=== PATIENT | female | born 1975 | race Caucasian/White ===

== ENCOUNTER 2020-11-27 21:53 | Emergency (ER) | payer MEDICAID, SELFPAY ==
[2020-11-27 22:23] VITALS: BP 112/44; PULSE 68; RESP 20; TEMP 36.8; O2SAT 97; BMI 40.4
[2020-11-27 23:31] LABS: Amphetamine Screen Urine Not Detected (Not Detect); Appearance Urine CLEAR; Barbiturates, Urine Not Detected (Not Detect); Benzodiazepines Screen Urine Not Detected (Not Detect); Cannabinoid Screen Urine Not Detected (Not Detect); Cocaine Screen Urine Not Detected (Not Detect); Color Urine YELLOW; Fentanyl, urine POSITIVE (Not Detect); Glucose Urine UA NEG (NEG); Leukocyte Esterase Urine NEG (NEG); Nitrite Urine NEG (NEG); Opiate Screen Urine Not Detected (Not Detect); Phencyclidine Screen Urine Not Detected (Not Detect); Specific Gravity - Urine <= 1.005 (1.005-1.025); Urine Blood NEG (NEG); Urine Ketones NEG (NEG); Urine Protein NEG (NEG-TRACE)
--- NOTE | 2020-11-28 00:08 | ED_ITS ---
HPI - Medical Clearance General Chief complaint: Medical Clearance Stated complaint: Medical Clearance Time Seen by Provider: 11/28/20 00:08 Source: patient Mode of arrival: ambulatory Limitations: no limitations History of Present Illness HPI Narrative: States lead medical screening/drug screening before she could return to program. Offers no medical complaints. MD complaint: medical clearance requested Place: home Alleged Intoxication: No Compliant with Home Medications: No Associated Symptoms: denies other symptoms Treatments Prior to Arrival: none Related Information Allergies Allergy/AdvReac Type Severity Reaction Status Date / Time clozapine [CLOZAPINE] Allergy Unknown UNKNOWN Unverified 11/18/19 17:55 olanzapine [From ZYPREXA] Allergy Unknown UNKNOWN Unverified 11/18/19 17:55 shellfish derived Allergy Unknown UNKNOWN Unverified 11/18/19 17:55 [SHELLFISH DERIVED] Review of Systems Review of Systems: Constitutional: No Weight loss, No Fever, No Chills, No Night Sweats, No Fatigue, No Malaise ENT/Mouth: No Hearing loss, No Ear Pain, No Nasal Congestion, No Sinus Pain, No Hoarseness, No sore throat, No Rhinorrhea, No Swallowing Difficulty Eyes: No Eye Pain, No Swelling, No Redness, No Foreign Body, No Discharge, No Vision Changes Cardiovascular: No Chest Pain, No SOB, No Dyspnea on Exertion, No Orthopnea, No Edema, No Palpitations Respiratory: No Cough, No Sputum, No Wheezing, No Smoke Exposure, No Dyspnea Gastrointestinal: No Nausea, No Vomiting, No Diarrhea, No Constipation, No abdominal Pain, No Hematochezia, No Melena Genitourinary: no irregular bleeding, No Dysuria, No Urinary Frequency, No Hematuria, No Urinary Incontinence, No Urgency, No Flank Pain, No Urinary Flow C hanges, No Hesitancy Musculoskeletal: No joint pain, No Myalgias, No Joint Swelling Skin: No Skin Lesions, No rash Neuro: No Weakness, No Numbness, No Paresthesias, No Loss of Consciousness, No Dizziness, No Headache Psych: No Social Issues Heme/Lymph: No Bruising, No Bleeding,No Lymphadenopathy Endocrine: No Polyuria, No Polydipsia, No Temperature Intolerance Yes all other systems are reviewed and are negative PMFSH Social History Social History Advance Directives: No Advance Directives Information Provided: No Patient : No Physical Exam Vital Signs: Vital Signs: Last Vital Signs Temp 98.3 F 11/27/20 22:23 Pulse 68 11/27/20 22:23 Resp 20 11/27/20 22:23 BP 112/44 L 11/27/20 22:23 Pulse Ox 97 11/27/20 22:23 Body Mass Index 40.4 Const: General: cooperative and healthy appearing; No acute distress or intoxicated appearing Nutritional Appearance: average body habitus Orientation/consciousness: patient oriented x3 HENMT: Head: Yes normal to inspection Ears: hearing grossly normal bilaterally Eyes: General: appearance normal, both eyes and all related structures Vi sual Bronson: normal visual bronson by confrontation Neck: Neck: Yes normal visual inspection, No positive Brudzinski's sign, No positive Kernig's sign and No tender Thyroid: Thyroid normal Chest: Chest palpation & inspection: normal inspection of the chest Resp: Effort & Inspection: normal respiratory effort Cardio: Jugular venous distension: no JVD GI: Inspection: Yes normal to inspection Percussion: Yes normal to percussion Auscultation: normal bowel sounds : General: Yes no CVA tenderness Back/Spine/Pelvis: Back: no CVA tenderness Skin: General skin exam: no rashes or lesions noted Neuro: General: patient oriented x3 Extrem: General: Yes normal to inspection Course Reevaluation(s) Reevaluation #1: Vital stable, offers no medical complaints. U tox and cleared for program. MDM - Medical Clearance Lab Data Labs: Lab Results 11/27/20 11/27/20 Range/Units 23:13 23:13 Urine Color YELLOW Urine Appearance CLEAR Urine pH 6.0 (5.0-8.0) Ur Specific [place] <= 1.005 (1.005-1.025) Urine Protein NEG (NEG-TRACE) MG/DL Urine Glucose (UA) NEG (NEG) MG/DL Urine Ketones NEG (NEG) MG/DL Urine Blood NEG (NEG) Urine Nitrite NEG (NEG) Ur Leukocyte Esterase NEG (NEG) Urine Opiates Screen Not Detected (Not Detect) Urine Fentanyl Screen POSITIVE H (Not Detect) Ur Barbiturates Screen Not Detected (Not Detect) Ur Phencyclidine Scrn Not Detected (Not Detect) Ur Amphetamines Screen Not Detected (Not Detect) U Benzodiazepines Scrn Not Detected (Not Detect) Urine Cocaine Screen Not Detected (Not Detect) U Marijuana (THC) Screen Not Detected (Not Detect) Discharge Plan Discharge Clinical Impression: Substance abuse, Encounter for medical screening examination Patient Disposition: Home, Self-Care Referrals: Valerie White MD [Primary Care Provider] - 2 days
== END 2020-11-28 00:36 | disposition home or self-care (01) ==
PROVIDERS: Emergency Provider Emergency Medicine; PCP Internal Medicine
DX: F11.10 Opioid abuse, uncomplicated (principal); Z02.89 Encounter for other administrative examinations; Z79.899 Other long term (current) drug therapy
CPT/HCPCS: 80307; 81003; 99284

== ENCOUNTER 2021-11-29 20:22 | Emergency (ER) | payer MEDICAID, SELFPAY ==
--- NOTE | ~2021-11-29 | XR_ITS ---
EXAMINATION: XR HIP, RIGHT CLINICAL INFORMATION: Right hip pain COMPARISON: None TECHNIQUE: Two views of the right hip. FINDINGS: Bones and soft tissues are normal. No fracture. Alignment is anatomic. Hip joint space is maintained. XR/XR hip RT w PEL1V IMPRESSION: Normal right hip.
[2021-11-29 20:38] VITALS: BP 125/60; PULSE 90; O2SAT 97
[2021-11-29 20:43] VITALS: PULSE 75; RESP 16; TEMP 36.8; O2SAT 97; BMI 45.1
--- NOTE | 2021-11-29 20:47 | ED.GENADULT ---
HPI - General Adult General Chief complaint: Medical Clearance Stated complaint: Detox Time Seen by Provider: 11/29/21 20:39 Source: patient and EMS Limitations: no limitations History of Present Illness HPI narrative: patient comes to the emergency room via EMS. According to EMS, patient needs detox clearance to return to her long-term. Patient recently relapsed. Patient comes from a dual diagnosis facility. patient complaining sciatica and right hip pain. denies urinary/ fecal incontinence/ retention Related Data Allergies Allergy/AdvReac Type Severity Reaction Status Date / Time clozapine [CLOZAPINE] Allergy Unknown UNKNOWN Unverified 11/18/19 17:55 olanzapine [From ZYPREXA] Allergy Unknown UNKNOWN Unverified 11/18/19 17:55 shellfish derived Allergy Unknown UNKNOWN Unverified 11/18/19 17:55 [SHELLFISH DERIVED] Review of Systems Review of Systems: Constitutional : No Weight loss, No Fever, No Chills, No Night Sweats, No Fatigue, Complaining of generalized ENT/Mouth : No Hearing loss, No Ear Pain, No Nasal Congestion, No Sinus Pain, No Hoarseness, No sore throat, No Rhinorrhea, No Swallowing Difficulty Eyes: No Eye Pain, No Swelling, No Redness, No Foreign Body, No Discharge, No Vision Changes Cardiovascular : No Chest Pain, No SOB, No Dyspnea on Exertion, No Orthopnea, No Edema, No Palpitations Respiratory : No Cough, No Sputum, No Wheezing, No Smoke Exposure, No Dyspnea Gastrointestinal : No Nausea, No Vomiting, No Diarrhea, No Constipation, No abdominal Pain, No Hematochezia, No Melena Genitourinary : no irregular bleeding, No Dysuria, No Urinary Frequency, No Hematuria, No Urinary Incontinence, No Urgency, No Flank Pain, No Urinary Flow Changes, No Hesitancy Musculoskeletal : complaining of right hip pain and sciatica, No Myalgias, No Joint Swelling Skin : No Skin Lesions, No rash Neuro : No Weakness, No Numbness, No Paresthesias, No Loss of Consciousness, No Dizziness, No Headache Psych : Needs medical clearance to return to her dual diagnosis facility Heme/Lymph: No Bruising, No Bleeding,No Lymphadenopathy Endocrine : No Polyuria, No Polydipsia, No Temperature Intolerance PMFSH Past Medical History Medical History (Updated 11/29/21 @ 22:12 by Marina Irving MD) Substance abuse Physical Exam ED Vital Signs: Vital Signs - 24 hr 11/29/21 20:43 11/29/21 21:48 Temperature 98.2 F 98.5 F Pulse Rate 75 77 Respiratory Rate 16 16 Blood Pressure 104/41 L Pulse Oximetry 97 97 Oxygen Delivery Method Room Air Room Air BMI result Body Mass Index 45.1 Const Other: Appearance: Alert. Oriented X3. No acute distress. Eyes: Pupils equal, round and reactive to light. ENT: Pharynx normal. Neck: Normal inspection. Neck supple. No lymph nodes noted. No crepitus CVS: Normal heart rate and rhythm. Pulses normal. Normal S1 and S2 Respiratory: No respiratory distress. Breath sounds normal. No Wheezing. No rales Abdomen: Soft and nontender. No rigidity. No distention. Skin: Skin warm and dry. Normal skin color. Normal skin turgor. Extremities: No lower extremity edema. No Lacerations. No Rash Neuro: Oriented X 3. No motor deficit. No sensory deficit. Moving all extremities. No slurred speech. CN 2 through 12 grossly intact Psych: calm, cooperative, seems intoxicated/high Course Course Course Narrative: patient complaining of generalized weakness, all of patient's labs are pending. labs have been reviewed. Urine toxicology pending. The assistant field hockey coach evaluated the patient. Patient will be discharged on November 30, tomorrow at 07:30am. The care team will provide a lift to [facility] detox in [facility]. patient is not on a Section 12. Physician observation started at 22:12 Medical Decision Making Lab Data Result diagrams: 11/29/21 21:30 11/29/21 21:30 Labs: Lab Results 11/29/21 11/29/21 11/29/21 Range/Units 21:21 21:30 21:30 WBC 11.8 H (4.8-10.8) X10*3/uL RBC 3.86 L (4.20-5.50) X10*6/uL Hgb 11.1 L (12.0-16.0) g/dl Hct 35.0 L (37.0-47.0) % MCV 90.7 (80.0-98.0) fL MCH 28.8 (27.0-33.0) pg MCHC 31.7 (31.0-35.0) g/dl RDW 16.5 H (11.0-16.0) % Plt Count 137 L (160-400) X10*3/uL MPV 8.9 L (9.4-12.3) fL Immature Gran % (Auto) 0.3 (0.0-0.4) % Neut % (Auto) 68.1 (45-73) % Lymph % (Auto) 21.1 (20-40) % [place] % (Auto) 9.8 (2-11) % Eos % (Auto) 0.4 (0-4) % Baso % (Auto) 0.3 (0-2) % Lymph # (Auto) 2.5 (1.2-4.9) X10*3/uL [place] # (Auto) 1.2 (0.1-1.2) X10*3/uL Eos # (Auto) 0.1 (0.0-0.4) X10*3/uL Baso # (Auto) 0.0 (0.0-0.2) X10*3/uL Abs Immat Gran (auto) 0.04 H (0.00-0.03) X10*3/uL Absolute Neuts (auto) 8.0 (2.0-8.3) x10*3/uL Absolute Nucleated RBC 0.000 (0.0-0.012) X10*3/uL Nucleated RBC % (auto) 0.0 (0.0-0.2) /100WBC Sodium 138 (135-145) mmol/L Potassium 4.1 (3.3-5.1) mmol/L Chloride 101 (96-108) mmol/L Carbon Dioxide 27 (22-29) mmol/L Anion Gap 14 (12-20) BUN 30 H (9-16) mg/dL Creatinine 0.81 (0.5-1.4) mg/dL Estim Creat Clear Calc 98.7 Estimated GFR > 60 Random Glucose 89 (60-115) mg/dL Calcium 9.0 (8.4-10.2) mg/dL Magnesium 1.9 (1.6-2.6) mg/dL Total Bilirubin 0.2 (0.0-1.0) mg/dL Direct Bilirubin < 0.2 (0.0-0.5) mg/dL AST 45 H (5-31) U/L ALT 19 (0-31) U/L Alkaline Phosphatase 83 (39-117) U/L Total Protein 7.7 (6.5-8.0) g/dL Albumin 4.1 (3.5-5.0) g/dL Ethyl Alcohol < 10 mg/dL COVID-19 (PAIGE) Negative (Negative) COVID-19 Clin Com See Note Discharge Plan Discharge Clinical Impression: Substance abuse Patient Disposition: Still a Patient Instructions: Polysubstance Abuse (ED) Additional Instructions: Please follow-up with your primary care physician tomorrow. If you have any worsening or new symptoms, please return to the emergency room or call 911
[2021-11-29 21:37] LABS: MANUAL DIFF FLAG NO
[2021-11-29 21:40] LABS: Basophils Percent Auto 0.3 % (0-2); Eosinophils Absolute Auto 0.1 X10*3/uL (0.0-0.4); Eosinophils Percent Auto 0.4 % (0-4); Hemoglobin 11.1 g/dl (12.0-16.0); Imm Gran Abs Auto 0.04 X10*3/uL (0.00-0.03); Imm Gran Pct Auto 0.3 % (0.0-0.4); Lymphocytes Absolute Auto 2.5 X10*3/uL (1.2-4.9); Lymphocytes Percent Auto 21.1 % (20-40); Mean Corpuscular HGB Conc 31.7 g/dl (31.0-35.0); Mean Corpuscular Hemoglobin 28.8 pg (27.0-33.0); Mean Corpuscular Volume 90.7 fL (80.0-98.0); Mean Platelet Volume 8.9 fL (9.4-12.3); Monocytes Absolute Auto 1.2 X10*3/uL (0.1-1.2); Monocytes Percent Auto 9.8 % (2-11); Neutrophils Percent Auto 68.1 % (45-73); Platelet Count 137 X10*3/uL (160-400); Red Blood Count 3.86 X10*6/uL (4.20-5.50); Red Cell Distribution Width 16.5 % (11.0-16.0); White Blood Count 11.8 X10*3/uL (4.8-10.8)
[2021-11-29 21:41] LABS: COVID-19 Test Negative (Negative)
--- NOTE | 2021-11-29 21:42 | MHC.RECOVSUP ---
? Reason for consult:ETOH o? Current location:[facility]14? o? Identified substance use concern:? -? Seeking ATS (detox) -? Support ? Intervention: o? ATS bed search started/completed/in process o? Harm reduction discussion ? Plan: o? Bed search in progress to o? Follow up tomorrow? ? Additional information:[facility] contacted [facility], they said beds are available, we can send pt there, agreed to keep pt overnight until morning. Care Team follow up w/ [facility]? ethan FUNK for pt? Thank you!
[2021-11-29 21:48] VITALS: BP 104/41; PULSE 77; RESP 16; TEMP 36.9; O2SAT 97
--- NOTE | 2021-11-29 21:49 | PC.NURSE ---
PATIENT BELONGINGS IS IN DECON.,PATIENT HAD A HAM SANDWICH AND APPLE JUICE
[2021-11-29 21:58] LABS: Alanine Aminotransferase 19 U/L (0-31); Albumin Level 4.1 g/dL (3.5-5.0); Alkaline Phosphatase 83 U/L (39-117); Anion Gap 14 (12-20); Aspartate Amino Transferase 45 U/L (5-31); Bilirubin Direct < 0.2 mg/dL (0.0-0.5); Bilirubin Total 0.2 mg/dL (0.0-1.0); Blood Urea Nitrogen 30 mg/dL (9-16); Carbon Dioxide 27 mmol/L (22-29); Chloride 101 mmol/L (96-108); Creatinine Clr Calc Pharmacy 98.7; Estimated Glomerular Filt Rate > 60; Ethanol < 10 mg/dL; Glucose Random 89 mg/dL (60-115); Magnesium 1.9 mg/dL (1.6-2.6); Potassium 4.1 mmol/L (3.3-5.1); Sodium 138 mmol/L (135-145); Total Protein 7.7 g/dL (6.5-8.0)
[2021-11-30] VITALS: BP 110/55; PULSE 84; RESP 16; TEMP 36.8; O2SAT 96
--- NOTE | 2021-11-30 01:38 | PC.NURSE ---
Repot received and care assumed at 2300. Pt noted to be resting comfortably in stretcher with eyes closed, respirations even and unlabored without distress noted. Call olivera is in reach and RN will continue to monitor. Staff aware of need for Urine sample and will obtain at the pt's next void.
[2021-11-30 02:00] VITALS: BP 108/56; PULSE 78; RESP 16; TEMP 36.7; O2SAT 97
--- OUTSIDE RECORDS SUMMARY | 2021-11-30 05:51 | XMS_ITS | Continuity of Care Document ---
:1975 Author Organization [facility] Address [address] [place] [address]- Care Team Providers Name Role Phone Not on Staff, PCP Primary Care Physician Unavailable Encounter [facility] Date(s): 07/20/21 - 07/21/21 [facility] [address] [place] [id number] Encounter Diagnosis Drug intoxication (Final) - 07/20/21 Discharge Disposition: A-D/C Home Attending Physician: Kristopher Ridley MD, Melyssa Admitting Physician: Kristopher Ridley MD, Melyssa Referring Physician: Not on Staff, Referring MD Allergies, Adverse Reactions, Alerts Substance Reaction Severity Status cloZAPine Active shellfish Unknown body region Active Clozaril Unknown body region Active ZyPREXA Unknown body region Active Immunizations Given and Recorded Vaccine Date Status Refusal Reason tetanus/diphtheria/pertussis, acel(Tdap) 10/18/14 Given pneumococcal 23-valent vaccine1 01/31/09 Given Not Given Vaccine Date Status Refusal Reason influenza virus vaccine, inactivated 12/26/20 Not Given Patient Refuses influenza virus vaccine, inactivated 12/06/20 Not Given Patient Refuses influenza virus vaccine, inactivated 01/24/14 Not Given Patient Refuses SARS-CoV-2 (COVID-19) Ad26 vaccine 09/20/20 Not Given Patient Refuses 1Result Comment: Lot #[id number]. Medications acetaminophen 325 mg oral tablet 650 mg, By Mouth, Every 4 hours, PRN, Temperature Greater than 100.5, Refills 0, Maintenance, Pain ,Mild, 12/06/20 16:09:00 EDT, Partial fill upon patient request if the prescription is for a scheduleII opioid drug. Start Date: 12/06/20 Status: OrderedAcetaminophen Tablet 650 mg, Tablet, By Mouth, Every 8 hours, PRN for Pain , Moderate, STAT, 07/21/21 0:23:00 EDT Start Date: 07/21/21 Stop Date: 07/22/21 Status: DiscontinuedAdvair Diskus 500 mcg-50 mcg inhalation powder Refills 0, Maintenance, 07/21/21 6:10:00 EDT Start Date: 07/21/21 Status: Orderedbenztropine 0.5 mg oral tablet 0.5 mg, 1, tablet, By Mouth, 2 times a day, # 60 tablet, Refills 0, Tot. Refills 0, Maintenance, 02/28/20 15:07:00 EST, Route to Pharmacy Electronically, [facility]/pharmacy #[id number], Partial fill upon patient request if the prescription is for a schedule II op... Start Date: 02/28/20 Stop Date: 03/29/20 Status: OrderedbusPIRone 15 mg oral tablet 2 tablet = 30 mg, By Mouth, Daily in AM, 0 Refills, Maintenance, 12/03/20 11:38:00 EDT, Partial fillupon patient request if the prescription is for a schedule II opioid drug. Start Date: 12/03/20 Status: OrdereddiphenhydrAMINE 50 mg oral tablet 1 tablet = 50 mg, By Mouth, Daily at bedtime, PRN for insomnia, # 30 tablet, 0 Refills, Maintenance,12/03/20 11:50:00 EDT, Tablet, Partial fill upon patient request if the prescription is for a schedule II opioid drug. Start Date: 12/03/20 Status: Ordereddivalproex sodium 500 mg oral tablet, extended release 2 tablet = 1,000 mg, By Mouth, Daily at bedtime, # 20 tablet, 0 Refills, Maintenance, 02/08/20 11:47:00 EST, ER Tablet, [facility]/pharmacy #[id number], Partial fill upon patient request if the prescription is for a schedule II opioid drug., 158, cm, 02/08/20 7:52... Start Date: 02/08/20 Stop Date: 02/18/20 Status: OrderedFish Oil 1000 mg oral capsule 1 capsule = 1,000 mg, By Mouth, 2 times a day, 0 Refills, Maintenance, 12/03/20 11:51:00 EDT, Capsule, Partial fill upon patient request if the prescription is for a schedule II opioid drug. Start Date: 12/03/20 Status: Orderedfluticasone-salmeterol 500 mcg-50 mcg inhalation powder 1, inhalation, Inhalation, 2 times a day, rinse mouth and throat after use, Refills 0, Maintenance, 12/03/20 11:41:00 EDT, Powder Start Date: 12/03/20 Status: Orderedibuprofen 800 mg oral tablet Refills 0, Maintenance, 07/21/21 6:10:00 EDT, Partial fill upon patient request if the prescription is for a schedule II opioid drug. Start Date: 07/21/21 Status: Orderedlevothyroxine 75 mcg (0.075 mg) oral tablet = 75 mcg, By Mouth, Daily, # 10 tablet, 0 Refills, Maintenance, 02/08/20 11:48:00 EST, Tablet, [facility]/pharmacy #[id number], Partial fill upon patient request if the prescription is for a schedule II opioid drug., 158, cm, 02/08/20 7:52:00 EST, Height, 97.3, kg... Start Date: 02/08/20 Stop Date: 02/18/20 Status: Orderedlisinopril 5 mg oral tablet 5 mg, 1, tablet, By Mouth, Daily, # 30 tablet, Refills 1, Tot. Refills 1, Maintenance, 09/27/20 8:17:00 EDT, Print Requisition, Partial fill upon patient request if the prescription is for a schedule II opioid drug. Start Date: 09/27/20 Stop Date: 11/26/20 Status: Orderedmethadone 10 mg oral tablet 3 tablet = 30 mg, By Mouth, Daily in AM, 0 Refills, Maintenance, 12/29/20 13:01:00 EDT, Tablet, Partial fill upon patient request if the prescription is for a schedule II opioid drug. Start Date: 12/29/20 Status: OrderedMiraLax Powder 1 pack/packet = 17 Gm, By Mouth, Daily, PRN Constipation, 0 Refills, Maintenance, 12/06/20 16:09:00 EDT, Powder, Partial fill upon patient request if the prescription is for a schedule II opioid drug. Start Date: 12/06/20 Status: OrderedNarcan 4 mg/0.1 mL nasal spray 0 Refills, Maintenance, 07/21/21 6:07:00 EDT, Partial fill upon patient request if the prescription is for a schedule II opioid drug. Start Date: 07/21/21 Status: Orderednicotine 14 mg/24 hr transdermal film, extended release 1 patch, Topically, Daily, # 30 patch, 0 Refills, Maintenance, 12/03/20 11:49:00 EDT, Patch, Partialfill upon patient request if the prescription is for a schedule II opioid drug. Start Date: 12/03/20 Status: Orderednicotine 4 mg oral transmucosal gum 0 Refills, Maintenance, 07/21/21 6:07:00 EDT, Partial fill upon patient request if the prescription is for a schedule II opioid drug. Start Date: 07/21/21 Status: Orderednicotine 4 mg oral transmucosal gum 0 Refills, Maintenance, 07/21/21 6:10:00 EDT, Partial fill upon patient request if the prescription is for a schedule II opioid drug. Start Date: 07/21/21 Status: Orderedpaliperidone 234 mg/1.5 mL intramuscular suspension, extended release = 234 mg, Intramuscular, Every 28 days, 0 Refills, Maintenance, 12/03/20 11:47:00 EDT, Partial fill upon patient request if the prescription is for a schedule II opioid drug. Start Date: 12/03/20 Status: OrderedpredniSONE 10 mg oral tablet 0 Refills, Maintenance, 07/21/21 6:10:00 EDT, Partial fill upon patient request if the prescription is for a schedule II opioid drug. Start Date: 07/21/21 Status: OrderedProAir HFA 2 puffs, Inhalation, Every 4 hours, 0 Refills, Maintenance, 12/03/20 11:36:00 EDT, Partial fill uponpatient request if the prescription is for a schedule II opioid drug. Start Date: 12/03/20 Status: Orderedpropranolol 20 mg oral tablet 20 mg, 1, tablet, By Mouth, Every 6 hours, # 90 tablet, Refills 0, Maintenance, 12/03/20 11:49:00 EDT, Partial fill upon patient request if the prescription is for a schedule II opioid drug. Start Date: 12/03/20 Status: OrderedrisperiDONE 1 mg oral tablet 1 mg, 1, tablet, By Mouth, Daily, Refills 0, Maintenance, 07/21/21 6:07:00 EDT, Partial fill upon patient request if the prescription is for a schedule II opioid drug. Start Date: 07/21/21 Status: OrderedtraZODone 50 mg oral tablet 50 mg, 1, tablet, By Mouth, Daily at bedtime, PRN, # 30 tablet, Refills 0, Tot. Refills 0, Maintenance, Insomnia, 09/27/20 8:18:00 EDT, Print Requisition, Partial fill upon patient request if the prescription is for a schedule II opioid drug. Start Date: 09/27/20 Stop Date: 10/27/20 Status: Ordered Problem List Condition Effective Dates Status Health Status Informant Cannabis abuse(Confirmed) Active Cocaine abuse(Confirmed) Active Hx of gastroesophageal reflux Active (GERD)(Confirmed) Nicotine dependence(Confirmed) Active Polysubstance abuse(Confirmed) Active Schizoaffective disorder(Confirmed) Active Schizophrenia(Confirmed) Active Hepatitis C(Confirmed) Active Results Radiology Reports Exam Date Time Procedure Performing Provider Status 07/20/21 3:37 PM XR Hip w/Pelvis 1 View Right Bein , Ailyn; Aut h (Verified) Notes:(XR Hip w/Pelvis 1 View Right) Reason For Exam: PainRESULT: XR Hip w/Pelvis 1 View Right XR Hip w/Pelvis 1 View Right HX OF PRESENT ILLNESS: Pt BIBA c o need for detox. On ast states did 1 bag of heroin 1h [employer]. Very fidgety and restless with visible runny nose. C o chest discomfort. Answers Qs intermittently.; Reason:Pain; Clinical Question(s): Fracture COMPARISON: 12/24/2020. FINDINGS: There is no fracture or dislocation. Normal hips and sacroiliac joints. Large volume of stool in the colon. IMPRESSION: Normal appearance of the right hip. WSN: [id number] Ordering Physician: Loren Ayala Dictated By: Henry Dan MD Dictated Date/Time: 07/20/21 3:43 pm Reviewed By: Henry Dan MD Signed By: Henry Dan MD Signed Date/Time: 07/20/21 3:43 pm Transcribed By: ROWENA Transcribed Date/Time: 07/20/21 3:42 pm Exam Date Time Procedure Performing Provider Status 07/20/21 3:37 PM Chest Single Frontal View Bein , Ailyn; Auth ( Verified) Notes:(Chest Single Frontal View) Reason For Exam: Shortness of Breath, Fever;Other:RESULT: Chest Single Frontal View Chest Single Frontal View HX OF PRESENT ILLNESS: Pt BIBA c o need for detox. On ast states did 1 bag of heroin 1h [employer]. Very fidgety and restless with visible runny nose. C o chest discomfort. Answers Qs intermittently.; Reason:Shortness of Breath, Fever; Clinical Question(s): Pneumonia / Pneumonia COMPARISON: 12/12/2020 FINDINGS: LINES AND TUBES: None. LUNGS AND PLEURA: Clear lungs. Normal pulmonary vascularity. No pleural effusion. No pneumothorax. HEART, MEDIASTINUM AND GINGER: Heart appears enlarged but this is likely exaggerated by technique. Normal mediastinal and hilar contour. BONES AND SOFT TISSUES: No acute abnormality. IMPRESSION: No evidence of acute abnormality. WSN: [id number] Ordering Physician: Loren Ayala Dictated By: Henry Dan MD Dictated Date/Time: 07/20/21 3:41 pm Reviewed By: Henry Dan MD Signed By: Henry Dan MD Signed Date/Time: 07/20/21 3:41 pm Transcribed By: ROWENA Transcribed Date/Time: 07/20/21 3:41 pm Vital Signs Most recent to oldest 1 2 3 [Reference Range]: Oxygen Saturation [94-100 %] 95 % 95 % 97 % (07/21/21 2:19 PM) (07/21/21 6:45 AM) (07/21/21 2:0 4 AM) Pulse Rate [55-90 bpm] 70 bpm 63 bpm 69 bpm (07/21/21 2:19 PM) (07/21/21 6:45 AM) (07/21/21 2:0 4 AM) Blood Pressure [90-138/55-84 138/70 mm Hg 140/87 mm Hg 143 /79 mm Hg mm Hg] (07/21/21 2:19 PM) *H* *H* (07/21/21 6:45 AM) (07/21/21 2:04 AM) Respiratory Rate [16-30 18 br/min 17 br/min 15 br/mi n br/min] (07/21/21 2:19 PM) (07/21/21 6:45 AM) *L* (07/21/21 5:36 AM ) Temperature [96.8-100.4 DegF] 98.1 DegF 98.7 DegF 98 .4 DegF (07/21/21 6:45 AM) (07/21/21 2:04 AM) (07/20/21 11: 49 PM) Mode of Delivery (Oxygen) Room air Room air Room a ir (07/21/21 2:19 PM) (07/21/21 6:45 AM) (07/21/21 2:0 4 AM) Blood pressure sites Arm, left Arm, left Arm, left (07/21/21 2:19 PM) (07/21/21 6:45 AM) (07/21/21 2:0 4 AM) Temperature Route Oral Oral Oral (07/21/21 6:45 AM) (07/21/21 2:04 AM) (07/20/21 11: 49 PM) Social History Social History Type Response Smoking Status 10 or more cigarettes (1/2 p ack or more)/day in last 30 days; Type: Cigarettes; Other: Reports 1 ppd; entered on: 02/26/20 Sex
--- OUTSIDE RECORDS SUMMARY | 2021-11-30 05:51 | XMS_ITS | Continuity of Care Document ---
:1975 Author Organization [facility] Address [address] [place] [address]- Care Team Providers Name Role Phone Not on Staff, PCP Primary Care Physician Unavailable [place] [facility] [place] 01/03/[address] [address]- [facility] Discharge Disposition: A-D/C Walkout Attending Physician: Not on Staff, Attending MD Admitting Physician: Not on Staff, Admitting MD Referring Physician: Not on Staff, Referring MD Allergies, Adverse Reactions, Alerts Substance Reaction Severity Status shellfish Active cloZAPine Active ZyPREXA Active Immunizations Given and Recorded Vaccine Date Status Refusal Reason tetanus/diphtheria/pertussis, acel(Tdap) 10/18/14 Given pneumococcal 23-valent vaccine1 01/31/09 Given Not Given Vaccine Date Status Refusal Reason influenza virus vaccine, inactivated 01/24/14 Not Given Patient Refuses 1Result Comment: Lot #[id number]. Medications Arnuity Ellipta 100 mcg Inhaler Arnuity Ellipta 100 mcg Inhaler, See Instructions, # 1 each, Refills 5, Tot. Refills 5, Maintenance,Use 2 puffs daily ( for asthma ), 12/17/19 9:23:00 EDT, Supply, 157, cm, 12/17/19 8:44:00 EDT, Height, 101.5, kg, 12/10/19 7:13:00 EDT, Dry Weight Start Date: 12/17/19 Status: Orderedbenztropine 0.5 mg oral tablet 0.5 mg, 1, tablet, By Mouth, 2 times a day, for side effects from antipsychotic, # 60 tablet, Refills 1, Tot. Refills 1, Maintenance, 12/17/19 9:23:00 EDT, Route to Pharmacy Electronically, [facility], Please deliver medicatio... Start Date: 12/17/19 Status: OrderedbusPIRone 15 mg oral tablet 1 tablet = 15 mg, By Mouth, 4 times a day, for anxiety, # 120 tablet, 1 Refills, Maintenance, 12/17/19 9:24:00 EDT, Tablet, [facility], Deliver meds to [facility], 157, cm, 12/17/19 8:44:00 EDT, Height, 101.5, kg... Start Date: 12/17/19 Status: OrderedcloNIDine 0.1 mg oral tablet 0.1 mg, 1, tablet, By Mouth, 3 times a day, for anxiety, # 90 tablet, Refills 1, Tot. Refills 1, Maintenance, 12/17/19 9:24:00 EDT, Route to Pharmacy Electronically, [facility], deliver med to [facility], 157, cm... Start Date: 12/17/19 Status: OrdereddiphenhydrAMINE 50 mg oral tablet 1 tablet = 50 mg, By Mouth, 2 times a day, PRN for allergy symptoms, # 60 tablet, 0 Refills, Maintenance, 12/17/19 9:31:00 EDT, Tablet, [facility], 157, cm, 12/17/19 8:44:00 EDT, Height, 101.5, kg, 12/10/19 7:13:00 EDT, Dry We... Start Date: 12/17/19 Status: Ordereddivalproex sodium 500 mg oral tablet, extended release 2 tablet = 1,000 mg, By Mouth, Daily at bedtime, mood stabilizer, # 60 tablet, 1 Refills, Maintenance, 12/17/19 9:24:00 EDT, ER Tablet, [facility], Deliver meds to [facility], 157, cm, 12/17/19 8:44:00 EDT, Heigh... Start Date: 12/17/19 Status: OrderedfluPHENAZine 2.5 mg oral tablet 1 tablet = 2.5 mg, By Mouth, 2 times a day, for psychosis, # 60 tablet, 1 Refills, Maintenance, 12/17/19 9:24:00 EDT, Tablet, [facility], deliver med to [facility], 157, cm, 12/17/19 8:44:00 EDT, Height, 101.5, k... Start Date: 12/17/19 Status: Orderedibuprofen 400 mg oral tablet 400 mg, 1, tablet, By Mouth, Every 4 hours, PRN, # 60 tablet, Refills 0, Tot. Refills 0, Maintenance, Pain , Severe, 12/17/19 9:24:00 EDT, Route to Pharmacy Electronically, [facility], deliver med to [facility],... Start Date: 12/17/19 Status: Orderedlevothyroxine 75 mcg (0.075 mg) oral tablet 1 tablet = 75 mcg, By Mouth, Daily, for hypothyroidism, # 30 tablet, 1 Refills, Maintenance, 12/17/19 9:24:00 EDT, Tablet, [facility], deliver med to [facility], 157, cm, 12/17/19 8:44:00 EDT, Height, 101.5, kg,... Start Date: 12/17/19 Status: Orderedmethadone 10 mg oral tablet 1 tablet = 10 mg, By Mouth, Daily, 0 Refills, Maintenance, 12/17/19 9:25:00 EDT, Tablet, Partial fill upon patient request Start Date: 12/17/19 Status: OrderedNicoderm C-Q Clear 21 mg/24 hr transdermal film, extended release 1 patch, Topically, Daily, for nicotine withdrawal, # 30 patch, 1 Refills, Maintenance, 12/17/19 9:25:00 EDT, Patch, [facility], 157, cm, 12/17/19 8:44:00 EDT, Height, 101.5, kg, 12/10/19 7:13:00 EDT, Dry Weight Start Date: 12/17/19 Status: Orderedpaliperidone 234 mg/1.5 mL intramuscular suspension, extended release = 234 mg, Intramuscular, Every 28 days, Next dose to be given on 01/07/20, # 1 each, 1 Refills, Maintenance, 12/17/19 9:23:00 EDT, [facility], 157, cm, 12/17/19 8:44:00 EDT, Height, 101.5, kg, 12/10/19 7:13:00 EDT, Dry Weight Start Date: 12/17/19 Status: Orderedpropranolol 20 mg oral tablet 20 mg, 1, tablet, By Mouth, 2 times a day, PRN, # 60 tablet, Refills 1, Tot. Refills 1, Maintenance,Anxiety, 12/17/19 9:25:00 EDT, Route to Pharmacy Electronically, [facility], deliver meds to [facility], 157, c... Start Date: 12/17/19 Status: OrderedrisperiDONE 1 mg oral tablet 1 mg, 1, tablet, By Mouth, 2 times a day, d/c after 7 days, # 14 tablet, Refills 0, Tot. Refills 0, Maintenance, 12/17/19 9:26:00 EDT, Route to Pharmacy Electronically, [facility], 157, cm, 12/17/19 8:44:00 EDT, Height, 101.5,... Start Date: 12/17/19 Stop Date: 12/24/19 Status: Orderedsertraline 100 mg oral tablet 1.5 tablet = 150 mg, By Mouth, Daily, # 45 tablet, 0 Refills, Maintenance, 12/17/19 9:30:00 EDT, Tablet, [facility], 157, cm, 12/17/19 8:44:00 EDT, Height, 101.5, kg, 12/10/19 7:13:00 EDT, Dry Weight Start Date: 12/17/19 Status: Ordered Problem List Condition Effective Dates Status Health Status Informant Cannabis abuse(Confirmed) Active Cocaine abuse(Confirmed) Active Hx of gastroesophageal reflux Active (GERD)(Confirmed) Nicotine dependence(Confirmed) Active Schizoaffective disorder(Confirmed) Active Hepatitis C(Confirmed) Active Vital Signs Most recent to oldest 1 2 3 [Reference Range]: Oxygen Saturation [94-100 %] 95 % 92 % 99 % (01/03/20 1:50 AM) *L* (01/03/20 12:36 AM) (01/03/20 1:45 AM) Pulse Rate [55-90 bpm] 59 bpm 50 bpm 69 bpm (01/03/20 1:50 AM) *L* (01/03/20 12:36 AM) (01/03/20 1:45 AM) Blood Pressure [90-138/55-84 124/74 mm Hg 132/79 mm Hg 135 /82 mm Hg mm Hg] (01/03/20 1:45 AM) (01/03/20 12:36 AM) (01/02/20 10 :48 PM) Respiratory Rate [16-30 16 br/min 14 br/min 16 br/mi n br/min] (01/03/20 1:50 AM) *L* (01/03/20 12:36 AM) (01/03/20 1:45 AM) Temperature [96.8-100.4 DegF] 98.2 DegF 98.3 DegF 98 .3 DegF (01/03/20 1:45 AM) (01/03/20 12:36 AM) (01/02/20 10 :48 PM) Mode of Delivery (Oxygen) Room air Room air Room a ir (01/03/20 1:50 AM) (01/03/20 1:45 AM) (01/03/20 12: 36 AM) Blood pressure sites Arm, right Arm, right Arm, right (01/03/20 1:45 AM) (01/03/20 12:36 AM) (01/02/20 10 :48 PM) Temperature Route Oral Oral Oral (01/03/20 1:45 AM) (01/03/20 12:36 AM) (01/02/20 10 :48 PM) Social History Social History Type Response Smoking Status Current every day smoker; To bacco user in household: Yes; Type: Cigarettes; Previous treatment: None; Other: Pt denies smoking when asked this evening; entered on: 04/24/14 Sex
--- OUTSIDE RECORDS SUMMARY | 2021-11-30 05:51 | XMS_ITS | Continuity of Care Document ---
:1975 Author Organization [facility] Address [address] [place] [address]- Care Team Providers Name Role Phone Not on Staff, PCP Primary Care Physician Unavailable Encounter [facility] [place] Date(s): 03/07/19 - 03/08/19 [facility] [address] [place] [address]- [facility] Discharge Disposition: A-D/C Walkout Attending Physician: Not [...] Patient Refuses 1Result Comment: Lot #[id number]. Medications benztropine 0.5 mg oral tablet 0.5 mg, 1, tablet, By Mouth, 2 times a day, # 60 tablet, Refills 0, Tot. Refills 0, Maintenance, 02/15/19 9:32:59 EST, Route to Pharmacy Electronically, [facility], 155, cm, 02/14/19 19:59:10EST, Height, 80, kg, 02/06/19 4:58:29 EST, Dry We... Start Date: 02/15/19 Status: OrderedbusPIRone 10 mg oral tablet 20 mg, 2, tablet, By Mouth, 2 times a day, # 60 tablet, Refills 0, Tot. Refills 0, Maintenance, 02/15/19 9:33:10 EST, Route to Pharmacy Electronically, [facility], 155, cm, 02/14/19 19:59:10 EST, Height, 80, kg, 02/06/19 4:58:29 EST, Dry Weight Start Date: 02/15/19 Status: OrderedbusPIRone 10 mg oral tablet 10 mg, 1, tablet, By Mouth, Every 6 hours, PRN, # 120 tablet, Refills 0, Tot. Refills 0, Maintenance, Anxiety, 02/15/19 9:33:14 EST, Route to Pharmacy Electronically, [facility], 155, cm, 02/14/19 19:59:10 EST, Height, 80, kg, 02/06/19 4:58:... Start Date: 02/15/19 Status: OrderedCamila 0.35 mg oral tablet 1 tablet = 0.35 mg, By Mouth, Daily, TAKE 1 TABLET BY MOUTH EVERY DAY, # 60 tablet, 1 Refills, Maintenance, 02/15/19 14:32:21 EST, Tablet, [facility], 155, cm, 02/15/19 9:41:22 EST, Height, 80, kg, 02/06/19 4:58:29 EST, Dry Weight Start Date: 02/15/19 Status: OrderedCiclesonide 80 Mcg/Inh Inhalation Aerosol 1 puffs, Inhalation, 2 times a day, # 6.1 Gm, 0 Refills, Maintenance, 02/08/19 15:27:30 EST, Aerosol Start Date: 02/08/19 Status: OrdereddiphenhydrAMINE 25 mg oral tablet 2 tablet = 50 mg, By Mouth, 2 times a day, PRN Anxiety, # 60 tablet, 0 Refills, Maintenance, 02/15/19 9:34:29 EST, Tablet, [facility], 155, cm, 02/14/19 19:59:10 EST, Height, 80, kg, 194:58:29 EST, Dry Weight Start Date: 02/15/19 Status: Ordereddivalproex sodium 500 mg oral tablet, extended release 2 tablet = 1,000 mg, By Mouth, Daily at bedtime, # 60 tablet, 0 Refills, Maintenance, 02/15/19 9:34:48 EST, ER Tablet, [facility], 155, cm, 02/14/19 19:59:10 EST, Height, 80, kg, 02/06/19 4:58:29 EST, Dry Weight Start Date: 02/15/19 Status: Orderedferrous sulfate 325 mg oral enteric coated tablet 325 mg, By Mouth, 2 times a day, # 60 tablet, Refills 0, Tot. Refills 0, Maintenance, 02/15/19 9:35:02 EST, Route to Pharmacy Electronically, [facility], 155, cm, 02/14/19 19:59:10 EST, Height, 80, kg, 02/06/19 4:58:29 EST, Dry Weight Start Date: 02/15/19 Status: OrderedfluPHENAZine 5 mg oral tablet 2.5 mg, 0.5, tablet, By Mouth, 2 times a day, # 30 tablet, Refills 0, Tot. Refills 0, Maintenance, 02/15/19 9:35:46 EST, Route to Pharmacy Electronically, [facility], 155, cm, 02/14/19 19:59:10 EST, Height, 80, kg, 02/06/19 4:58:29 EST, Dry... Start Date: 02/15/19 Status: Orderedibuprofen 200 mg oral capsule 2 capsule = 400 mg, By Mouth, Every 4 hours, PRN for pain, # 120 capsule, 0 Refills, Maintenance, 02/08/19 15:28:22 EST, Capsule Start Date: 02/08/19 Status: OrderedInvega Sustenna 234 mg/1.5 mL intramuscular suspension, extended release = 234 mg, Intramuscular, Every 28 days, Next dose due 03/18/2019, # 1 each, 0 Refills, Maintenance, 02/15/19 14:33:13 EST, [facility], 155, cm, 02/15/19 9:41:22 EST, Height, 80, kg, 02/06/19 4:58:29 EST, Dry Weight Start Date: 02/15/19 Status: Orderedlevothyroxine 75 mcg (0.075 mg) oral tablet 1 tablet = 75 mcg, By Mouth, Daily, Before breakfast; wait one hour before eating or other meds, # 30 tablet, 0 Refills, Maintenance, 02/15/19 9:36:02 EST, Tablet, [facility], 155, cm, 02/14/19 19:59:10 EST, Height, 80, kg, 02/06/19 4:58:29... Start Date: 02/15/19 Status: Orderedmethadone 10 mg oral tablet 4 tablet = 40 mg, By Mouth, Daily, 0 Refills, Maintenance, 02/15/19 9:37:30 EST, Tablet, Partial fill upon patient request Start Date: 02/15/19 Status: OrderedMiraLax oral powder for reconstitution = 17 Gm, By Mouth, Daily, PRN Constipation, dissolve in water before taking, # 255 Gm, 0 Refills, Maintenance, 02/15/19 9:36:38 EST, Powder, [facility], 17 Gm By Mouth Daily,PRN:Constipation,Instr:dissolve in water before taking, 155, cm, 12... Start Date: 02/15/19 Status: Orderednicotine 21 mg/24 hr transdermal film, extended release 1 patch, Topically, Daily, # 30 patch, 0 Refills, Maintenance, 02/15/19 9:36:10 EST, Patch, [facility], 1 patch Topically Daily, 155, cm, 02/14/19 19:59:10 EST, Height, 80, kg, 02/06/19 4:58:29 EST, Dry Weight Start Date: 02/15/19 Status: Orderednicotine 4 mg oral transmucosal gum = 4 mg, Chew, Every 2 hours, PRN Other, Nicotine Withdrawal Symptoms (NOT to exceed nine pieces per day), # 96 each, 2 Refills, Maintenance, 02/15/19 9:36:14 EST, Gum, [facility], 155, cm, 02/14/19 19:59:10 EST, Height, 80, kg, 02/06/19 4:58... Start Date: 02/15/19 Status: Orderedpropranolol 20 mg oral tablet 20 mg, 1, tablet, By Mouth, 2 times a day, PRN, and for tremor, # 60 tablet, Refills 0, Tot. Refills0, Maintenance, Anxiety, 02/15/19 9:36:55 EST, Route to Pharmacy Electronically, [facility], 155, cm, 02/14/19 19:59:10 EST, Height, 80, kg,... Start Date: 02/15/19 Status: Orderedsertraline 100 mg oral tablet 1 tablet = 100 mg, By Mouth, Daily, # 30 tablet, 0 Refills, Maintenance, 02/15/19 9:37:21 EST, Tablet, [facility], 155, cm, 02/14/19 19:59:10 EST, Height, 80, kg, 02/06/19 4:58:29 EST, Dry Weight Start Date: 02/15/19 Status: Ordered Problem List Condition Effective Dates Status Health Status Informant Cannabis abuse(Confirmed) Active Cocaine abuse(Confirmed) Active Hx of gastroesophageal reflux Active (GERD)(Confirmed) Nicotine dependence(Confirmed) Active Schizoaffective disorder(Confirmed) Active Hepatitis C(Confirmed) Active Vital Signs Most recent to oldest [Reference 1 2 3 Range]: Oxygen Saturation [94-100 %] 98 % 96 % 100 % (03/08/19 4:04 AM) (03/08/19 1:13 AM) (03/07/19 11:18 PM) Pulse Rate [55-90 bpm] 68 bpm 69 bpm 74 bpm (03/08/19 4:04 AM) (03/08/19 1:13 AM) (03/07/19 11:18 PM) Blood Pressure [90-138/55-84 mm 102/67 mm Hg 112/58 mm Hg 110/69 mm Hg Hg] (03/08/19 4:04 AM) (03/08/19 1:13 AM) (03/07/19 11:18 PM) Respiratory Rate [16-30 br/min] 18 br/min 20 br/min 20 br/min (03/08/19 4:04 AM) (03/08/19 1:13 AM) (03/07/19 11:18 PM) Temperature [96.8-100.4 DegF] 97.5 DegF 97.9 DegF 98 .1 DegF (03/08/19 4:04 AM) (03/08/19 1:13 AM) (03/07/19 11:18 PM) Mode of Delivery (Oxygen) Room air Room air Room a ir (03/08/19 4:04 AM) (03/08/19 1:13 AM) (03/07/19 11:18 PM) Blood pressure sites Arm, right Arm, left Arm, left (03/08/19 4:04 AM) (03/08/19 1:13 AM) (03/07/19 11:18 PM) Temperature Route Oral Oral Oral (03/08/19 4:04 AM) (03/08/19 1:13 AM) (03/07/19 11:18 PM) Social History Social History Type Response Smoking Status Current every day smoker; To bacco user in household: Yes; Type: Cigarettes; Previous treatment: None; Other: Pt denies smoking when asked this evening; entered on: 04/24/14 Sex
--- OUTSIDE RECORDS SUMMARY | 2021-11-30 05:51 | XMS_ITS | Continuity of Care Document ---
:1975 Author Organization [facility] Address [address] [place] [address]- Care Team Providers Name Role Phone Not on Staff, PCP Primary Care Physician Unavailable Encounter [facility] [place] Date(s): 01/08/21 - 01/08/21 [facility] [address] [place] [address]- Discharge Disposition: A-D/C Home Attending Physician: Dianelys SUGGS, Argentina Hernandez Admitting Physician: Argentina Ivory MD Referring Physician: Not on Staff, Referring MD Allergies, Adverse Reactions, Alerts Substance Reaction Severity Status shellfish Unknown body region Active Clozaril Unknown body region Active cloZAPine Active ZyPREXA Unknown body region Active Immunizations [...] scheduleII opioid drug. Start Date: 12/06/20 Status: Orderedbenztropine 0.5 mg oral tablet 0.5 mg, 1, tablet, By Mouth, 2 times a day, # 60 tablet, Refills 0, Tot. Refills 0, Maintenance, 02/28/20 15:07:00 EST, Route to Pharmacy Electronically, [facility]/pharmacy #[id number], Partial fill upon patient request if the prescription is for a schedule II op... Start Date: 02/28/20 Stop Date: 03/29/20 Status: OrderedbusPIRone 15 mg oral tablet 2 tablet = 30 mg, By Mouth, Daily in AM, 0 Refills, Maintenance, 12/03/20 11:38:00 EDT, Partial fillupon patient request if the prescription is for a schedule II opioid drug. Start Date: 12/03/20 Status: OrderedbusPIRone 15 mg oral tablet 1 tablet = 15 mg, By Mouth, Daily, in afternoon, 0 Refills, Maintenance, 12/03/20 11:39:00 EDT, Partial fill upon patient request if [...] Refills, Maintenance, 02/08/20 11:47:00 EST, ER Tablet, [facility]/pharmacy #[id number], Partial fill upon patient request if [...] 11:41:00 EDT, Powder Start Date: 12/03/20 Status: Orderedlevothyroxine 75 mcg (0.075 mg) oral tablet = 75 mcg, By Mouth, Daily, # 10 tablet, 0 Refills, Maintenance, 02/08/20 11:48:00 EST, Tablet, [facility]pharmacy #[id number], Partial fill upon patient request if [...] II opioid drug. Start Date: 12/06/20 Status: Orderednicotine 14 mg/24 hr transdermal film, extended release 1 patch, Topically, Daily, # 30 patch, 0 Refills, Maintenance, 12/03/20 11:49:00 EDT, Patch, Partialfill upon patient request if the prescription is for a schedule II opioid drug. Start Date: 12/03/20 Status: Orderedpaliperidone 234 mg/1.5 mL intramuscular suspension, extended release = 234 mg, Intramuscular, Every 28 days, 0 Refills, Maintenance, 12/03/20 11:47:00 EDT, Partial fill upon patient request if the prescription is for a schedule II opioid drug. Start Date: 12/03/20 Status: OrderedProAir HFA 2 puffs, Inhalation, Every [...] II opioid drug. Start Date: 12/03/20 Status: OrderedtraZODone 50 mg oral tablet 50 [...] disorder(Confirmed) Active Schizophrenia(Confirmed) Active Hepatitis C(Confirmed) Active Vital Signs Most recent to oldest 1 2 3 [Reference Range]: Oxygen Saturation [94-100 %] 97 % 100 % 99 % (01/08/21 1:42 PM) (01/08/21 9:21 AM) (01/08/21 8:1 9 AM) Pulse Rate [55-90 bpm] 87 bpm 61 bpm 71 bpm (01/08/21 1:42 PM) (01/08/21 9:21 AM) (01/08/21 8:1 9 AM) Blood Pressure [90-138/55-84 151/66 mm Hg 155/74 mm Hg 170 /79 mm Hg mm Hg] *H* *H* *H* (01/08/21 1:42 PM) (01/08/21 1:00 PM) (01/08/21 12: 45 PM) Respiratory Rate [16-30 19 br/min 18 br/min 17 br/mi n br/min] (01/08/21 1:42 PM) (01/08/21 9:21 AM) (01/08/21 8:1 9 AM) Temperature [96.8-100.4 DegF] 98.9 DegF 98.4 DegF 97 .7 DegF (01/08/21 1:42 PM) (01/08/21 9:28 AM) (01/08/21 8:1 9 AM) Mode of Delivery (Oxygen) Room air Room air Room a ir (01/08/21 1:42 PM) (01/08/21 9:21 AM) (01/08/21 8:1 9 AM) Blood pressure sites Arm, right Arm, right Arm, left (01/08/21 1:42 PM) (01/08/21 9:21 AM) (01/08/21 8:1 9 AM) Temperature Route Oral Oral Oral (01/08/21 1:42 PM) (01/08/21 9:28 AM) (01/08/21 8:1 9 AM) Social History Social History Type Response Smoking Status 10 or more cigarettes (1/2 p ack or more)/day in last 30 days; Type: Cigarettes; Other: Reports 1 ppd; entered on: 02/26/20 Sex
--- OUTSIDE RECORDS SUMMARY | 2021-11-30 05:51 | XMS_ITS | Continuity of Care Document ---
:1975 Author Organization [facility] Address [address] [place] [address]- Care Team Providers Name Role Phone Not on Staff, PCP Primary Care Physician Unavailable Encounter [facility] [place] [facility] [place] Date(s): 08/07/21 - 08/10/21 [facility] [address] [place] [id number]- Encounter Diagnosis Opiate overdose (Final) - 08/08/21 Discharge Disposition: A-D/C Home Attending Physician: Néstor SUGGS, Lamar Russo Admitting Physician: Lamar Palm MD Referring Physician: Ortega Hamilton DO Allergies, Adverse Reactions, Alerts Substance Reaction Severity [...] scheduleII opioid drug. Start Date: 12/06/20 Status: OrderedAdvair Diskus 500 mcg-50 mcg inhalation powder Refills 0, Maintenance, 07/21/21 6:10:00 EDT Start Date: 07/21/21 Status: Orderedbenztropine 0.5 mg oral tablet 0.5 mg, 1, tablet, By Mouth, 2 times a day, # 60 tablet, Refills 0, Tot. Refills 0, Maintenance, 02/28/20 15:07:00 EST, Route to Pharmacy Electronically, [facility]/pharmacy #[id number], Partial fill upon patient request if [...] Refills, Maintenance, 02/08/20 11:47:00 EST, ER Tablet, [facility]/pharmacy #[id number], Partial fill upon patient request if [...] 0 Refills, Maintenance, 02/08/20 11:48:00 EST, Tablet, [facility]/pharmacy #[id number], Partial fill upon patient request if [...] II opioid drug. Start Date: 12/29/20 Status: Orderedmethadone 10 mg oral tablet 30 mg, Tablet, By Mouth, 08/10/21 9:00:00 EDT Start Date: 08/10/21 Stop Date: 08/10/21 Status: CompletedMiraLax Powder 1 pack/packet = 17 Gm, By [...] 3 [Reference Range]: Oxygen Saturation [94-100 %] 99 % 98 % 100 % (08/10/21 5:39 PM) (08/10/21 3:02 PM) (08/10/21 8:2 1 AM) Pulse Rate [55-90 bpm] 62 bpm 57 bpm 60 bpm (08/10/21 5:39 PM) (08/10/21 3:02 PM) (08/10/21 8:2 1 AM) Blood Pressure [90-138/55-84 mm 116/76 mm Hg 119/62 mm Hg 173/93 mm Hg Hg] (08/10/21 5:39 PM) (08/10/21 3:02 PM) *H* (08/10/21 8:21 AM ) Respiratory Rate [16-30 br/min] 18 br/min 16 br/min 15 br/min (08/10/21 5:39 PM) (08/10/21 3:02 PM) *L* (08/10/21 8:24 AM ) Temperature [96.8-100.4 DegF] 98.8 DegF 98.2 DegF 98 .2 DegF (08/10/21 5:39 PM) (08/10/21 3:02 PM) (08/10/21 8:2 1 AM) Mode of Delivery (Oxygen) Room air Room air Room a ir (08/10/21 5:39 PM) (08/10/21 3:02 PM) (08/10/21 8:2 1 AM) Blood pressure sites Arm, left Arm, left Arm, left (08/10/21 1:12 AM) (08/09/21 9:48 PM) (08/09/21 4:04 PM) Temperature Route Oral Oral Oral (08/10/21 5:39 PM) (08/10/21 3:02 PM) (08/10/21 8:2 1 AM) Social History Social History Type Response Smoking Status 10 or more cigarettes (1/2 p ack or more)/day in last 30 days; Type: Cigarettes; Other: Reports 1 ppd; entered on: 02/26/20 Sex
--- OUTSIDE RECORDS SUMMARY | 2021-11-30 05:51 | XMS_ITS | Continuity of Care Document ---
:1975 Author Organization [facility] Address [address] [place] [address]- Care Team Providers Name Role Phone Not on Staff, PCP Primary Care Physician Unavailable Encounter [facility] Date(s): 03/17/20 - 03/21/20 [facility] [address] [place] [id number] Encounter Diagnosis Opioid withdrawal (Final) - 03/17/20 Discharge Disposition: A-D/C Snf, Assisted, or Fdc Fac Attending Physician: Huang Friedman DO Admitting Physician: Camacho Samson MD Referring Physician: Not on Staff, Referring [...] 02/28/20 15:07:00 EST, Route to Pharmacy Electronically, [facility]/pharmacy #[id number], Partial fill upon patient request if the prescription is for a schedule II op... Start Date: 02/28/20 Stop Date: 03/29/20 Status: OrderedbusPIRone 10 mg oral tablet 10 mg, 1, tablet, By Mouth, 4 times a day, PRN, # 30 tablet, Refills 0, Tot. Refills 0, Maintenance,Anxiety, 02/08/20 11:45:00 EST, Route to Pharmacy Electronically, [facility]/pharmacy [id number], Partial fill upon patient request if the prescription is for a s... Start Date: 02/08/20 Status: OrderedcloNIDine 0.1 mg oral tablet 0.1 mg, 1, tablet, By Mouth, 3 times a day, PRN, # 30 tablet, Refills 0, Tot. Refills 0, Maintenance, Anxiety, 02/08/20 11:46:00 EST, Route to Pharmacy Electronically, [facility]/pharmacy #[id number], Partial fill upon patient request if the prescription is for a... Start Date: 02/08/20 Stop Date: 02/18/20 Status: Ordereddivalproex sodium 500 mg oral tablet, extended release 2 tablet = 1,000 mg, By Mouth, Daily at bedtime, # 20 tablet, 0 Refills, Maintenance, 02/08/20 11:47:00 EST, ER Tablet, [facility]/pharmacy #[id number], Partial fill upon patient request if the prescription is for a schedule II opioid drug., 158, cm, 02/08/20 7:52... Start Date: 02/08/20 Stop Date: 02/18/20 Status: OrderedfluPHENAZine 2.5 mg oral tablet 1 tablet = 2.5 mg, By Mouth, Every 12 hours, # 60 tablet, 0 Refills, Maintenance, 02/28/20 15:08:00 EST, Tablet, [facility]/pharmacy #[id number], Partial fill upon patient request if the prescription is for a schedule II opioid drug., 155, cm, 02/28/20 3:45:00 EST... Start Date: 02/28/20 Status: Orderedlevothyroxine 75 mcg (0.075 mg) oral tablet = 75 mcg, By Mouth, Daily, # 10 tablet, 0 Refills, Maintenance, 02/08/20 11:48:00 EST, Tablet, [facility]/pharmacy #[id number], Partial fill upon patient request if the prescription is for a schedule II opioid drug., 158, cm, 02/08/20 7:52:00 EST, Height, 97.3, kg... Start Date: 02/08/20 Stop Date: 02/18/20 Status: Orderedmethadone 5 mg oral tablet 35 mg, Tablet, By Mouth, Confirmed with Methadone clinic by ED, 03/21/20 9:00:00 EST Start Date: 03/21/20 Stop Date: 03/21/20 Status: Completednicotine 4 mg oral transmucosal gum = 4 mg, Chew, Every hour, PRN Other, Nicotine Withdrawal Symptoms (NOT to exceed 24 pieces per day),0 Refills, Maintenance, 03/21/20 11:02:00 EST, Gum, Partial fill upon patient request if the prescription is for a schedule II opioid drug. Start Date: 03/21/20 Status: OrderedNorvasc 5 mg oral tablet 2.5 mg, Tablet, By Mouth, 03/21/20 9:00:00 EST Start Date: 03/21/20 Stop Date: 03/21/20 Status: CompletedNorvasc 5 mg oral tablet 2.5 mg, 0.5, tablet, By Mouth, Daily, Refills 0, Maintenance, 03/21/20 11:02:00 EST, Partial fill upon patient request if the prescription is for a schedule II opioid drug. Start Date: 03/21/20 Status: OrderedRisperDAL 1 mg oral tablet 1 mg, 1, tablet, By Mouth, Daily at bedtime, # 30 tablet, Refills 0, Tot. Refills 0, Maintenance, 02/28/20 15:09:00 EST, Route to Pharmacy Electronically, [facility]/pharmacy #[id number], Partial fill upon patient request if the prescription is for a schedule II o... Start Date: 02/28/20 Status: Orderedsertraline 50 mg oral tablet 1 tablet = 50 mg, By Mouth, 2 times a day, 0 Refills, Maintenance, 03/21/20 11:02:00 EST, Tablet, Partial fill upon patient request if the prescription is for a schedule II opioid drug. Start Date: 03/21/20 Status: Ordered Problem List Condition Effective Dates Status Health Status Informant Cannabis abuse(Confirmed) Active Cocaine abuse(Confirmed) Active Hx of gastroesophageal reflux Active (GERD)(Confirmed) Nicotine dependence(Confirmed) Active Polysubstance abuse(Confirmed) Active Schizoaffective disorder(Confirmed) Active Schizophrenia(Confirmed) Active Hepatitis C(Confirmed) Active Results Radiology Reports Exam Date Time Procedure Performing Provider Status 03/17/20 9:26 AM Chest Portable Patricia Rivera; Salvador (Verified ) Notes:(Chest Portable) Reason For Exam: Shortness of BreathRESULT: Chest Portable Chest Portable Hx of Present Illness: Pt with hx of heroin use stating she is on methadone but has not taken in 3 days d t they transfered me but I dont know where .; Reason: Shortness of Breath; COMPARISON: March 10, 2020 FINDINGS: LINES AND TUBES: None. LUNGS AND PLEURA: Hazy opacity in the right lower lung may at least in part be artifactual, but subsegmental atelectasis is also considered. No focal pulmonary opacities.. Normal pulmonary vascularity. No pleural effusion. No pneumothorax. HEART, MEDIASTINUM AND GINGER: Heart is normal in size. Normal upper mediastinal and hilar contour. BONES AND SOFT TISSUES: No acute abnormality. IMPRESSION: No acute abnormality. WSN: [id number] Ordering Physician: Bakari Quiñones Dictated By: Ortega Nicholas MD Dictated Date/Time: 03/17/20 9:39 am Reviewed By: Ortega Nicholas MD Signed By: Ortega Nicholas MD Signed Date/Time: 03/17/20 9:39 am Transcribed By: ROWENA Transcribed Date/Time: 03/17/20 9:36 am Vital Signs Most recent to oldest 1 2 3 [Reference Range]: Height 157 cm 157 cm 157 cm (03/21/20 7:48 AM) (03/21/20 4:14 AM) (03/20/20 8:5 5 PM) Weight 93.5 kg 93.0 kg 93.2 kg (03/21/20 6:21 AM) (03/20/20 6:22 AM) (03/19/20 5:5 3 AM) Oxygen Saturation [94-100 %] 96 % 98 % 97 % (03/21/20 7:48 AM) (03/21/20 4:14 AM) (03/20/20 8:5 5 PM) Pulse Rate [55-90 bpm] 51 bpm 57 bpm 71 bpm *L* (03/21/20 4:14 AM) (03/20/20 8:55 PM) (03/21/20 7:48 AM) Body Mass Index [18.5-24.99] 37.41 *>HHI* (03/18/20 4:11 PM) Blood Pressure [90-138/55-84 mm 109/44 mm Hg 109/44 mm Hg 124/66 mm Hg Hg] (03/21/20 8:38 AM) (03/21/20 7:48 AM) (03/21/20 4:1 4 AM) Respiratory Rate [16-30 br/min] 18 br/min 18 br/min 18 br/min (03/21/20 7:48 AM) (03/21/20 6:40 AM) (03/21/20 5:4 0 AM) Temperature [96.8-100.4 DegF] 97.6 DegF 97.5 DegF 98 .7 DegF (03/21/20 7:48 AM) (03/21/20 4:14 AM) (03/20/20 8:5 5 PM) Mode of Delivery (Oxygen) Room air Room air Room a ir (03/21/20 7:48 AM) (03/21/20 4:14 AM) (03/20/20 8:5 5 PM) Blood pressure sites Arm, right Arm, right Arm, left (03/21/20 7:48 AM) (03/21/20 4:14 AM) (03/20/20 8:5 5 PM) Temperature Route Temporal Temporal Temporal (03/21/20 7:48 AM) (03/21/20 4:14 AM) (03/20/20 8:5 5 PM) Dry Weight 92.7 kg (03/18/20 4:11 PM) Weight Obtained Via Bed scale Bed scale Bed scale (03/21/20 6:21 AM) (03/20/20 6:22 AM) (03/19/20 5:5 3 AM) Social History Social History Type Response Smoking Status 10 or more cigarettes (1/2 p ack or more)/day in last 30 days; Type: Cigarettes; Other: Reports 1 ppd; entered on: 02/26/20 Sex Female
--- OUTSIDE RECORDS SUMMARY | 2021-11-30 05:51 | XMS_ITS | Continuity of Care Document ---
:1975 Author Organization [facility] Address [address] [place] [address]- Care Team Providers Name Role Phone Not on Staff, PCP Primary Care Physician Unavailable Encounter [facility] Date(s): 12/17/20 - 12/17/20 [facility] [address] [place] [address]- Discharge Disposition: A-Error Chart/Home (ED Only) Attending Physician: Not on Staff, Attending MD [...] Status Refusal Reason influenza virus vaccine, inactivated 12/06/20 Not Given [...] 02/28/20 15:07:00 EST, Route to Pharmacy Electronically, [facility]/pharmacy #[id number], Partial fill upon patient request [...] Refills, Maintenance, 02/08/20 11:47:00 EST, ER Tablet, [facility]/pharmacy #[id number], Partial fill upon patient request [...] 0 Refills, Maintenance, 02/08/20 11:48:00 EST, Tablet, [facility]/pharmacy #[id number], Partial fill upon patient request [...] 11/26/20 Status: Orderedmethadone 10 mg oral tablet 4 tablet = 40 mg, By Mouth, Daily, 0 Refills, Maintenance, 12/06/20 16:09:00 EDT, Tablet, Partial fill upon patient request if the prescription is for a schedule II opioid drug. Start Date: 12/06/20 Status: OrderedMiraLax Powder 1 pack/packet = 17 [...] disorder(Confirmed) Active Schizophrenia(Confirmed) Active Hepatitis C(Confirmed) Active Social History Social History Type Response Smoking Status 10 or more cigarettes (1/2 p ack or more)/day in last 30 days; Type: Cigarettes; Other: Reports 1 ppd; entered on: 02/26/20 Sex
--- OUTSIDE RECORDS SUMMARY | 2021-11-30 05:51 | XMS_ITS | Continuity of Care Document ---
:1975 Author Organization [facility] Address [address] [place] [address]- Care Team Providers Name Role Phone Not on Staff, PCP Primary Care Physician Unavailable Encounter [facility] Date(s): 02/24/20 - 02/28/20 [facility] [address] [place], [place] [address] Discharge Disposition: A-D/C Home Attending Physician: Constantin Patten MD Admitting Physician: Yann Douglas MD Referring Physician: Not on Staff, Referring MD Allergies, Adverse Reactions, Alerts Substance Reaction Severity Status shellfish Active cloZAPine Active ZyPREXA Active Medications benztropine 0.5 mg oral tablet 0.5 mg, 1, tablet, By Mouth, 2 times a day, # 60 tablet, Refills 0, Tot. Refills 0, Maintenance, 02/28/20 15:07:00 EST, Route to Pharmacy Electronically, [facility]/pharmacy #[id number], Partial fill upon patient request if the prescription is for a schedule II op... Start Date: 02/28/20 Stop Date: 03/29/20 Status: OrderedbusPIRone 10 mg oral tablet 10 mg, 1, tablet, By Mouth, 2 times a day, # 60 tablet, Refills 0, Tot. Refills 0, Maintenance, 02/28/20 15:08:00 EST, Route to Pharmacy Electronically, [facility]/pharmacy #[id number], Partial fill upon patient request if the prescription is for a schedule II opi... Start Date: 02/28/20 Status: Ordereddivalproex sodium 500 mg oral tablet, extended release 2 tablet = 1,000 mg, By Mouth, Daily, # 60 tablet, 0 Refills, Maintenance, 02/28/20 15:08:00 EST, ERTablet, [facility]/pharmacy #[id number], Partial fill upon patient request if the prescription is for a schedule II opioid drug., 155, cm, 02/28/20 3:45:00 EST, He... Start Date: 02/28/20 Status: OrderedfluPHENAZine 2.5 mg oral tablet 1 tablet = 2.5 mg, By Mouth, Every 12 hours, # 60 tablet, 0 Refills, Maintenance, 02/28/20 15:08:00 EST, Tablet, [facility]/pharmacy #[id number], Partial fill upon patient request if the prescription is for a schedule II opioid drug., 155, cm, 02/28/20 3:45:00 EST... Start Date: 02/28/20 Status: Orderedlevothyroxine 75 mcg (0.075 mg) oral tablet 1 tablet = 75 mcg, By Mouth, Daily, # 30 tablet, 0 Refills, Maintenance, 02/28/20 15:08:00 EST, Tablet, [facility]/pharmacy #[id number], Partial fill upon patient request if the prescription is for a schedule II opioid drug., 155, cm, 02/28/20 3:45:00 EST, Height,... Start Date: 02/28/20 Status: Orderedmethadone 10 mg oral tablet 10 mg, Tablet, By Mouth, 02/28/20 9:00:00 EST, Stop date 02/28/20 9:00:00 EST Start Date: 02/28/20 Stop Date: 02/28/20 Status: Completedmethadone 10 mg oral tablet 20 mg, Tablet, By Mouth, Once, Routine, 02/28/20 14:00:00 EST, Stop date 02/28/20 14:00:00 EST Start Date: 02/28/20 Stop Date: 02/28/20 Status: CompletedRisperDAL 1 mg oral tablet 1 mg, 1, tablet, By Mouth, Daily at bedtime, # 30 tablet, Refills 0, Tot. Refills 0, Maintenance, 02/28/20 15:09:00 EST, Route to Pharmacy Electronically, [facility]/pharmacy #[id number], Partial fill upon patient request if the prescription is for a schedule II o... Start Date: 02/28/20 Status: Orderedsertraline 50 mg oral tablet 2 tablet = 100 mg, By Mouth, Daily, # 60 tablet, 0 Refills, Maintenance, 02/28/20 15:08:00 EST, Tablet, [facility]/pharmacy #[id number], Partial fill upon patient request if the prescription is for a schedule II opioid drug., 155, cm, 02/28/20 3:45:00 EST, Height,... Start Date: 02/28/20 Status: Ordered Results Radiology Reports Exam Date Time Procedure Performing Provider Status 02/24/20 7:55 PM Chest Portable Elizabeth Casanova; Salvador (Kelly hinson) Notes:(Chest Portable) Reason For Exam: Shortness of BreathRESULT: Chest Portable Chest Portable Hx of Present Illness: lethargic, low o2 coming from [facility]; Reason: Shortness of Breath; Clinical Question(s): Pneumonia COMPARISON: None. FINDINGS: No acute cardiopulmonary process. IMPRESSION: No acute abnormality. Normal exam WSN: [id number] Ordering Physician: Brenda Finley Dictated By: Juan Carlos Jo MD Dictated Date/Time: 02/24/20 7:58 pm Reviewed By: Juan Carlos Jo MD Signed By: Juan Carlos Jo MD Signed Date/Time: 02/24/20 7:58 pm Transcribed By: ROWENA Transcribed Date/Time: 02/24/20 7:57 pm Vital Signs Most recent to oldest 1 2 3 [Reference Range]: Height 155 cm 155 cm 155 cm (02/28/20 3:45 AM) (02/27/20 8:58 PM) (02/27/20 1:49 PM) Weight 95 kg 92.5 kg 92.5 kg (02/28/20 3:45 AM) (02/26/20 2:46 AM) (02/25/20 9:25 PM) Oxygen Saturation [94-100 98 % 98 % 99 % %] (02/28/20 3:45 AM) (02/27/20 8:58 PM) (02/27/20 1:49 PM) Pulse Rate [55-90 bpm] 51 bpm 48 bpm 50 bpm *L* *L* *L* (02/28/20 3:45 AM) (02/27/20 8:58 PM) (02/27/20 1:49 PM) Body Mass Index 39.54 38.5 38.5 [18.5-24.99] *>HHI* *>HHI* *>HHI* (02/28/20 3:45 AM) (02/26/20 2:46 AM) (02/25/20 9:25 PM) Blood Pressure 125/57 mm Hg 135/71 mm Hg 105/47 mm Hg [90-138/55-84 mm Hg] (02/28/20 3:45 AM) (02/27/20 8:58 PM) (02/01 09/19 1:49 PM) Respiratory Rate [16-30 20 br/min 20 br/min 20 br/mi n br/min] (02/28/20 3:34 PM) (02/28/20 2:31 PM) (02/28/20 10:42 AM) Temperature [96.8-100.4 97.7 DegF 97.9 DegF 98.0 Deg F DegF] (02/28/20 3:45 AM) (02/27/20 8:58 PM) (02/27/20 1:49 PM) Liters per Minute 0 L/min 2 L/min 2 L/min (02/26/20 7:34 PM) (02/24/20 6:27 PM) (02/24/20 6:17 PM) Mode of Delivery (Oxygen) Room air Room air Room a ir (02/28/20 3:45 AM) (02/27/20 8:58 PM) (02/27/20 1:49 PM) Blood pressure sites Arm, right Arm, right Arm, right (02/28/20 3:45 AM) (02/27/20 8:58 PM) (02/27/20 1:49 PM) Temperature Route Oral Oral Oral (02/28/20 3:45 AM) (02/27/20 8:58 PM) (02/27/20 1:49 PM) Dry Weight 92.5 kg (02/25/20 9:20 PM) Weight Obtained Via Bed scale Bed scale Bed scale (02/28/20 3:45 AM) (02/26/20 2:46 AM) (02/25/20 9:25 PM) Social History Social History Type Response Smoking Status 10 or more cigarettes (1/2 p ack or more)/day in last 30 days; Type: Cigarettes; Other: Reports 1 ppd; entered on: 02/26/20 Sex
--- OUTSIDE RECORDS SUMMARY | 2021-11-30 05:51 | XMS_ITS | Continuity of Care Document ---
:1975 Author Organization [facility] Address [address] [place] [address]- Care Team Providers Name Role Phone Not on Staff, PCP Primary Care Physician Unavailable Encounter [facility] Date(s): 02/05/20 - 02/08/[address] [address] Encounter Diagnosis Suspected COVID-19 virus infection (Final) - 02/05/20 Discharge Disposition: A-D/C Home Attending Physician: Monique SUGGS, Torres Russo Admitting Physician: Torres Amaya MD Referring Physician: Not on Staff, Referring MD Allergies, Adverse Reactions, Alerts Substance Reaction Severity Status shellfish Active ZyPREXA Active cloZAPine Active Immunizations Given and Recorded Vaccine Date Status Refusal Reason tetanus/diphtheria/pertussis, acel(Tdap) 10/18/14 Given pneumococcal 23-valent vaccine1 01/31/09 Given Not Given Vaccine Date Status Refusal Reason influenza virus vaccine, inactivated 01/24/14 Not Given Patient Refuses 1Result Comment: Lot #[id number]. Medications benztropine 1 mg oral tablet 0.5 mg, 0.5, tablet, By Mouth, 2 times a day, # 10 tablet, Refills 0, Tot. Refills 0, Maintenance, 02/08/20 11:45:00 EST, Route to Pharmacy Electronically, [facility]/pharmacy #[id number], Partial fill upon patientrequest if the prescription is for a schedule II... Start Date: 02/08/20 Status: OrderedbusPIRone 10 mg oral tablet 10 mg, 1, tablet, By Mouth, 4 times a day, PRN, # 30 tablet, Refills 0, Tot. Refills 0, Maintenance,Anxiety, 02/08/20 11:45:00 EST, Route to Pharmacy Electronically, [facility]/pharmacy #[id number], Partial fill upon patient request if the prescription is for a s... Start Date: 02/08/20 Status: OrderedcloNIDine 0.1 mg oral tablet 0.1 mg, 1, tablet, By Mouth, 3 times a day, PRN, # 30 tablet, Refills 0, Tot. Refills 0, Maintenance, Anxiety, 02/08/20 11:46:00 EST, Route to Pharmacy Electronically, [facility]/pharmacy #[id number], Partial fill upon patient request if the prescription is for a... Start Date: 02/08/20 Stop Date: 02/18/20 Status: Ordereddivalproex sodium 500 mg oral tablet, extended release 2 tablet = 1,000 mg, By Mouth, Daily at bedtime, # 20 tablet, 0 Refills, Maintenance, 02/08/20 11:47:00 EST, ER Tablet, [facility]/pharmacy #[id number], Partial fill upon patient request if the prescription is for a schedule II opioid drug., 158, cm, 02/08/20 7:52... Start Date: 02/08/20 Stop Date: 02/18/20 Status: OrderedfluPHENAZine 5 mg oral tablet 2.5 mg, 0.5, tablet, By Mouth, 2 times a day, # 10 tablet, Refills 0, Tot. Refills 0, Maintenance, 02/08/20 11:47:00 EST, Route to Pharmacy Electronically, [facility]/pharmacy #[id number], Partial fill upon patientrequest if the prescription is for a schedule II... Start Date: 02/08/20 Stop Date: 02/18/20 Status: Orderedlevothyroxine 75 mcg (0.075 mg) oral tablet = 75 mcg, By Mouth, Daily, # 10 tablet, 0 Refills, Maintenance, 02/08/20 11:48:00 EST, Tablet, [facility]/pharmacy #[id number], Partial fill upon patient request if the prescription is for a schedule II opioid drug., 158, cm, 02/08/20 7:52:00 EST, Height, 97.3, kg... Start Date: 02/08/20 Stop Date: 02/18/20 Status: Orderedmelatonin 3 mg oral tablet 2 tablet = 6 mg, By Mouth, Daily at bedtime, PRN Sleep, for 10 days, # 20 tablet, 0 Refills, Acute 02/18/20 11:48:00 EST, 02/08/20 11:48:00 EST, Tablet, [facility]/pharmacy #[id number], Partial fill upon patient request if the prescription is for a schedule II opi... Start Date: 02/08/20 Stop Date: 02/18/20 Status: Orderedmethadone 10 mg oral tablet 10 mg, Tablet, By Mouth, 02/08/20 9:00:00 EST Start Date: 02/08/20 Stop Date: 02/08/20 Status: Completedpropranolol 20 mg oral tablet 20 mg, Tablet, By Mouth, 2 times a day, PRN for Anxiety, Routine, 02/08/20 0:09:00 EST Start Date: 02/08/20 Stop Date: 02/08/20 Status: DiscontinuedrisperiDONE 1 mg oral tablet 2 mg, 2, tablet, By Mouth, 2 times a day, # 40 tablet, Refills 0, Tot. Refills 0, Maintenance, 02/08/20 11:49:00 EST, Route to Pharmacy Electronically, [facility]/pharmacy #[id number], Partial fill upon patient request if the prescription is for a schedule II opio... Start Date: 02/08/20 Stop Date: 02/18/20 Status: Orderedsertraline 50 mg oral tablet 3 tablet = 150 mg, By Mouth, Daily, # 30 tablet, 0 Refills, Maintenance, 02/08/20 11:50:00 EST, Tablet, [facility]/pharmacy #[id number], Partial fill upon patient request if the prescription is for a schedule II opioid drug., 158, cm, 02/08/20 7:52:00 EST, Height,... Start Date: 02/08/20 Stop Date: 02/18/20 Status: Ordered Problem List Condition Effective Dates Status Health Status Informant Cannabis abuse(Confirmed) Active Cocaine abuse(Confirmed) Active Hx of gastroesophageal reflux Active (GERD)(Confirmed) Nicotine dependence(Confirmed) Active Polysubstance abuse(Confirmed) Active Schizoaffective disorder(Confirmed) Active Schizophrenia(Confirmed) Active Hepatitis C(Confirmed) Active Results Radiology Reports Exam Date Time Procedure Performing Provider Status 02/05/20 12:49 PM Chest Portable Linsey Trejo; Salvador (Nai pretty) Notes:(Chest Portable) Reason For Exam: Shortness of BreathRESULT: Chest Portable AP portable chest, INDICATION: Hx of Present Illness: [facility]- c o sob and dry cough x unknown time- very vague on timeframe- now si with no plan- hearing voices secondary to schzizophrenia- wantcalli castillo evaluated and placed back on her medication. Used one bag of heroin this morning; Reason: Shortness of Breath; Clinical Question(s): Pneumonia COMPARISON: 10/28/2019 FINDINGS: LINES AND TUBES: None LUNGS AND PLEURA AND MEDIASTINUM: There is no pneumothorax. Clear lungs without focal infiltrate. Normal size heart. IMPRESSION: No acute abnormality. WSN: [id number] Ordering Physician: Yadira Malloy Dictated By: Michelle Chaves MD Dictated Date/Time: 02/05/20 1:50 pm Reviewed By: Michelle Chaves MD Signed By: Michelle Chaves MD Signed Date/Time: 02/05/20 1:50 pm Transcribed By: ROWENA Transcribed Date/Time: 02/05/20 1:49 pm Vital Signs Most recent to oldest 1 2 3 [Reference Range]: Height 158 cm 158 cm (02/08/20 7:52 AM) (02/07/20 11:07 PM) Weight 97.3 kg (02/07/20 11:07 PM) Oxygen Saturation [94-100 %] 96 % 98 % 100 % (02/08/20 5:56 AM) (02/07/20 11:00 PM) (02/07/20 8: 23 PM) Pulse Rate [55-90 bpm] 66 bpm 60 bpm 61 bpm (02/08/20 12:11 PM) (02/08/20 7:52 AM) (02/08/20 5: 56 AM) Body Mass Index [18.5-24.99] 38.98 *>HHI* (02/07/20 11:07 PM) Blood Pressure [90-138/55-84 144/83 mm Hg 142/81 mm Hg 146 /59 mm Hg mm Hg] *H* *H* *H* (02/08/20 12:11 PM) (02/08/20 7:52 AM) (02/08/20 5: 56 AM) Respiratory Rate [16-30 16 br/min 18 br/min 18 br/mi n br/min] (02/08/20 7:44 AM) (02/08/20 6:44 AM) (02/08/20 5:5 6 AM) Temperature [96.8-100.4 97.5 DegF 98.2 DegF 97.8 Deg F DegF] (02/08/20 7:52 AM) (02/08/20 5:56 AM) (02/07/20 11: 00 PM) Mode of Delivery (Oxygen) Room air Room air Room a ir (02/08/20 5:56 AM) (02/07/20 11:00 PM) (02/07/20 8: 23 PM) Blood pressure sites Arm, right Arm, right Arm, right (02/08/20 7:52 AM) (02/08/20 5:56 AM) (02/07/20 11: 00 PM) Temperature Route Temporal Temporal Oral (02/08/20 5:56 AM) (02/07/20 11:00 PM) (02/07/20 8: 23 PM) Dry Weight 97.3 kg (02/07/20 11:07 PM) Social History Social History Type Response Smoking Status Current every day smoker; To bacco user in household: Yes; Type: Cigarettes; Previous treatment: None; Other: Pt denies smoking when asked this evening; entered on: 04/24/14 Sex Female
--- OUTSIDE RECORDS SUMMARY | 2021-11-30 05:51 | XMS_ITS | Continuity of Care Document ---
:1975 Author Organization [facility] Address [address] [place] [address]- Care Team Providers Name Role Phone Not on Staff, PCP Primary Care Physician Unavailable Encounter [facility] Date(s): 12/02/20 - 12/07/20 [facility] [address] [place], [place] [address] Encounter Diagnosis Back pain (Final) - 12/02/20 Rhabdomyolysis (Final) - 12/02/20 Polysubstance abuse (Final) - 12/02/20 Homelessness (Final) - 12/02/20 Discharge Disposition: A-D/C Home Attending Physician: Janey Hdez MD Admitting Physician: Selena Mendiola MD Referring Physician: Not on Staff, Referring [...] 02/28/20 15:07:00 EST, Route to Pharmacy Electronically, [facility]/pharmacy #[id number], Partial fill upon patient request if [...] Refills, Maintenance, 02/08/20 11:47:00 EST, ER Tablet, [facility]/pharmacy #[id number], Partial fill upon patient request if [...] 11:41:00 EDT, Powder Start Date: 12/03/20 Status: OrderedGabapentin 50 mg/ml Liquid 100 mg, Liquid, By Mouth, 12/07/20 9:00:00 EDT Start Date: 12/07/20 Stop Date: 12/07/20 Status: Completedlevothyroxine 75 mcg (0.075 mg) oral tablet = 75 mcg, By Mouth, Daily, # 10 tablet, 0 Refills, Maintenance, 02/08/20 11:48:00 EST, Tablet, [facility]/pharmacy #[id number], Partial fill upon patient request if the prescription is for a schedule II opioid drug., 158, cm, 02/08/20 7:52:00 EST, Height, 97.3, kg... Start Date: 02/08/20 Stop Date: 02/18/20 Status: Orderedlisinopril 5 mg oral tablet 5 mg, Tablet, By Mouth, 12/07/20 9:00:00 EDT Start Date: 12/07/20 Stop Date: 12/07/20 Status: Completedlisinopril 5 mg oral tablet 5 mg, 1, tablet, By Mouth, Daily, # 30 tablet, Refills 1, Tot. Refills 1, Maintenance, 09/27/20 8:17:00 EDT, Print Requisition, Partial fill upon patient request if the prescription is for a schedule II opioid drug. Start Date: 09/27/20 Stop Date: 11/26/20 Status: Orderedmethadone 10 mg oral tablet 40 mg, Tablet, By Mouth, 12/07/20 9:00:00 EDT Start Date: 12/07/20 Stop Date: 12/07/20 Status: Completedmethadone 10 mg oral tablet 4 tablet = [...] Orderedpropranolol 20 mg oral tablet 20 mg, Tablet, By Mouth, 12/07/20 2:00:00 EDT Start Date: 12/07/20 Stop Date: 12/07/20 Status: Completedpropranolol 20 mg oral tablet 20 mg, Tablet, By Mouth, 12/07/20 8:00:00 EDT Start Date: 12/07/20 Stop Date: 12/07/20 Status: Completedpropranolol 20 mg oral tablet 20 mg, 1, [...] Active Schizophrenia(Confirmed) Active Hepatitis C(Confirmed) Active Results Orders for Microbiology Reports Name Date Blood Culture 12/03/20 Blood Culture #2 12/03/20 Blood Culture 12/02/20 Microbiology Reports TEST:Blood Culture STATUS:Unauthenticated BODY SITE: SOURCE:Blood COLLECTED DATE/TIME:12/03/20 3:02 PMBlood Culture SPECIMEN DESCRIPTION : BLOOD NO SITE SPECIAL REQUESTS : NONE CULTURE : NO GROWTH 4 DAYS REPORT STATUS : PRELIMINARY REPORT TEST:Blood Culture, Second Order STATUS:Unauthenticated BODY SITE: SOURCE:Blood COLLECTED DATE/TIME:12/03/20 2:50 PMBlood Culture, Second Order SPECIMEN DESCRIPTION : BLOOD NO SITE SPECIAL REQUESTS : NONE CULTURE : NO GROWTH 4 DAYS REPORT STATUS : PRELIMINARY REPORT TEST:Blood Culture STATUS:Auth (Verified) BODY SITE: SOURCE:Blood COLLECTED DATE/TIME:12/02/20 4:16 AMBlood Culture SPECIMEN DESCRIPTION : BLOOD NOSITE SPECIAL REQUESTS : NONE CULTURE : NO GROWTH 5 DAYS. REPORT STATUS : FINAL 12/07/2020adiology Reports Exam Date Time Procedure Performing Provider Status 12/03/20 11:43 AM Chest 2 Views Frontal and Lat Woodard Anamaria; Auth (Verified) Notes:(Chest 2 Views Frontal and Lat) Reason For Exam: Shortness of Breath RESULT: Chest 2 Views Frontal and Lat Chest 2 Views Frontal and Lat Reason: Shortness of Breath; Clinical Question(s): Pneumonia COMPARISON: 07/14/2020 FINDINGS: LINES AND TUBES: None. LUNGS AND PLEURA: Clear lungs. Normal pulmonary vascularity. No pleural effusion. No pneumothorax. HEART, MEDIASTINUM AND GINGER: Mildly enlarged pericardial silhouette, similar to that seen previously. Normal upper mediastinal and hilar contour. BONES AND SOFT TISSUES: No acute abnormality. Mild calcific tendinopathy left shoulder. IMPRESSION: No acute abnormality. Mild cardiomegaly. WSN: [id number] Ordering Physician: Sameera Gannon Dictated By: Henry Maya MD Dictated Date/Time: 12/03/20 4:45 pm Reviewed By: Henry Maya MD Signed By: Henry Maya MD Signed Date/Time: 12/03/20 4:45 pm Transcribed By: ROWENA Transcribed Date/Time: 12/03/20 4:43 pm Vital Signs Most recent to oldest 1 2 3 [Reference Range]: Height 155 cm 155 cm 155 cm (12/07/20 5:05 AM) (12/06/20 4:27 PM) (12/06/20 4:5 4 AM) Weight 97.2 kg 100.2 kg (12/03/20 12:02 AM) (12/02/20 10:08 PM) Oxygen Saturation [94-100 100 % 99 % 99 % %] (12/07/20 5:05 AM) (12/06/20 4:27 PM) (12/06/20 4:5 4 AM) Pulse Rate [55-90 bpm] 53 bpm 49 bpm 56 bpm *L* *L* (12/07/20 3:08 AM ) (12/07/20 8:21 AM) (12/07/20 5:05 AM) Body Mass Index 40.46 41.71 [18.5-24.99] *>HHI* *>HHI* (12/03/20 12:02 AM) (12/02/20 10:08 PM) Blood Pressure 125/83 mm Hg 125/83 mm Hg 112/56 mm Hg [90-138/55-84 mm Hg] (12/07/20 8:22 AM) (12/07/20 8:21 AM) ( 5:05 AM) Respiratory Rate [16-30 16 br/min 16 br/min 12 br/mi n br/min] (12/07/20 9:00 AM) (12/07/20 8:21 AM) *L* (12/07/20 8:21 AM ) Temperature [96.8-100.4 98.3 DegF 98.2 DegF 98.2 Deg F DegF] (12/07/20 5:05 AM) (12/06/20 4:27 PM) (12/06/20 4:5 4 AM) Mode of Delivery (Oxygen) Room air Room air Room a ir (12/07/20 5:05 AM) (12/06/20 4:27 PM) (12/06/20 4:5 4 AM) Blood pressure sites Arm, right Arm, right Arm, right (12/07/20 5:05 AM) (12/06/20 4:27 PM) (12/06/20 4:5 4 AM) Temperature Route Oral Oral Oral (12/07/20 5:05 AM) (12/06/20 4:27 PM) (12/06/20 4:5 4 AM) Weight Obtained Via Patient/family stated Bed scale (12/03/20 12:02 AM) (12/02/20 10:08 PM) Social History Social History Type Response Smoking Status 10 or more cigarettes (1/2 p ack or more)/day in last 30 days; Type: Cigarettes; Other: Reports 1 ppd; entered on: 02/26/20 Sex Female
--- OUTSIDE RECORDS SUMMARY | 2021-11-30 05:51 | XMS_ITS | Continuity of Care Document ---
:1975 Author Organization [facility] Address [address] [place] [address]- Care Team Providers Name Role Phone Not on Staff, PCP Primary Care Physician Unavailable Encounter [facility] [place] Date(s): 08/31/20 - 08/31/20 [facility] [address] [place] [id number]- Discharge Disposition: A-D/C Walkout Attending Physician: Not [...] 02/28/20 15:07:00 EST, Route to Pharmacy Electronically, [facility]/pharmacy #[id number], Partial fill upon patient request if the prescription is for a schedule II op... Start Date: 02/28/20 Stop Date: 03/29/20 Status: OrderedbusPIRone 10 mg oral tablet 10 mg, 1, tablet, By Mouth, 4 times a day, PRN, # 30 tablet, Refills 0, Tot. Refills 0, Maintenance,Anxiety, 02/08/20 11:45:00 EST, Route to Pharmacy Electronically, [facility]/pharmacy #[id number], Partial fill upon patient request if the prescription is for a s... Start Date: 02/08/20 Status: OrderedcloNIDine 0.1 mg oral tablet 0.1 mg, 1, tablet, By Mouth, 3 times a day, PRN, # 30 tablet, Refills 0, Tot. Refills 0, Maintenance, Anxiety, 02/08/20 11:46:00 EST, [id number] Partial fill upon patient request if the prescription is for a... Start Date: 02/08/20 Stop Date: 02/18/20 Status: Ordereddivalproex sodium 500 mg oral tablet, extended release 2 tablet = 1,000 mg, By Mouth, Daily at bedtime, # 20 tablet, 0 Refills, Maintenance, 02/08/20 11:47:00 EST, ER Tablet[id number] Partial fill upon patient request if the prescription is for a schedule II opioid drug., 158, cm, 02/08/20 7:52... Start Date: 02/08/20 Stop Date: 02/18/20 Status: OrderedfluPHENAZine 2.5 mg oral tablet 1 tablet = 2.5 mg, By Mouth, Every 12 hours, # 60 tablet, 0 Refills, Maintenance, 02/28/20 15:08:00 EST, [id number] Partial fill upon patient request if the prescription is for a schedule II opioid drug., 155, cm, 02/28/20 3:45:00 EST... Start Date: 02/28/20 Status: Orderedlevothyroxine 75 mcg (0.075 mg) oral tablet = 75 mcg, By Mouth, Daily, # 10 tablet, 0 Refills, Maintenance, 02/08/20 11:48:00 EST, [id number] Partial fill upon patient request if the prescription is for a schedule II opioid drug., 158, cm, 02/08/20 7:52:00 EST, Height, 97.3, kg... Start Date: 02/08/20 Stop Date: 02/18/20 Status: Orderednicotine 4 mg oral transmucosal gum = 4 mg, Chew, Every hour, PRN Other, Nicotine Withdrawal Symptoms (NOT to exceed 24 pieces per day),0 Refills, Maintenance, 03/21/20 11:02:00 EST, Gum, Partial fill upon patient request if the prescription is for a schedule II opioid drug. Start Date: 03/21/20 Status: OrderedNorvasc 5 mg oral tablet 2.5 mg, 0.5, [...] 02/28/20 15:09:00 EST, Route to Pharmacy Electronically, [facility]/pharmacy #[id number], Partial fill upon patient request if the [...] Vital Signs Most recent to oldest [Reference Range]: 1 Oxygen Saturation [94-100 %] 99 % (08/31/20 12:37 AM) Pulse Rate [55-90 bpm] 72 bpm (08/31/20 12:37 AM) Blood Pressure [90-138/55-84 mm Hg] 191/99 mm Hg *H* (08/31/20 12:37 AM) Respiratory Rate [16-30 br/min] 18 br/min (08/31/20 12:37 AM) Temperature [96.8-100.4 DegF] 99.6 DegF (08/31/20 12:37 AM) Mode of Delivery (Oxygen) Room air (08/31/20 12:37 AM) Blood pressure sites Arm, left (08/31/20 12:37 AM) Temperature Route Oral (08/31/20 12:37 AM) Social History Social History Type Response Smoking Status 10 or more cigarettes (1/2 p ack or more)/day in last 30 days; Type: Cigarettes; Other: Reports 1 ppd; entered on: 02/26/20 Sex Female
--- OUTSIDE RECORDS SUMMARY | 2021-11-30 05:52 | XMS_ITS | Continuity of Care Document ---
:1975 Author Organization [facility] Address [address] [place] [address]- Care Team Providers Name Role Phone Not on Staff, PCP Primary Care Physician Unavailable Encounter [facility] [place] Date(s): 12/17/20 - 12/17/20 [facility] [address] [place] [address]- Discharge Disposition: A-D/C Home Attending Physician: Melissa SUGGS, Leatha Dougherty Admitting Physician: Leatha Torres MD Referring Physician: Not on Staff, Referring [...] 02/28/20 15:07:00 EST, Route to Pharmacy Electronically, [facility]/pharmacy #[id number], Partial fill upon patient request if the [...] Refills, Maintenance, 02/08/20 11:47:00 EST, ER Tablet, [facility]/pharmacy #[id number], Partial fill upon patient [...] 0 Refills, Maintenance, 02/08/20 11:48:00 EST, Tablet, [facility]/pharmacy #[id number], Partial fill upon patient request if the [...] 2 3 [Reference Range]: Oxygen Saturation [94-100 97 % 98 % 98 % %] (12/17/20 8:07 AM) (12/17/20 7:00 AM) (12/17/20 5:37 AM) Pulse Rate [55-90 bpm] 75 bpm 62 bpm 63 bpm (12/17/20 8:07 AM) (12/17/20 7:00 AM) (12/17/20 5:37 AM) Blood Pressure 152/75 mm Hg 128/77 mm Hg 129/73 mm Hg [90-138/55-84 mm Hg] *H* (12/17/20 7:00 AM) ( 1 5:37 AM) (12/17/20 8:07 AM) Respiratory Rate [16-30 18 br/min 18 br/min 16 br/mi n br/min] (12/17/20 8:07 AM) (12/17/20 7:00 AM) (12/17/20 5:37 AM) Temperature [96.8-100.4 99.0 DegF DegF] (12/17/20 12:38 AM) Liters per Minute 2 L/min 2 L/min 2 L/min (12/17/20 7:00 AM) (12/17/20 5:37 AM) (12/17/20 12:38 AM) Mode of Delivery (Oxygen) Room air Room air Nasal cannula (12/17/20 8:07 AM) (12/17/20 7:00 AM) (12/17/20 5:37 AM) Temperature Route Oral (12/17/20 12:38 AM) Social History Social History Type Response Smoking Status 10 or more cigarettes (1/2 p ack or more)/day in last 30 days; Type: Cigarettes; Other: Reports 1 ppd; entered on: 02/26/20 Sex
--- OUTSIDE RECORDS SUMMARY | 2021-11-30 05:52 | XMS_ITS | Continuity of Care Document ---
:1975 Author Organization [facility] Address [address] [place] [address]- Care Team Providers Name Role Phone Not on Staff, PCP Primary Care Physician Unavailable [place] [facility] [place](s[place] 12/24/20 - 12/29/20 [facility] [address] [place] [id number] Encounter Diagnosis Back pain (Final) - 12/24/20 Discharge Disposition: A-D/C AMA Attending Physician: Barbara De La Torre MD Admitting Physician: Pradip Farooq MD Referring Physician: Not on Staff, Referring MD Allergies, Adverse Reactions, Alerts Substance Reaction Severity Status cloZAPine Active ZyPREXA Unknown body region Active shellfish Unknown body region Active Clozaril Unknown body region Active Immunizations Given and [...] 02/28/20 15:07:00 EST, Route to Pharmacy Electronically, [facility]/pharmacy #[id number], Partial fill upon patient request if [...] II opioid drug. Start Date: 12/03/20 Status: OrderedDilaudid 2 mg oral tablet 2 mg, Tablet, By Mouth, Every 4 hours, PRN for Pain , Moderate, Routine, 12/24/20 20:40:00 EDT Start Date: 12/24/20 Stop Date: 12/29/20 Status: DiscontinueddiphenhydrAMINE 50 mg oral tablet 1 tablet = [...] Refills, Maintenance, 02/08/20 11:47:00 EST, ER Tablet, [facility]/pharmacy #[id number], Partial fill upon patient request if [...] 0 Refills, Maintenance, 02/08/20 11:48:00 EST, Tablet, [facility]/pharmacy #[id number], Partial fill upon patient request if the prescription is for a schedule II opioid drug., 158, cm, 02/08/20 7:52:00 EST, Height, 97.3, kg... Start Date: 02/08/20 Stop Date: 02/18/20 Status: Orderedlisinopril 5 mg oral tablet 5 mg, Tablet, By Mouth, 12/29/20 9:00:00 EDT Start Date: 12/29/20 Stop Date: 12/29/20 Status: Completedlisinopril 5 mg oral tablet 5 [...] oral tablet 30 mg, Tablet, By Mouth, plz check EKG and QTc before giving it, 12/29/20 9:00:00 EDT Start Date: 12/29/20 Stop Date: 12/29/20 Status: CompletedMiraLax Powder 1 pack/packet = 17 [...] oral tablet 20 mg, Tablet, By Mouth, 12/28/20 21:00:00 EDT Start Date: 12/28/20 Stop Date: 12/28/20 Status: Completedpropranolol 20 mg oral tablet 20 [...] for Microbiology Reports Name Date Blood Culture 12/24/20 Blood Culture #2 12/24/20 Microbiology Reports TEST:Blood Culture, Second Order STATUS:Unauthenticated BODY SITE: SOURCE:Blood COLLECTED DATE/TIME:12/24/20 10:52 AMBlood Culture, Second Order SPECIMEN DESCRIPTION : BLOOD RAC SPECIAL REQUESTS : NONE CULTURE : NO GROWTH 4 DAYS REPORT STATUS : PRELIMINARY REPORT TEST:Blood Culture STATUS:Unauthenticated BODY SITE: SOURCE:Blood COLLECTED DATE/TIME:12/24/20 10:15 AMBlood Culture SPECIMEN DESCRIPTION : BLOOD RAC SPECIAL REQUESTS : NONE CULTURE : NO GROWTH 4 DAYS REPORT STATUS : PRELIMINARY REPORT Radiology Reports Exam Date Time Procedure Performing Provider Status 12/24/20 10:40 AM XR Hip w/Pelvis 2-3 View Right Levi Daniels; Auth (Verified) Notes:(XR Hip w/Pelvis 2-3 View Right) Reason For Exam: PainRESULT: XR Hip w/Pelvis 2-3 View Right XR Hip w/Pelvis 2-3 View Right Reason: Pain; Clinical Question(s): Fracture COMPARISON: None. FINDINGS: There is no fracture or dislocation. Normal hips and sacroiliac joints. Normal soft tissues. IMPRESSION: No acute hip or pelvic bone fracture. WSN: [id number] Ordering Physician: Liborio Jones V Dictated By: Comfort Sawyer MD Dictated Date/Time: 12/24/20 11:25 a Reviewed By: Comfort Sawyer MD Signed By: Comfort Sawyer MD Signed Date/Time: 12/24/20 11:25 am Transcribed By: ROWENA Transcribed Date/Time: 12/24/20 11:24 am Vital Signs Most recent to oldest 1 2 3 [Reference Range]: Height 155 cm 155 cm 155 cm (12/29/20 5:07 AM) (12/28/20 8:39 PM) (12/27/20 7:47 PM) Weight 97.1 kg 97 kg 97 kg (12/25/20 3:41 PM) (12/25/20 8:09 AM) (12/25/20 3:31 AM) Oxygen Saturation [94-100 98 % 99 % 99 % %] (12/29/20 5:07 AM) (12/28/20 8:39 PM) (12/28/20 5:00 AM) Pulse Rate [55-90 bpm] 80 bpm 55 bpm 61 bpm (12/29/20 5:07 AM) (12/29/20 4:00 AM) (12/28/20 9:34 PM) Body Mass Index 40.42 40.37 40.37 [18.5-24.99] *>HHI* *>HHI* *>HHI* (12/25/20 3:41 PM) (12/25/20 8:09 AM) (12/25/20 3:31 AM) Blood Pressure 120/73 mm Hg 115/62 mm Hg 101/47 mm Hg [90-138/55-84 mm Hg] (12/29/20 8:49 AM) (12/29/20 5:07 AM) (12/02 11/21 4:00 AM) Respiratory Rate [16-30 16 br/min 19 br/min 16 br/mi n br/min] (12/29/20 8:48 AM) (12/29/20 6:10 AM) (12/29/20 5:36 AM) Temperature [96.8-100.4 97.6 DegF 98.2 DegF 98.4 Deg F DegF] (12/29/20 5:07 AM) (12/28/20 8:39 PM) (12/28/20 5:00 AM) Mode of Delivery (Oxygen) Room air Room air Room a ir (12/29/20 5:07 AM) (12/28/20 8:39 PM) (12/28/20 5:00 AM) Blood pressure sites Arm, left Arm, left Arm, left (12/29/20 5:07 AM) (12/28/20 8:39 PM) (12/28/20 5:00 AM) Temperature Route Oral Oral Oral (12/29/20 5:07 AM) (12/28/20 8:39 PM) (12/28/20 5:00 AM) Dry Weight 97.1 kg 97 kg 97 kg (12/25/20 3:41 PM) (12/25/20 8:09 AM) (12/25/20 3:31 AM) Weight Obtained Via Patient/family stated (12/25/20 3:41 PM) Dry Weight Obtained Via Patient/family stated (12/25/20 3:41 PM) Social History Social History Type Response Smoking Status 10 or more cigarettes (1/2 p ack or more)/day in last 30 days; Type: Cigarettes; Other: Reports 1 ppd; entered on: 02/26/20 Sex
--- OUTSIDE RECORDS SUMMARY | 2021-11-30 05:52 | XMS_ITS | Continuity of Care Document ---
:1975 Author Organization [facility] Address [address] [place] [address]- Care Team Providers Name Role Phone Not on Staff, PCP Primary Care Physician Unavailable Encounter [facility] [place] Date(s): 12/12/20 - 12/13/20 [facility] [address] [place] [address]- Encounter Diagnosis Altered mental status (Final) - 12/12/20 Opioid overdose (Final) - 12/12/20 Discharge Disposition: A-D/C AMA Attending Physician: Samina Segura MD Admitting Physician: Luz Maria SUGGS, Babita Referring Physician: Not on Staff, Referring MD [...] 02/28/20 15:07:00 EST, Route to Pharmacy Electronically, [facility]/pharmacy #[id number], Partial fill upon patient request [...] Refills, Maintenance, 02/08/20 11:47:00 EST, ER Tablet, [facility]/pharmacy #[id number], Partial fill upon patient request [...] 0 Refills, Maintenance, 02/08/20 11:48:00 EST, Tablet, [facility]/pharmacy #[id number], Partial fill upon patient request if the prescription is for a schedule II opioid drug., 158, cm, 02/08/20 7:52:00 EST, Height, 97.3, kg... Start Date: 02/08/20 Stop Date: 02/18/20 Status: Orderedlisinopril 5 mg oral tablet 5 mg, Tablet, By Mouth, 12/13/20 9:00:00 EDT Start Date: 12/13/20 Stop Date: 12/13/20 Status: Completedlisinopril 5 mg oral tablet 5 [...] II opioid drug. Start Date: 12/06/20 Status: OrderedMethadone Liquid 30 mg, Solution, By Mouth, Once, STAT, 12/13/20 10:51:00 EDT, Stop date 12/13/20 10:51:00 EDT Start Date: 12/13/20 Stop Date: 12/13/20 Status: CompletedMiraLax Powder 1 pack/packet = 17 [...] Exam Date Time Procedure Performing Provider Status 12/12/20 4:13 PM Chest 2 Views Frontal and Lat Mayuri Frederick (Verified) Notes:(Chest 2 Views Frontal and Lat) Reason For Exam: Shortness of Breath, Fever;Other:RESULT: Chest 2 Views Frontal and Lat Chest 2 Views Frontal and Lat INDICATION: Shortness of breath, AMS from possible narcotic use. COMPARISON: Multiple prior radiographs, most recent 12/03/2020. FINDINGS: LINES AND TUBES: None. LUNGS AND PLEURA: Hazy opacification of the left lower lung with small pleural effusion, appearing since prior imagingon 12/03/2020. Possible small right pleural effusion. No pneumothorax. HEART, MEDIASTINUM AND GINGER: Mild prominence of the cardiac silhouette, unchanged. Normal upper mediastinal and hilar contour. BONES AND SOFT TISSUES: Mild calcific tendinopathy in the left shoulder, seen on prior imaging. IMPRESSION: Hazy opacification of the left lower lung with small pleural effusion appearing since prior imaging on 12/03/2020, which may indicate atelectasis and/or developing focal airspace disease. I have personally reviewed the images and I agree with this report. WSN: [id number] Ordering Physician: Jennifer Pedraza Dictated By: Jewel Wallace MD Dictated Date/Time: 12/12/20 4:39 pm Reviewed By: Francisco Dunlap MD, V Signed By: Francisco Dunlap MD, V Signed Date/Time: 12/12/20 4:44 pm Transcribed By: ROWENA Transcribed Date/Time: 12/12/20 4:37 pm Vital Signs Most recent to oldest 1 2 3 [Reference Range]: Oxygen Saturation [94-100 97 % 96 % 95 % %] (12/13/20 12:22 PM) (12/13/20 5:51 AM) (12/13/20 12:29 AM) Pulse Rate [55-90 bpm] 97 bpm 69 bpm 73 bpm *H* (12/13/20 5:51 AM) (12/13/20 12: 29 AM) (12/13/20 12:22 PM) Blood Pressure 161/61 mm Hg 136/55 mm Hg 136/65 mm Hg [90-138/55-84 mm Hg] *H* (12/13/20 10:36 AM) ( 5:51 AM) (12/13/20 12:22 PM) Respiratory Rate [16-30 22 br/min 20 br/min 18 br/mi n br/min] (12/13/20 12:22 PM) (12/13/20 11:35 AM) ( 5:51 AM) Temperature [96.8-100.4 97.9 DegF 98.3 DegF 98.7 Deg F DegF] (12/13/20 12:22 PM) (12/13/20 5:51 AM) (12/13/20 12:29 AM) Liters per Minute 1 L/min 1 L/min 1 L/min (12/13/20 5:51 AM) (12/13/20 12:29 AM) (12/13/20 12:03 AM) Mode of Delivery (Oxygen) Room air Nasal cannula Nasal cannula (12/13/20 12:22 PM) (12/13/20 5:51 AM) (12/13/20 12:29 AM) Blood pressure sites Arm, right Arm, right Arm, left (12/13/20 12:22 PM) (12/13/20 5:51 AM) (12/13/20 12:29 AM) Temperature Route Oral Oral Oral (12/13/20 12:22 PM) (12/13/20 5:51 AM) (12/13/20 12:29 AM) Social History Social History Type Response Smoking Status 10 or more cigarettes (1/2 p ack or more)/day in last 30 days; Type: Cigarettes; Other: Reports 1 ppd; entered on: 02/26/20 Sex
--- OUTSIDE RECORDS SUMMARY | 2021-11-30 05:52 | XMS_ITS | Continuity of Care Document ---
:1975 Author Organization [facility] Address [address] [place] [address]- Care Team Providers Name Role Phone Not on Staff, PCP Primary Care Physician Unavailable [place] [facility] [place] 01/[place] [facility] [address] [place] [id number]- Encounter Diagnosis Opiate overdose (Final) - 12/31/20 Discharge Disposition: A-D/C Home Attending Physician: Corine Plaza MD Admitting Physician: Corine Plaza MD Referring Physician: Not on Staff, Referring [...] tablet, Refills 0, Tot. Refills 0, Maintenance, 12/28/20 15:07:00 EST, Route to Pharmacy Electronically, [facility]/pharmacy #[id number], Partial fill upon patient request [...] Refills, Maintenance, 02/08/20 11:47:00 EST, ER Tablet, [facility]/pharmacy #[id number], Partial fill upon patient request [...] 0 Refills, Maintenance, 02/08/20 11:48:00 EST, Tablet, [facility]/pharmacy #[id number], Partial fill upon patient request [...] 3 [Reference Range]: Oxygen Saturation [94-100 %] 96 % 97 % 96 % (01/01/21 12:00 PM) (01/01/21 9:39 AM) (01/01/21 7: 28 AM) Pulse Rate [55-90 bpm] 61 bpm 60 bpm 62 bpm (01/01/21 12:00 PM) (01/01/21 9:39 AM) (01/01/21 7: 28 AM) Blood Pressure [90-138/55-84 116/60 mm Hg 114/59 mm Hg 113 /57 mm Hg mm Hg] (01/01/21 12:00 PM) (01/01/21 9:39 AM) (01/01/21 7: 28 AM) Respiratory Rate [16-30 18 br/min 17 br/min 17 br/mi n br/min] (01/01/21 12:00 PM) (01/01/21 9:39 AM) (01/01/21 7: 28 AM) Temperature [96.8-100.4 DegF] 97.7 DegF 97.8 DegF 97 .8 DegF (01/01/21 12:00 PM) (01/01/21 9:39 AM) (01/01/21 5: 20 AM) Mode of Delivery (Oxygen) Room air Room air Room a ir (01/01/21 12:00 PM) (01/01/21 9:39 AM) (01/01/21 7: 28 AM) Temperature Route Oral Oral Oral (01/01/21 12:00 PM) (01/01/21 9:39 AM) (01/01/21 5: 20 AM) Social History Social History Type Response Smoking Status 10 or more cigarettes (1/2 p ack or more)/day in last 30 days; Type: Cigarettes; Other: Reports 1 ppd; entered on: 02/26/20 Sex
--- OUTSIDE RECORDS SUMMARY | 2021-11-30 05:52 | XMS_ITS | Continuity of Care Document ---
:1975 Author Organization [facility] Address [address] [place] [address]- Care Team Providers Name Role Phone Not on Staff, PCP Primary Care Physician Unavailable Encounter [facility] [place] Date(s): 03/10/20 - 03/10/[address] [address]- Encounter Diagnosis Opiate overdose (Final) - 03/10/20 Discharge Disposition: A-D/C Home Attending Physician: Ruth Huerta MD Admitting Physician: Ruth Huerta MD Referring Physician: Not on Staff, Referring [...] 02/28/20 15:07:00 EST, Route to Pharmacy Electronically, [facility]/pharmacy #[id number], Partial fill upon patient request if the prescription is for a schedule II op... Start Date: 02/28/20 Stop Date: 03/29/20 Status: Orderedbenztropine 1 mg oral tablet 0.5 mg, 0.5, tablet, By Mouth, 2 times a day, # 10 tablet, Refills 0, Tot. Refills 0, Maintenance, 02/08/20 11:45:00 EST, Route to Pharmacy Electronically, [facility]/pharmacy #[id number], Partial fill upon patientrequest if the prescription is for a schedule II... Start Date: 02/08/20 Status: OrderedbusPIRone 10 mg oral tablet 10 mg, 1, tablet, By Mouth, 4 times a day, PRN, # 30 tablet, Refills 0, Tot. Refills 0, Maintenance,Anxiety, 02/08/20 11:45:00 EST, Route to Pharmacy Electronically, [facility]/pharmacy #[id number], Partial fill upon patient request if the prescription is for a s... Start Date: 02/08/20 Status: OrderedbusPIRone 10 mg oral tablet 10 mg, 1, tablet, By Mouth, 2 times a day, # 60 tablet, Refills 0, Tot. Refills 0, Maintenance, 02/28/20 15:08:00 EST, Route to Pharmacy Electronically, [facility]/pharmacy #[id number], Partial fill upon patient request if the prescription is for a schedule II opi... Start Date: 02/28/20 Status: OrderedcloNIDine 0.1 mg oral tablet 0.1 mg, 1, tablet, By Mouth, 3 times a day, PRN, # 30 tablet, Refills 0, Tot. Refills 0, Maintenance, Anxiety, 02/08/20 11:46:00 EST, Route to Pharmacy Electronically, [facility]/pharmacy #[id number], Partial fill upon patient request if the prescription is for a... Start Date: 02/08/20 Stop Date: 02/18/20 Status: Ordereddivalproex sodium 500 mg oral tablet, extended release 2 tablet = 1,000 mg, By Mouth, Daily at bedtime, # 20 tablet, 0 Refills, Maintenance, 02/08/20 11:47:00 EST, ER Tablet, [facility]/pharmacy #[id number], Partial fill upon patient request if the prescription is for a schedule II opioid drug., 158, cm, 02/08/20 7:52... Start Date: 02/08/20 Stop Date: 02/18/20 Status: Ordereddivalproex sodium 500 mg oral tablet, extended release 2 tablet = 1,000 mg, By Mouth, Daily, # 60 tablet, 0 Refills, Maintenance, 02/28/20 15:08:00 EST, ERTablet, [facility]/pharmacy #[id number], Partial fill upon patient request if the prescription is for a schedule II opioid drug., 155, cm, 02/28/20 3:45:00 EST, He... Start Date: 02/28/20 Status: OrderedfluPHENAZine 2.5 mg oral tablet 1 tablet = 2.5 mg, By Mouth, Every 12 hours, # 60 tablet, 0 Refills, Maintenance, 02/28/20 15:08:00 EST, Tablet, [facility]/pharmacy #[id number], Partial fill upon patient request if the prescription is for a schedule II opioid drug., 155, cm, 02/28/20 3:45:00 EST... Start Date: 02/28/20 Status: OrderedfluPHENAZine 5 mg oral tablet 2.5 mg, 0.5, tablet, By Mouth, 2 times a day, # 10 tablet, Refills 0, Tot. Refills 0, Maintenance, 02/08/20 11:47:00 EST, Route to Pharmacy Electronically, [facility]/pharmacy #[id number], Partial fill upon patientrequest if the prescription is for a schedule II... Start Date: 02/08/20 Stop Date: 02/18/20 Status: Orderedlevothyroxine 75 mcg (0.075 mg) oral tablet = 75 mcg, By Mouth, Daily, # 10 tablet, 0 Refills, Maintenance, 02/08/20 11:48:00 EST, Tablet, [facility]/pharmacy #[id number], Partial fill upon patient request if the prescription is for a schedule II opioid drug., 158, cm, 02/08/20 7:52:00 EST, Height, 97.3, kg... Start Date: 02/08/20 Stop Date: 02/18/20 Status: Orderedlevothyroxine 75 mcg (0.075 mg) oral tablet 1 tablet = 75 mcg, By Mouth, Daily, # 30 tablet, 0 Refills, Maintenance, 02/28/20 15:08:00 EST, Tablet, [facility]/pharmacy #[id number], Partial fill upon patient request if the prescription is for a schedule II opioid drug., 155, cm, 02/28/20 3:45:00 EST, Height,... Start Date: 02/28/20 Status: OrderedRisperDAL 1 mg oral tablet 1 mg, 1, tablet, By Mouth, Daily at bedtime, # 30 tablet, Refills 0, Tot. Refills 0, Maintenance, 02/28/20 15:09:00 EST, Route to Pharmacy Electronically, [id number], Partial fill upon patient request if the prescription is for a schedule II o... Start Date: 02/28/20 Status: OrderedrisperiDONE 1 mg oral tablet 2 mg, 2, tablet, By Mouth, 2 times a day, # 40 tablet, Refills 0, Tot. Refills 0, Maintenance, 02/08/20 11:49:00 EST, Route to Pharmacy Electronically, [id number], Partial fill upon patient request if the prescription is for a schedule II opio... Start Date: 02/08/20 Stop Date: 02/18/20 Status: Orderedsertraline 50 mg oral tablet 3 tablet = 150 mg, By Mouth, Daily, # 30 tablet, 0 Refills, Maintenance, 02/08/20 11:50:00 EST, Tablet, [id number], Partial fill upon patient request if the prescription is for a schedule II opioid drug., 158, cm, 02/08/20 7:52:00 EST, Height,... Start Date: 02/08/20 Stop Date: 02/18/20 Status: Orderedsertraline 50 mg oral tablet 2 tablet = 100 mg, By Mouth, Daily, # 60 tablet, 0 Refills, Maintenance, 02/28/20 15:08:00 EST, Tablet, [id number], Partial fill upon patient request if the prescription is for a schedule II opioid drug., 155, cm, 02/28/20 3:45:00 EST, Height,... Start Date: 02/28/20 Status: Ordered Problem List Condition Effective Dates Status Health Status Informant Cannabis abuse(Confirmed) Active Cocaine abuse(Confirmed) Active Hx of gastroesophageal reflux Active (GERD)(Confirmed) Nicotine dependence(Confirmed) Active Polysubstance abuse(Confirmed) Active Schizoaffective disorder(Confirmed) Active Schizophrenia(Confirmed) Active Hepatitis C(Confirmed) Active Results Radiology Reports Exam Date Time Procedure Performing Provider Status 03/10/20 6:32 PM Chest 2 Views Frontal and Lat Elizabeth Casanova; Salvador (Verified) Notes:(Chest 2 Views Frontal and Lat) Reason For Exam: hypoxia;Other:RESULT: Chest 2 Views Frontal and Lat AP and lateral chest x-ray dated March 10, 2020. Comparison films are from February 05, 2020. HISTORY: Hypoxia. Status post OD. FINDINGS: The cardiac silhouette is at the upper limits of normal for size. Hilar and mediastinal structures are unremarkable. No airspace infiltrate or pleural effusion is identified. Minimal degenerative changes are noted in the spine. IMPRESSION: No evidence of acute pulmonary disease. Examination 42595. Thank you for allowing me to participate in the care of this patient. WSN: [id number] Ordering Physician: Sammi Luong Dictated By: Silvestre Dick MD Dictated Date/Time: 03/10/20 6:34 pm Reviewed By: Silvestre Dick MD Signed By: Silvestre Dick MD Signed Date/Time: 03/10/20 6:34 pm Transcribed By: ROWENA Transcribed Date/Time: 03/10/20 6:33 pm Vital Signs Most recent to oldest [Reference 1 2 3 Range]: Oxygen Saturation [94-100 %] 96 % 96 % 98 % (03/10/20 10:17 PM) (03/10/20 6:00 PM) (03/10/20 4:52 PM) Pulse Rate [55-90 bpm] 65 bpm 57 bpm 55 bpm (03/10/20 10:17 PM) (03/10/20 6:00 PM) (03/10/20 4:52 PM) Blood Pressure [90-138/55-84 mm 178/86 mm Hg 149/83 mm Hg 158/81 mm Hg Hg] *H* *H* *H* (03/10/20 10:17 PM) (03/10/20 6:00 PM) (03/10/20 4:52 PM) Respiratory Rate [16-30 br/min] 12 br/min 10 br/min 15 br/min *L* *L* *L* (03/10/20 10:17 PM) (03/10/20 6:00 PM) (03/10/20 4:52 PM) Temperature [96.8-100.4 DegF] 99.2 DegF (03/10/20 1:12 PM) Liters per Minute 2 L/min 2 L/min 2 L/min (03/10/20 6:00 PM) (03/10/20 4:52 PM) (03/10/20 1:31 P M) Mode of Delivery (Oxygen) Room air Nasal cannula Nasal cannula (03/10/20 10:17 PM) (03/10/20 6:00 PM) (03/10/20 4:52 PM) Blood pressure sites Arm, right Arm, right Arm, right (03/10/20 10:17 PM) (03/10/20 6:00 PM) (03/10/20 4:52 PM) Temperature Route Oral (03/10/20 1:12 PM) Social History Social History Type Response Smoking Status 10 or more cigarettes (1/2 p ack or more)/day in last 30 days; Type: Cigarettes; Other: Reports 1 ppd; entered on: 02/26/20 Sex Female
--- OUTSIDE RECORDS SUMMARY | 2021-11-30 05:52 | XMS_ITS | Continuity of Care Document ---
:1975 Author Organization [facility] Address [address] [place] [address]- Care Team Providers Name Role Phone Not on Staff, PCP Primary Care Physician Unavailable Encounter [facility] [place] Date(s): 03/04/20 - 03/05/20 [facility] [address] [place] [address]- Encounter Diagnosis AMS (altered mental status) (Final) - 03/04/20 Opiate overdose (Final) - 03/04/20 Discharge Disposition: A-D/C Home Attending Physician: Reese Grande MD Admitting Physician: Reese Grande MD Referring Physician: Not on Staff, Referring [...] EST, Route to Pharmacy Electronically, [facility]/pharmacy #[id number], Partial fill upon patient request if the prescription is for a schedule II op... Start Date: 02/28/20 Stop Date: 03/29/20 Status: Orderedbenztropine 1 mg oral tablet 0.5 mg, 0.5, tablet, By Mouth, 2 times a day, # 10 tablet, Refills 0, Tot. Refills 0, Maintenance, 02/08/20 11:45:00 EST, Route to Pharmacy Electronically, [facility]/pharmacy #[id number], Partial fill upon patientrequest if the prescription is for a schedule II... Start Date: 02/08/20 Status: OrderedbusPIRone 10 mg oral tablet 10 mg, 1, tablet, By Mouth, 4 times a day, PRN, # 30 tablet, Refills 0, Tot. Refills 0, Maintenance,Anxiety, 02/08/20 11:45:00 EST, Route to Pharmacy Electronically, [facility]/pharmacy #[id number], Partial fill upon patient request if [...] 02/08/20 11:46:00 EST, Route to Pharmacy Electronically, [facility]/pharmacy #[id number], Partial fill upon patient request if [...] 0 Refills, Maintenance, 02/28/20 15:08:00 EST, Tablet, [facility]/pharmacy #[id number], Partial fill upon patient request if the prescription is for a schedule II opioid drug., 155, cm, 02/28/20 3:45:00 EST... Start Date: 02/28/20 Status: OrderedfluPHENAZine 5 mg oral tablet 2.5 mg, 0.5, tablet, By Mouth, 2 times a day, # 10 tablet, Refills 0, Tot. Refills 0, Maintenance, 02/08/20 11:47:00 EST, Route to Pharmacy Electronically, [facility]/pharmacy #[id number], Partial fill upon patientrequest if the prescription is for a schedule II... Start Date: 02/08/20 Stop Date: 02/18/20 Status: Orderedlevothyroxine 75 mcg (0.075 mg) oral tablet = 75 mcg, By Mouth, Daily, # 10 tablet, 0 Refills, Maintenance, 02/08/20 11:48:00 EST, Tablet, [facility]/pharmacy #[id number], Partial fill upon patient request if [...] %] 96 % 96 % 98 % (03/05/20 1:17 AM) (03/04/20 7:07 PM) (03/04/20 4:19 P M) Pulse Rate [55-90 bpm] 68 bpm 66 bpm 66 bpm (03/05/20 1:17 AM) (03/04/20 7:07 PM) (03/04/20 4:18 P M) Blood Pressure [90-138/55-84 mm 112/72 mm Hg 134/58 mm Hg 132/61 mm Hg Hg] (03/05/20 1:17 AM) (03/04/20 7:07 PM) (03/04/20 4:18 P M) Respiratory Rate [16-30 br/min] 18 br/min 20 br/min 14 br/min (03/05/20 1:17 AM) (03/04/20 7:07 PM) *L* (03/04/20 4:18 PM) Temperature [96.8-100.4 DegF] 98.2 DegF 99.0 DegF 98 .6 DegF (03/05/20 1:17 AM) (03/04/20 7:07 PM) (03/04/20 2:25 P M) Liters per Minute 2 L/min 10 L/min (03/04/20 4:19 PM) (03/04/20 2:06 PM) Mode of Delivery (Oxygen) Room air Room air Nasal cannula (03/05/20 1:17 AM) (03/04/20 7:07 PM) (03/04/20 4:19 P M) Blood pressure sites Arm, left Arm, right Arm, right (03/05/20 1:17 AM) (03/04/20 7:07 PM) (03/04/20 4:18 P M) Temperature Route Oral Oral Oral (03/05/20 1:17 AM) (03/04/20 7:07 PM) (03/04/20 2:25 P M) Social History Social History Type Response Smoking Status 10 or more cigarettes (1/2 p ack or more)/day in last 30 days; Type: Cigarettes; Other: Reports 1 ppd; entered on: 02/26/20 Sex Female
--- OUTSIDE RECORDS SUMMARY | 2021-11-30 05:52 | XMS_ITS | Continuity of Care Document ---
:1975 Author Organization [facility] Address [address] [place] [address]- Care Team Providers Name Role Phone Not on Staff, PCP Primary Care Physician Unavailable Encounter [facility] [place] Date(s): 06/20/20 - 06/20/20 [facility] [address] [place] [id number]- Encounter Diagnosis Polysubstance abuse (Final) - 06/20/20 Opiate use (Final) - 06/20/20 Discharge Disposition: A-D/C Home Attending Physician: Ortega Ashraf MD Admitting Physician: Ortega Ashraf MD Referring Physician: Not on Staff, Referring [...] 02/28/20 15:07:00 EST, Route to Pharmacy Electronically, [facility]/pharmacy #[id number], Partial fill upon patient request if the prescription is for a schedule II op... Start Date: 02/28/20 Stop Date: 03/29/20 Status: OrderedbusPIRone 10 mg oral tablet 10 mg, 1, tablet, By Mouth, 4 times a day, PRN, # 30 tablet, Refills 0, Tot. Refills 0, Maintenance,Anxiety, 02/08/20 11:45:00 EST, Route to Pharmacy Electronically, [facility]/pharmacy #[id number], Partial fill upon patient request if the prescription is for a s... Start Date: 02/08/20 Status: OrderedcloNIDine 0.1 mg oral tablet 0.1 mg, 1, tablet, By Mouth, 3 times a day, PRN, # 30 tablet, Refills 0, Tot. Refills 0, Maintenance, Anxiety, 02/08/20 11:46:00 EST, [id number], Partial fill upon patient request if the prescription is for a... Start Date: 02/08/20 Stop Date: 02/18/20 Status: Ordereddivalproex sodium 500 mg oral tablet, extended release 2 tablet = 1,000 mg, By Mouth, Daily at bedtime, # 20 tablet, 0 Refills, Maintenance, 02/08/20 11:47:00 EST, ER Tablet, [facility]/pharmacy #[id number], Partial fill upon patient request if the prescription is for a schedule II opioid drug., 158, cm, 02/08/20 7:52... Start Date: 02/08/20 Stop Date: 02/18/20 Status: OrderedfluPHENAZine 2.5 mg oral tablet 1 tablet = 2.5 mg, By Mouth, Every 12 hours, # 60 tablet, 0 Refills, Maintenance, 02/28/20 15:08:00 EST, Tablet, [facility]/pharmacy #[id number], Partial fill upon patient request if the prescription is for a schedule II opioid drug., 155, cm, 02/28/20 3:45:00 EST... Start Date: 02/28/20 Status: Orderedlevothyroxine 75 mcg (0.075 mg) oral tablet = 75 mcg, By Mouth, Daily, # 10 tablet, 0 Refills, Maintenance, 02/08/20 11:48:00 EST, Tablet, [facility]/pharmacy #[id number], Partial fill upon [...] 02/28/20 15:09:00 EST, Route to Pharmacy Electronically, [facility]/pharmacy #[id number], Partial fill upon patient request if the [...] Most recent to oldest [Reference Range]: 1 2 Oxygen Saturation [94-100 %] 99 % 98 % (06/20/20 6:58 PM) (06/20/20 3:01 PM) Pulse Rate [55-90 bpm] 77 bpm 85 bpm (06/20/20 6:58 PM) (06/20/20 3:01 PM) Blood Pressure [90-138/55-84 mm Hg] 126/67 mm Hg 106/ 47 mm Hg (06/20/20 6:58 PM) (06/20/20 3:01 PM) Respiratory Rate [16-30 br/min] 16 br/min 14 br/mi n (06/20/20 6:58 PM) *L* (06/20/20 3:01 PM) Temperature [96.8-100.4 DegF] 98.2 DegF 98.4 DegF (06/20/20 6:58 PM) (06/20/20 3:01 PM) Mode of Delivery (Oxygen) Room air Room air (06/20/20 6:58 PM) (06/20/20 3:01 PM) Blood pressure sites Arm, left Arm, left (06/20/20 6:58 PM) (06/20/20 3:01 PM) Temperature Route Oral Oral (06/20/20 6:58 PM) (06/20/20 3:01 PM) Social History Social History Type Response Smoking Status 10 or more cigarettes (1/2 p ack or more)/day in last 30 days; Type: Cigarettes; Other: Reports 1 ppd; entered on: 02/26/20 Sex Female
--- OUTSIDE RECORDS SUMMARY | 2021-11-30 05:52 | XMS_ITS | Continuity of Care Document ---
:1975 Author Organization [facility] Address [address] [place] [address]- Care Team Providers Name Role Phone Not on Staff, PCP Primary Care Physician Unavailable Encounter [facility] Date(s): 09/10/21 - 09/10/21 [facility] [address] [place] [address]- Encounter Diagnosis Opiate use (Final) - 09/10/21 Cocaine use (Final) - 09/10/21 Discharge Disposition: A-D/C AMA Attending Physician: Jaime Banks DO Admitting Physician: Jaime Banks DO Referring Physician: Not on Staff, Referring MD [...] EST, Route to Pharmacy Electronically, [facility]/pharmacy #[id number], Partial fill upon patient request if [...] 02/08/20 11:47:00 EST, ER Tablet, [facility]/pharmacy #[id number], Partial fill upon patient request if [...] Maintenance, 02/08/20 11:48:00 EST, Tablet, [facility]/pharmacy #[id number], Partial fill upon patient request if [...] 1 Oxygen Saturation [94-100 %] 99 % (09/10/21 3:11 PM) Pulse Rate [55-90 bpm] 75 bpm (09/10/21 3:11 PM) Blood Pressure [90-138/55-84 mm Hg] 102/98 mm Hg (09/10/21 3:11 PM) Respiratory Rate [16-30 br/min] 18 br/min (09/10/21 3:11 PM) Temperature [96.8-100.4 DegF] 98.4 DegF (09/10/21 3:11 PM) Mode of Delivery (Oxygen) Room air (09/10/21 3:11 PM) Temperature Route Oral (09/10/21 3:11 PM) Social History Social History Type Response Smoking Status 10 or more cigarettes (1/2 p ack or more)/day in last 30 days; Type: Cigarettes; Other: Reports 1 ppd; entered on: 02/26/20 Sex
--- OUTSIDE RECORDS SUMMARY | 2021-11-30 05:52 | XMS_ITS | Continuity of Care Document ---
:1975 Author Organization [facility] Address [address] [place] [address]- Care Team Providers Name Role Phone Not on Staff, PCP Primary Care Physician Unavailable Encounter [facility] [place] Date(s): 07/14/20 - 07/15/20 [facility] [address] [place] [phone]- Encounter Diagnosis Opioid overdose (Final) - 07/14/20 Discharge Disposition: A-D/C Home Attending Physician: Juan Carlos Nash MD Admitting Physician: Juan Carlos Nash MD Referring Physician: Not on Staff, Referring [...] 02/28/20 15:07:00 EST, Route to Pharmacy Electronically, [facility]/pharmacy #[id number], Partial fill upon patient request if the prescription is for a schedule II op... Start Date: 02/28/20 Stop Date: 03/29/20 Status: OrderedbusPIRone 10 mg oral tablet 10 mg, 1, tablet, By Mouth, 4 times a day, PRN, # 30 tablet, Refills 0, Tot. Refills 0, Maintenance,Anxiety, 02/08/20 11:45:00 EST, Route to Pharmacy Electronically, [facility]/pharmacy #[id number], Partial fill upon patient request if the prescription is for a s... Start Date: 02/08/20 Status: OrderedcloNIDine 0.1 mg oral tablet 0.1 mg, 1, tablet, By Mouth, 3 times a day, PRN, # 30 tablet, Refills 0, Tot. Refills 0, Maintenance, Anxiety, 02/08/20 11:46:00 EST, [id number] Partial fill upon patient request if the prescription is for a... Start Date: 02/08/20 Stop Date: 02/18/20 Status: Ordereddivalproex sodium 500 mg oral tablet, extended release 2 tablet = 1,000 mg, By Mouth, Daily at bedtime, # 20 tablet, 0 Refills, Maintenance, 02/08/20 11:47:00 EST, ER Tablet, [facility]/pharmacy #[id number], Partial fill upon patient request if the prescription is for a schedule II opioid drug., 158, cm, 02/08/20 7:52... Start Date: 02/08/20 Stop Date: 02/18/20 Status: OrderedfluPHENAZine 2.5 mg oral tablet 1 tablet = 2.5 mg, By Mouth, Every 12 hours, # 60 tablet, 0 Refills, Maintenance, 02/28/20 15:08:00 EST, Tablet, [facility]/pharmacy #[id number], Partial fill upon patient request if the prescription is for a schedule II opioid drug., 155, cm, 02/28/20 3:45:00 EST... Start Date: 02/28/20 Status: Orderedlevothyroxine 75 mcg (0.075 mg) oral tablet = 75 mcg, By Mouth, Daily, # 10 tablet, 0 Refills, Maintenance, 02/08/20 11:48:00 EST, Tablet, [facility]/pharmacy #[id number], Partial fill upon patient request if [...] 02/28/20 15:09:00 EST, Route to Pharmacy Electronically, [facility]/pharmacy #[id number], Partial fill upon patient request if the [...] Exam Date Time Procedure Performing Provider Status 07/14/20 12:56 PM Chest Portable Savanah Sidhu; Auth (Verified) Notes:(Chest Portable) Reason For Exam: Shortness of BreathRESULT: Chest Portable Chest Portable Hx of Present Illness: drug assessment.; Reason: Shortness of Breath; Clinical Question(s): CHF COMPARISON: 03/07/2020 FINDINGS: LINES AND TUBES: None. LUNGS AND PLEURA: Study limited by positioning. Clear lungs. Normal pulmonary vascularity. No pleural effusion. No pneumothorax. HEART, MEDIASTINUM AND GINGER: Heart is normal in size. Normal upper mediastinal and hilar contour. BONES AND SOFT TISSUES: No acute abnormality. IMPRESSION: No acute abnormality. Study limited by positioning. WSN: [id number] Ordering Physician: Marina Coleman Dictated By: Henry Thibodeaux MD Dictated Date/Time: 07/14/20 1:01 pm Reviewed By: Henry Thibodeaux MD Signed By: Henry Tihbodeaux MD Signed Date/Time: 07/14/20 1:01 pm Transcribed By: ROWENA Transcribed Date/Time: 07/14/20 1:00 pm Vital Signs Most recent to oldest 1 2 3 [Reference Range]: Oxygen Saturation [94-100 %] 91 % 97 % 93 % *L* (07/14/20 11:47 PM) *L* (07/15/20 2:30 AM) (07/14/20 7:39 PM) Pulse Rate [55-90 bpm] 79 bpm 85 bpm 77 bpm (07/15/20 3:22 AM) (07/15/20 2:30 AM) (07/14/20 11: 47 PM) Blood Pressure [90-138/55-84 139/71 mm Hg 129/67 mm Hg 135 /60 mm Hg mm Hg] *H* (07/15/20 2:30 AM) (07/14/20 11:47 PM) (07/15/20 3:22 AM) Respiratory Rate [16-30 18 br/min 18 br/min 20 br/mi n br/min] (07/15/20 3:22 AM) (07/15/20 2:30 AM) (07/14/20 11: 47 PM) Temperature [96.8-100.4 97.4 DegF 98.7 DegF 98.7 Deg F DegF] (07/15/20 2:30 AM) (07/14/20 11:47 PM) (07/14/20 7: 39 PM) Liters per Minute 3 L/min 3 L/min 2 L/min (07/14/20 11:47 PM) (07/14/20 7:39 PM) (07/14/20 10 :40 AM) Mode of Delivery (Oxygen) Room air Room air Nasal cannula (07/15/20 3:22 AM) (07/15/20 2:30 AM) (07/14/20 11: 47 PM) Blood pressure sites Arm, right Arm, right Arm, right (07/15/20 3:22 AM) (07/14/20 11:47 PM) (07/14/20 7: 39 PM) Temperature Route Oral Oral Rectal (07/14/20 11:47 PM) (07/14/20 7:39 PM) (07/14/20 2: 01 PM) Social History Social History Type Response Smoking Status 10 or more cigarettes (1/2 p ack or more)/day in last 30 days; Type: Cigarettes; Other: Reports 1 ppd; entered on: 02/26/20 Sex Female
--- OUTSIDE RECORDS SUMMARY | 2021-11-30 05:52 | XMS_ITS | Continuity of Care Document ---
:1975 Author Organization [facility] Address [address] [place] [address]- Care Team Providers Name Role Phone Not on Staff, PCP Primary Care Physician Unavailable Encounter [facility] [place] Date(s): 09/04/21 - 09/04/21 [facility] [address] [place] [address]- Encounter Diagnosis Fall (Final) - 09/04/21 Discharge Disposition: A-D/C Home Attending Physician: Andriy SUGGS, Ortega Martinez Admitting Physician: Ortega Ashraf MD Referring Physician: [...] 02/28/20 15:07:00 EST, Route to Pharmacy Electronically, [facility]/pharmacy #[id number], Partial fill upon patient request [...] Refills, Maintenance, 02/08/20 11:47:00 EST, ER Tablet, [facility]/pharmacy #[id number], Partial fill upon patient request [...] 0 Refills, Maintenance, 02/08/20 11:48:00 EST, Tablet, [facility]/pharmacy #[id number], Partial fill upon patient request [...] Exam Date Time Procedure Performing Provider Status 09/04/21 4:47 PM XR Hip w/Pelvis 2-3 View Right Jenifer Zamora ; Auth (Verified) Notes:(XR Hip w/Pelvis 2-3 View Right) Reason For Exam: TraumaRESULT: XR Hip w/Pelvis 2-3 View Right AP pelvis and right hip 3 views dated September 04, 2021. Comparison films are from July 20, 2021. HISTORY: Pain secondary to trauma. FINDINGS: Today's study is limited due to artifact from the patient's pants. No fracture or dislocation is identified. Joint spaces are fairly well-preserved. IMPRESSION: No evidence of acute osseous abnormality. No significant interval change. Thank you for allowing me to participate in the care of this patient. I have personally reviewed the images and I agree with this report. WSN: [id number] Ordering Physician: Silvestre Chacon Dictated By: Roel Sexton MD Dictated Date/Time: 09/04/21 5:12 pm Reviewed By: Silvestre Dick MD Signed By: Silvestre Dick MD Signed Date/Time: 09/04/21 5:17 pm Transcribed By: ROWENA Transcribed Date/Time: 09/04/21 5:12 pm Vital Signs Most recent to oldest [Reference 1 2 3 Range]: Oxygen Saturation [94-100 %] 97 % 95 % 100 % (09/04/21 9:38 PM) (09/04/21 8:01 PM) (09/04/21 3:53 P M) Pulse Rate [55-90 bpm] 79 bpm 72 bpm 86 bpm (09/04/21 9:38 PM) (09/04/21 8:01 PM) (09/04/21 3:53 P M) Blood Pressure [90-138/55-84 mm 139/62 mm Hg 124/65 mm Hg 134/62 mm Hg Hg] *H* (09/04/21 8:01 PM) (09/04/21 3:53 PM ) (09/04/21 9:38 PM) Respiratory Rate [16-30 br/min] 18 br/min 18 br/min 18 br/min (09/04/21 9:38 PM) (09/04/21 8:01 PM) (09/04/21 3:53 P M) Temperature [96.8-100.4 DegF] 98.3 DegF 98.3 DegF 98 .5 DegF (09/04/21 9:38 PM) (09/04/21 8:01 PM) (09/04/21 3:53 P M) Mode of Delivery (Oxygen) Room air Room air Room a ir (09/04/21 9:38 PM) (09/04/21 8:01 PM) (09/04/21 3:53 P M) Blood pressure sites Arm, left Arm, left Arm, left (09/04/21 9:38 PM) (09/04/21 8:01 PM) (09/04/21 3:53 P M) Temperature Route Oral Oral Oral (09/04/21 9:38 PM) (09/04/21 8:01 PM) (09/04/21 3:53 P M) Social History Social History Type Response Smoking Status 10 or more cigarettes (1/2 p ack or more)/day in last 30 days; Type: Cigarettes; Other: Reports 1 ppd; entered on: 02/26/20 Sex
--- OUTSIDE RECORDS SUMMARY | 2021-11-30 05:52 | XMS_ITS | Continuity of Care Document ---
:1975 Author Organization [facility] Address [address] [place] [address]- Care Team Providers Name Role Phone Not on Staff, PCP Primary Care Physician Unavailable Encounter [facility] [place] Date(s): 09/02/21 - 09/02/21 [facility] [address] [place] [id number]- Encounter Diagnosis Opiate use (Final) - 09/02/21 Opiate use (Final) - 09/02/21 Discharge Disposition: A-D/C AMA Attending Physician: Madonna Weinstein MD Admitting Physician: Madonna Weinstein MD Referring Physician: Not on Staff, Referring [...] 02/28/20 15:07:00 EST, Route to Pharmacy Electronically, [facility]/pharmacy #[id number], Partial fill upon patient request [...] Refills, Maintenance, 02/08/20 11:47:00 EST, ER Tablet, [facility]/pharmacy #[id number], Partial fill upon patient request [...] 0 Refills, Maintenance, 02/08/20 11:48:00 EST, Tablet, [facility]/pharmacy #[id number], Partial fill upon patient request [...] [Reference Range]: 1 Oxygen Saturation [94-100 %] 97 % (09/02/21 2:44 PM) Pulse Rate [55-90 bpm] 92 bpm *H* (09/02/21 2:44 PM) Blood Pressure [90-138/55-84 mm Hg] 109/64 mm Hg (09/02/21 2:44 PM) Respiratory Rate [16-30 br/min] 14 br/min *L* (09/02/21 2:44 PM) Temperature [96.8-100.4 DegF] 98.5 DegF (09/02/21 3:51 PM) Blood pressure sites Arm, left (09/02/21 2:44 PM) Temperature Route Oral (09/02/21 3:51 PM) Social History Social History Type Response Smoking Status 10 or more cigarettes (1/2 p ack or more)/day in last 30 days; Type: Cigarettes; Other: Reports 1 ppd; entered on: 02/26/20 Sex
[2021-11-30 05:53] VITALS: BP 111/63; PULSE 67; RESP 16; TEMP 36.8; O2SAT 99
--- NOTE | 2021-11-30 06:02 | PC.NURSE ---
Pt reports 8/10 diffuse/generalized body pain/aches and is requesting medication to assist. MD to be made aware
--- NOTE | 2021-11-30 06:12 | PC.NURSE ---
RN to bedside to medicate pt per MAY. However pt requesting naproxen and/or NSAID alternative over Tylenol. MD aware and Tylenol not given. Report provided to Jonathan TELLEZ who will assume/oversee care
[2021-11-30] MEDS: Ibuprofen 600 MG TABLET PO (06:20)
--- NOTE | 2021-11-30 09:51 | PC.NURSE ---
CALL TO CARE TEAM. THEY WILL CONTACT RECOVERY STAFF
--- NOTE | 2021-11-30 10:06 | PC.NURSE ---
PT DOES NOT WANT TO GO TO DETOX. CALL TO [facility], MESSAGE LEFT
[2021-11-30 10:48] VITALS: BP 107/54; PULSE 60; RESP 14; O2SAT 96
[2021-11-30 10:52] LABS: Appearance Urine Clear; Color Urine Yellow; Glucose Urine UA Negative (Negative); Leukocyte Esterase Urine Negative (Negative); Nitrite Urine Negative (Negative); Specific Gravity - Urine 1.025 (1.005-1.025); UMIC TRIGGER UACC YES; Urine Blood Negative (Negative); Urine Ketones Negative (Negative); Urine Protein 30 (1+) mg/dL (Neg-Trace)
[2021-11-30 10:57] LABS: Bacteria Urine 1+ (None Seen); RBC Urine 0-2 /HPF (0-2); WBC Urine 0-5 /HPF (0-5)
[2021-11-30 11:03] LABS: Amphetamine Screen Urine Not Detected (Not Detect); Barbiturates, Urine Not Detected (Not Detect); Benzodiazepines Screen Urine Not Detected (Not Detect); Cannabinoid Screen Urine Not Detected (Not Detect); Cocaine Screen Urine POSITIVE (Not Detect); Fentanyl, urine POSITIVE (Not Detect); Opiate Screen Urine POSITIVE (Not Detect); Phencyclidine Screen Urine Not Detected (Not Detect)
--- NOTE | 2021-11-30 11:08 | PC.NURSE ---
chris [phone] at program was notified with results of drug tox as requested.
[2021-11-30 12:00] VITALS: BP 105/47; PULSE 67; RESP 18; TEMP 36.9; O2SAT 94
--- NOTE | 2021-11-30 12:12 | PC.NURSE ---
Pt diastolic is low, and systolic normal. Pt is a/o x4. Pt is waiting for transportation.
== END 2021-11-30 13:06 | disposition home or self-care (01) ==
PROVIDERS: Emergency Provider Emergency Medicine
DX: M54.41 Lumbago with sciatica, right side (principal); M25.551 Pain in right hip; Z20.822 Contact with and (suspected) exposure to COVID-19; Z79.899 Other long term (current) drug therapy
CPT/HCPCS: 73502; 80048; 80076; 80307; 81001; 82077; 83735; 85025; 87635; 99284

== ENCOUNTER 2021-12-27 12:00 | Emergency (ER) | payer MEDICAID, SELFPAY ==
--- NOTE | ~2021-12-27 | CT_ITS ---
EXAMINATION: CT HEAD WITHOUT CONTRAST CLINICAL INFORMATION: Altered mental status. COMPARISON: None TECHNIQUE: Contiguous axial imaging was performed from the skull base to vertex without intravenous administration of contrast. Coronal and sagittal reformatted images were obtained. This CT examination was performed using dose optimization techniques as appropriate, variously including the following: *Automated exposure control *Adjustment of mA and/or kV according to patient size (this includes techniques or standardized protocols for targeted exams where dose is matched to indication/reason for exam; i.e. extremities or head) *Use of iterative reconstruction technique DLP: 1171 mGy-cm FINDINGS: The cortical sulci are normal. The lateral ventricles are symmetrical. The third and fourth ventricles are in their normal midline position. The basilar and prepontine cisterns are unremarkable. There is no acute intra or extracerebral abnormality. There is no mass effect or midline shift. Sections through the bony calvarium are unremarkable. The paranasal sinuses show mild mucosal thickening in the visualized bilateral maxillary and sphenoid sinuses. Hypoaeration of the frontal sinuses. The bony orbits and orbital contents are unremarkable. Asymmetric hypoaeration of the right mastoid air cells without abnormality. The left mastoid air cells are clear. CT/CT head/brain wo IV con IMPRESSION: No acute intracranial pathology.
[2021-12-27 12:20] VITALS: BP 138/71; BP 142/74; PULSE 81; PULSE 85; RESP 16; TEMP 36.8; O2SAT 96; BMI 37.1
--- NOTE | 2021-12-27 12:42 | ED_ITS ---
HPI - Psych General Chief Complaint: Altered Mental Status Stated Complaint: LETHARGIC X'S 2 HOURS FROM REHAB PER EMS Source: patient Mode of arrival: EMS Limitations: other (poor historian) History of Present Illness HPI Narrative: 46 yo female hx of substance abuse staying at sober house for past two hours more lethargic concern is for substance abuse while in house. while on methadone. complaint: substance abuse Onset (ago): month(s) Duration: intermittent History of same: Yes Relieving factors: none Exacerbating factors: drug use Context: other (sleepy at halfway vaguely admits to using today then states she has nowhere else to go and that the home is going to be mad at her) Associated psychiatric symptoms: depression Associated symptoms: denies other symptoms Treatments prior to arrival: none Related Data Allergies Allergy/AdvReac Type Severity Reaction Status Date / Time clozapine [CLOZAPINE] Allergy Unknown UNKNOWN Unverified 11/18/19 17:55 olanzapine [From ZYPREXA] Allergy Unknown UNKNOWN Unverified 11/18/19 17:55 shellfish derived Allergy Unknown UNKNOWN Unverified 11/18/19 17:55 [SHELLFISH DERIVED] Review of Systems Review of Systems: Constitutional : No Fever, No Chills ENT/Mouth : No Ear Pain, No Nasal Congestion, No sore throat Eyes: No Eye Pain, No Swelling, No Redness Cardiovascular : No Chest Pain, No SOB Respiratory : No Cough, No Sputum, No Dyspnea Gastrointestinal : No Nausea, No Vomiting, No Diarrhea, No Hematochezia, No Melena Genitourinary : No Dysuria, No Urinary Frequency, No Hematuria Musculoskeletal : No Myalgias Skin : No Skin Lesions, No rash Neuro : No Weakness, No Numbness, No Paresthesias, No Dizziness, No Headache Psych : positive Anxiety, positive Depression, noSI/HI All other systems reviewed and are negative PMFSH Past Medical History Attestation statement: The following information was validated with the patient. Medical History Substance abuse Social History Social History Alcohol intake: former Patient Tobacco Use Status: Current everyday Tobacco user Substance Use Type: Crack/Cocaine and Heroin Advance Directives: No Physical Exam Vital Signs: Vital Signs: Last Vital Signs Temp 98.2 F 12/27/21 12:20 Pulse 81 12/27/21 12:20 Resp 16 12/27/21 12:20 BP 142/74 H 12/27/21 12:20 Pulse Ox 96 12/27/21 12:20 O2 Del Method 12/27/21 12:20 BMI result Body Mass Index 37.1 Appearance: sleepy but easily woken Oriented X3. No acute distress. Eyes: Pinpoint pupils ENT: Pharynx normal. atraumatic Neck: Normal inspection. Neck supple. CVS: Normal heart rate and rhythm. Pulses normal. Respiratory: No respiratory distress. Breath sounds normal. Abdomen: Soft and nontender. Skin: Skin warm and dry. Normal skin color. Normal skin turgor. Extremities: No lower extremity edema. Neuro: Oriented X 3. No motor deficit. No sensory deficit. Course Course Course Narrative: patient is desatting to 80s and not easily woken will attempt 4mg narcan sober house requesting blood work. wouldn't expect depakote of 102 to cause her symptoms very upset she got narcan was agitated and trying to leave, no WBC count, lytes normal crisis consult ordered - signed out to Iggy [employer] DYER pending UA MDM - Psych MDM Narrative Medical decision making narrative: 46 yo female with hx of opiate use disorder here with c/o being sleepy at sober house - sort of admits to substances today then denies it. no trauma, VS stable, pinpoint pupils suspect opiate abuse - drug screen ordered. Lab Data Result diagrams: 12/27/21 14:57 12/27/21 14:57 Labs: Lab Results 12/27/21 12/27/21 12/27/21 Range/Units 12:21 12:33 14:57 WBC 7.5 (4.8-10.8) X10*3/uL RBC 4.86 D (4.20-5.50) X10*6/uL Hgb 13.5 D (12.0-16.0) g/dl Hct 42.1 D (37.0-47.0) % MCV 86.6 (80.0-98.0) fL MCH 27.8 (27.0-33.0) pg MCHC 32.1 (31.0-35.0) g/dl RDW 14.4 (11.0-16.0) % Plt Count 133 L (160-400) X10*3/uL MPV 10.3 (9.4-12.3) fL Immature Gran % (Auto) 0.4 (0.0-0.4) % Neut % (Auto) 59.9 (45-73) % Lymph % (Auto) 32.8 (20-40) % [place] % (Auto) 6.2 (2-11) % Eos % (Auto) 0.4 (0-4) % Baso % (Auto) 0.3 (0-2) % Lymph # (Auto) 2.4 (1.2-4.9) X10*3/uL [place] # (Auto) 0.5 (0.1-1.2) X10*3/uL Eos # (Auto) 0.0 (0.0-0.4) X10*3/uL Baso # (Auto) 0.0 (0.0-0.2) X10*3/uL Abs Immat Gran (auto) 0.03 (0.00-0.03) X10*3/uL Absolute Neuts (auto) 4.4 (2.0-8.3) x10*3/uL Absolute Nucleated RBC 0.000 (0.0-0.012) X10*3/uL Nucleated RBC % (auto) 0.0 (0.0-0.2) /100WBC Smear Tech's Comments VERIFIED Sodium (135-145) mmol/L Potassium (3.3-5.1) mmol/L Chloride (96-108) mmol/L Carbon Dioxide (22-29) mmol/L Anion Gap (12-20) BUN (9-16) mg/dL Creatinine (0.5-1.4) mg/dL Estim Creat Clear Calc Estimated GFR Random Glucose (60-115) mg/dL Calcium (8.4-10.2) mg/dL Magnesium (1.6-2.6) mg/dL Total Bilirubin (0.0-1.0) mg/dL Direct Bilirubin (0.0-0.5) mg/dL AST (5-31) U/L ALT (0-31) U/L Alkaline Phosphatase (39-117) U/L Ammonia (13-55) umol/L Total Protein (6.5-8.0) g/dL Albumin (3.5-5.0) g/dL Lipase (8-78) U/L TSH (0.32-4.0) uIU/mL Urine Opiates Screen Not Detected (Not Detect) Urine Fentanyl Screen POSITIVE H (Not Detect) Ur Barbiturates Screen Not Detected (Not Detect) Valproic Acid (50.0-100.0) mcg/mL Ur Phencyclidine Scrn Not Detected (Not Detect) Ur Amphetamines Screen Not Detected (Not Detect) U Benzodiazepines Scrn Not Detected (Not Detect) Urine Cocaine Screen Not Detected (Not Detect) U Marijuana (THC) Screen Not Detected (Not Detect) Ethyl Alcohol mg/dL COVID-19 (PAIGE) Negative (Negative) COVID-19 Clin Com See Note 12/27/21 12/27/21 Range/Units 14:57 14:58 WBC (4.8-10.8) X10*3/uL RBC (4.20-5.50) X10*6/uL Hgb (12.0-16.0) g/dl Hct (37.0-47.0) % MCV (80.0-98.0) fL MCH (27.0-33.0) pg MCHC (31.0-35.0) g/dl RDW (11.0-16.0) % Plt Count (160-400) X10*3/uL MPV (9.4-12.3) fL Immature Gran % (Auto) (0.0-0.4) % Neut % (Auto) (45-73) % Lymph % (Auto) (20-40) % [place] % (Auto) (2-11) % Eos % (Auto) (0-4) % Baso % (Auto) (0-2) % Lymph # (Auto) (1.2-4.9) X10*3/uL [place] # (Auto) (0.1-1.2) X10*3/uL Eos # (Auto) (0.0-0.4) X10*3/uL Baso # (Auto) (0.0-0.2) X10*3/uL Abs Immat Gran (auto) (0.00-0.03) X10*3/uL Absolute Neuts (auto) (2.0-8.3) x10*3/uL Absolute Nucleated RBC (0.0-0.012) X10*3/uL Nucleated RBC % (auto) (0.0-0.2) /100WBC Smear Tech's Comments Sodium 138 (135-145) mmol/L Potassium 4.1 (3.3-5.1) mmol/L Chloride 98 (96-108) mmol/L Carbon Dioxide 28 (22-29) mmol/L Anion Gap 16 (12-20) BUN 15 (9-16) mg/dL Creatinine 0.76 (0.5-1.4) mg/dL Estim Creat Clear Calc 97.7 Estimated GFR > 60 Random Glucose 98 (60-115) mg/dL Calcium 9.9 D (8.4-10.2) mg/dL Magnesium 1.8 (1.6-2.6) mg/dL Total Bilirubin 0.3 (0.0-1.0) mg/dL Direct Bilirubin 0.2 (0.0-0.5) mg/dL AST 35 H (5-31) U/L ALT 18 (0-31) U/L Alkaline Phosphatase 76 (39-117) U/L Ammonia 45 (13-55) umol/L Total Protein 8.9 H (6.5-8.0) g/dL Albumin 4.0 (3.5-5.0) g/dL Lipase 30 (8-78) U/L TSH 1.24 (0.32-4.0) uIU/mL Urine Opiates Screen (Not Detect) Urine Fentanyl Screen (Not Detect) Ur Barbiturates Screen (Not Detect) Valproic Acid 102.7 H (50.0-100.0) mcg/mL Ur Phencyclidine Scrn (Not Detect) Ur Amphetamines Screen (Not Detect) U Benzodiazepines Scrn (Not Detect) Urine Cocaine Screen (Not Detect) U Marijuana (THC) Screen (Not Detect) Ethyl Alcohol < 10 mg/dL COVID-19 (PAIGE) (Negative) COVID-19 Clin Com Discharge Plan Discharge Clinical Impression: Opiate abuse, continuous Patient Disposition: Still a Patient Additional Instructions: return to ED for any worsening symptoms or concerns you tested positive for fentanyl
[2021-12-27 12:53] LABS: Amphetamine Screen Urine Not Detected (Not Detect); Barbiturates, Urine Not Detected (Not Detect); Benzodiazepines Screen Urine Not Detected (Not Detect); Cannabinoid Screen Urine Not Detected (Not Detect); Cocaine Screen Urine Not Detected (Not Detect); Fentanyl, urine POSITIVE (Not Detect); Opiate Screen Urine Not Detected (Not Detect); Phencyclidine Screen Urine Not Detected (Not Detect)
[2021-12-27 13:06] LABS: COVID-19 Test Negative (Negative); IDNOW Serial# 9DB6401D
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
[2021-12-27] MEDS: Naloxone HCl Nasal TAKE HOME 4 MG SPRAY NOSTRILALT (14:07)
[2021-12-27 15:05] LABS: Basophils Percent Auto 0.3 % (0-2); Eosinophils Percent Auto 0.4 % (0-4); Hematocrit 42.1 % (37.0-47.0); Hemoglobin 13.5 g/dl (12.0-16.0); Imm Gran Abs Auto 0.03 X10*3/uL (0.00-0.03); Imm Gran Pct Auto 0.4 % (0.0-0.4); Lymphocytes Absolute Auto 2.4 X10*3/uL (1.2-4.9); Lymphocytes Percent Auto 32.8 % (20-40); MANUAL DIFF FLAG SCAN; Mean Corpuscular HGB Conc 32.1 g/dl (31.0-35.0); Mean Corpuscular Hemoglobin 27.8 pg (27.0-33.0); Mean Corpuscular Volume 86.6 fL (80.0-98.0); Mean Platelet Volume 10.3 fL (9.4-12.3); Monocytes Absolute Auto 0.5 X10*3/uL (0.1-1.2); Monocytes Percent Auto 6.2 % (2-11); Neutrophils Absolute Auto 4.4 x10*3/uL (2.0-8.3); Neutrophils Percent Auto 59.9 % (45-73); PLT CLUMP 1; Red Blood Count 4.86 X10*6/uL (4.20-5.50); Red Cell Distribution Width 14.4 % (11.0-16.0); SCAN SMEAR FLAG 1
[2021-12-27 15:07] LABS: White Blood Count 7.5 X10*3/uL (4.8-10.8)
[2021-12-27 15:18] LABS: Ammonia 45 umol/L (13-55)
[2021-12-27 15:24] LABS: Alanine Aminotransferase 18 U/L (0-31); Alkaline Phosphatase 76 U/L (39-117); Anion Gap 16 (12-20); Aspartate Amino Transferase 35 U/L (5-31); Bilirubin Direct 0.2 mg/dL (0.0-0.5); Bilirubin Total 0.3 mg/dL (0.0-1.0); Blood Urea Nitrogen 15 mg/dL (9-16); Calcium 9.9 mg/dL (8.4-10.2); Carbon Dioxide 28 mmol/L (22-29); Chloride 98 mmol/L (96-108); Creatinine Clr Calc Pharmacy 97.7; Estimated Glomerular Filt Rate > 60; Ethanol < 10 mg/dL; Glucose Random 98 mg/dL (60-115); Lipase 30 U/L (8-78); Magnesium 1.8 mg/dL (1.6-2.6); Potassium 4.1 mmol/L (3.3-5.1); Sodium 138 mmol/L (135-145); Total Protein 8.9 g/dL (6.5-8.0)
[2021-12-27 15:26] LABS: Valproate 102.7 mcg/mL (50.0-100.0)
[2021-12-27 15:44] LABS: TSH reflex Free T4 1.24 uIU/mL (0.32-4.0)
[2021-12-27 15:45] LABS: Platelet Count 133 X10*3/uL (160-400)
[2021-12-27 15:46] LABS: SLIDE REVIEW VERIFIED
--- NOTE | 2021-12-27 16:32 | PC.NURSE ---
this newspaper writer assumed care of this pt at 1600. pt changed into hospital attire and belongings checked and secured in locker #3, pt compliant with change booth attendant process. pt in bed resting quietly, no apparent distress.
--- NOTE | 2021-12-28 | ECG_ITS ---
Test Reason : MEDICAL CLEARANCE Blood Pressure : / mmHG Vent. Rate : 099 BPM Atrial Rate : 099 BPM P-R Int : 108 ms QRS Dur : 084 ms QT Int : 326 ms P-R-T Axes : 049 004 109 degrees QTc Int : 418 ms Sinus rhythm with short FL Left ventricular hypertrophy with repolarization abnormality ( R in aVL , Barber product ) Nonspecific T wave abnormality Lateral leads Abnormal ECG No previous ECGs available Referred By: Phyllis Rene Electronically Signed By:BARBARA GOMEZ MD
[2021-12-28] MEDS: LORazepam 1 MG TABLET 2 MG PO (05:32)
[2021-12-28 05:34] LABS: Appearance Urine Clear; Color Urine Yellow; Glucose Urine UA Negative (Negative); Leukocyte Esterase Urine Negative (Negative); Nitrite Urine Negative (Negative); Urine Blood Negative (Negative); Urine Ketones Negative (Negative); Urine Protein Negative (Neg-Trace)
[2021-12-28 05:36] VITALS: BP 138/71; PULSE 80; RESP 16; TEMP 36.6; O2SAT 96
--- NOTE | 2021-12-28 05:45 | PC.NURSE ---
Patient slept through both evening and night, no distress observed/reported, behavior appropriate and non concerning, no distress observed/reported, Ativan 2 mg PO administered for comfort, med rec completed/pending provider's approval, patient reported she takes Methadone 40 mg daily from [facility] in [place] and patient is aware that clinics opens at 8 am, assured the patient it will be verified as soon as Clinic opens, patient is currently awaiting [facility] evaluation, VSS, will continue to monitor.
--- NOTE | 2021-12-28 07:07 | PC.NURSE ---
patient appears to remain at rest at present respirations are even and unlabored, patient in no acute distress, able to let needs be known.
--- NOTE | 2021-12-28 08:39 | HE.PHANOTE ---
Received mathadone verification form from [facility] 45mg daily last dose 12/27/21 @[id number]
[2021-12-28] MEDS: Nicotine Polacrilex 2 MG GUM 4 MG BUCCAL ×2 (09:30→20:11)
[2021-12-28] MEDS: risperiDONE 1 MG TABLET PO ×2 (09:30→20:11)
[2021-12-28] MEDS: lisinopriL 5 MG TABLET PO (09:31)
[2021-12-28] MEDS: Levothyroxine Sodium 75 MCG TABLET PO (09:31)
[2021-12-28] MEDS: Ibuprofen 600 MG TABLET PO (09:31)
[2021-12-28] MEDS: busPIRone HCl 10 MG TABLET PO ×2 (09:32→20:11)
[2021-12-28] MEDS: methADONE HCl 20 MG/2 ML ORAL.CONC 45 MG PO (09:45)
--- NOTE | 2021-12-28 11:41 | PM.PSYCN ---
History of Present Illness Date of Service: 12/28/2021 Chief Complaint: LETHARGIC X'S 2 HOURS FROM REHAB PER EMS Reason for Consult: lethargy/confusion Requesting physician: Phyllis Rene Discussed with referring provider: Yes Sources of Information: patient interviewed, chart reviewed and crisis/core team assessment reviewed HPI Narrative: Ms. Yung is a 46 year-old woman with hx of schizophrenia, polysubstance use disorder. She resides at dual diagnosis program who call 911 as pt presented as lethargic. In the ED, pt continued to present as lethargic, O2 sat desat, received narcan. Utox positive for fentanyl. Head CT did not show acute pathology, CBC wnl, CMP wnl. Depakote level elevated at 102, with wnl ammonia and LFTs. Pt continues to present as somnolent, confused. Pt seen in ED. She is sitting in chair, nodding, with difficulty keeping eyes open. Once her eyes are open, pt trying to grab something that is not there. She is unable to tell this engineering technical writer where she is. She is holding hand as if she had lotion in it (hand is empty) and starts rubbing her feet. She starts walking purposeless but unsteady on her feet, therefore, this engineering technical writer asks her to lay on her bed. Her speech is mostly unintelligible. Her attention is poor, she is grabbing things that are not there. Medical Evaluation Reviewed: Yes [facility] Medical History Substance abuse Diagnostics Vital Signs (24Hr): Vital Signs - 24 hr 12/28/21 13:53 12/29/21 07:43 Temperature 98.3 F 97.9 F Pulse Rate 96 84 Respiratory Rate 16 Blood Pressure 148/79 H 160/83 H Pulse Oximetry 97 98 Oxygen Delivery Method Room Air Room Air BMI result Body Mass Index 37.1 Labs Results: 12/28/21 16:43 12/28/21 16:43 Labs: Laboratory Results - last 48 hr 12/27/21 12/27/21 12/27/21 12:21 12:33 14:57 WBC 7.5 RBC 4.86 D Hgb 13.5 D Hct 42.1 D MCV 86.6 MCH 27.8 MCHC 32.1 RDW 14.4 Plt Count 133 L MPV 10.3 Immature Gran % (Auto) 0.4 Neut % (Auto) 59.9 Lymph % (Auto) 32.8 Marshall % (Auto) 6.2 Eos % (Auto) 0.4 Baso % (Auto) 0.3 Lymph # (Auto) 2.4 Marshall # (Auto) 0.5 Eos # (Auto) 0.0 Baso # (Auto) 0.0 Abs Immat Gran (auto) 0.03 Absolute Neuts (auto) 4.4 Absolute Nucleated RBC 0.000 Nucleated RBC % (auto) 0.0 Smear Tech's Comments VERIFIED ESR Sodium Potassium Chloride Carbon Dioxide Anion Gap BUN Creatinine Estim Creat Clear Calc Estimated GFR Random Glucose Calcium Magnesium Total Bilirubin Direct Bilirubin AST ALT Alkaline Phosphatase Ammonia C-Reactive Protein Total Protein Albumin Lipase TSH Urine Color Urine Appearance Urine pH Ur Specific [place] Urine Protein Urine Glucose (UA) Urine Ketones Urine Blood Urine Nitrite Ur Leukocyte Esterase Urine RBC Urine WBC Ur Squamous Epith Cells Urine Bacteria Hyaline Casts Urine Opiates Screen Not Detected Urine Fentanyl Screen POSITIVE H Ur Barbiturates Screen Not Detected Valproic Acid Ur Phencyclidine Scrn Not Detected Ur Amphetamines Screen Not Detected U Benzodiazepines Scrn Not Detected Urine Cocaine Screen Not Detected U Marijuana (THC) Screen Not Detected Ethyl Alcohol COVID-19 (PAIGE) Negative COVID-19 Clin Com See Note 12/27/21 12/27/21 12/28/21 14:57 14:58 05:22 WBC RBC Hgb Hct MCV MCH MCHC RDW Plt Count MPV Immature Gran % (Auto) Neut % (Auto) Lymph % (Auto) Marshall % (Auto) Eos % (Auto) Baso % (Auto) Lymph # (Auto) Marshall # (Auto) Eos # (Auto) Baso # (Auto) Abs Immat Gran (auto) Absolute Neuts (auto) Absolute Nucleated RBC Nucleated RBC % (auto) Smear Tech's Comments ESR Sodium 138 Potassium 4.1 Chloride 98 Carbon Dioxide 28 Anion Gap 16 BUN 15 Creatinine 0.76 Estim Creat Clear Calc 97.7 Estimated GFR > 60 Random Glucose 98 Calcium 9.9 D Magnesium 1.8 Total Bilirubin 0.3 Direct Bilirubin 0.2 AST 35 H ALT 18 Alkaline Phosphatase 76 Ammonia 45 C-Reactive Protein Total Protein 8.9 H Albumin 4.0 Lipase 30 TSH 1.24 Urine Color Yellow Urine Appearance Clear Urine pH 7.0 Ur Specific [place] 1.020 Urine Protein Negative Urine Glucose (UA) Negative Urine Ketones Negative Urine Blood Negative Urine Nitrite Negative Ur Leukocyte Esterase Negative Urine RBC Urine WBC Ur Squamous Epith Cells Urine Bacteria Hyaline Casts Urine Opiates Screen Urine Fentanyl Screen Ur Barbiturates Screen Valproic Acid 102.7 H Ur Phencyclidine Scrn Ur Amphetamines Screen U Benzodiazepines Scrn Urine Cocaine Screen U Marijuana (THC) Screen Ethyl Alcohol < 10 COVID-19 (PAIGE) COVID-19 Clin Com 12/28/21 12/28/21 12/28/21 16:43 16:43 16:43 WBC 9.8 RBC 4.54 Hgb 12.6 Hct 39.4 MCV 86.8 MCH 27.8 MCHC 32.0 RDW 14.3 Plt Count 148 L MPV 9.2 L Immature Gran % (Auto) 0.4 Neut % (Auto) 68.7 Lymph % (Auto) 22.6 Marshall % (Auto) 8.2 Eos % (Auto) 0.0 Baso % (Auto) 0.1 Lymph # (Auto) 2.2 Marshall # (Auto) 0.8 Eos # (Auto) 0.0 Baso # (Auto) 0.0 Abs Immat Gran (auto) 0.04 H Absolute Neuts (auto) 6.7 Absolute Nucleated RBC 0.000 Nucleated RBC % (auto) 0.0 Smear Tech's Comments ESR 16 Sodium 136 Potassium 4.3 Chloride 100 Carbon Dioxide 26 Anion Gap 14 BUN 22 H Creatinine 0.88 Estim Creat Clear Calc 84.3 Estimated GFR > 60 Random Glucose 99 Calcium 9.4 Magnesium Total Bilirubin Direct Bilirubin AST ALT Alkaline Phosphatase Ammonia C-Reactive Protein 0.10 Total Protein Albumin Lipase TSH Urine Color Urine Appearance Urine pH Ur Specific [place] Urine Protein Urine Glucose (UA) Urine Ketones Urine Blood Urine Nitrite Ur Leukocyte Esterase Urine RBC Urine WBC Ur Squamous Epith Cells Urine Bacteria Hyaline Casts Urine Opiates Screen Urine Fentanyl Screen Ur Barbiturates Screen Valproic Acid 31.9 L Ur Phencyclidine Scrn Ur Amphetamines Screen U Benzodiazepines Scrn Urine Cocaine Screen U Marijuana (THC) Screen Ethyl Alcohol COVID-19 (PAIGE) COVID-19 Clin Com 12/29/21 12/29/21 03:22 03:22 WBC RBC Hgb Hct MCV MCH MCHC RDW Plt Count MPV Immature Gran % (Auto) Neut % (Auto) Lymph % (Auto) Marshall % (Auto) Eos % (Auto) Baso % (Auto) Lymph # (Auto) Marshall # (Auto) Eos # (Auto) Baso # (Auto) Abs Immat Gran (auto) Absolute Neuts (auto) Absolute Nucleated RBC Nucleated RBC % (auto) Smear Tech's Comments ESR Sodium Potassium Chloride Carbon Dioxide Anion Gap BUN Creatinine Estim Creat Clear Calc Estimated GFR Random Glucose Calcium Magnesium Total Bilirubin Direct Bilirubin AST ALT Alkaline Phosphatase Ammonia C-Reactive Protein Total Protein Albumin Lipase TSH Urine Color Yellow Urine Appearance Clear Urine pH 6.0 Ur Specific [place] 1.020 Urine Protein Negative Urine Glucose (UA) Negative Urine Ketones Negative Urine Blood Negative Urine Nitrite Negative Ur Leukocyte Esterase Trace H Urine RBC 0-2 Urine WBC 0-5 Ur Squamous Epith Cells 0-2 Urine Bacteria None Seen Hyaline Casts 0-2 Urine Opiates Screen Not Detected Urine Fentanyl Screen POSITIVE H Ur Barbiturates Screen Not Detected Valproic Acid Ur Phencyclidine Scrn Not Detected Ur Amphetamines Screen Not Detected U Benzodiazepines Scrn Not Detected Urine Cocaine Screen Not Detected U Marijuana (THC) Screen Not Detected Ethyl Alcohol COVID-19 (PAIGE) COVID-19 Clin Com Imaging Radiology Impressions: ITS Impressions Head CT 12/28/21 08:38 IMPRESSION: No acute intracranial pathology. Mental Status Exam Mental Status Exam Narrative: Appearance: wearing hospital gown, nodding at times, confused Behavior:indifferent of this engineering technical writer or surrounding psychomotor:alternating episodes of somnolence with alertness. Speech:unintelligible, minimally spontaneous Thought process:disorganized, loose association and derailment. Thought content:unintelligible Mood:unable to assess Affect: fluctuating levels of somnolence SI:unable to assess HI:unable to assess VH/AH:grabbing things that are not there Delusions:none Insight/judgment:impaired x 2 Memory/cog: intermittently alert, with periods of somnolence, not oriented to place, situation, month Medications Medications Current Medications Benztropine Mesylate (Benztropine Mesylate 1 Mg Tablet) 1 mg PO BID [facility] Last Admin: 12/29/21 07:44 Dose: 1 mg Buspirone HCl (Buspirone Hcl 10 Mg Tablet) 10 mg PO BID [facility] Last Admin: 12/29/21 07:43 Dose: 10 mg Fluticasone/Vilanterol (Fluticasone/Vilanterol 200/25 Blst.W.Dev) 1 puff INHALE RDAILY [facility] Last Admin: 12/29/21 10:44 Dose: Not Given Gabapentin (Gabapentin 100 Mg Capsule) 100 mg PO BEDTIME [facility] Haloperidol (Haloperidol 5 Mg Tablet) 5 mg PO DAILY [facility] Last Admin: 12/29/21 07:43 Dose: 5 mg Haloperidol (Haloperidol 5 Mg Tablet) 10 mg PO BEDTIME [facility] Levothyroxine Sodium (Levothyroxine Sodium 75 Mcg Tablet) 75 mcg PO DAILY [facility] Last Admin: 12/29/21 07:49 Dose: 75 mcg Lisinopril (Lisinopril 5 Mg Tablet) 5 mg PO DAILY [facility]; Protocol Last Admin: 12/29/21 07:45 Dose: 5 mg Melatonin (Melatonin 3 Mg Tablet) 3 mg PO BEDTIME [facility] Methadone HCl (Methadone Hcl 20 Mg/2 Ml Oral.Conc) 45 mg PO DAILY [facility] Last Admin: 12/29/21 07:44 Dose: 45 mg Naproxen (Naproxen 500 Mg Tablet) 500 mg PO BID [facility] Last Admin: 12/29/21 07:43 Dose: 500 mg Nicotine Polacrilex (Nicotine Polacrilex 2 Mg Gum) 4 mg BUCCAL Q2H PRN PRN Reason: Nicotine Cravings Last Admin: 12/28/21 20:11 Dose: 4 mg Non-Formulary Medication (Bupropion Hcl) 150 mg PO DAILY [facility] Risperidone (Risperidone 1 Mg Tablet) 1 mg PO BID [facility] Last Admin: 12/29/21 07:42 Dose: 1 mg Senna (Sennosides 8.6 Mg Tablet) 17.2 mg PO BID [facility] Last Admin: 12/29/21 07:43 Dose: 17.2 mg Trazodone HCl (Trazodone Hcl 50 Mg Tablet) 100 mg PO BEDTIME PRN PRN Reason: Insomnia Allergies Allergies Allergy/AdvReac Type Severity Reaction Status Date / Time clozapine [CLOZAPINE] Allergy Unknown UNKNOWN Verified 12/27/21 19:05 olanzapine [From ZYPREXA] Allergy Unknown UNKNOWN Verified 12/27/21 19:05 shellfish derived Allergy Unknown UNKNOWN Verified 12/27/21 19:05 [SHELLFISH DERIVED] Assessment & Plan Assessment & Plan (1) Metabolic encephalopathy: Status: Acute Code(s): G93.41 - Metabolic encephalopathy Plan Ms. Yung is a 46 year-old woman with hx of schizophrenia, polysubstance use disorder who resides in dual dx program. She was brought to [facility] ED from program due to lethargy. In ED, utox postive for fentanyl. Pt was given narcan but continues with intermittent periods of somnolence with no s/s of respiratory distress- O 2 sat >97 on room air with wnl RRR. Head CT did not show acute pathology. CBC and CMP grossly intact. Depakote level on admission elevated at 102, but with normal ammonia and LFT. No s/s of catatonia including waxy flexibility, negativism, mutism Pt presentation is consistent with encephalopathy or delirium (different term for same condition) rather than psychotic episode. 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 Discussed with Dr. Phyllis Rene who will add CRP, repeat labs. Hold admission to psych as presentation thought to be more medical. I spent minutes with the patient and/or on the patient floor today, greater than?50% of which was spent counseling/coordinating care.
[2021-12-28 13:53] VITALS: BP 148/79; PULSE 96; TEMP 36.8; O2SAT 97
--- NOTE | 2021-12-28 15:35 | MHC.CARE ---
Pt is no longer going to me psychiatrically admitted today and obtain further medical work up. Plan for care team to complete msu
[2021-12-28 16:50] LABS: Hemoglobin 12.6 g/dl (12.0-16.0); PLT CLUMP 1; SCAN SMEAR FLAG 1
[2021-12-28 16:52] LABS: Basophils Percent Auto 0.1 % (0-2); Hematocrit 39.4 % (37.0-47.0); Imm Gran Abs Auto 0.04 X10*3/uL (0.00-0.03); Imm Gran Pct Auto 0.4 % (0.0-0.4); Lymphocytes Absolute Auto 2.2 X10*3/uL (1.2-4.9); Lymphocytes Percent Auto 22.6 % (20-40); Mean Corpuscular Hemoglobin 27.8 pg (27.0-33.0); Mean Corpuscular Volume 86.8 fL (80.0-98.0); Mean Platelet Volume 9.2 fL (9.4-12.3); Monocytes Absolute Auto 0.8 X10*3/uL (0.1-1.2); Monocytes Percent Auto 8.2 % (2-11); Neutrophils Absolute Auto 6.7 x10*3/uL (2.0-8.3); Neutrophils Percent Auto 68.7 % (45-73); Red Blood Count 4.54 X10*6/uL (4.20-5.50); Red Cell Distribution Width 14.3 % (11.0-16.0)
[2021-12-28 16:57] LABS: White Blood Count 9.8 X10*3/uL (4.8-10.8)
[2021-12-28 16:58] LABS: MANUAL DIFF FLAG NO; Platelet Count 148 X10*3/uL (160-400)
[2021-12-28 17:04] LABS: Anion Gap 14 (12-20); Blood Urea Nitrogen 22 mg/dL (9-16); Calcium 9.4 mg/dL (8.4-10.2); Carbon Dioxide 26 mmol/L (22-29); Chloride 100 mmol/L (96-108); Creatinine Clr Calc Pharmacy 84.3; Estimated Glomerular Filt Rate > 60; Glucose Random 99 mg/dL (60-115); Potassium 4.3 mmol/L (3.3-5.1); Sodium 136 mmol/L (135-145)
[2021-12-28 17:10] LABS: Valproate 31.9 mcg/mL (50.0-100.0)
[2021-12-28 19:09] LABS: Erythrocyte Sedimentation Rate 16 MM/HR (0-20)
[2021-12-29 03:37] LABS: Appearance Urine Clear; Color Urine Yellow; Glucose Urine UA Negative (Negative); Leukocyte Esterase Urine Trace (Negative); Nitrite Urine Negative (Negative); UMIC TRIGGER UA YES; Urine Blood Negative (Negative); Urine Ketones Negative (Negative); Urine Protein Negative (Neg-Trace)
[2021-12-29 03:47] LABS: Bacteria Urine None Seen (None Seen); Hyaline Casts Urine 0-2 /LPF (0-2); RBC Urine 0-2 /HPF (0-2); Squamous Epithelial Cell Urine 0-2 /HPF (0-2); WBC Urine 0-5 /HPF (0-5)
[2021-12-29 03:49] LABS: Amphetamine Screen Urine Not Detected (Not Detect); Barbiturates, Urine Not Detected (Not Detect); Benzodiazepines Screen Urine Not Detected (Not Detect); Cannabinoid Screen Urine Not Detected (Not Detect); Cocaine Screen Urine Not Detected (Not Detect); Fentanyl, urine POSITIVE (Not Detect); Opiate Screen Urine Not Detected (Not Detect); Phencyclidine Screen Urine Not Detected (Not Detect)
--- NOTE | 2021-12-29 05:56 | PC.NURSE ---
Patient slept intermittently, snacking periodically, behavior non concerning, medication compliant, disposition per care team is section 12 inpatient bed search, pre-accepted to [facility] however admitting psych provider put on hold for admission due to medical concerns, all labs re-ordered/resulted, VSS, will continue to monitor.
[2021-12-29] MEDS: risperiDONE 1 MG TABLET PO ×2 (07:42→20:20)
[2021-12-29 07:43] VITALS: BP 160/83; PULSE 84; RESP 16; TEMP 36.6; O2SAT 98
[2021-12-29] MEDS: busPIRone HCl 10 MG TABLET PO ×2 (07:43→20:20)
[2021-12-29] MEDS: Divalproex Sodium 500 MG TABLET.DR 1000 MG PO (07:43)
[2021-12-29] MEDS: Sennosides 8.6 MG TABLET 17.2 MG PO ×2 (07:43→20:18)
[2021-12-29] MEDS: NaPROXEN 500 MG TABLET PO ×2 (07:43→20:19)
[2021-12-29] MEDS: HaloperidoL 5 MG TABLET PO (07:43)
[2021-12-29] MEDS: methADONE HCl 20 MG/2 ML ORAL.CONC 45 MG PO (07:44)
[2021-12-29] MEDS: Benztropine Mesylate 1 MG TABLET PO ×2 (07:44→20:20)
[2021-12-29] MEDS: lisinopriL 5 MG TABLET PO (07:45)
[2021-12-29] MEDS: Levothyroxine Sodium 75 MCG TABLET PO (07:49)
--- NOTE | 2021-12-29 09:57 | PC.NURSE ---
Pt accepted to psych, potentially around noon today
--- NOTE | 2021-12-29 13:38 | P.CNPS_ITS ---
History of Present Illness Date of Service: 12/29/2021 Chief Complaint: LETHARGIC X'S 2 HOURS FROM REHAB PER EMS Reason for Consult: f/u AMS Discussed with referring provider: Yes Sources of Information: patient interviewed, chart reviewed and crisis/core team assessment reviewed Additional Sources of Information: Pending collateral from [facility] [phone], left VM with call back number HPI Narrative: Interim Hx: Pt presents more organized in speech in that she is able to respond to some questions more appropriately. Pt reports she is doing find. She asks this typewriter operator automatic if she is leaving. when asked where she thinks she is, pt states [facility], which is [facility] residential program she resides. When asked about year, she states she thinks it is 1991. She does not appear internally preoccupied. Less somnolence. Pt does not know why she is here. She denies SI/HI. She asks this typewriter operator automatic if she is going to her daughter's house. Medical Evaluation Reviewed: Yes Review of Systems Review of Systems Constitutional : No Fever, No Chills ENT/Mouth : No Ear Pain, No Nasal Congestion, No sore throat Eyes: No Eye Pain, No Swelling, No Redness Cardiovascular : No Chest Pain, No SOB Respiratory : No Cough, No Sputum, No Dyspnea Gastrointestinal : No Nausea, No Vomiting, No Diarrhea, No Hematochezia, No Melena Genitourinary : No Dysuria, No Urinary Frequency, No Hematuria Musculoskeletal : No Myalgias Skin : No Skin Lesions, No rash Neuro : No Weakness, No Numbness, No Paresthesias, No Dizziness, No Headache Psych : positive Anxiety, positive Depression, noSI/HI All other systems reviewed and are negative [facility] Medical History Substance abuse Diagnostics Vital Signs (24Hr): Vital Signs - 24 hr 12/29/21 07:43 Temperature 97.9 F Pulse Rate 84 Respiratory Rate 16 Blood Pressure 160/83 H Pulse Oximetry 98 Oxygen Delivery Method Room Air BMI result Body Mass Index 37.1 Labs Results: 12/28/21 16:43 12/28/21 16:43 Labs: Laboratory Results - last 48 hr 12/28/21 12/28/21 12/28/21 05:22 16:43 16:43 WBC 9.8 RBC 4.54 Hgb 12.6 Hct 39.4 MCV 86.8 MCH 27.8 MCHC 32.0 RDW 14.3 Plt Count 148 L MPV 9.2 L Immature Gran % (Auto) 0.4 Neut % (Auto) 68.7 Lymph % (Auto) 22.6 Ritchie % (Auto) 8.2 Eos % (Auto) 0.0 Baso % (Auto) 0.1 Lymph # (Auto) 2.2 Ritchie # (Auto) 0.8 Eos # (Auto) 0.0 Baso # (Auto) 0.0 Abs Immat Gran (auto) 0.04 H Absolute Neuts (auto) 6.7 Absolute Nucleated RBC 0.000 Nucleated RBC % (auto) 0.0 ESR 16 Sodium Potassium Chloride Carbon Dioxide Anion Gap BUN Creatinine Estim Creat Clear Calc Estimated GFR Random Glucose Calcium C-Reactive Protein Urine Color Yellow Urine Appearance Clear Urine pH 7.0 Ur Specific [place] 1.020 Urine Protein Negative Urine Glucose (UA) Negative Urine Ketones Negative Urine Blood Negative Urine Nitrite Negative Ur Leukocyte Esterase Negative Urine RBC Urine WBC Ur Squamous Epith Cells Urine Bacteria Hyaline Casts Urine Opiates Screen Urine Fentanyl Screen Ur Barbiturates Screen Valproic Acid Ur Phencyclidine Scrn Ur Amphetamines Screen U Benzodiazepines Scrn Urine Cocaine Screen U Marijuana (THC) Screen 12/28/21 12/29/21 12/29/21 16:43 03:22 03:22 WBC RBC Hgb Hct MCV MCH MCHC RDW Plt Count MPV Immature Gran % (Auto) Neut % (Auto) Lymph % (Auto) Ritchie % (Auto) Eos % (Auto) Baso % (Auto) Lymph # (Auto) Ritchie # (Auto) Eos # (Auto) Baso # (Auto) Abs Immat Gran (auto) Absolute Neuts (auto) Absolute Nucleated RBC Nucleated RBC % (auto) ESR Sodium 136 Potassium 4.3 Chloride 100 Carbon Dioxide 26 Anion Gap 14 BUN 22 H Creatinine 0.88 Estim Creat Clear Calc 84.3 Estimated GFR > 60 Random Glucose 99 Calcium 9.4 C-Reactive Protein 0.10 Urine Color Yellow Urine Appearance Clear Urine pH 6.0 Ur Specific [place] 1.020 Urine Protein Negative Urine Glucose (UA) Negative Urine Ketones Negative Urine Blood Negative Urine Nitrite Negative Ur Leukocyte Esterase Trace H Urine RBC 0-2 Urine WBC 0-5 Ur Squamous Epith Cells 0-2 Urine Bacteria None Seen Hyaline Casts 0-2 Urine Opiates Screen Not Detected Urine Fentanyl Screen POSITIVE H Ur Barbiturates Screen Not Detected Valproic Acid 31.9 L Ur Phencyclidine Scrn Not Detected Ur Amphetamines Screen Not Detected U Benzodiazepines Scrn Not Detected Urine Cocaine Screen Not Detected U Marijuana (THC) Screen Not Detected Imaging Radiology Impressions: ITS Impressions Head CT 12/28/21 08:38 IMPRESSION: No acute intracranial pathology. Mental Status Exam Mental Status Exam Narrative: Appearance: wearing hospital gown, ambulating, more steady in feet, in NAD. Behavior:indifferent of this typewriter operator automatic or surrounding psychomotor:alternating episodes of somnolence with alertness. Speech:more clear, regular rate, more spontaneous Thought process:less derailment but some of it present Thought content:thinking she is at home, confused as to what's going on Mood: good Affect: congruent, smiles at times SI: denies HI:denies VH/AH: does not appear internally preoccupied. Delusions:none Insight/judgment:improving x 2 Memory/cog: alert, continues to present as not oriented to place, situation, month Medications Medications Current Medications Benztropine Mesylate (Benztropine Mesylate 1 Mg Tablet) 1 mg PO BID [facility] Last Admin: 12/29/21 07:44 Dose: 1 mg Bupropion HCl (Bupropion Hcl Xl 150 Mg Tab.Er.24h) 150 mg PO DAILY [facility] Buspirone HCl (Buspirone Hcl 10 Mg Tablet) 10 mg PO BID [facility] Last Admin: 12/29/21 07:43 Dose: 10 mg Fluticasone/Vilanterol (Fluticasone/Vilanterol 200/25 Blst.W.Dev) 1 puff INHALE RDAILY [facility] Last Admin: 12/29/21 10:44 Dose: Not Given Gabapentin (Gabapentin 100 Mg Capsule) 100 mg PO BEDTIME [facility] Haloperidol (Haloperidol 5 Mg Tablet) 5 mg PO DAILY [facility] Last Admin: 12/29/21 07:43 Dose: 5 mg Haloperidol (Haloperidol 5 Mg Tablet) 10 mg PO BEDTIME [facility] Levothyroxine Sodium (Levothyroxine Sodium 75 Mcg Tablet) 75 mcg PO DAILY [facility] Last Admin: 12/29/21 07:49 Dose: 75 mcg Lisinopril (Lisinopril 5 Mg Tablet) 5 mg PO DAILY [facility]; Protocol Last Admin: 12/29/21 07:45 Dose: 5 mg Melatonin (Melatonin 3 Mg Tablet) 3 mg PO BEDTIME [facility] Methadone HCl (Methadone Hcl 20 Mg/2 Ml Oral.Conc) 45 mg PO DAILY [facility] Last Admin: 12/29/21 07:44 Dose: 45 mg Naproxen (Naproxen 500 Mg Tablet) 500 mg PO BID [facility] Last Admin: 12/29/21 07:43 Dose: 500 mg Nicotine Polacrilex (Nicotine Polacrilex 2 Mg Gum) 4 mg BUCCAL Q2H PRN PRN Reason: Nicotine Cravings Last Admin: 12/28/21 20:11 Dose: 4 mg Risperidone (Risperidone 1 Mg Tablet) 1 mg PO BID [facility] Last Admin: 12/29/21 07:42 Dose: 1 mg Senna (Sennosides 8.6 Mg Tablet) 17.2 mg PO BID [facility] Last Admin: 12/29/21 07:43 Dose: 17.2 mg Trazodone HCl (Trazodone Hcl 50 Mg Tablet) 100 mg PO BEDTIME PRN PRN Reason: Insomnia Allergies Allergies Allergy/AdvReac Type Severity Reaction Status Date / Time clozapine [CLOZAPINE] Allergy Unknown UNKNOWN Verified 12/27/21 19:05 olanzapine [From ZYPREXA] Allergy Unknown UNKNOWN Verified 12/27/21 19:05 shellfish derived Allergy Unknown UNKNOWN Verified 12/27/21 19:05 [SHELLFISH DERIVED] Assessment & Plan Assessment & Plan (1) Metabolic encephalopathy: Status: Acute Code(s): G93.41 - Metabolic encephalopathy Plan Ms. Yung is a 46 year-old woman with hx of schizophrenia, polysubstance use disorder who resides in dual dx program. She was brought to [facility] ED from program due to lethargy. In ED, utox postive for fentanyl. Pt was given narcan but continues with intermittent periods of somnolence with no s/s of respiratory distress- O 2 sat >97 on room air with wnl RRR. Head CT did not show acute pathology. CBC and CMP grossly intact. Depakote level on admission elevated at 102, but with normal ammonia and LFT. No s/s of catatonia including waxy flexibility, negativism, mutism Pt presentation is consistent with encephalopathy or delirium (different term for same condition) rather than psychotic episode. 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 12/28: Discussed with Dr. Phyllis Rene who will add CRP, repeat labs. Hold admission to psych as presentation thought to be more medical. 12/29: pt mentation is improving in that speech is more intelligible, less derailment (more appropriate response), no acute s/s of psychosis, which again confirms a brief- now resolving episode of delirium. DO NOT RESTART DEPAKOTE. I spent minutes with the patient and/or on the patient floor today, greater than?50% of which was spent counseling/coordinating care.
[2021-12-29 20:06] VITALS: BP 149/78; PULSE 85; RESP 17; TEMP 36.8; O2SAT 97
[2021-12-29] MEDS: HaloperidoL 5 MG TABLET 10 MG PO (20:19)
[2021-12-29] MEDS: Gabapentin 100 MG CAPSULE PO (20:20)
[2021-12-29] MEDS: Melatonin 3 MG TABLET PO (20:20)
[2021-12-30] MEDS: Acetaminophen 325 MG TABLET 650 MG PO (05:08)
[2021-12-30] MEDS: Levothyroxine Sodium 75 MCG TABLET PO ×3 (05:09→08:33)
--- NOTE | 2021-12-30 06:29 | PC.NURSE ---
Patient slept intermittently, in and out of room multiple times with numerous complain and needs, no distress observed/reported except back pain addressed with Tylenol 650 mg with + effect, patient's Depakote discontinued, medication compliant, awaiting follow up psych consult, patient may be discharged today, behavior non concerning, will continue to monitor.
--- NOTE | 2021-12-30 07:16 | PC.NURSE ---
patient appears to remain asleep at present respirations are even and unlabored, patient wandering around unit, appears mildly confused.
[2021-12-30] MEDS: NaPROXEN 500 MG TABLET PO ×2 (08:32→19:35)
[2021-12-30] MEDS: HaloperidoL 5 MG TABLET PO (08:32)
[2021-12-30] MEDS: Benztropine Mesylate 1 MG TABLET PO ×2 (08:32→19:36)
[2021-12-30] MEDS: lisinopriL 5 MG TABLET PO (08:32)
[2021-12-30] MEDS: busPIRone HCl 10 MG TABLET PO ×2 (08:33→19:35)
[2021-12-30] MEDS: Sennosides 8.6 MG TABLET 17.2 MG PO ×2 (08:33→19:35)
[2021-12-30] MEDS: buPROPion HCl XL 150 MG TAB.ER.24H PO (08:33)
[2021-12-30] MEDS: risperiDONE 1 MG TABLET PO ×2 (08:33→19:36)
[2021-12-30] MEDS: methADONE HCl 20 MG/2 ML ORAL.CONC 45 MG PO (08:34)
[2021-12-30 10:56] VITALS: BP 149/68; PULSE 74; RESP 15; TEMP 37.1; O2SAT 95
--- NOTE | 2021-12-30 11:50 | P.CNPS_ITS ---
History of Present Illness Date of Service: 12/30/2021 Chief Complaint: LETHARGIC X'S 2 HOURS FROM REHAB PER EMS Reason for Consult: AMS Discussed with referring provider: Yes Sources of Information: patient interviewed, chart reviewed and crisis/core team assessment reviewed HPI Narrative: Interim Hx: pt slightly more organized, still confused as to where she is and what she is doing here. Pt disrobing in her room, asking this journalists and other writers to lift bed to get her clothes. There are no clothes underneath bed. Pt without agitation. She slept in room. Walking and grabing things without clear purposely. Gave ativan 2mg challenge to r/o excitatory catatonia- but no improvement noted. Review of Systems Review of Systems Constitutional : No Fever, No Chills ENT/Mouth : No Ear Pain, No Nasal Congestion, No sore throat Eyes: No Eye Pain, No Swelling, No Redness Cardiovascular : No Chest Pain, No SOB Respiratory : No Cough, No Sputum, No Dyspnea Gastrointestinal : No Nausea, No Vomiting, No Diarrhea, No Hematochezia, No Melena Genitourinary : No Dysuria, No Urinary Frequency, No Hematuria Musculoskeletal : No Myalgias Skin : No Skin Lesions, No rash Neuro : No Weakness, No Numbness, No Paresthesias, No Dizziness, No Headache Psych : positive Anxiety, positive Depression, noSI/HI All other systems reviewed and are negative [facility]LY [facility], [facility] Medical History Substance abuse Diagnostics Vital Signs (24Hr): Vital Signs - 24 hr 12/29/21 20:06 12/30/21 10:56 Temperature 98.2 F 98.7 F Pulse Rate 85 74 Respiratory Rate 17 15 Blood Pressure 149/78 H 149/68 H Pulse Oximetry 97 95 Oxygen Delivery Method Room Air Room Air BMI result Body Mass Index 37.1 Labs Results: 12/28/21 16:43 12/28/21 16:43 Labs: Laboratory Results - last 48 hr 12/28/21 12/28/21 12/28/21 16:43 16:43 16:43 WBC 9.8 RBC 4.54 Hgb 12.6 Hct 39.4 MCV 86.8 MCH 27.8 MCHC 32.0 RDW 14.3 Plt Count 148 L MPV 9.2 L Immature Gran % (Auto) 0.4 Neut % (Auto) 68.7 Lymph % (Auto) 22.6 Rooks % (Auto) 8.2 Eos % (Auto) 0.0 Baso % (Auto) 0.1 Lymph # (Auto) 2.2 Rooks # (Auto) 0.8 Eos # (Auto) 0.0 Baso # (Auto) 0.0 Abs Immat Gran (auto) 0.04 H Absolute Neuts (auto) 6.7 Absolute Nucleated RBC 0.000 Nucleated RBC % (auto) 0.0 ESR 16 Sodium 136 Potassium 4.3 Chloride 100 Carbon Dioxide 26 Anion Gap 14 BUN 22 H Creatinine 0.88 Estim Creat Clear Calc 84.3 Estimated GFR > 60 Random Glucose 99 Calcium 9.4 C-Reactive Protein 0.10 Urine Color Urine Appearance Urine pH Ur Specific Goddard Urine Protein Urine Glucose (UA) Urine Ketones Urine Blood Urine Nitrite Ur Leukocyte Esterase Urine RBC Urine WBC Ur Squamous Epith Cells Urine Bacteria Hyaline Casts Urine Opiates Screen Urine Fentanyl Screen Ur Barbiturates Screen Valproic Acid 31.9 L Ur Phencyclidine Scrn Ur Amphetamines Screen U Benzodiazepines Scrn Urine Cocaine Screen U Marijuana (THC) Screen 12/29/21 12/29/21 03:22 03:22 WBC RBC Hgb Hct MCV MCH MCHC RDW Plt Count MPV Immature Gran % (Auto) Neut % (Auto) Lymph % (Auto) Rooks % (Auto) Eos % (Auto) Baso % (Auto) Lymph # (Auto) Rooks # (Auto) Eos # (Auto) Baso # (Auto) Abs Immat Gran (auto) Absolute Neuts (auto) Absolute Nucleated RBC Nucleated RBC % (auto) ESR Sodium Potassium Chloride Carbon Dioxide Anion Gap BUN Creatinine Estim Creat Clear Calc Estimated GFR Random Glucose Calcium C-Reactive Protein Urine Color Yellow Urine Appearance Clear Urine pH 6.0 Ur Specific Goddard 1.020 Urine Protein Negative Urine Glucose (UA) Negative Urine Ketones Negative Urine Blood Negative Urine Nitrite Negative Ur Leukocyte Esterase Trace H Urine RBC 0-2 Urine WBC 0-5 Ur Squamous Epith Cells 0-2 Urine Bacteria None Seen Hyaline Casts 0-2 Urine Opiates Screen Not Detected Urine Fentanyl Screen POSITIVE H Ur Barbiturates Screen Not Detected Valproic Acid Ur Phencyclidine Scrn Not Detected Ur Amphetamines Screen Not Detected U Benzodiazepines Scrn Not Detected Urine Cocaine Screen Not Detected U Marijuana (THC) Screen Not Detected Imaging Radiology Impressions: ITS Impressions Head CT 12/28/21 08:38 IMPRESSION: No acute intracranial pathology. Mental Status Exam Mental Status Exam Narrative: Appearance: wearing hospital gown, ambulating, more steady in feet, in NAD. Behavior:indifferent of this journalists and other writers or surrounding psychomotor:alternating episodes of somnolence with alertness. Speech:more clear, regular rate, more spontaneous Thought process:less derailment but some of it present Thought content:thinking she is at home, confused as to what's going on Mood: good Affect: congruent, smiles at times SI: denies HI:denies VH/AH: does not appear internally preoccupied. Delusions:none Insight/judgment:improving x 2 Memory/cog: alert, continues to present as not oriented to place, situation, month Medications Medications Current Medications Benztropine Mesylate (Benztropine Mesylate 1 Mg Tablet) 1 mg PO BID [facility] Last Admin: 12/30/21 08:32 Dose: 1 mg Buspirone HCl (Buspirone Hcl 10 Mg Tablet) 10 mg PO BID [facility] Last Admin: 12/30/21 08:33 Dose: 10 mg Fluticasone/Vilanterol (Fluticasone/Vilanterol 200/25 Blst.W.Dev) 1 puff INHALE RDAILY [facility] Last Admin: 12/30/21 08:25 Dose: Not Given Gabapentin (Gabapentin 100 Mg Capsule) 100 mg PO BEDTIME [facility] Last Admin: 12/29/21 20:20 Dose: 100 mg Haloperidol (Haloperidol 5 Mg Tablet) 5 mg PO DAILY [facility] Last Admin: 12/30/21 08:32 Dose: 5 mg Haloperidol (Haloperidol 5 Mg Tablet) 10 mg PO BEDTIME [facility] Last Admin: 12/29/21 20:19 Dose: 10 mg Levothyroxine Sodium (Levothyroxine Sodium 75 Mcg Tablet) 75 mcg PO DAILY [facility] Last Admin: 12/30/21 08:33 Dose: 75 mcg Lisinopril (Lisinopril 5 Mg Tablet) 5 mg PO DAILY [facility]; Protocol Last Admin: 12/30/21 08:32 Dose: 5 mg Melatonin (Melatonin 3 Mg Tablet) 3 mg PO BEDTIME [facility] Last Admin: 12/29/21 20:20 Dose: 3 mg Methadone HCl (Methadone Hcl 20 Mg/2 Ml Oral.Conc) 45 mg PO DAILY [facility] Last Admin: 12/30/21 08:34 Dose: 45 mg Naproxen (Naproxen 500 Mg Tablet) 500 mg PO BID [facility] Last Admin: 12/30/21 08:32 Dose: 500 mg Nicotine Polacrilex (Nicotine Polacrilex 2 Mg Gum) 4 mg BUCCAL Q2H PRN PRN Reason: Nicotine Cravings Last Admin: 12/28/21 20:11 Dose: 4 mg Risperidone (Risperidone 1 Mg Tablet) 1 mg PO BID [facility] Last Admin: 12/30/21 08:33 Dose: 1 mg Senna (Sennosides 8.6 Mg Tablet) 17.2 mg PO BID [facility] Last Admin: 12/30/21 08:33 Dose: 17.2 mg Trazodone HCl (Trazodone Hcl 50 Mg Tablet) 100 mg PO BEDTIME PRN PRN Reason: Insomnia Allergies Allergies Allergy/AdvReac Type Severity Reaction Status Date / Time clozapine [CLOZAPINE] Allergy Unknown UNKNOWN Verified 12/27/21 19:05 olanzapine [From ZYPREXA] Allergy Unknown UNKNOWN Verified 12/27/21 19:05 shellfish derived Allergy Unknown UNKNOWN Verified 12/27/21 19:05 [SHELLFISH DERIVED] Assessment & Plan Assessment & Plan (1) Metabolic encephalopathy: Status: Acute Code(s): G93.41 - Metabolic encephalopathy Plan Ms. Yung is a 46 year-old woman with hx of schizophrenia, polysubstance use disorder who resides in dual program. She was brought to [facility] ED from program due to lethargy. In ED, utox postive for fentanyl. Pt was given narcan but continues with intermittent periods of somnolence with no s/s of respiratory distress- O 2 sat >97 on room air with wnl RRR. Head CT did not show acute pathology. CBC and CMP grossly intact. Depakote level on admission elevated at 1 02, but with normal ammonia and LFT. No s/s of catatonia including waxy flexibility, negativism, mutism Pt presentation is consistent with encephalopathy or delirium (different term for same condition) rather than psychotic episode. 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 10/28: Discussed with Dr. Phyllis Rene who will add CRP, repeat labs. Hold admission to psych as presentation thought to be more medical. 12/29: pt mentation is improving in that speech is more intelligible, less derailment (more appropriate response), no acute s/s of psychosis, which again confirms a brief- now resolving episode of delirium. DO NOT RESTART DEPAKOTE. 12/30- continue current medications, slightly more organized. still confused. I spent minutes with the patient and/or on the patient floor today, greater than?50% of which was spent counseling/coordinating care.
[2021-12-30] MEDS: LORazepam 1 MG TABLET 2 MG PO (12:08)
--- NOTE | 2021-12-30 13:53 | PC.NURSE ---
PT REMAINS DISORIENTED, PACING. DISORGANIZED THOUGHT PATTERNS, REPEATEDLY ATTEMPTING TO OPEN DOORS THOUGH EASILY REDIRECTED. PT HAS BECOME MORE OBTUNDED SINCE ATIVAN ADMIN, ROUSING TO VOICE, RELUCTANT TO REMAIN IN BED OR SIT DOWN. CONTINUES TO EXHIBIT BIZARRE BEHAVIOURS E.G. CLAPPING AT RANDOM.
--- NOTE | 2021-12-30 17:55 | PC.NURSE ---
ZAK BENITEZ [phone] SON. HERE FOR VISITATION, PT MORE ALERT AT THIS TIME, IN NAD. ATTENTION SPAN SHORT.
[2021-12-30] MEDS: traZODone HCL 50 MG TABLET 100 MG PO (19:35)
[2021-12-30] MEDS: Melatonin 3 MG TABLET PO (19:36)
[2021-12-30] MEDS: Gabapentin 100 MG CAPSULE PO (19:39)
[2021-12-31 03:32] VITALS: BP 134/62; PULSE 74; RESP 17; TEMP 36.4; O2SAT 96
--- NOTE | 2021-12-31 05:41 | PC.NURSE ---
Patient slept through the night, no distress observed/reported except leg back pain 05/10, medication compliant, awaiting reevaluation by psych provider for mental status, behavior non concerning but requires numerous redirection, patient intermittently incoherent, VSS, will continue to monitor.
[2021-12-31] MEDS: Nicotine Polacrilex 2 MG GUM 4 MG BUCCAL (05:50)
[2021-12-31] MEDS: Sennosides 8.6 MG TABLET 17.2 MG PO ×2 (08:20→19:44)
[2021-12-31] MEDS: NaPROXEN 500 MG TABLET PO ×2 (08:20→19:44)
[2021-12-31] MEDS: risperiDONE 1 MG TABLET PO ×2 (08:20→19:44)
[2021-12-31] MEDS: busPIRone HCl 10 MG TABLET PO ×2 (08:21→19:45)
[2021-12-31] MEDS: Levothyroxine Sodium 75 MCG TABLET PO (08:21)
[2021-12-31] MEDS: Benztropine Mesylate 1 MG TABLET PO ×2 (08:21→19:45)
[2021-12-31] MEDS: lisinopriL 5 MG TABLET PO (08:22)
[2021-12-31] MEDS: methADONE HCl 20 MG/2 ML ORAL.CONC 45 MG PO (08:23)
[2021-12-31] MEDS: Fluticasone/Vilanterol 200/25 BLST.W.DEV 1 PUFF INHALE (08:23)
--- NOTE | 2021-12-31 11:38 | PM.PSYCN ---
History of Present Illness Date of Service: 12/31/2021 Chief Complaint: LETHARGIC X'S 2 HOURS FROM REHAB PER EMS Reason for Consult: AMS Discussed with referring provider: Yes Sources of Information: patient interviewed, chart reviewed and crisis/core team assessment reviewed HPI Narrative: Interim Hx: pt appears much more organized. Pt able state that she is aware she is at [facility]. She denies SI/HI. She denies AH/ She is able to state that in past AH have been a problem but not currently. She is able to tell me the month, some confusion about year. Much more clear as to she knows that she is in [facility] house for dual dx program and wants to return there. Per nursing, more organized, and coherent when talking. No aggression towards self or others. Medical Evaluation Reviewed: Yes Review of Systems Review of Systems Constitutional : No Fever, No Chills ENT/Mouth : No Ear Pain, No Nasal Congestion, No sore throat Eyes: No Eye Pain, No Swelling, No Redness Cardiovascular : No Chest Pain, No SOB Respiratory : No Cough, No Sputum, No Dyspnea Gastrointestinal : No Nausea, No Vomiting, No Diarrhea, No Hematochezia, No Melena Genitourinary : No Dysuria, No Urinary Frequency, No Hematuria Musculoskeletal : No Myalgias Skin : No Skin Lesions, No rash Neuro : No Weakness, No Numbness, No Paresthesias, No Dizziness, No Headache Psych : positive Anxiety, positive Depression, noSI/HI All other systems reviewed and are negative [facility] Medical History Substance abuse Diagnostics Vital Signs (24Hr): Vital Signs - 24 hr 12/31/21 13:10 12/31/21 19:50 12/31/21 23:47 Temperature 97.8 F 97.3 F Pulse Rate 82 92 Respiratory Rate 17 18 18 Blood Pressure 122/84 153/78 H Pulse Oximetry 95 95 Oxygen Delivery Method Room Air Room Air 12/31/21 23:48 01/01/22 04:33 Temperature 98.6 F Pulse Rate 89 Respiratory Rate 18 16 Blood Pressure 116/54 L Pulse Oximetry 95 Oxygen Delivery Method Room Air BMI result Body Mass Index 37.1 Labs Results: 12/28/21 16:43 12/28/21 16:43 Imaging Radiology Impressions: ITS Impressions Head CT 12/28/21 08:38 IMPRESSION: No acute intracranial pathology. Mental Status Exam Mental Status Exam Narrative: Appearance: wearing hospital gown, ambulating, more steady in feet, in NAD. Behavior:indifferent of this press writer or surrounding psychomotor:alternating episodes of somnolence with alertness. Speech:more clear, regular rate, more spontaneous Thought process:less derailment but some of it present Thought content:thinking she is at home, confused as to what's going on Mood: good Affect: congruent, smiles at times SI: denies HI:denies VH/AH: does not appear internally preoccupied. Delusions:none Insight/judgment:improving x 2 Memory/cog: alert, improvement in orientation to place, month, and a bit more into situation Medications Medications Current Medications Albuterol Sulfate (Albuterol Sulfate 90 Mcg 8 Gm Inhaler) 2 puff INHALE Q4H PRN PRN Reason: Shortness of Breath/Wheezing Last Admin: 01/01/22 09:47 Dose: 2 puff Benztropine Mesylate (Benztropine Mesylate 1 Mg Tablet) 1 mg PO BID [facility] Last Admin: 01/01/22 08:04 Dose: 1 mg Buspirone HCl (Buspirone Hcl 10 Mg Tablet) 10 mg PO BID [facility] Last Admin: 01/01/22 08:04 Dose: 10 mg Fluticasone/Vilanterol (Fluticasone/Vilanterol 200/25 Blst.W.Dev) 1 puff INHALE RDAILY [facility] Last Admin: 01/01/22 08:04 Dose: 1 puff Gabapentin (Gabapentin 100 Mg Capsule) 100 mg PO BEDTIME [facility] Last Admin: 12/31/21 19:45 Dose: 100 mg Levothyroxine Sodium (Levothyroxine Sodium 75 Mcg Tablet) 75 mcg PO DAILY [facility] Last Admin: 01/01/22 08:04 Dose: 75 mcg Lisinopril (Lisinopril 5 Mg Tablet) 5 mg PO DAILY [facility]; Protocol Last Admin: 01/01/22 08:04 Dose: 5 mg Melatonin (Melatonin 3 Mg Tablet) 3 mg PO BEDTIME [facility] Last Admin: 12/31/21 19:45 Dose: 3 mg Methadone HCl (Methadone Hcl 20 Mg/2 Ml Oral.Conc) 45 mg PO DAILY [facility] Last Admin: 01/01/22 08:05 Dose: 45 mg Naproxen (Naproxen 500 Mg Tablet) 500 mg PO BID [facility] Last Admin: 01/01/22 08:03 Dose: 500 mg Nicotine Polacrilex (Nicotine Polacrilex 2 Mg Gum) 4 mg BUCCAL Q2H PRN PRN Reason: Nicotine Cravings Last Admin: 12/31/21 05:50 Dose: 4 mg Risperidone (Risperidone 1 Mg Tablet) 1 mg PO BID [facility] Last Admin: 01/01/22 08:04 Dose: 1 mg Senna (Sennosides 8.6 Mg Tablet) 17.2 mg PO BID [facility] Last Admin: 01/01/22 08:04 Dose: 17.2 mg Trazodone HCl (Trazodone Hcl 50 Mg Tablet) 100 mg PO BEDTIME PRN PRN Reason: Insomnia Last Admin: 12/31/21 19:44 Dose: 100 mg Allergies Allergies Allergy/AdvReac Type Severity Reaction Status Date / Time clozapine [CLOZAPINE] Allergy Unknown UNKNOWN Verified 12/27/21 19:05 olanzapine [From ZYPREXA] Allergy Unknown UNKNOWN Verified 12/27/21 19:05 shellfish derived Allergy Unknown UNKNOWN Verified 12/27/21 19:05 [SHELLFISH DERIVED] Assessment & Plan Assessment & Plan (1) Metabolic encephalopathy: Status: Acute Code(s): G93.41 - Metabolic encephalopathy Plan Ms. Yung is a 46 year-old woman with hx of schizophrenia, polysubstance use disorder who resides in dual dx program. She was brought to [facility] ED from program due to lethargy. In ED, utox postive for fentanyl. Pt was given narcan but continues with intermittent periods of somnolence with no s/s of respiratory distress- O 2 sat >97 on room air with wnl RRR. Head CT did not show acute pathology. CBC and CMP grossly intact. Depakote level on admission elevated at 102, but with normal ammonia and LFT. No s/s of catatonia including waxy flexibility, negativism, mutism Pt presentation is consistent with encephalopathy or delirium (different term for same condition) rather than psychotic episode. 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 12/28: Discussed with Dr. Phyllis Rene who will add CRP, repeat labs. Hold admission to psych as presentation thought to be more medical. 12/29: pt mentation is improving in that speech is more intelligible, less derailment (more appropriate response), no acute s/s of psychosis, which again confirms a brief- now resolving episode of delirium. DO NOT RESTART DEPAKOTE. 12/30- continue current medications, slightly more organized. still confused. 12/31- pt much more organized, speech more coherent and linear. Will give on more day and d/c tomorrow if continues to improve. I spent minutes with the patient and/or on the patient floor today, greater than?50% of which was spent counseling/coordinating care.
[2021-12-31 13:10] VITALS: BP 122/84; PULSE 82; RESP 17; TEMP 36.6; O2SAT 95
--- NOTE | 2021-12-31 13:30 | MHC.CARE ---
The plan for pt is to remain in the ED to be monitored by psychiatry, she will tentatively return to [facility].? CARE Team attempted to make contact with [facility] to discuss the plan but could not find a reliable number.? CARE Team contacted Ms. Sammi Leigh ([phone]) who referred CARE Team to assistant program manager Halie Vela ([phone]).? No answer at this number, no message can be left.? CARE Team attempted to call [facility] ( ).? There was no answer.
[2021-12-31] MEDS: Albuterol Sulfate 90 MCG 8 GM INHALER 2 PUFF INHALE (15:40)
--- NOTE | 2021-12-31 16:03 | PC.NURSE ---
Pt unable to be seen this date for OT tx as pt talking on the phone during time of visit. Pts nurse notified and aware.
--- NOTE | 2021-12-31 16:24 | PC.NURSE ---
assumed care of pt at 1500, pt pacing at the desk, asking about plan for discharge, requesting PRNs, medicate w albuterol.
[2021-12-31] MEDS: traZODone HCL 50 MG TABLET 100 MG PO (19:44)
[2021-12-31] MEDS: Gabapentin 100 MG CAPSULE PO (19:45)
[2021-12-31] MEDS: Melatonin 3 MG TABLET PO (19:45)
[2021-12-31 19:50] VITALS: BP 153/78; PULSE 92; RESP 18; TEMP 36.3; O2SAT 95
[2021-12-31 23:47] VITALS: RESP 18
[2021-12-31 23:48] VITALS: RESP 18
[2022-01-01 04:33] VITALS: BP 116/54; PULSE 89; RESP 16; TEMP 37; O2SAT 95
[2022-01-01] MEDS: Albuterol Sulfate 90 MCG 8 GM INHALER 2 PUFF INHALE ×2 (05:07→09:47)
--- NOTE | 2022-01-01 07:23 | PC.NURSE ---
patient appears top remain at rest at present respirations are even and unlabored patient appears in no distress
[2022-01-01] MEDS: NaPROXEN 500 MG TABLET PO (08:03)
[2022-01-01] MEDS: Fluticasone/Vilanterol 200/25 BLST.W.DEV 1 PUFF INHALE (08:04)
[2022-01-01] MEDS: risperiDONE 1 MG TABLET PO (08:04)
[2022-01-01] MEDS: busPIRone HCl 10 MG TABLET PO (08:04)
[2022-01-01] MEDS: Benztropine Mesylate 1 MG TABLET PO (08:04)
[2022-01-01] MEDS: lisinopriL 5 MG TABLET PO (08:04)
[2022-01-01] MEDS: Levothyroxine Sodium 75 MCG TABLET PO (08:04)
[2022-01-01] MEDS: Sennosides 8.6 MG TABLET 17.2 MG PO (08:04)
[2022-01-01] MEDS: methADONE HCl 20 MG/2 ML ORAL.CONC 45 MG PO (08:05)
--- NOTE | 2022-01-01 12:17 | P.CNPS_ITS ---
History of Present Illness Date of Service: 01/01/2022 Chief Complaint: LETHARGIC X'S 2 HOURS FROM REHAB PER EMS Sources of Information: patient interviewed, chart reviewed and crisis/core team assessment reviewed HPI Narrative: Interim Hx: pt much more coherent, attention is better as well. She is fully oriented to place, month, year, situation. No SI/HI. No overt psychosis, or delusional content noted or reported. Speech is organized and coherent. Medical Evaluation Reviewed: Yes Review of Systems Review of Systems Constitutional : No Fever, No Chills ENT/Mouth : No Ear Pain, No Nasal Congestion, No sore throat Eyes: No Eye Pain, No Swelling, No Redness Cardiovascular : No Chest Pain, No SOB Respiratory : No Cough, No Sputum, No Dyspnea Gastrointestinal : No Nausea, No Vomiting, No Diarrhea, No Hematochezia, No Melena Genitourinary : No Dysuria, No Urinary Frequency, No Hematuria Musculoskeletal : No Myalgias Skin : No Skin Lesions, No rash Neuro : No Weakness, No Numbness, No Paresthesias, No Dizziness, No Headache Psych : positive Anxiety, positive Depression, noSI/HI All other systems reviewed and are negative [facility] Medical History Substance abuse Diagnostics Vital Signs (24Hr): Vital Signs - 24 hr 12/31/21 13:10 12/31/21 19:50 12/31/21 23:47 Temperature 97.8 F 97.3 F Pulse Rate 82 92 Respiratory Rate 17 18 18 Blood Pressure 122/84 153/78 H Pulse Oximetry 95 95 Oxygen Delivery Method Room Air Room Air 12/31/21 23:48 01/01/22 04:33 Temperature 98.6 F Pulse Rate 89 Respiratory Rate 18 16 Blood Pressure 116/54 L Pulse Oximetry 95 Oxygen Delivery Method Room Air BMI result Body Mass Index 37.1 Labs Results: 12/28/21 16:43 12/28/21 16:43 Imaging Radiology Impressions: ITS Impressions Head CT 12/28/21 08:38 IMPRESSION: No acute intracranial pathology. Mental Status Exam Mental Status Exam Narrative: Appearance: wearing hospital gown, ambulating, more steady in feet, in NAD. Behavior:indifferent of this web content writer or surrounding psychomotor:alternating episodes of somnolence with alertness. Speech:more clear, regular rate, more spontaneous Thought process:less derailment but some of it present Thought content:thinking she is at home, confused as to what's going on Mood: good Affect: congruent, smiles at times SI: denies HI:denies VH/AH: does not appear internally preoccupied. Delusions:none Insight/judgment:improving x 2 Memory/cog: alert, improvement in orientation to place, month, and a bit more into situation Medications Medications Current Medications Albuterol Sulfate (Albuterol Sulfate 90 Mcg 8 Gm Inhaler) 2 puff INHALE Q4H PRN PRN Reason: Shortness of Breath/Wheezing Last Admin: 01/01/22 09:47 Dose: 2 puff Benztropine Mesylate (Benztropine Mesylate 1 Mg Tablet) 1 mg PO BID [facility] Last Admin: 01/01/22 08:04 Dose: 1 mg Buspirone HCl (Buspirone Hcl 10 Mg Tablet) 10 mg PO BID [facility] Last Admin: 01/01/22 08:04 Dose: 10 mg Fluticasone/Vilanterol (Fluticasone/Vilanterol 200/25 Blst.W.Dev) 1 puff INHALE RDAILY [facility] Last Admin: 01/01/22 08:04 Dose: 1 puff Gabapentin (Gabapentin 100 Mg Capsule) 100 mg PO BEDTIME [facility] Last Admin: 12/31/21 19:45 Dose: 100 mg Levothyroxine Sodium (Levothyroxine Sodium 75 Mcg Tablet) 75 mcg PO DAILY [facility] Last Admin: 01/01/22 08:04 Dose: 75 mcg Lisinopril (Lisinopril 5 Mg Tablet) 5 mg PO DAILY [facility]; Protocol Last Admin: 01/01/22 08:04 Dose: 5 mg Melatonin (Melatonin 3 Mg Tablet) 3 mg PO BEDTIME [facility] Last Admin: 12/31/21 19:45 Dose: 3 mg Methadone HCl (Methadone Hcl 20 Mg/2 Ml Oral.Conc) 45 mg PO DAILY [facility] Last Admin: 01/01/22 08:05 Dose: 45 mg Naproxen (Naproxen 500 Mg Tablet) 500 mg PO BID [facility] Last Admin: 01/01/22 08:03 Dose: 500 mg Nicotine Polacrilex (Nicotine Polacrilex 2 Mg Gum) 4 mg [place] Q2H PRN PRN Reason: Nicotine Cravings Last Admin: 12/31/21 05:50 Dose: 4 mg Risperidone (Risperidone 1 Mg Tablet) 1 mg PO BID [facility] Last Admin: 01/01/22 08:04 Dose: 1 mg Senna (Sennosides 8.6 Mg Tablet) 17.2 mg PO BID [facility] Last Admin: 01/01/22 08:04 Dose: 17.2 mg Trazodone HCl (Trazodone Hcl 50 Mg Tablet) 100 mg PO BEDTIME PRN PRN Reason: Insomnia Last Admin: 12/31/21 19:44 Dose: 100 mg Allergies Allergies Allergy/AdvReac Type Severity Reaction Status Date / Time clozapine [CLOZAPINE] Allergy Unknown UNKNOWN Verified 12/27/21 19:05 olanzapine [From ZYPREXA] Allergy Unknown UNKNOWN Verified 12/27/21 19:05 shellfish derived Allergy Unknown UNKNOWN Verified 12/27/21 19:05 [SHELLFISH DERIVED] Assessment & Plan Assessment & Plan (1) Metabolic encephalopathy: Status: Acute Code(s): G93.41 - Metabolic encephalopathy Plan Ms. Yung is a 46 year-old woman with hx of schizophrenia, polysubstance use disorder who resides in dual dx program. She was brought to [facility] ED from program due to lethargy. In ED, utox postive for fentanyl. Pt was given narcan but con tinues with intermittent periods of somnolence with no s/s of respiratory distress- O 2 sat >97 on room air with wnl RRR. Head CT did not show acute pathology. CBC and CMP grossly intact. Depakote level on admission elevated at 102, but with normal ammonia and LFT. No s/s of catatonia including waxy flexibility, negativism, mutism Pt presentation is consistent with encephalopathy or delirium (different term for same condition) rather than psychotic episode. 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 12/28: Discussed with Dr. Phyllis Rene who will add CRP, repeat labs. Hold admission to psych as presentation thought to be more medical. 12/29: pt mentation is improving in that speech is more intelligible, less derailment (more appropriate response), no acute s/s of psychosis, which again confirms a brief- now resolving episode of delirium. DO NOT RESTART DEPAKOTE. 12/30- continue current medications, slightly more organized. still confused. 12/31- pt much more organized, speech more coherent and linear. Will give on more day and d/c tomorrow if continues to improve. 01/01 pt appears much clear, coherent and fully oriented. do suspect pt had NON- Hyperammonemic depakote encephalopathy. I spent minutes with the patient and/or on the patient floor today, greater than?50% of which was spent counseling/coordinating care.
== END 2022-01-01 15:45 | disposition home or self-care (01) ==
PROVIDERS: Nurse Practitioner Family; Emergency Provider Emergency Medicine
DX: G93.41 Metabolic encephalopathy (principal); F20.9 Schizophrenia, unspecified; R53.83 Other fatigue; Z20.822 Contact with and (suspected) exposure to COVID-19; Z79.899 Other long term (current) drug therapy
CPT/HCPCS: 36415; 70450; 80048; 80076; 80164; 80307; 81001; 81003; 82077; 82140; 83690; 83735; 84443; 85025; 85652; 86140; 87635; 93005; 99285

== ENCOUNTER 2023-01-09 00:39 | Inpatient (IN) | payer OTHER, SELFPAY ==
--- OUTSIDE RECORDS SUMMARY | 2023-01-09 00:42 | XMS_ITS | Continuity of Care Document ---
Author Name Unknown Organization [facility] Address [address] [place] [address]- Care Team Providers Care Marketing Sales Supervisor Name Role Phone Not on Staff, PCP Primary Care Physician Unavail able Encounter [facility] [place] Date(s): 07/01/22 - 07/01/[address] [address]- Encounter Diagnosis Intoxication by drug(Final) - 07/01/22 Discharge Disposition: A-D/C Home Attending Physician: Carlos Robles DO Admitting Physician: Carlos Robles DO Referring Physician: Not on Staff, Referring MD Allergies, Adverse Reactions, Alerts Substance Reaction Severity Status shellfish Unknown body region Active Clozaril Unknown body region Active cloZAPine Active ZyPREXA Unknown body region Active Immunizations Given and Recorded Vaccine Date Status Refusal Reason tetanus/diphtheria/pertussis, acel(Tdap) 10/18/14 Given pneumococcal 23-valent vaccine 1 01/31/09 Given Not Given Vaccine Date Status Refusal Reason influenza virus vaccine, inactivated 12/26/20 Not Given Patient Refuses influenza virus vaccine, inactivated 12/06/20 Not Given Patient Refuses influenza virus vaccine, inactivated 01/24/14 Not Given Patient Refuses SARS-CoV-2 (COVID-19) Ad26 vaccine 09/20/20 Not Gi chloé Patient Refuses 1Result Comment: Lot #[id number]. Medications acetaminophen 325 mg oral tablet 650 mg, By Mouth, Every 4 hours, PRN, Temperature Greater than 100.5, Refills 0, Maintenance, Pain , Mild, 12/06/20 16:09:00 EDT, Partial fill upon patient request if the prescription is for a schedule II opioid drug. Start Date: 12/06/20 Status: Ordered Advair Diskus 500 mcg-50 mcg inhalation powder Refills 0, Maintenance, 07/21/21 6:10:00 EDT Start Date: 07/21/21 Status: Ordered benztropine 0.5 mg oral tablet 0.5 mg, 1, tablet, By Mouth, 2 times a day, # 60 tablet, Refills 0, Tot. Refills 0, Maintenance, 02/28/20 15:07:00 EST, Route to Pharmacy Electronically, [facility]/pharmacy #[id number], Partial fill upon patientrequest if the prescription is for a schedule II op... Start Date: 02/28/20 Stop Date: 03/29/20 Status: Ordered busPIRone 15 mg oral tablet 2 tablet = 30 mg, By Mouth, Daily in AM, 0 Refills, Maintenance, 12/03/20 11:38:00 EDT, Partial fill upon patient request if the prescription is for a schedule II opioid drug. Start Date: 12/03/20 Status: Ordered diphenhydrAMINE 50 mg oral tablet 1 tablet = 50 mg, By Mouth, Daily at bedtime, PRN for insomnia, # 30 tablet, 0 Refills, Maintenance, 12/03/20 11:50:00 EDT, Tablet, Partial fill upon patient request if the prescription is for a schedule II opioid drug. Start Date: 12/03/20 Status: Ordered divalproex sodium 500 mg oral tablet, extended release 2 tablet = 1,000 mg, By Mouth, Daily at bedtime, # 20 tablet, 0 Refills, Maintenance, 02/08/20 11:47:00 EST, ER Tablet, [facility]/pharmacy #[id number], Partial fill upon patient request if the prescription is for a schedule II opioid drug., 158, cm, 02/08/20 7:52... Start Date: 02/08/20 Stop Date: 02/18/20 Status: Ordered Fish Oil 1000 mg oral capsule 1 capsule = 1,000 mg, By Mouth, 2 times a day, 0 Refills, Maintenance, 12/03/20 11:51:00 EDT, Capsule, Partial fill upon patient request if the prescription is for a schedule II opioid drug. Start Date: 12/03/20 Status: Ordered fluticasone-salmeterol 500 mcg-50 mcg inhalation powder 1, inhalation, Inhalation, 2 times a day, rinse mouth and throat after use, Refills 0, Maintenance,12/03/20 11:41:00 EDT, Powder Start Date: 12/03/20 Status: Ordered ibuprofen 800 mg oral tablet Refills 0, Maintenance, 07/21/21 6:10:00 EDT, Partial fill upon patient request if the prescriptionis for a schedule II opioid drug. Start Date: 07/21/21 Status: Ordered levothyroxine 75 mcg (0.075 mg) oral tablet = 75 mcg, By Mouth, Daily, # 10 tablet, 0 Refills, Maintenance, 02/08/20 11:48:00 EST, Tablet, [facility]/pharmacy #[id number], Partial fill upon patient request if the prescription is for a schedule II opioid drug., 158, cm, 02/08/20 7:52:00 EST, Height, 97.3, kg... Start Date: 02/08/20 Stop Date: 02/18/20 Status: Ordered lisinopril 5 mg oral tablet 5 mg, 1, tablet, By Mouth, Daily, # 30 tablet, Refills 1, Tot. Refills 1, Maintenance, 09/27/20 8:17:00 EDT, Print Requisition, Partial fill upon patient request if the prescription is for a scheduleII opioid drug. Start Date: 09/27/20 Stop Date: 11/26/20 Status: Ordered methadone 10 mg oral tablet 3 tablet = 30 mg, By Mouth, Daily in AM, 0 Refills, Maintenance, 12/29/20 13:01:00 EDT, Tablet, Partial fill upon patient request if the prescription is for a schedule II opioid drug. Start Date: 12/29/20 Status: Ordered MiraLax Powder 1 pack/packet = 17 Gm, By Mouth, Daily, PRN Constipation, 0 Refills, Maintenance, 12/06/20 16:09:00EDT, Powder, Partial fill upon patient request if the prescription is for a schedule II opioid drug. Start Date: 12/06/20 Status: Ordered Narcan 4 mg/0.1 mL nasal spray 0 Refills, Maintenance, 07/21/21 6:07:00 EDT, Partial fill upon patient request if the prescriptionis for a schedule II opioid drug. Start Date: 07/21/21 Status: Ordered nicotine 14 mg/24 hr transdermal film, extended release 1 patch, Topically, Daily, # 30 patch, 0 Refills, Maintenance, 12/03/20 11:49:00 EDT, Patch, Partial fill upon patient request if the prescription is for a schedule II opioid drug. Start Date: 12/03/20 Status: Ordered nicotine 4 mg oral transmucosal gum 0 Refills, Maintenance, 07/21/21 6:07:00 EDT, Partial fill upon patient request if the prescriptionis for a schedule II opioid drug. Start Date: 07/21/21 Status: Ordered nicotine 4 mg oral transmucosal gum 0 Refills, Maintenance, 07/21/21 6:10:00 EDT, Partial fill upon patient request if the prescriptionis for a schedule II opioid drug. Start Date: 07/21/21 Status: Ordered paliperidone 234 mg/1.5 mL intramuscular suspension, extended release = 234 mg, Intramuscular, Every 28 days, 0 Refills, Maintenance, 12/03/20 11:47:00 EDT, Partial fillupon patient request if the prescription is for a schedule II opioid drug. Start Date: 12/03/20 Status: Ordered predniSONE 10 mg oral tablet 0 Refills, Maintenance, 07/21/21 6:10:00 EDT, Partial fill upon patient request if the prescriptionis for a schedule II opioid drug. Start Date: 07/21/21 Status: Ordered ProAir HFA 2 puffs, Inhalation, Every 4 hours, 0 Refills, Maintenance, 12/03/20 11:36:00 EDT, Partial fill upon patient request if the prescription is for a schedule II opioid drug. Start Date: 12/03/20 Status: Ordered propranolol 20 mg oral tablet 20 mg, 1, tablet, By Mouth, Every 6 hours, # 90 tablet, Refills 0, Maintenance, 12/03/20 11:49:00 EDT, Partial fill upon patient request if the prescription is for a schedule II opioid drug. Start Date: 12/03/20 Status: Ordered risperiDONE 1 mg oral tablet 1 mg, 1, tablet, By Mouth, Daily, Refills 0, Maintenance, 07/21/21 6:07:00 EDT, Partial fill upon patient request if the prescription is for a schedule II opioid drug. Start Date: 07/21/21 Status: Ordered traZODone 50 mg oral tablet 50 mg, 1, tablet, By Mouth, Daily at bedtime, PRN, # 30 tablet, Refills 0, Tot. Refills 0, Maintenance, Insomnia, 09/27/20 8:18:00 EDT, Print Requisition, Partial fill upon patient request if the prescription is for a schedule II opioid drug. Start Date: 09/27/20 Stop Date: 10/27/20 Status: Ordered Problem List Condition Confirmation Course Effective Dates Status H ealth Status Informant Cannabis abuse Confirmed Active Cocaine abuse Confirmed Active Hx of gastroesophageal reflux (GERD) Confirmed Active Nicotine dependence Confirmed Active Polysubstance abuse Confirmed Active Schizoaffective disorder Confirmed Active Schizophrenia Confirmed Active Hepatitis C Confirmed Active Vital Signs Most recent to oldest [Reference Range]: 1 Oxygen Saturation [94-100 %] 98 % (07/01/22 4:34 PM) Pulse Rate [55-90 bpm] 79 bpm (07/01/22 4:34 PM) Blood Pressure [90-138/55-84 mm Hg] 145/ 78mm Hg *H* (07/01/22 4:34 PM) Respiratory Rate [16-30 br/min] 18 br/mi n (07/01/22 4:34 PM) Temperature [96.8-100.4 DegF] 99.0 DegF (07/01/22 4:34 PM) Mode of Delivery (Oxygen) Room air (07/01/22 4:34 PM) Blood pressure sites Arm, left (07/01/22 4:34 PM) Temperature Route Oral (07/01/22 4:34 PM) Social History Social History Type Response Smoking Status 10 or more cigarette s (1/2 pack or more)/day in last 30 days; Type: Cigarettes; Other: Reports 1 ppd; entered on: 02/26/20 Sex Note * David Jaquez MD: PERFORM Event Display: Patient Education Leaflets Authored Date: [id number]: Giving an Emergency Dose of Narcan ?? [id number]: Giving an Emergency Dose of Narcan - Video Here are the steps for giving an emergency dose of Narcan for a drug overdose. To view the video go to this web address: https://bit.Ateo/[email or web address] Or, scan this QR code with your smart phone Last Reviewed Date: 2019 ?? 6149-5047 [employer]. All rights reserved. This information is not intended as a substitute for professional medical care. Always follow your healthcare professional's instructions. ?? Patient Care team information Care Team Personnel Name: Keith Torres Position: [facility] RN Supv Member Role: Primary Care Nurse Name: Michelle Conley RN Position: [facility] RN Member Role: Primary Care Nurse Name: Isabel Colon RN Position: [facility] RN Member Role: Primary Care Nurse Name: Janessa De La Cruz RN Position: [facility] SN RN Member Role: Primary Care Nurse Name: Ernie Cramer RN Position: [facility] RN Supv Member Role: Primary Care Nurse Name: Samina Burch RN Position: [facility] RN Member Role: Primary Care Nurse Name: Nicki Sheridan RN Position: [facility] RN Member Role: Primary Care Nurse Name: Brittanie Lacey RN Position: [facility] RN Member Role: Primary Care Nurse Name: Gabrielle Sharma RN Position: [facility] RN Member Role: Primary Care Nurse Name: Regine Michael Position: [facility] RN Member Role: Primary Care Nurse Name: Naun Richards RN Position: [facility] RN Member Role: Primary Care Nurse Name: Lamar Marks RN Position: [facility] RN Supv Member Role: Primary Care Nurse Name: Not on Staff, PCP Position: [facility] Physician (General Medicine) Member Role: PCP Name: Samantha Coburn RN Position: [facility] SN RN Member Role: Primary Care Nurse Name: Alma Tran RN Position: [facility] RN Member Role: Primary Care Nurse Name: Sabrina Bosch RN Position: [facility] RN Member Role: Primary Care Nurse Name: Anitha Kirby RN Position: [facility] RN Member Role: Primary Care Nurse Name: Alyssa Priest RN Position: [facility] Onco RN Member Role: Primary Care Nurse Name: Ludmila Marcos RN Position: [facility] RN Member Role: Primary Care Nurse Name: Heather Danielson RN Position: [facility] ED RN W/OE and Tasks Member Role: Patient Care Provider Name: Carlos Robles DO Position: [facility] Resident Member Role: Admitting Physician Address: Address: [address] [place] [address]- Name: Laila Urrutia Position: [facility] ED TA [facility] Member Role: Hand Sewer Name: David Jaquez MD Position: [facility] Resident Member Role: ED Resident Address: Address: [address] [place] [id number]- Care Team Related Persons Name: MEGAN DCF LEENA PALOMO Name: LAWRENCE MOTA Address: home [address] [place] [id number]
--- OUTSIDE RECORDS SUMMARY | 2023-01-09 00:42 | XMS_ITS | Continuity of Care Document ---
Author Name Unknown Organization [facility] Address [address] [place] [address]- Care Team Providers Care Advertising Display Rotator Name Role Phone Not on Staff, PCP Primary Care Physician Unavail able Encounter [facility] Date(s): 05/15/22 - 05/16/[address] [address]- Encounter Diagnosis Pneumonia(Final) - 05/15/22 Discharge Disposition: A-D/C Home Attending Physician: Dariel Singh MD Admitting Physician: Dariel Singh MD Referring Physician: Not on Staff, Referring [...] 6:10:00 EDT Start Date: 07/21/21 Status: Ordered amoxicillin 500 mg oral tablet 2 tablet = 1,000 mg, By Mouth, 3 times a day, for 5 days, # 26 tablet, 0 Refills, Acute 05/21/22 9:36:00 EDT, 05/16/22 9:36:00 EDT, Tablet, Partial fill upon patient request if the prescription is for a schedule II opioid drug. Start Date: 05/16/22 Stop Date: 05/21/22 Status: Ordered benztropine 0.5 mg oral tablet 0.5 mg, 1, tablet, By Mouth, 2 times a day, # 60 tablet, Refills 0, Tot. Refills 0, Maintenance, 02/28/20 15:07:00 EST, Route to Pharmacy Electronically, [facility]/pharmacy #[id number], Partial fill upon patientrequest if the [...] Refills, Maintenance, 02/08/20 11:47:00 EST, ER Tablet, [facility]/pharmacy #[id number], Partial fill upon [...] 0 Refills, Maintenance, 02/08/20 11:48:00 EST, Tablet, [facility]/pharmacy #[id number], Partial fill upon [...] Schizophrenia Confirmed Active Hepatitis C Confirmed Active Results Radiology Reports * Exam Date Time Procedure Performing Provider Status 05/15/22 3:55 PM Chest 2 Views Frontal and Lat Marsha Torres; Auth (Verified) Notes: (Chest 2 Views Frontal and Lat) Reason For Exam: Asthma RESULT: Chest 2 Views Frontal and Lat Chest 2 Views Frontal and Lat Hx of Present Illness: Agitation; Reason: Asthma; Clinical Question(s): Pneumonia COMPARISON: Chest x-ray 07/20/2021 FINDINGS: LINES AND TUBES: None. LUNGS AND PLEURA: There is patchy airspace opacity and volume loss in the right lower lobe consistent with pneumonia.Otherwise the lungs are clear. No pleural effusion. No pneumothorax. HEART, MEDIASTINUM AND GINGER: Heart is normal in size. Normal mediastinal and hilar contour. BONES AND SOFT TISSUES: No acute abnormality. IMPRESSION: Right lower lobe pneumonia. A critical result message (Document Only) has been communicated via the Ret[employer]to[employer] system on 05/15/2022 4:00 PM, Message ID [id number]. WSN: [id number] Ordering Physician: Martha Crain Dictated By: Henry Thibodeaux MD Dictated Date/Time: 05/15/22 4:00 pm Reviewed By: Henry Thibodeaux MD Signed By: Henry Thibodeaux MD Signed Date/Time: 05/15/22 4:00 pm Transcribed By: ROWENA Transcribed Date/Time: 05/15/22 3:59 pm Vital Signs Most recent to oldest [Reference Range]: 1 2 3 Oxygen Saturation [94-100 %] 96 % (05/16/22 9:00 AM) 95 % (05/16/22 2:11 AM) 96 % (05/15/22 9:21 PM) Pulse Rate [55-90 bpm] 76 bpm (05/16/22 9:00 AM) 69 bpm (05/16/22 2:11 AM) 58 bpm (05/15/22 9:21 PM) Blood Pressure [90-138/55-84 mm Hg] 142/78mm Hg *H* (05/16/22 9:00 AM) 131/88mm Hg (05/16/22 2:11 AM) 129/58mm Hg (05/15/22 9:21 PM) Respiratory Rate [16-30 br/min] 18 br/min (05/16/22 9:00 AM) 20 br/min (05/16/22 2:11 AM) 17 br/min (05/15/22 9:21 PM) Temperature [96.8-100.4 DegF] 98.1 DegF (05/16/22 9:00 AM) 98.0 DegF (05/15/22 9:21 PM) 99.5 DegF (05/15/22 4:59 PM) Liters per Minute 2 L/min (05/15/22 2:02 PM) Mode of Delivery (Oxygen) Room air (05/16/22 9:00 AM) Room air (05/16/22 2:11 AM) Room air (05/15/22 9:21 PM) Blood pressure sites Arm, left (05/16/22 9:00 AM) Arm, left (05/16/22 2:11 AM) Arm, right (05/15/22 9:21 PM) Temperature Route Oral (05/16/22 9:00 AM) Axillary (05/15/22 9:21 PM) Oral (05/15/22 4:59 PM) Social History Social History Type Response Smoking Status 10 or more cigarette s (1/2 pack or more)/day in last 30 days; Type: Cigarettes; Other: Reports 1 ppd; entered on: 02/26/20 Sex EKG study * Event Display: EKG Authored Date: * Event Display: ECG 12-Lead Authored Date: Please click on pdf link to open report * Event Display: ECG 12-Lead Authored Date: Ventricular Rate: 70 BPM Atrial Rate: 70 BPM P-R Interval: 124 ms QRS Duration: 88 ms Q-T Interval: 376 ms QTC Calculation(Bazett): 406 ms P Vernon: 53 degrees R Vernon: 24 degrees T Vernon: 108 degrees Normal sinus rhythm Possible Left atrial enlargement Minimal voltage criteria for LVH, may be normal variant ( Bledsoe product ) Nonspecific T wave abnormality Abnormal ECG When compared with ECG of 10-JAN-2022 15:22, T wave amplitude has increased in Anterior leads Confirmed by GIOVANNI JO ([id number]) on 05/16/2022 9:07:59 AM [place]: GIOVANNI JO Note * Samantha SUGGS, Dariel M: PERFORM Event Display: Patient Education Leaflets Authored Date: [id number] Pneumonia (Adult) ?? [id number] Pneumonia (Adult) Pneumonia is an infection inside the lungs. It's in the small air sacs (alveoli). It may be caused by a virus, fungus, or bacteria. Pneumonia caused by bacteria??is treated with an antibiotic medicine. Severe cases may need to be treated in the hospital. Milder cases can be treated at home. Symptoms may include fever, chills, and cough (dry or with phlegm). You may have a headache, muscle weakness, trouble breathing, and pain. These symptoms often get worse in the first 2 days. But they often start to get better in the first week of treatment. Home care Follow these guidelines when caring for yourself at home: ??? Get plenty of rest. Take naps as needed. Don???t let yourself get too tired when you go back to your activities. Go back to activities asdirected by your healthcare provider. ??? Stop smoking. This is the most important step you can take to help treat pneumonia. If you need help to stop, talk with your healthcare provider. ??? Stay away from secondhand smoke. Don???t let anyone smoke in your home or your car. ??? Wash your hands often with soap and clean, running water. Rub for at least 20 seconds. Make sure to clean under your nails and between your fingers. When you can't wash your hands, use hand utilization management manager with at least 60% al cohol. ??? Cover your mouth and nose when coughing or sneezing. Use a tissue or the inside of your elbow. Don't cough or sneeze into your hands. Throw used tissues away. Be sure to wash your hands after coughing, sneezing, or blowing your nose. ??? Limit close contact with other people while you are sick. ??? Stay away from crowds during cold and flu season. Consider wearing a mask in crowds. ???Use pain medicine as directed. You may use acetaminophen or ibuprofen to control fever or pain, unless another medicine was prescribed. If you have chronic liver or kidney disease, talk with your healthcare provider before using these medicines. Also talk with your provider if you???ve had a stomach ulcer or bleeding in your stomach or intestines. Don???t give aspirin to a child younger than age 19 unless directed by the provider. Taking aspirin can put a child at risk for Vlad syndrome. This is a rare but very serious disorder. It most often affects the brain and the liver. ??? Drink plenty of water and other fluids. This can make mucus thinner and easier to cough up. Ask your healthcare provider how much water you should drink. For many people, 6 to 8 glasses (8 ounces each) a day is a good goal. Other fluids include sport drinks, sodas without caffeine, juices, tea, or soup. If you also have heart or kidney disease, check with your provider before you drink extra fluids. ??? Eat asyou are able. You may not feel hungry, so a light diet is fine. Follow the treatment plan as advised by your healthcare provider. ??? Take medicines as instructed by your healthcare provider. If you were given an antibiotic medicine, take it until it's all gone, even if you are feeling better aftera few days. ??? Try to stay away from air pollution. If you live in an area with air pollution, track the Air Quality Index (AQI) reports. Plan your outdoor activities when air quality is OK. ?? Follow-up care Follow up with your healthcare provider in the next 2 to 3 days, or as advised. Following up with your provider as directed is important to make sure you are getting better. You may need more tests if you aren't getting better. Take steps to prevent future infections. Ask your healthcare provider what vaccines are right for you and when to get them. This may include the influenza (flu), COVID-19, and pneumococcal vaccines. ?? Call 911 Call 911if any of these occur: ??? Unable to speak or swallow ??? Lips or skin looks blue, purple, or marquez ??? Feeling dizzy ??? Fainting ??? Unable to be awake or aware ??? Feeling of doom ??? Trouble breathing or wheezing ??? Shortness of breath gets worse or doesn't get better with treatment ???Rapid breathing (more than 25 breaths per minute) ??? Coughing up blood ??? Chest pain gets worse with breathing or doesn't get better with treatment ?? When to get medical advice Call your healthcare provider right away if any of these occur: ??? You don???t get better in the first 2 to 3 days of treatment ??? Fever of??100.4??F (38??C) or higher, or as directed by your healthcare provider ??? Shaking chills ??? Cough with phlegm that doesn't get better, or get worse ??? Shortness of breath with activities ??? Weakness, dizziness, or fainting that gets worse ??? Thirst ordry mouth that gets worse ??? Sinus pain, headache, or a stiff neck ??? Chest pain with breathing or coughing ??? Symptoms that get worse or don't get better ?? Last Reviewed Date: 2021 ?? 9170-4635 [employer]. All rights reserved. This information is not intended as a substitute for professional medical care. Always follow your healthcare professional's instructions. ?? * ANTONIASPace , CIS S: TRANSCRIACOSTA Thibodeaux MD, Henry Russo: VERIFY Event Display: Result: Authored Date: [id number] Chest 2 Views Frontal and Lat Hx of Present Illness: Agitation; Reason: Asthma; Clinical Question(s): Pneumonia COMPARISON: Chest x-ray 07/20/2021 FINDINGS: LINES AND TUBES: None. LUNGS AND PLEURA: There is patchy airspace opacity and volume loss in the right lower lobe consistent with pneumonia.Otherwise the lungs are clear. No pleural effusion. No pneumothorax. HEART, MEDIASTINUM AND GINGER: Heart is normal in size. Normal mediastinal and hilar contour. BONES AND SOFT TISSUES: No acute abnormality. IMPRESSION: Right lower lobe pneumonia. A critical result message (Document Only) has been communicated via the Ret[employer] system on 05/15/2022 4:00 PM, Message ID [id number]. WSN: [id number] Ordering Physician: Martha Crain Dictated By: Henry Thibodeaux MD Dictated Date/Time: 05/15/22 4:00 pm Reviewed By: Henry Thibodeaux MD Signed By: Henry Thibodeaux MD Signed Date/Time: 05/15/22 4:00 pm Transcribed By: ROWENA Transcribed Date/Time: 05/15/22 3:59 pm Patient Care team information Care Team Personnel Name: Keith Torres Position: [facility] RN Supv Member Role: Primary Care Nurse Name: Michelle Conley RN Position: [facility] RN Member Role: Primary Care Nurse Name: Isabel Colon RN Position: [facility] RN Member Role: Primary Care Nurse Name: Ernie Cramer RN Position: [facility] RN Supv Member Role: Primary Care Nurse Name: Samina Burch RN Position: [facility] RN Member Role: Primary Care Nurse Name: Nicki Sheridan RN Position: [facility] RN Member Role: Primary Care Nurse Name: Brittanie Lacey RN Position: [facility] RN Member Role: Primary Care Nurse Name: Gabrielle Sharma RN Position: [facility] RN Member Role: Primary Care Nurse Name: Regine Michael Position: [facility] RN Member Role: Primary Care Nurse Name: Naun Richards RN Position: [facility] ED RN W/OE and Tasks Member Role: Primary Care Nurse Name: Lamar Marks RN Position: [facility] RN Supv Member Role: Primary Care Nurse Name: Not on Staff, PCP Position: [facility] Physician (General Medicine) Member Role: PCP Name: Janessa Sarmiento RN Position: [facility] RN Member Role: Primary Care Nurse Name: Samantha Coburn RN Position: [facility] SN RN Member Role: Primary Care Nurse Name: Miranda Aldrich RN Position: [facility] RN Member Role: Primary Care Nurse Name: Alma Tran RN Position: [facility] RN Member Role: Primary Care Nurse Name: Sabrina Bosch RN Position: [facility] RN Member Role: Primary Care Nurse Name: Anitha Kirby RN Position: [facility] RN Member Role: Primary Care Nurse Name: Alyssa Priest RN Position: [facility] Onco RN Member Role: Primary Care Nurse Name: Ludmila Marcos RN Position: [facility] RN Member Role: Primary Care Nurse Name: *[facility], ED Attending Position: [facility] ED Attendings Patient Name: Dariel Singh MD Position: [facility] ED Medicine MD Member Role: Admitting Physician Address: Address: [address] [place] [id number] Name: Kandy Baptiste RN Position: [facility] ED RN W/OE and Tasks Member Role: Patient Care Provider Name: Irish Olsen RN Position: [facility] ED RN W/OE and Tasks Member Role: Patient Care Provider Name: Shanel Goddard Position: [facility] ED TA [facility] Member Role: Patient Care Provider Care Team Related Persons Name: LEENA HYLTON Name: LAWRENCE MOTA Address: [address] [address]
--- OUTSIDE RECORDS SUMMARY | 2023-01-09 00:42 | XMS_ITS | Continuity of Care Document ---
Author Name Unknown Organization [facility] Address [address] [place] [id number]- Care Team Providers Care Servicer Coin Machines Name Role Phone Not on Staff, PCP Primary Care Physician Unavail able [place] [facility] [place] - 01/11/[address] [address]- Discharge Disposition: A-D/C Home Attending Physician: Marcelo SUGGS, Isha Foster Admitting Physician: Marcelo SUGGS, Isha Foster Referring Physician: Not on Staff, Referring MD [...] 02/28/20 15:07:00 EST, Route to Pharmacy Electronically, [facility]/pharmacy #[id number], Partial fill upon patientrequest if [...] 11:47:00 EST, ER Tablet, [facility]/pharmacy #[id number], Partial fill upon patient request [...] 02/08/20 11:48:00 EST, Tablet, [facility]/pharmacy #[id number], Partial fill upon patient request [...] 1 2 3 Oxygen Saturation [94-100 %] 94 % (01/11/22 5:22 AM) 99 % (01/10/22 8:06 PM) 100 % (01/10/22 5:12 PM) Pulse Rate [55-90 bpm] 60 bpm (01/11/22:22 AM) 64 bpm (01/10/22 8:06 PM) 70 bpm (01/10/22 5:12 PM) Blood Pressure [90-138/55-84 mm Hg] 123/68mm Hg (01/11/22:22 AM) 128/60mm Hg (01/10/22 5:12 PM) Respiratory Rate [16-30 br/min] 16 br/min (01/11/22 5:22 AM) 16 br/min (01/10/22 8:06 PM) 14 br/min *L* (01/10/22 5:12 PM) Temperature [96.8-100.4 DegF] 98.5 DegF (01/10/22 5:12 PM) 98.9 DegF (01/10/22 11:05 AM) Mode of Delivery (Oxygen) Room air (01/11/22 5:22 AM) Room air (01/10/22 8:06 PM) Room air (01/10/22 5:12 PM) Blood pressure sites Arm, right (01/10/22 5:12 PM) Temperature Route Oral (01/10/22 5:12 PM) Oral (01/10/22 11:05 AM) Social History Social History Type Response Smoking Status 10 or more cigarette s (1/2 pack or more)/day in last 30 days; Type: Cigarettes; Other: Reports 1 ppd; entered on: 02/26/20 Sex EKG study * Event Display: ECG 12-Lead Authored Date: [id number] Please click on pdf link to open report * Event Display: ECG 12-Lead Authored Date: Ventricular Rate: 69 BPM Atrial Rate: 69 BPM P-R Interval: 124 ms QRS Duration: 94 ms Q-T Interval: 396 ms QTC Calculation(Bazett): 424 ms P [place]: 66 degrees R [place]: 31 degrees T [place]: 85 degrees Normal sinus rhythm ST elevation, consider early repolarization, pericarditis, or injury Abnormal ECG When compared with ECG of 05-JAN-2022 18:54, No significant change was found Confirmed by CECILIA HERNANDEZ ([id number]) on 01/10/2022 1:34:34 PM Dequincy: CECILIA HERNANDEZ Note * Brenda Mauricio: PERFORM Event Display: Patient Education Leaflets Authored Date: [facility] [place] ?? [facility] Community [facility]ci Directory ?? EMERGENCY Shelters Important: Alcohol and drugs are absolutely forbidden in all shelters. ?? [facility] ([facility]) [address] [place] [address] Adult men and women only- no children 3 meals day served-health care and dental clinic Referral: Walk-ins are accepted/ phone calls are preferred ?? [facility] [address] [place], [place] [phone] Men only- [facility] based emergency skilled nursing- reopening 05/2012 Referrals: Must line up by 3pm. area field manager for intake. ?? [facility] [address] [place] [address] Adult men and women 2 meals per day/health care nurse Referral: Must contact intake by phone before coming ?? [facility] [address] [place] [address] Adult men and women open Jan 01-July 01 3 meals day-must leave skilled nursing by 7am Referral: First come, first serve line up begins at 5:30pm ?? [facility] [address] [place] [address] Adult men and women (one room for families with children) Referral: First come, first serve lineup begins at 3:30pm ?? [address] [address] Men only Referral:?? $300.00/month fee (1st??month lb period available) ?? [facility] [address] [place], [place]?? [address] Men only ?? [facility] [place] [address] ?? [place] [address] Women and children ?? [facility] [address] [place], [place]?? Women and children ?? [facility] (relocation and support) [place], [place] (Hotline) Emergency Abuse and Rape crises support, skilled nursing ?? [facility] Rape/Domestic Violence Hotline Fci referral ? [facility] [address] [place], [place]?? [address] Lunch and Dinner provided (Mon ???Sat: Noon and 5pm; Sun: 1 and 5pm) ?? Additional Fci Options ?? [facility] Emergency [facility] [address] [facility] [phone] [place] + [place] [address] ? [facility] [address] [phone] Male + Female Beds [facility] [address] [address] [facility] [address] [phone] ?? [facility] [address] [address] [facility] [address] [facility] [phone] ?? [facility] [address] ?[place] [facility] [address] [facility] [phone] ?? [facility] [address] ? [facility] [address] [facility] [phone] By Application Only/Must Call [facility] [address] ? [facility] 143?? [facility] [phone] ? [facility] [address] [address] [facility] [address] [facility] [phone] ?? [facility] [address] ? [facility] [address] [place] [address] ?? [facility] [address] ?[facility] ?? [phone] ?[facility]? [place], [place]?? [phone]? Emergency short stay, women, men, families ? [place], [place]?? [phone] Families, adults, men, LGBTQ ? [facility] [facility]?[place],??[place]?[phone]?[facility] ??[place] [address]?[phone]?[facility] [place] [phone] ?[facility] [place], [place] ??[phone] ? [address] [facility] [place] [phone] ? [facility] [place] [phone] ? [address] [facility] [place] [phone] ? [facility] [place] [phone] ?[facility] ??[place], [place] ??[phone] ? * Brenda Mauricio: PERFORM Event Display: Patient Education Leaflets Authored Date: Drug Abuse ?? [id number] Drug Abuse Use and abuse of drugs or medicines may lead to addiction or dependence. You may hear drug abuse oraddiction called substance use disorder (MOOK). Examples of illegal drugs include amphetamines (alsoknown as speed or crank), methamphetamines (meth), cocaine, heroin, bath salts, and hallucinogens (such as MDMA, ecstasy, PCP, mescaline, and LSD). In some states, marijuana is an illegal drug. Medicines include prescription medicines, sedatives, and sleeping pills. Once addiction or dependence happens, you are at greater risk for the problems below. Social and personal problems ??? Craving for the drug and not being able to stop using even though you think you want to stop (psychological addiction) ??? Drug withdrawal symptoms if you stop takingthe drug (physical dependence) ??? Loss of friends and family ??? School or work problems ??? Arrest, conviction, and correction sentence for possession of an illegal substance or for driving under the infl uence ?? Health problems ??? Stroke, heart attack, heart failure, and kidney failure ??? Accidental injuriesto yourself or others while you are under the influence of a drug (in a car or at home) ??? HIV infection. This is a much greater risk if you use IV drugs. ??? Skin infections ??? Other sexually transmitted infections (STIs), such as herpes, chlamydia, and gonorrhea ??? Severe and fatal infection of the heart valves if you use IV drugs ??? Hepatitis B or C ??? Dementia, mood disorders, persistenthallucinations (particularly with hallucinogens) ??? Dental problems from methamphetamine abuse ??? from overdose ?? Home care The following suggestions can help you care for yourself at home: ??? Admit you have a drug problem. Ask for help from your family and close friends. ??? Seek professional help. This could be one-on-one therapy or counseling. There are also outpatient, inpatient, and residential drug treatment programs. ??? Join a self-help group for drug abuse. ??? Stay away from friends who abuse drugs or temptyou to continue abusing drugs. ??? Eat a balanced diet and start a regular exercise program. ?? Follow-up care Follow up with your healthcare provider, or as advised. Contact 1 of the resources below for help: ??? Substance Abuse and Mental Health Services Administration (SAMHSA) at www.samhsa.gov/findtreatment ??? National [place] on Alcoholism and Drug Dependence at www.ncadd.org ??? Narcotics Anonymous at www.na.org ?? Call 911 Call 911 right away if any of these occur: ??? Seizure ??? Hard time breathing or slow, irregular breathing ??? Chest pain ??? Sudden weakness on 1 side of your body or sudden trouble speaking ??? Very drowsy or trouble waking up ??? Fainting or loss of consciousness ??? Fast heart rate ??? Very slow heart rate ?? When to get medical care Call your healthcare provider if any of these occur: ??? Agitation, anxiety, or unable to sleep ???Unintended weight loss. This means more than 10 to 15 pounds over 3 months. ??? Fever of 100.4??F (38??C) or higher, or as advised by your provider ??? Shortness of breath ??? Cough with colored sputum ??? Redness, swelling, or tenderness at an injection site ??? You think counseling or drug rehabilitation services are needed to prevent additional drug use ?? Last Reviewed Date: 2021 ?? 5377-9450 The [employer]. All rights reserved. This information is not intended as a substitute for professional medical care. Always follow your healthcare professional's instructions. ?? Patient Care team information Care Team Personnel Name: Haley Serna RN Position: [facility] RN Member Role: Primary Care Nurse Name: Keith Torres Position: [facility] RN Supv Member Role: Primary Care Nurse Name: Michelle Conley RN Position: [facility] RN Member Role: Primary Care Nurse Name: Isabel Colon RN Position: [facility] RN Member Role: Primary Care Nurse Name: Sadie Hilliard RN Position: [facility] RN Member Role: Primary Care Nurse Name: Ernie Cramer RN Position: [facility] RN Member Role: Primary Care Nurse Name: Samina Burch RN Position: [facility] RN Member Role: Primary Care Nurse Name: Nicki Sheridan RN Position: [facility] RN Member Role: Primary Care Nurse Name: Brittanie Lacey RN Position: [facility] RN Member Role: Primary Care Nurse Name: Gabrielle Sharma RN Position: [facility] RN Member Role: Primary Care Nurse Name: Regine Michael Position: [facility] RN Member Role: Primary Care Nurse Name: Naun Richards RN Position: [facility] RN Member Role: Primary Care Nurse Name: Lamar Marks RN Position: [facility] RN Supv Member Role: Primary Care Nurse Name: Not on Staff, PCP Position: [facility] Physician (General Medicine) Member Role: PCP Name: Janessa Sarmiento RN Position: [facility] RN Member Role: Primary Care Nurse Name: Samantha Coburn RN Position: [facility] SN RN Member Role: Primary Care Nurse Name: Abbey Sanders RN Position: [facility] RN Member Role: Primary Care Nurse Name: Miranda Aldrich RN Position: [facility] RN Member Role: Primary Care Nurse Name: Alma Tran RN Position: [facility] RN Member Role: Primary Care Nurse Name: Sabrina Bosch RN Position: [facility] RN Member Role: Primary Care Nurse Name: Anitha Kirby RN Position: [facility] RN Member Role: Primary Care Nurse Name: Alyssa Priest RN Position: [facility] Onco RN Member Role: Primary Care Nurse Name: Ludmila Marcos RN Position: [facility] RN Member Role: Primary Care Nurse Name: Brenda Mauricio Position: [facility] Associate Professional Member Role: ED Physician Scraper Hand Address: Address: [address] [place] [address]- Name: Lexus Alfaro RN Position: [facility] ED RN W/OE and Tasks Member Role: Patient Care Provider Name: Janessa Faustin Position: [facility] ED TA [facility] Member Role: Rn Paralegal Name: Isha Robertson MD Position: [facility] ED Medicine MD Member Role: ED Attending Physician Address: Address: [address] [place] [address] Care Team Related Persons Name: LEENA HYLTON Name: LAWRENCE MOTA Address: home [address] [place] [address]
--- OUTSIDE RECORDS SUMMARY | 2023-01-09 00:42 | XMS_ITS | Continuity of Care Document ---
Author Name Unknown Organization [facility] Address [address] [place] [id number]- Care Team Providers Care Jewel Bearing Driller Name Role Phone Not on Staff, PCP Primary Care Physician Unavail able [place] [facility]): 01/05/22 - 01/06/[address] [address]- Encounter Diagnosis Drug overdose(Final) - 01/05/22 Cocaine abuse(Final) - 01/06/22 Opiate abuse, episodic(Final) - 01/06/22 Discharge Disposition: A-D/C Home Attending Physician: Loretta Klein MD Admitting Physician: Loretta Klein MD Referring Physician: Not on Staff, Referring [...] 02/28/20 15:07:00 EST, Route to Pharmacy Electronically, [facility]/pharmacy #[id number], Partial fill upon patientrequest if the [...] Refills, Maintenance, 02/08/20 11:47:00 EST, ER Tablet, [facility]/pharmacy #[id number], Partial fill upon patient request if [...] 0 Refills, Maintenance, 02/08/20 11:48:00 EST, Tablet, [facility]/pharmacy #[id number], Partial fill upon patient request if [...] 1 2 3 Oxygen Saturation [94-100 %] 65 % *L* (01/06/22 5:45 AM) 95 % (01/06/22 4:17 AM) 95 % (01/06/22 1:42 AM) Pulse Rate [55-90 bpm] 57 bpm (01/06/22 4:17 AM) 62 bpm (01/06/22 1:42 AM) 55 bpm (01/06/22 1:02 AM) Blood Pressure [90-138/55-84 mm Hg] 140/107mm Hg *H* (01/06/22 5:45 AM) 114/58mm Hg (01/06/22 4:17 AM) 107/54mm Hg (01/06/22 1:42 AM) Respiratory Rate [16-30 br/min] 16 br/min (01/06/22 5:45 AM) 16 br/min (01/06/22 4:17 AM) 16 br/min (01/06/22 1:42 AM) Temperature [96.8-100.4 DegF] 98.1 DegF (01/06/22 4:17 AM) 97.8 DegF (01/05/22 10:36 PM) 97.9 DegF (01/05/22 7:12 PM) Mode of Delivery (Oxygen) Room air (01/06/22 5:45 AM) Room air (01/06/22 4:17 AM) Room air (01/06/22 1:42 AM) Blood pressure sites Arm, right (01/06/22 5:45 AM) Arm, left (01/06/22 4:17 AM) Arm, left (01/06/22 1:42 AM) Temperature Route Oral (01/06/22 4:17 AM) Oral (01/05/22 10:36 PM) Oral (01/05/22 7:12 PM) Social History Social History Type Response Smoking Status 10 or more cigarette s (1/2 pack or more)/day in last 30 days; Type: Cigarettes; Other: Reports 1 ppd; entered on: 02/26/20 Sex Patient Care team information Personnel Name: Not on Staff, PCP
--- OUTSIDE RECORDS SUMMARY | 2023-01-09 00:42 | XMS_ITS | Continuity of Care Document ---
Author Name Unknown Organization [facility] Address [address] [place] [id number]- Care Team Providers Care Coater Associate Name Role Phone Not on Staff, PCP Primary Care Physician Unavail able Encounter [facility] [place] Date(s): 12/29/22 - 12/30/[address] [address]- Encounter Diagnosis Opiate overdose(Final) - 12/29/22 Cocaine use(Final) - 12/29/22 Discharge Disposition: A-D/C Home Attending Physician: Ban More DO Admitting Physician: Ban More DO Referring Physician: Not on Staff, Referring MD Allergies, Adverse Reactions, Alerts Substance Reaction Severity Status cloZAPine Active ZyPREXA Unknown body region Active shellfish Unknown body region Active Clozaril Unknown body region Active Immunizations Given and Recorded Vaccine Date Status Refusal Reason tetanus/diphtheria/pertussis, acel(Tdap) 10/18/14 Given pneumococcal 23-valent vaccine 1 01/31/09 Given 1Result Comment: Lot #[id number]. Medications acetaminophen 325 mg oral tablet 650 mg, By Mouth, Once, # 50 tablet, Refills 0, Tot. Refills 0, Soft Stop, 12/27/22 23:09:00 EDT, Route to Pharmacy Electronically, [facility]/pharmacy #[id number], Partial fill upon patient request if the prescription is for a schedule II opioid drug., 155, cm, 1... Start Date: 12/27/22 Status: Ordered acetaminophen 325 mg oral tablet 650 mg, [...] 02/28/20 15:07:00 EST, Route to Pharmacy Electronically, [facility]/pharmacy #[id number], Partial fill upon patientrequest if [...] Refills, Maintenance, 02/08/20 11:47:00 EST, ER Tablet, [facility]/pharmacy #[id number], Partial fill upon patient request [...] 0 Refills, Maintenance, 02/08/20 11:48:00 EST, Tablet, [facility]/pharmacy #[id number], Partial fill upon patient request [...] opioid drug. Start Date: 12/29/20 Status: Ordered Methadone Tablet 30 mg, Tablet, By Mouth, Once, STAT, 12/30/22 2:56:00 EDT, Stop date 12/30/22 2:56:00 EDT Start Date: 12/30/22 Stop Date: 12/30/22 Status: Completed MiraLax Powder 1 pack/packet = 17 Gm, [...] tablet, By Mouth, Daily, Refills 0, Maintenance, 05/21/22 6:07:00 EDT, Partial fill upon patient request [...] 3 Oxygen Saturation [94-100 %] 96 % (12/30/22 2:33 AM) 97 % (12/30/22 12:07 AM) 98 % (12/29/22 9:32 PM) Pulse Rate [55-90 bpm] 75 bpm (12/30/22 2:33 AM) 68 bpm (12/30/22 12:07 AM) 87 bpm (12/29/22 9:32 PM) Blood Pressure [90-138/55-84 mm Hg] 128/77mm Hg (12/30/22 2:33 AM) 118/62mm Hg (12/30/22 12:07 AM) 107/56mm Hg (12/29/22 9:32 PM) Respiratory Rate [16-30 br/min] 18 br/min (12/30/22 3:09 AM) 20 br/min (12/30/22 2:33 AM) 20 br/min (12/30/22 12:07 AM) Temperature [96.8-100.4 DegF] 98.4 DegF (12/29/22 7:16 PM) 98.4 DegF (12/29/22 6:55 PM) Mode of Delivery (Oxygen) Room air (12/30/22 2:33 AM) Room air (12/30/22 12:07 AM) Room air (12/29/22 9:32 PM) Blood pressure sites Arm, left (12/30/22 2:33 AM) Arm, left (12/30/22 12:07 AM) Arm, left (12/29/22 9:32 PM) Temperature Route Oral (12/29/22 7:16 PM) Oral (12/29/22 6:55 PM) Social History Social History Type Response Smoking Status 10 or more cigarette s (1/2 pack or more)/day in last 30 days; Type: Cigarettes; Other: Reports 1 ppd; entered on: 02/26/20 Sex Note * Demi Francisco DO: PERFORM Event Display: Patient Education Leaflets Authored Date: [id number] Opiate Overdose ?? [id number] Opiate Overdose You've been treated for an overdose of opiates, such as a prescription pain medicine or heroin.??Taking too many opiates is dangerous. They cause breathing to slow and possibly stop.??If you stop breathing for more than 2 to 3 minutes, your heart can stop and you will . Deaths from opiate overdose are a national epidemic. In 2019, the CDC estimated that more than 49,860 people in the [place] diedfrom an opioid overdose. This number reflects 70.6% of all drug overdose deaths. Signs and symptoms of overdose Symptoms can depend on how much of the drug and which ones were used. They include: ??? Trouble breathing or slow irregular breathing; breathing may even stop, which can cause ??? Drowsiness, trouble arousing, or coma ??? Small, pinpoint pupils ??? Cyanosis. This is when lips and nails appear blue because you don't have enough oxygen in the blood. ??? Slow heart rate ??? Lowbody temperature (hypothermia) ??? Muscle spasm ??? Seizures ??? If your overdose was severe, you may have been given an antidote, such as naloxone. The antidote effect lasts for about 1 to 2 hours.??If the opiate has not left your system by the time the antidote medicine wears off, your symptoms may return. These symptoms include drowsiness and slow breathing.?? If you were addicted and physically dependent on opiates, then naloxone may cause withdrawal symptoms to appear right away.??These may consist of: ??? Body aches ??? Diarrhea ??? Abdominal cramps ??? Upset stomach (nausea) ??? Vomiting ??? Runny nose ??? Sneezing ??? Sweating ??? Yawning ??? Restlessness ??? Irritability ??? Trembling These symptoms will go away as the naloxone wears off. Be aware of a drug called xylazine. This drug is approved for use in animals only. Xylazine is not safe in humans. Recently xylazine has been found as an additive in illicit drugs, especially heroin and fentanyl. Exposure to xylazine has been linked to serious and life-threatening side effects. Xylazine overdose can cause slow heart rate and breathing, low blood pressure, and coma. Repeated exposure to xylazine can cause severe skin ulcers. Xylazine overdose does not respond to naloxone. Care for xylazine overdose or exposure is supportive to help the body recover. ?? Home care The following guidelines will help you care for yourself at home: ??? Rest for the next [address] or operate any vehicle or dangerous equipment until all opioid effects have worn off and you no longer feel sleepy or drowsy. ??? If you were previously prescribed opioid medicines for pain, don't take any more of this medicine for the next 6 to 8 hours, unless your healthcare provider says it's safe to do so. ??? If opioids or other drugs were swallowed, you may have been given liquid charcoal to neutralize those drugs.??The charcoal may cause nausea and vomiting over the next few hours. It will also cause a black color to your stools for the next 1 to 2 days. Usually, you will be given a laxative with the charcoal to speed the removal of any toxins from the digestive tract. This may cause diarrhea for up to 24 hours. If no laxative was given, you may become constipated. If this happens, you may take an kmcl-oju-hudizft laxative or suppository. ?? Follow-up care Follow up with your healthcare provider, or as advised if all symptoms don't go away within 24 hours, or if constipation is not eased after 2 doses of laxatives.??If your overdose was related to a drug addiction, seek drug counseling. Consider a drug treatment program to help break your habit. ?? Call 911 Call 911 if any of the following occur: ??? Seizure ??? Trouble breathing or slow irregular breathing ??? Chest pain ??? Sudden weakness on 1 side of your body or sudden trouble speaking ??? Very drowsy or having trouble waking up ??? Fainting or loss of consciousness ??? Rapid heart rate ??? Very slow heart rate ?? When to get medical advice Call your healthcare provider right away if any of the following occur: ??? Cough with colored sputum ??? Fever of 100.4??F (38??C) or higher, or as directed by your healthcare provider ??? Redness, swelling or tenderness at the heroin injection site (if using IV drugs) ??? Feeling that you might harm yourself or another Talk with your healthcare provider if you feel that you want to get drugs and would like to enter acounseling or rehabilitation program. ?? Last Reviewed Date: 2021 ?? [id number] [employer]. All rights reserved. This information is not intended as a substitute for professional medical care. Always follow your healthcare professional's instructions. ?? Patient Care team information Care Team Personnel Name: .Denise Marcelo RN Position: [facility] ED RN W/OE and Tasks Member Role: Primary Care Nurse Name: Keith Torres Position: [facility] RN Member Role: Primary Care Nurse Name: Michelle Conley RN Position: [facility] RN Member Role: Primary Care Nurse Name: Isabel Colon RN Position: [facility] RN Member Role: Primary Care Nurse Name: Janessa De La Cruz RN Position: [facility] SN RN Member Role: Primary Care Nurse Name: Ernie Cramer RN Position: [facility] RN Supv Member Role: Primary Care Nurse Name: Samina Burch RN Position: [facility] RN Member Role: Primary Care Nurse Name: Nicki Sheridan RN Position: [facility] RN Member Role: Primary Care Nurse Name: Brittanie Lacey RN Position: [facility] RN Member Role: Primary Care Nurse Name: Gabrielle Sharma RN Position: [facility] RN Member Role: Primary Care Nurse Name: Regine Michael Position: [facility] RN Member Role: Primary Care Nurse Name: Naun Richards RN Position: [facility] RN Member Role: Primary Care Nurse Name: Lamar aMrks RN Position: [facility] RN Member Role: Primary Care Nurse Name: Not on Staff, PCP Position: [facility] Physician (General Medicine) Member Role: PCP Name: Samantha Coburn RN Position: [facility] SN RN Member Role: Primary Care Nurse Name: Alma Tran RN Position: [facility] RN Member Role: Primary Care Nurse Name: Sabrina Bosch RN Position: [facility] RN Member Role: Primary Care Nurse Name: Anitha Kirby RN Position: [facility] RN Member Role: Primary Care Nurse Name: Alyssa Priest RN Position: [facility] Onco RN Member Role: Primary Care Nurse Name: Ludmila Marcos RN Position: [facility] RN Member Role: Primary Care Nurse Name: *[facility], ED Attending Position: [facility] ED Attendings Patient Name: Jojo Camara Position: [facility] ED TA [facility] Member Role: Pill Maker Name: Georgiana Lei RN Position: [facility] ED RN W/OE and Tasks Member Role: Patient Care Provider Name: Ban More DO Position: [facility] Psychiatry MD Member Role: Admitting Physician Address: Address: [address] [place] [address] [place] [address]- Care Team Related Persons Name: LEENA HYLTON Name: LAWRENCE MOTA Address: home [address] [address]
--- OUTSIDE RECORDS SUMMARY | 2023-01-09 00:43 | XMS_ITS | Continuity of Care Document ---
Author Name Unknown Organization [facility] Address [address] [place] [address]- Care Team Providers Care Product Handler Name Role Phone Not on Staff, PCP Primary Care Physician Unavail able Encounter [facility] [place] Date(s): 07/03/22 - 07/03/[address] [address]- Discharge Disposition: A-D/C Home Attending Physician: Oniel Catalan MD Admitting Physician: Oniel Catalan MD Referring Physician: Not on Staff, Referring [...] Exam Date Time Procedure Performing Provider Status 07/03/22 9:[address] Head/Brain W/O Contrast Priscila Whyte; Auth (Verified) Notes: (CT Head/Brain W/O Contrast) Reason For Exam: Trauma RESULT: CT Head/Brain W/O Contrast CT Head/Brain W/O Contrast INDICATION: Hx of Present Illness: pt states, I guess I fainted admits to heroin use of 2 bags. Denies SI, HI. Pt requesting resources for drug use.; Reason: Trauma; Clinical Question(s): Hematoma;Order Comment: TECHNIQUE: Noncontrast head CT using axial technique and reconstructed in axial and coronal planes.Iterative reconstruction techniques are used to optimize dose and image quality. CTDIvol Head: 46.50 mGy, DLP Head: 772 mGy*cm. COMPARISON: 09/04/2021 FINDINGS: Rehabilitation Inspector view findings, lines and tubes: None. BRAIN AND EXTRA-AXIAL SPACES: No parenchymal hemorrhage, midline shift, or mass effect. Verdin-white matter differentiation is wellpreserved. No acute infarct. Ventricles, sulci, and basilar cisterns are normal. No white matter lesions. No subarachnoid hemorrhage. No subdural or epidural collection. CALVARIUM, SKULL BASE, AND SOFT TISSUES: No fractures or suspicious bony lesions. The paranasal sinuses and mastoid air cells are clear. Visualized orbits and globes are intact. The extracranial soft tissues are unremarkable. IMPRESSION: No acute intracranial pathology. WSN: [id number] Ordering Physician: Leandra Muhammad Dictated By: Shannan Olivarez MD Dictated Date/Time: 07/03/22 9:19 am Reviewed By: Shannan Olivarez MD Signed By: Shannan Olivarez MD Signed Date/Time: 07/03/22 9:19 am Transcribed By: ROWENA Transcribed Date/Time: 07/03/22 9:16 am Vital Signs Most recent to oldest [Reference Range]: 1 2 3 Oxygen Saturation [94-100 %] 96 % (07/03/22 5:16 PM) 97 % (07/03/22 4:06 PM) 93 % *L* (07/03/22 3:33 PM) Pulse Rate [55-90 bpm] 90 bpm (07/03/22 5:16 PM) 70 bpm (07/03/22 4:06 PM) 63 bpm (07/03/22 3:33 PM) Blood Pressure [90-138/55-84 mm Hg] 120/70mm Hg (07/03/22 5:16 PM) 122/74mm Hg (07/03/22 4:06 PM) 102/46mm Hg (07/03/22 3:33 PM) Respiratory Rate [16-30 br/min] 16 br/min (07/03/22 5:16 PM) 16 br/min (07/03/22 4:06 PM) 16 br/min (07/03/22 3:33 PM) Temperature [96.8-100.4 DegF] 98.3 DegF (07/03/22 8:57 AM) Liters per Minute 2 L/min (07/03/22 10:41 AM) Mode of Delivery (Oxygen) Room air (07/03/22 5:16 PM) Room air (07/03/22 4:06 PM) Room air (07/03/22 3:33 PM) Blood pressure sites Arm, right (07/03/22 5:16 PM) Arm, right (07/03/22 4:06 PM) Arm, left (07/03/22 3:33 PM) Temperature Route Oral (07/03/22 8:57 AM) Social History Social History Type Response Smoking Status 10 or more cigarette s (1/2 pack or more)/day in last 30 days; Type: Cigarettes; Other: Reports 1 ppd; entered on: 02/26/20 Sex EKG study * Event Display: EKG Authored Date: CT Head WO contrast * BHSPowerscribe , CIS S: TRANSCRIBE Sher SUGGS, Shannan H: VERIFY Event Display: Result: Authored Date: CT Head/Brain W/O Contrast INDICATION: Hx of Present Illness: pt states, I guess I fainted admits to heroin use of 2 bags. Denies SI, HI. Pt requesting resources for drug use.; Reason: Trauma; Clinical Question(s): Hematoma;Order Comment: TECHNIQUE: Noncontrast head CT using axial technique and reconstructed in axial and coronal planes.Iterative reconstruction techniques are used to optimize dose and image quality. CTDIvol Head: 46.50 mGy, DLP Head: 772 mGy*cm. COMPARISON: 09/04/2021 FINDINGS: Rehabilitation Inspector view findings, lines and tubes: None. BRAIN AND EXTRA-AXIAL SPACES: No parenchymal hemorrhage, midline shift, or mass effect. Verdin-white matter differentiation is wellpreserved. No acute infarct. Ventricles, sulci, and basilar cisterns are normal. No white matter lesions. No subarachnoid hemorrhage. No subdural or epidural collection. CALVARIUM, SKULL BASE, AND SOFT TISSUES: No fractures or suspicious bony lesions. The paranasal sinuses and mastoid air cells are clear. Visualized orbits and globes are intact. The extracranial soft tissues are unremarkable. IMPRESSION: No acute intracranial pathology. WSN: [id number] Ordering Physician: Leandra Muhammad Dictated By: Shannan Olivarez MD Dictated Date/Time: 07/03/22 9:19 am Reviewed By: Shannan Olivarez MD Signed By: Shannan Olivarez MD Signed Date/Time: 07/03/22 9:19 am Transcribed By: ROWENA Transcribed Date/Time: 07/03/22 9:16 am Patient Care team information Care Team Personnel Name: .Denise Marcelo RN Position: [facility] ED RN W/OE and Tasks Member Role: Primary Care Nurse Name: Keith Torres Position: [facility] RN Supv Member Role: Primary Care Nurse Name: Michelle Conley RN Position: [facility] RN Member Role: Primary Care Nurse Name: Isabel Colon RN Position: S RN Member Role: Primary Care Nurse Name: Janessa De La Cruz RN Position: [facility] SN RN Member Role: Primary Care Nurse Name: Ernie Cramer RN Position: [facility] RN Supv Member Role: Primary Care Nurse Name: Samina Burch RN Position: [facility] RN Member Role: Primary Care Nurse Name: Nicki Sheridan RN Position: [facility] RN Member Role: Primary Care Nurse Name: Brittanie Lacey RN Position: [facility] RN Member Role: Primary Care Nurse Name: Gabrielle Sharma RN Position: [facility] RN Member Role: Primary Care Nurse Name: Regine Michael Position: [facility] RN Member Role: Primary Care Nurse Name: Naun Richards RN Position: [facility] RN Member Role: Primary Care Nurse Name: Lamar Marks RN Position: [facility] RN Supv Member Role: Primary Care Nurse Name: Not on Staff, PCP Position: [facility] Physician (General Medicine) Member Role: PCP Name: Samantha Coburn RN Position: [facility] SN RN Member Role: Primary Care Nurse Name: Alma Tran RN Position: [facility] RN Member Role: Primary Care Nurse Name: Sabrina Bosch RN Position: [facility] RN Member Role: Primary Care Nurse Name: Anitha Kirby RN Position: [facility] RN Member Role: Primary Care Nurse Name: Alyssa Priest RN Position: [facility] Onco RN Member Role: Primary Care Nurse Name: Ludmila Marcos RN Position: [facility] RN Member Role: Primary Care Nurse Name: Laura Rea RN Position: [facility] ED RN W/OE and Tasks Member Role: Patient Care Provider Name: Oniel Catalan MD Position: [facility] ED Medicine MD Member Role: Admitting Physician Address: Address: [address] [place] [address]- Name: May Position: [facility] ED TA [facility] [place] Name: Norma Elizabeth Position: [facility] Associate Professional Member Role: Physician Ironer Hand Address: Address: [address] [place] [id number]- Care Team Related Persons Name: LEENA HYLTON Name: LAWRENCE MOTA Address: home [address] [place] [id number]
[2023-01-09 00:45] VITALS: BP 113/86; PULSE 71; RESP 16; TEMP 36.3; O2SAT 97
[2023-01-09] MEDS: Acetaminophen 325 MG TABLET 650 MG PO ×2 (02:10→17:11)
[2023-01-09] MEDS: methADONE HCl 20 MG/2 ML ORAL.CONC 10 MG PO ×2 (02:11→17:55)
[2023-01-09] MEDS: traZODone HCL 50 MG TABLET PO ×2 (02:12→20:25)
[2023-01-09] MEDS: risperiDONE 3 MG TABLET PO ×3 (02:13→20:25)
[2023-01-09] MEDS: Divalproex Sodium 500 MG TABLET.DR PO ×2 (02:13→08:27)
--- NOTE | 2023-01-09 02:52 | PC.ADMIT ---
Isabel self presented to [facility] after being unable to care for herself due to her mental health instability (hearing voices that are distressing her) and using bags of Fentanyl daily. According to Isabel she has been using at least 2 bags of Fentanyl daily. She was guarded around where she was obtaining the money. 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 She declined suicidal and homicidal ideation but reported her voices are causing her to be stressed. She reported not being able to take her medications because her VNA nurse can never find her. Isabel has been putting herself at risk of overdosing again for the past year, according to records of her [facility] ED admissions she was here in the ED since last, January, 9 times for substance use related reasons, the majority of her admissions are for overdosing and her needing to be narcaned. She has a legal guardian, Anders Garcia but his involvement is very little currently. Patient was sedated and reporting withdrawal symptoms on intake. Patient reported no current SI/HI. Patient given Methadone 10mg PO dose to help with withdrawal. Patient cooperative with nurse but requested to lay down and sleep during assessment. Patient has not showered but stated she wanted to tomorrow. Patient signed a CV. Covid negative. Skin check down, callouses on feet.
[2023-01-09 03:08] VITALS: BMI 37.4
--- NOTE | 2023-01-09 03:34 | PC.NURSE ---
Patient has Hepatitis C and Fatty Liver
[2023-01-09] MEDS: Levothyroxine Sodium 75 MCG TABLET PO (06:44)
[2023-01-09 08:15] VITALS: BP 164/83; PULSE 96; TEMP 35.4
[2023-01-09] MEDS: methADONE HCl 20 MG/2 ML ORAL.CONC 40 MG PO (08:26)
[2023-01-09] MEDS: Benztropine Mesylate 0.5 MG TABLET PO ×2 (08:28→20:25)
[2023-01-09] MEDS: lisinopriL 5 MG TABLET PO (08:28)
[2023-01-09] MEDS: Thiamine HCL 100 MG TABLET PO (08:28)
[2023-01-09 09:27] LABS: Cholesterol 114 mg/dL (<200); HDL Cholesterol 42 mg/dL (>40); LDL Cholesterol Calculated 60 mg/dL (<100); Triglycerides 61 mg/dL (<150)
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
[2023-01-09 10:15] LABS: Estimated Average Glucose 111 mg/dL; Hemoglobin A1c % 5.5 % (<6.0)
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
[2023-01-09] MEDS: Nicotine 21 MG PATCH.TD24 TRANSDERMA (17:12)
[2023-01-09 19:54] VITALS: BP 171/74; PULSE 72; TEMP 36.4; O2SAT 98
[2023-01-09] MEDS: Dicyclomine HCl 10 MG CAPSULE PO (20:25)
[2023-01-09] MEDS: Divalproex Sodium ER 500 MG TAB.ER.24H 1500 MG PO (20:25)
[2023-01-10] MEDS: HaloperidoL 5 MG TABLET PO ×3 (03:51→20:28)
[2023-01-10] MEDS: Acetaminophen 325 MG TABLET 650 MG PO ×2 (03:51→14:37)
[2023-01-10] MEDS: LORazepam 1 MG TABLET 2 MG PO ×3 (03:51→20:28)
[2023-01-10] MEDS: Ibuprofen 600 MG TABLET PO ×2 (05:43→20:28)
[2023-01-10] MEDS: Levothyroxine Sodium 75 MCG TABLET PO (05:43)
[2023-01-10] MEDS: Dicyclomine HCl 10 MG CAPSULE PO ×2 (06:26→20:27)
[2023-01-10 08:00] VITALS: BP 201/87; PULSE 67; RESP 16; TEMP 36.3; O2SAT 98
[2023-01-10] MEDS: methADONE HCl 20 MG/2 ML ORAL.CONC 40 MG PO (08:07)
[2023-01-10] MEDS: Multivitamin TABLET 1 TAB PO (08:07)
[2023-01-10] MEDS: risperiDONE 3 MG TABLET PO ×2 (08:08→20:28)
[2023-01-10] MEDS: lisinopriL 5 MG TABLET PO (08:08)
[2023-01-10] MEDS: Folic Acid 1 MG TABLET PO (08:09)
[2023-01-10] MEDS: Thiamine HCL 100 MG TABLET PO (08:09)
[2023-01-10] MEDS: Benztropine Mesylate 0.5 MG TABLET PO ×3 (08:09→20:27)
[2023-01-10] MEDS: Nicotine 21 MG PATCH.TD24 TRANSDERMA (08:45)
--- NOTE | 2023-01-10 09:03 | P.PNPSI_ITS ---
Subjective Subjective Date of Service: 01/10/23 Reason For Visit: Schizoaffctive disorder, opiate use disorder Interim History: Met with patient; discussed with team Patient reports that she is definitely doing better than on admission. No SI. She is eating and sleeping well. She still feels tired and weak but doing better. She continues to have auditory hallucinations but much less intense than on admission. Patient reports that she still has withdrawal symptoms and communications writer agreed to increase dose to methadone 50 mg since she got 10 mg last night via on-call provider. She reports ongoing back pain due to sciatica and asks for gabapentin; communications writer discussed that will hold off from adding gabapentin for now but would add Flexeril and a lidocaine patch to which patient was appreciative. Increase methadone to 50 mg daily Add Flexeril p.r.n. Add lidocaine patch for lower back p.r.n. Will order Depakote level and associated labs Patient with elevated blood pressure however not always consistently so-so will leave on current dose of lisinopril for now. Mental Status Exam Mental Status Exam Narrative: Pt is alert and oriented; behavior is cooperative, friendly and calm; patient is not in distress; dressed in casual attire with unkempt; mood is described as better and affect congruent; eye contact appropriate; Speech is normal rate, volume and prosody and not pressured; some psychomotor retardation present; thought process is goal directed; Thought content is on tx, symptoms, back pain; otherwise pertinent to relevant topics and without expressing any delusional or paranoid ideations; denies any SI/HI. AH remain but less intense; Patients insight and judgment impaired but improving Diagnostics Vital Signs (24Hr): Vital Signs - 24 hr 01/09/23 19:54 Temperature 97.5 F Pulse Rate 72 Blood Pressure 171/74 H Pulse Oximetry 98 Oxygen Delivery Method Room Air BMI result Body Mass Index 37.4 Labs Labs: Laboratory Results - last 48 hr 01/09/23 08:47 Estimat Average Glucose 111 Hemoglobin A1c % 5.5 Triglycerides 61 Cholesterol 114 LDL Cholesterol, Calc 60 HDL Cholesterol 42 Medications Medications Current Medications Acetaminophen (Acetaminophen 325 Mg Tablet) 650 mg PO Q6H PRN PRN Reason: Headache/Pain Mild Scale (1-3) Last Admin: 01/10/23 03:51 Dose: 650 mg Al Hydroxide/Mg Hydroxide (Magnesium Hydrox/Alum Hydrox 30 Ml Oral.Susp) 30 ml PO Q6H PRN PRN Reason: Heartburn/Nausea Albuterol Sulfate (Albuterol Sulfate 90 Mcg 8 Gm Inhaler) 2 puff INHALE Q4H PRN PRN Reason: wheezing Benztropine Mesylate (Benztropine Mesylate 0.5 Mg Tablet) 0.5 mg PO BID [facility] Last Admin: 01/10/23 08:09 Dose: 0.5 mg Clonidine HCl (Clonidine Hcl 0.1 Mg Tablet) 0.1 mg PO Q4H PRN; Protocol PRN Reason: signs of opioid withdrawal Dicyclomine HCl (Dicyclomine Hcl 10 Mg Capsule) 10 mg PO QIDACHS PRN PRN Reason: stomach cramp Last Admin: 01/10/23 06:26 Dose: 10 mg Divalproex Sodium (Divalproex Sodium Er 500 Mg Tab.Er.24h) 1,500 mg PO BEDTIME [facility] Last Admin: 01/09/23 20:25 Dose: 1,500 mg Folic Acid (Folic Acid 1 Mg Tablet) 1 mg PO DAILY [facility] Last Admin: 01/10/23 08:09 Dose: 1 mg Haloperidol (Haloperidol 5 Mg Tablet) 5 mg PO Q4H PRN PRN Reason: Restlessness Last Admin: 01/10/23 03:51 Dose: 5 mg Hydroxyzine HCl (Hydroxyzine Hcl 25 Mg Tablet) 25 mg PO Q6H PRN PRN Reason: Anxiety Ibuprofen (Ibuprofen 600 Mg Tablet) 600 mg PO Q6H PRN PRN Reason: Pain, Moderate(Pain Scale 4-6) Last Admin: 01/10/23 05:43 Dose: 600 mg Levothyroxine Sodium (Levothyroxine Sodium 75 Mcg Tablet) 75 mcg PO DAILY@0630 [facility] Last Admin: 01/10/23 05:43 Dose: 75 mcg Lisinopril (Lisinopril 5 Mg Tablet) 5 mg PO DAILY [facility]; Protocol Last Admin: 01/10/23 08:08 Dose: 5 mg Lorazepam (Lorazepam 1 Mg Tablet) 2 mg PO Q4H PRN PRN Reason: Restlessness Last Admin: 01/10/23 03:51 Dose: 2 mg Magnesium Hydroxide (Milk Of Magnesia 30 Ml Oral.Susp) 30 ml PO DAILY PRN PRN Reason: Constipation Methadone HCl (Methadone Hcl 20 Mg/2 Ml Oral.Conc) 40 mg PO DAILY [facility] Last Admin: 01/10/23 08:07 Dose: 40 mg Multivitamins/Vitamin C (Multivitamin Tablet) 1 tab PO DAILY [facility] Last Admin: 01/10/23 08:07 Dose: 1 tab Nicotine (Nicotine 21 Mg Patch.Td24) 21 mg TRANSDERMA DAILY PRN PRN Reason: smoking cessation Last Admin: 01/10/23 08:45 Dose: 21 mg Nicotine Polacrilex (Nicotine Polacrilex 2 Mg Gum) 4 mg BUCCAL Q2H PRN PRN Reason: Nicotine Cravings Ondansetron HCl (Ondansetron Odt 4 Mg Tab.Rapdis) 4 mg TRANSLINGU Q6H PRN PRN Reason: Nausea Risperidone (Risperidone 3 Mg Tablet) 3 mg PO BID [facility] Last Admin: 01/10/23 08:08 Dose: 3 mg Senna (Senna [place] Extract Oral Syrup 15 Ml Syrup) 15 ml PO BEDTIME [facility] Last Admin: 01/09/23 20:23 Dose: 15 ml Thiamine HCl (Thiamine Hcl 100 Mg Tablet) 100 mg PO DAILY [facility] Last Admin: 01/10/23 08:09 Dose: 100 mg Trazodone HCl (Trazodone Hcl 50 Mg Tablet) 50 mg PO BEDTIME MRX1 PRN PRN Reason: Insomnia Last Admin: 01/09/23 20:25 Dose: 50 mg Allergies Allergies Allergy/AdvReac Type Severity Reaction Status Date / Time clozapine [CLOZAPINE] Allergy Unknown UNKNOWN Verified 12/27/21 19:05 olanzapine [From ZYPREXA] Allergy Unknown UNKNOWN Verified 12/27/21 19:05 shellfish derived Allergy Unknown UNKNOWN Verified 12/27/21 19:05 [SHELLFISH DERIVED] Assessment & Plan Assessment & Plan (1) Schizoaffective disorder: Status: Acute Code(s): F25.9 - Schizoaffective disorder, unspecified (2) Cocaine use disorder: Status: Acute Code(s): F14.10 - Cocaine abuse, uncomplicated (3) Opioid use disorder, severe, on maintenance therapy: Status: Acute Code(s): F11.20 - Opioid dependence, uncomplicated Plan restart outpt methadone dose of 40 mg daily; comfort meds for opioid withdrawal beyond that. utox negative for cocaine, no withdrawal syndrome anticipated. restart home medications regimen for schizoaffective disorder. Hospital course: 01/10 Patient reports that she is definitely doing better than on admission; still feels tired and weak but better. No SI; eating and sleeping well. She continues to have auditory hallucinations but much less intense than before. Patient reports that she still has withdrawal symptoms and communications writer agreed to increase dose to methadone 50 mg since she got 10 mg last night via on-call provider. She reports ongoing back pain due to sciatica and asks for gabapentin; communications writer discussed that will hold off from adding gabapentin for now but would add Flexeril and a lidocaine patch to which patient was appreciative. Plan: CV Q 15 minute checks Restarted home meds Will Increase methadone to 50 mg daily Added Flexeril p.r.n. for chronic pain Added lidocaine patch for lower back p.r.n. Ordered Depakote level and associated labs Continue lisinopril 5 mg daily for now; although Patient with elevated BP, recent history is mixed with normal BP he has so will leave on current dose of lisinopril for now. Patient educated on: diagnosis, medication risk/benefits, substance abuse and medical condition Informed Consent: understands and further education needed Reason for continued inpatient stay Substantial Risk for: rapid decompensation Time Spent With Patient Time: Total time managing care of this patient today ____ minutes.
[2023-01-10] MEDS: methADONE HCl 20 MG/2 ML ORAL.CONC 10 MG PO (09:56)
[2023-01-10 20:08] VITALS: BP 171/78; PULSE 70; RESP 18; TEMP 36.7; O2SAT 99
[2023-01-10] MEDS: Lidocaine 4 % Patch ADH..PATCH 1 PATCH TRANSDERMA (20:25)
[2023-01-10] MEDS: traZODone HCL 50 MG TABLET PO (20:27)
[2023-01-10] MEDS: cloNIDine HCL 0.1 MG TABLET PO (20:27)
[2023-01-10] MEDS: Divalproex Sodium ER 500 MG TAB.ER.24H 1500 MG PO (20:27)
[2023-01-10] MEDS: Ondansetron ODT 4 MG TAB.RAPDIS TRANSLINGU (20:28)
[2023-01-11] MEDS: Cyclobenzaprine HCl 10 MG TABLET PO (05:08)
[2023-01-11] MEDS: Ibuprofen 600 MG TABLET PO ×2 (05:09→20:16)
[2023-01-11 06:00] VITALS: BP 138/60; PULSE 69; TEMP 36.3; O2SAT 98
[2023-01-11] MEDS: Levothyroxine Sodium 75 MCG TABLET PO (06:37)
[2023-01-11] MEDS: HaloperidoL 5 MG TABLET PO ×2 (06:44→20:17)
[2023-01-11] MEDS: LORazepam 1 MG TABLET 2 MG PO (06:44)
[2023-01-11] MEDS: methADONE HCl 20 MG/2 ML ORAL.CONC 50 MG PO (08:16)
[2023-01-11] MEDS: risperiDONE 3 MG TABLET PO (08:19)
[2023-01-11] MEDS: Folic Acid 1 MG TABLET PO (08:19)
[2023-01-11] MEDS: Multivitamin TABLET 1 TAB PO (08:20)
[2023-01-11] MEDS: Thiamine HCL 100 MG TABLET PO (08:20)
[2023-01-11] MEDS: Benztropine Mesylate 0.5 MG TABLET PO ×2 (08:21→20:17)
[2023-01-11] MEDS: lisinopriL 5 MG TABLET PO (08:21)
[2023-01-11] MEDS: Lidocaine 4 % Patch ADH..PATCH 1 PATCH TRANSDERMA (08:38)
[2023-01-11] MEDS: Nicotine 21 MG PATCH.TD24 TRANSDERMA ×2 (08:38→14:27)
--- NOTE | 2023-01-11 14:22 | PC.NURSE ---
Isabel's son Moy called and asked if he could be a part of her discharge planning process, RN explained need for ISABEL (there is a signed release for pt's mom but she's primarily Ecuadorean-speaking only. He can be reached at [phone]
[2023-01-11] MEDS: Nicotine Polacrilex 2 MG GUM 4 MG BUCCAL (18:39)
--- NOTE | 2023-01-11 18:46 | P.PNPSI_ITS ---
Subjective Subjective Date of Service: 01/11/23 Reason For Visit: Schizoaffctive disorder, opiate use disorder Interim History: asking for gabapentin for back muscle spasm, informed gabapentin is not used as a muscle relaxant. c/o feeling too sedated, declines to lower methadone dose. informed her ativan and flexeril dosing have been cut in half. also agrees to have risperidone dosing decreased from 3 BID to 2 BID. asks to have flexeril DCed. dosing, tired. per staff, not attending groups. rafal's order. taking meds. c/o chronic pain 2/2 withdrawal. using PRNs. guarded. c/o 11/10 pain. using lidocaine, ativan, haldol, other PRNs. Mental Status Exam Mental Status Exam Narrative: Appearance: wearing hospital gown, ambulating, in NAD. Behavior:indifferent of this commercial insurance underwriter or surrounding psychomotor:alternating episodes of somnolence with alertness. Speech:clear, regular rate, non-spontaneous Thought process:linear and logical Thought content:no delusions or paranoia expressed Mood: tired Affect: congruent SI: none expressed HI: none expressed VH/AH: none expressed Delusions:none expressed Insight/judgment:adequate Diagnostics Vital Signs (24Hr): Vital Signs - 24 hr 01/10/23 20:08 01/11/23 06:00 Temperature 98.0 F 97.3 F Pulse Rate 70 69 Respiratory Rate 18 Blood Pressure 171/78 H 138/60 Pulse Oximetry 99 98 Oxygen Delivery Method Room Air Room Air BMI result Body Mass Index 37.4 Medications Medications Current Medications Acetaminophen (Acetaminophen 325 Mg Tablet) 650 mg PO Q6H PRN PRN Reason: Headache/Pain Mild Scale (1-3) Last Admin: 01/10/23 14:37 Dose: 650 mg Al Hydroxide/Mg Hydroxide (Magnesium Hydrox/Alum Hydrox 30 Ml Oral.Susp) 30 ml PO Q6H PRN PRN Reason: Heartburn/Nausea Albuterol Sulfate (Albuterol Sulfate 90 Mcg 8 Gm Inhaler) 2 puff INHALE Q4H PRN PRN Reason: wheezing Benztropine Mesylate (Benztropine Mesylate 0.5 Mg Tablet) 0.5 mg PO BID [place] Last Admin: 01/11/23 08:21 Dose: 0.5 mg Clonidine HCl (Clonidine Hcl 0.1 Mg Tablet) 0.1 mg PO Q4H PRN; Protocol PRN Reason: signs of opioid withdrawal Last Admin: 01/10/23 20:27 Dose: 0.1 mg Dicyclomine HCl (Dicyclomine Hcl 10 Mg Capsule) 10 mg PO QIDACHS PRN PRN Reason: stomach cramp Last Admin: 01/10/23 20:27 Dose: 10 mg Divalproex Sodium (Divalproex Sodium Er 500 Mg Tab.Er.24h) 1,500 mg PO BEDTIME [facility] Last Admin: 01/10/23 20:27 Dose: 1,500 mg Folic Acid (Folic Acid 1 Mg Tablet) 1 mg PO DAILY [facility] Last Admin: 01/11/23 08:19 Dose: 1 mg Haloperidol (Haloperidol 5 Mg Tablet) 5 mg PO Q4H PRN PRN Reason: Restlessness Last Admin: 01/11/23 06:44 Dose: 5 mg Hydroxyzine HCl (Hydroxyzine Hcl 25 Mg Tablet) 25 mg PO Q6H PRN PRN Reason: Anxiety Ibuprofen (Ibuprofen 600 Mg Tablet) 600 mg PO Q6H PRN PRN Reason: Pain, Moderate(Pain Scale 4-6) Last Admin: 01/11/23 05:09 Dose: 600 mg Levothyroxine Sodium (Levothyroxine Sodium 75 Mcg Tablet) 75 mcg PO DAILY@0630 [facility] Last Admin: 01/11/23 06:37 Dose: 75 mcg Lidocaine (Lidocaine 4 % Patch Adh..Patch) 1 patch TRANSDERMA DAILY PRN; Protocol PRN Reason: lower back pain Last Admin: 01/11/23 08:38 Dose: 1 patch Lisinopril (Lisinopril 5 Mg Tablet) 5 mg PO DAILY [facility]; Protocol Last Admin: 01/11/23 08:21 Dose: 5 mg Lorazepam (Lorazepam 1 Mg Tablet) 1 mg PO Q4H PRN PRN Reason: Restlessness Magnesium Hydroxide (Milk Of Magnesia 30 Ml Oral.Susp) 30 ml PO DAILY PRN PRN Reason: Constipation Methadone HCl (Methadone Hcl 20 Mg/2 Ml Oral.Conc) 50 mg PO DAILY [facility] Last Admin: 01/11/23 08:16 Dose: 50 mg Multivitamins/Vitamin C (Multivitamin Tablet) 1 tab PO DAILY [facility] Last Admin: 01/11/23 08:20 Dose: 1 tab Nicotine (Nicotine 21 Mg Patch.Td24) 21 mg TRANSDERMA DAILY PRN PRN Reason: smoking cessation Last Admin: 01/11/23 08:38 Dose: 21 mg Nicotine Polacrilex (Nicotine Polacrilex 2 Mg Gum) 4 mg BUCCAL Q2H PRN PRN Reason: Nicotine Cravings Last Admin: 01/11/23 18:39 Dose: 4 mg Ondansetron HCl (Ondansetron Odt 4 Mg Tab.Rapdis) 4 mg TRANSLINGU Q6H PRN PRN Reason: Nausea Last Admin: 01/10/23 20:28 Dose: 4 mg Risperidone (Risperidone 2 Mg Tablet) 2 mg PO BID [place] Senna (Senna [place] Extract Oral Syrup 15 Ml Syrup) 15 ml PO BEDTIME [place] Last Admin: 01/10/23 20:26 Dose: 15 ml Thiamine HCl (Thiamine Hcl 100 Mg Tablet) 100 mg PO DAILY [place] Last Admin: 01/11/23 08:20 Dose: 100 mg Trazodone HCl (Trazodone Hcl 50 Mg Tablet) 50 mg PO BEDTIME MRX1 PRN PRN Reason: Insomnia Last Admin: 01/10/23 20:27 Dose: 50 mg Allergies Allergies Allergy/AdvReac Type Severity Reaction Status Date / Time clozapine [CLOZAPINE] Allergy Unknown UNKNOWN Verified 12/27/21 19:05 olanzapine [From ZYPREXA] Allergy Unknown UNKNOWN Verified 12/27/21 19:05 shellfish derived Allergy Unknown UNKNOWN Verified 12/27/21 19:05 [SHELLFISH DERIVED] Assessment & Plan Assessment & Plan (1) Schizoaffective disorder: Status: Acute Code(s): F25.9 - Schizoaffective disorder, unspecified (2) Cocaine use disorder: Status: Acute Code(s): F14.10 - Cocaine abuse, uncomplicated (3) Opioid use disorder, severe, on maintenance therapy: Status: Acute Code(s): F11.20 - Opioid dependence, uncomplicated Plan restart outpt methadone dose of 40 mg daily; comfort meds for opioid withdrawal beyond that. utox negative for cocaine, no withdrawal syndrome anticipated. restart home medications regimen for schizoaffective disorder. Hospital course: 01/10 Patient reports that she is definitely doing better than on admission; still feels tired and weak but better. No SI; eating and sleeping well. She continues to have auditory hallucinations but much less intense than before. Patient reports that she still has withdrawal symptoms and commercial insurance underwriter agreed to increase dose to methadone 50 mg since she got 10 mg last night via on-call provider. She reports ongoing back pain due to sciatica and asks for gabapentin; commercial insurance underwriter discussed that will hold off from adding gabapentin for now but would add Flexeril and a lidocaine patch to which patient was appreciative. Continue lisinopril 5 mg daily for now; although Patient with elevated BP, recent history is mixed with normal BP he has so will leave on current dose of lisinopril for now. 01/11: remains sedated. cut back on ativan PRNs, DC flexeril. declined to start gabapentin again today, as it is a drug widely abused by heroin addicts, and there is no indication for her to take it. agreeable to reduce risperidone from 3 BID to 2 BID due to sedation. would like to continue methadone at 50 mg daily. asking about when she will discharge. Reason for continued inpatient stay Substantial Risk for: inability to function and rapid decompensation Time Spent With Patient Time: Total time managing care of this patient today ____ minutes.
[2023-01-11 20:07] VITALS: BP 148/71; PULSE 75; RESP 15; TEMP 37.3; O2SAT 98
[2023-01-11] MEDS: Divalproex Sodium ER 500 MG TAB.ER.24H 1500 MG PO (20:16)
[2023-01-11] MEDS: traZODone HCL 50 MG TABLET PO (20:17)
[2023-01-11] MEDS: LORazepam 1 MG TABLET PO (20:17)
[2023-01-11] MEDS: Dicyclomine HCl 10 MG CAPSULE PO (20:17)
[2023-01-11] MEDS: risperiDONE 2 MG TABLET PO (20:17)
[2023-01-11] MEDS: Ondansetron ODT 4 MG TAB.RAPDIS TRANSLINGU (20:18)
[2023-01-11] MEDS: cloNIDine HCL 0.1 MG TABLET PO (20:18)
[2023-01-11] MEDS: Loratadine 10 MG TABLET PO (20:31)
[2023-01-12] MEDS: LORazepam 1 MG TABLET PO (04:52)
[2023-01-12] MEDS: HaloperidoL 5 MG TABLET PO (04:52)
[2023-01-12] MEDS: Acetaminophen 325 MG TABLET 650 MG PO ×2 (04:52→20:36)
[2023-01-12 06:00] VITALS: BP 162/79; PULSE 80; RESP 16; TEMP 36.2; O2SAT 95
[2023-01-12] MEDS: Ibuprofen 600 MG TABLET PO (07:09)
[2023-01-12] MEDS: Levothyroxine Sodium 75 MCG TABLET PO (07:09)
[2023-01-12 07:30] LABS: Ammonia 55 umol/L (13-55)
[2023-01-12 07:45] LABS: Valproate 68.3 mcg/mL (50.0-100.0)
[2023-01-12 07:49] LABS: Alanine Aminotransferase 18 U/L (0-31); Albumin Level 3.4 g/dL (3.5-5.0); Alkaline Phosphatase 69 U/L (39-117); Aspartate Amino Transferase 24 U/L (5-31); Bilirubin Direct < 0.2 mg/dL (0.0-0.5); Bilirubin Total 0.1 mg/dL (0.0-1.0); Total Protein 7.2 g/dL (6.5-8.0)
[2023-01-12] MEDS: methADONE HCl 20 MG/2 ML ORAL.CONC 50 MG PO (08:24)
[2023-01-12] MEDS: risperiDONE 2 MG TABLET PO (08:26)
[2023-01-12] MEDS: Multivitamin TABLET 1 TAB PO (08:26)
[2023-01-12] MEDS: Benztropine Mesylate 0.5 MG TABLET PO ×2 (08:27→20:09)
[2023-01-12] MEDS: Folic Acid 1 MG TABLET PO (08:27)
[2023-01-12] MEDS: Thiamine HCL 100 MG TABLET PO (08:27)
[2023-01-12] MEDS: lisinopriL 5 MG TABLET PO (08:27)
[2023-01-12] MEDS: Nicotine 21 MG PATCH.TD24 TRANSDERMA (08:31)
[2023-01-12] MEDS: Nicotine Polacrilex 2 MG GUM 4 MG BUCCAL (16:16)
[2023-01-12] MEDS: hydrOXYzine HCL 25 MG TABLET PO (17:26)
[2023-01-12] MEDS: Albuterol Sulfate 90 MCG 8 GM INHALER 2 PUFF INHALE (17:26)
[2023-01-12] MEDS: Divalproex Sodium ER 500 MG TAB.ER.24H 1500 MG PO (20:09)
[2023-01-12] MEDS: risperiDONE 3 MG TABLET PO (20:10)
[2023-01-12 20:15] VITALS: BP 163/67; PULSE 69; TEMP 36.8; O2SAT 98
--- NOTE | 2023-01-12 20:24 | HO.PSYCHPN ---
Subjective Subjective Date of Service: 01/12/23 Reason For Visit: Schizoaffctive disorder, opiate use disorder Interim History: sedated. upset MD won't give her gabapentin or ativan. divulges more AH since risperidone dose reduction yesterday, informed dosing will be increased again. per staff, sedated most of day yesterday. took much fewer PRNs today. Mental Status Exam Mental Status Exam Narrative: Appearance: wearing hospital attire and street clothes, ambulating, in NAD. Behavior:indifferent of this commercial loan underwriter or surrounding psychomotor:alternating episodes of somnolence with alertness. Speech:clear, regular rate, spontaneous. Thought process:linear and logical Thought content:no delusions or paranoia expressed Mood:unknown Affect: congruent. period of explosivity in response to being denied ativan and gabapentin. SI: none expressed HI: none expressed VH/AH: increased AH since yesterday Delusions:none expressed Insight/judgment:adequate Diagnostics Vital Signs (24Hr): Vital Signs - 24 hr 01/12/23 06:00 01/12/23 20:15 Temperature 97.1 F 98.2 F Pulse Rate 80 69 Respiratory Rate 16 Blood Pressure 162/79 H 163/67 H Pulse Oximetry 95 98 Oxygen Delivery Method Room Air Room Air BMI result Body Mass Index 37.4 Labs Labs: Laboratory Results - last 48 hr 01/12/23 07:12 Total Bilirubin 0.1 Direct Bilirubin < 0.2 AST 24 ALT 18 Alkaline Phosphatase 69 Ammonia 55 Total Protein 7.2 Albumin 3.4 L Valproic Acid 68.3 Medications Medications Current Medications Acetaminophen (Acetaminophen 325 Mg Tablet) 650 mg PO Q6H PRN PRN Reason: Headache/Pain Mild Scale (1-3) Last Admin: 01/12/23 04:52 Dose: 650 mg Al Hydroxide/Mg Hydroxide (Magnesium Hydrox/Alum Hydrox 30 Ml Oral.Susp) 30 ml PO Q6H PRN PRN Reason: Heartburn/Nausea Albuterol Sulfate (Albuterol Sulfate 90 Mcg 8 Gm Inhaler) 2 puff INHALE Q4H PRN PRN Reason: wheezing Last Admin: 01/12/23 17:26 Dose: 2 puff Benztropine Mesylate (Benztropine Mesylate 0.5 Mg Tablet) 0.5 mg PO BID [place] Last Admin: 01/12/23 20:09 Dose: 0.5 mg Divalproex Sodium (Divalproex Sodium Er 500 Mg Tab.Er.24h) 1,500 mg PO BEDTIME [facility] Last Admin: 01/12/23 20:09 Dose: 1,500 mg Folic Acid (Folic Acid 1 Mg Tablet) 1 mg PO DAILY [facility] Last Admin: 01/12/23 08:27 Dose: 1 mg Haloperidol (Haloperidol 5 Mg Tablet) 5 mg PO Q4H PRN PRN Reason: Restlessness Last Admin: 01/12/23 04:52 Dose: 5 mg Hydroxyzine HCl (Hydroxyzine Hcl 25 Mg Tablet) 25 mg PO Q6H PRN PRN Reason: Anxiety Last Admin: 01/12/23 17:26 Dose: 25 mg Ibuprofen (Ibuprofen 600 Mg Tablet) 600 mg PO Q6H PRN PRN Reason: Pain, Moderate(Pain Scale 4-6) Last Admin: 01/12/23 07:09 Dose: 600 mg Levothyroxine Sodium (Levothyroxine Sodium 75 Mcg Tablet) 75 mcg PO DAILY@0630 [facility] Last Admin: 01/12/23 07:09 Dose: 75 mcg Lidocaine (Lidocaine 4 % Patch Adh..Patch) 1 patch TRANSDERMA DAILY PRN; Protocol PRN Reason: lower back pain Last Admin: 01/11/23 08:38 Dose: 1 patch Lisinopril (Lisinopril 10 Mg Tablet) 10 mg PO DAILY [facility]; Protocol Magnesium Hydroxide (Milk Of Magnesia 30 Ml Oral.Susp) 30 ml PO DAILY PRN PRN Reason: Constipation Methadone HCl (Methadone Hcl 20 Mg/2 Ml Oral.Conc) 50 mg PO DAILY [facility] Last Admin: 01/12/23 08:24 Dose: 50 mg Multivitamins/Vitamin C (Multivitamin Tablet) 1 tab PO DAILY [facility] Last Admin: 01/12/23 08:26 Dose: 1 tab Nicotine (Nicotine 21 Mg Patch.Td24) 21 mg TRANSDERMA DAILY PRN PRN Reason: smoking cessation Last Admin: 01/12/23 08:31 Dose: 21 mg Nicotine Polacrilex (Nicotine Polacrilex 2 Mg Gum) 4 mg BUCCAL Q2H PRN PRN Reason: Nicotine Cravings Last Admin: 01/12/23 16:16 Dose: 4 mg Ondansetron HCl (Ondansetron Odt 4 Mg Tab.Rapdis) 4 mg TRANSLINGU Q6H PRN PRN Reason: Nausea Last Admin: 01/11/23 20:18 Dose: 4 mg Risperidone (Risperidone 3 Mg Tablet) 3 mg PO BID [place] Last Admin: 01/12/23 20:10 Dose: 3 mg Senna (Senna [place] Extract Oral Syrup 15 Ml Syrup) 15 ml PO BEDTIME [place] Last Admin: 01/11/23 20:16 Dose: 15 ml Thiamine HCl (Thiamine Hcl 100 Mg Tablet) 100 mg PO DAILY [place] Last Admin: 01/12/23 08:27 Dose: 100 mg Trazodone HCl (Trazodone Hcl 50 Mg Tablet) 50 mg PO BEDTIME MRX1 PRN PRN Reason: Insomnia Last Admin: 01/11/23 20:17 Dose: 50 mg Allergies Allergies Allergy/AdvReac Type Severity Reaction Status Date / Time clozapine [CLOZAPINE] Allergy Unknown UNKNOWN Verified 12/27/21 19:05 olanzapine [From ZYPREXA] Allergy Unknown UNKNOWN Verified 12/27/21 19:05 shellfish derived Allergy Unknown UNKNOWN Verified 12/27/21 19:05 [SHELLFISH DERIVED] Assessment & Plan Assessment & Plan (1) Schizoaffective disorder: Status: Acute Code(s): F25.9 - Schizoaffective disorder, unspecified (2) Cocaine use disorder: Status: Acute Code(s): F14.10 - Cocaine abuse, uncomplicated (3) Opioid use disorder, severe, on maintenance therapy: Status: Acute Code(s): F11.20 - Opioid dependence, uncomplicated Plan restart outpt methadone dose of 40 mg daily; comfort meds for opioid withdrawal beyond that. utox negative for cocaine, no withdrawal syndrome anticipated. restart home medications regimen for schizoaffective disorder. Hospital course: 01/10 Patient reports that she is definitely doing better than on admission; still feels tired and weak but better. No SI; eating and sleeping well. She continues to have auditory hallucinations but much less intense than before. Patient reports that she still has withdrawal symptoms and commercial loan underwriter agreed to increase dose to methadone 50 mg since she got 10 mg last night via on-call provider. She reports ongoing back pain due to sciatica and asks for gabapentin; commercial loan underwriter discussed that will hold off from adding gabapentin for now but would add Flexeril and a lidocaine patch to which patient was appreciative. Continue lisinopril 5 mg daily for now; although Patient with elevated BP, recent history is mixed with normal BP he has so will leave on current dose of lisinopril for now. 01/11: remains sedated. cut back on ativan PRNs, DC flexeril. declined to start gabapentin again today, as it is a drug widely abused by heroin addicts, and there is no indication for her to take it. agreeable to reduce risperidone from 3 BID to 2 BID due to sedation. would like to continue methadone at 50 mg daily. asking about when she will discharge. 01/12: DCed more sedating PRNs. pt angry and verbally aggressive on being told no ativan or gabapentin. c/o worsened AH, risperidone increased back to 3 BID. Reason for continued inpatient stay Substantial Risk for: inability to function and rapid decompensation Time Spent With Patient Time: Total time managing care of this patient today ____ minutes.
[2023-01-12] MEDS: traZODone HCL 50 MG TABLET PO (22:01)
[2023-01-13] MEDS: Albuterol Sulfate 90 MCG 8 GM INHALER 2 PUFF INHALE ×2 (00:23→20:59)
[2023-01-13] MEDS: Acetaminophen 325 MG TABLET 650 MG PO ×2 (05:43→13:34)
[2023-01-13] MEDS: Levothyroxine Sodium 75 MCG TABLET PO (05:44)
[2023-01-13 08:00] VITALS: BP 121/60; PULSE 63; RESP 14; TEMP 36.5; O2SAT 97
[2023-01-13] MEDS: methADONE HCl 20 MG/2 ML ORAL.CONC 50 MG PO (08:00)
[2023-01-13] MEDS: risperiDONE 3 MG TABLET PO ×2 (08:02→20:13)
[2023-01-13] MEDS: Multivitamin TABLET 1 TAB PO (08:02)
[2023-01-13] MEDS: Folic Acid 1 MG TABLET PO (08:02)
[2023-01-13] MEDS: Thiamine HCL 100 MG TABLET PO (08:02)
[2023-01-13] MEDS: Benztropine Mesylate 0.5 MG TABLET PO ×2 (08:02→20:13)
[2023-01-13] MEDS: lisinopriL 10 MG TABLET PO (08:03)
--- NOTE | 2023-01-13 13:51 | P.PNPSI_ITS ---
Subjective Subjective Date of Service: 01/13/23 Reason For Visit: Schizoaffctive disorder, opiate use disorder Interim History: pt sees MD walking down the [address] and asks who he is; MD identifies himself as Dr. Robertson. later during interview pt c/o sedation and notes she believes it is the methadone, asks to reduce methadone dosing back to her previous 40 mg daily, which is agreed to. she says she has been thinking about things, lots of things. foremost on her mind appears to be her upset that her daughter will not let her see her grandchildren presently. per staff, sedated. c/o generalized pain. worsened AH friday into friday. dep/anx 9. Mental Status Exam Mental Status Exam Narrative: Appearance: wearing hospital attire and street clothes, ambulating, in NAD. Behavior: poorly related to her environment psychomotor:alternating episodes of somnolence with alertness. Speech:clear, regular rate, spontaneous. Thought process:linear and logical Thought content:no delusions or paranoia expressed Mood:unknown Affect: congruent. SI: none expressed HI: none expressed VH/AH: decreased AH since yesterday Delusions:none expressed Insight/judgment:adequate Diagnostics Vital Signs (24Hr): Vital Signs - 24 hr 01/12/23 20:15 01/13/23 08:00 Temperature 98.2 F 97.7 F Pulse Rate 69 63 Respiratory Rate 14 Blood Pressure 163/67 H 121/60 Pulse Oximetry 98 97 Oxygen Delivery Method Room Air Room Air BMI result Body Mass Index 37.4 Labs Labs: Laboratory Results - last 48 hr 01/12/23 07:12 Total Bilirubin 0.1 Direct Bilirubin < 0.2 AST 24 ALT 18 Alkaline Phosphatase 69 Ammonia 55 Total Protein 7.2 Albumin 3.4 L Valproic Acid 68.3 Medications Medications Current Medications Acetaminophen (Acetaminophen 325 Mg Tablet) 650 mg PO Q6H PRN PRN Reason: Headache/Pain Mild Scale (1-3) Last Admin: 01/13/23 13:34 Dose: 650 mg Al Hydroxide/Mg Hydroxide (Magnesium Hydrox/Alum Hydrox 30 Ml Oral.Susp) 30 ml PO Q6H PRN PRN Reason: Heartburn/Nausea Albuterol Sulfate (Albuterol Sulfate 90 Mcg 8 Gm Inhaler) 2 puff INHALE Q4H PRN PRN Reason: wheezing Last Admin: 01/13/23 00:23 Dose: 2 puff Benztropine Mesylate (Benztropine Mesylate 0.5 Mg Tablet) 0.5 mg PO BID [facility] Last Admin: 01/13/23 08:02 Dose: 0.5 mg Divalproex Sodium (Divalproex Sodium Er 500 Mg Tab.Er.24h) 1,500 mg PO BEDTIME [facility] Last Admin: 01/12/23 20:09 Dose: 1,500 mg Folic Acid (Folic Acid 1 Mg Tablet) 1 mg PO DAILY [facility] Last Admin: 01/13/23 08:02 Dose: 1 mg Haloperidol (Haloperidol 5 Mg Tablet) 5 mg PO Q4H PRN PRN Reason: Restlessness Last Admin: 01/12/23 04:52 Dose: 5 mg Hydroxyzine HCl (Hydroxyzine Hcl 25 Mg Tablet) 25 mg PO Q6H PRN PRN Reason: Anxiety Last Admin: 01/12/23 17:26 Dose: 25 mg Ibuprofen (Ibuprofen 600 Mg Tablet) 600 mg PO Q6H PRN PRN Reason: Pain, Moderate(Pain Scale 4-6) Last Admin: 01/12/23 07:09 Dose: 600 mg Levothyroxine Sodium (Levothyroxine Sodium 75 Mcg Tablet) 75 mcg PO DAILY@0630 [facility] Last Admin: 01/13/23 05:44 Dose: 75 mcg Lidocaine (Lidocaine 4 % Patch Adh..Patch) 1 patch TRANSDERMA DAILY PRN; Protocol PRN Reason: lower back pain Last Admin: 01/11/23 08:38 Dose: 1 patch Lisinopril (Lisinopril 10 Mg Tablet) 10 mg PO DAILY [facility]; Protocol Last Admin: 01/13/23 08:03 Dose: 10 mg Magnesium Hydroxide (Milk Of Magnesia 30 Ml Oral.Susp) 30 ml PO DAILY PRN PRN Reason: Constipation Methadone HCl (Methadone Hcl 20 Mg/2 Ml Oral.Conc) 40 mg PO DAILY [facility] Multivitamins/Vitamin C (Multivitamin Tablet) 1 tab PO DAILY [facility] Last Admin: 01/13/23 08:02 Dose: 1 tab Nicotine (Nicotine 21 Mg Patch.Td24) 21 mg TRANSDERMA DAILY PRN PRN Reason: smoking cessation Last Admin: 01/12/23 08:31 Dose: 21 mg Nicotine Polacrilex (Nicotine Polacrilex 2 Mg Gum) 4 mg BUCCAL Q2H PRN PRN Reason: Nicotine Cravings Last Admin: 01/12/23 16:16 Dose: 4 mg Ondansetron HCl (Ondansetron Odt 4 Mg Tab.Rapdis) 4 mg TRANSLINGU Q6H PRN PRN Reason: Nausea Last Admin: 01/11/23 20:18 Dose: 4 mg Risperidone (Risperidone 3 Mg Tablet) 3 mg PO BID [place] Last Admin: 01/13/23 08:02 Dose: 3 mg Senna (Senna [place] Extract Oral Syrup 15 Ml Syrup) 15 ml PO BEDTIME [place] Last Admin: 01/12/23 20:36 Dose: 15 ml Thiamine HCl (Thiamine Hcl 100 Mg Tablet) 100 mg PO DAILY [place] Last Admin: 01/13/23 08:02 Dose: 100 mg Trazodone HCl (Trazodone Hcl 50 Mg Tablet) 50 mg PO BEDTIME MRX1 PRN PRN Reason: Insomnia Last Admin: 01/12/23 22:01 Dose: 50 mg Allergies Allergies Allergy/AdvReac Type Severity Reaction Status Date / Time clozapine [CLOZAPINE] Allergy Unknown UNKNOWN Verified 12/27/21 19:05 olanzapine [From ZYPREXA] Allergy Unknown UNKNOWN Verified 12/27/21 19:05 shellfish derived Allergy Unknown UNKNOWN Verified 12/27/21 19:05 [SHELLFISH DERIVED] Assessment & Plan Assessment & Plan (1) Schizoaffective disorder: Status: Acute Code(s): F25.9 - Schizoaffective disorder, unspecified (2) Cocaine use disorder: Status: Acute Code(s): F14.10 - Cocaine abuse, uncomplicated (3) Opioid use disorder, severe, on maintenance therapy: Status: Acute Code(s): F11.20 - Opioid dependence, uncomplicated Plan restart outpt methadone dose of 40 mg daily; comfort meds for opioid withdrawal beyond that. utox negative for cocaine, no withdrawal syndrome anticipated. restart home medications regimen for schizoaffective disorder. Hospital course: 01/10 Patient reports that she is definitely doing better than on admission; still feels tired and weak but better. No SI; eating and sleeping well. She continues to have auditory hallucinations but much less intense than before. Patient reports that she still has withdrawal symptoms and designer/writer agreed to increase dose to methadone 50 mg since she got 10 mg last night via on-call provider. She reports ongoing back pain due to sciatica and asks for gabapentin; designer/writer discussed that will hold off from adding gabapentin for now but would add Flexeril and a lidocaine patch to which patient was appreciative. Continue lisinopril 5 mg daily for now; although Patient with elevated BP, recent history is mixed with normal BP he has so will leave on current dose of lisinopril for now. 01/11: remains sedated. cut back on ativan PRNs, DC flexeril. declined to start gabapentin again today, as it is a drug widely abused by heroin addicts, and there is no indication for her to take it. agreeable to reduce risperidone from 3 BID to 2 BID due to sedation. would like to continue methadone at 50 mg daily. asking about when she will discharge. 01/12: DCed more sedating PRNs. pt angry and verbally aggressive on being told no ativan or gabapentin. c/o worsened AH, risperidone increased back to 3 BID. 01/13: less sedated, but still somnolent. pt requests methadone dose reduction back to 40 mg daily. continue current mgmt otherwise. check labs tomorrow night. Reason for continued inpatient stay Substantial Risk for: inability to function and rapid decompensation Time Spent With Patient Time: Total time managing care of this patient today __25__ minutes.
[2023-01-13] MEDS: hydrOXYzine HCL 25 MG TABLET PO (15:45)
[2023-01-13] MEDS: Ibuprofen 600 MG TABLET PO (16:50)
[2023-01-13] MEDS: Nicotine Polacrilex 2 MG GUM 4 MG BUCCAL (18:00)
[2023-01-13 20:00] VITALS: BP 158/74; PULSE 68; TEMP 36; O2SAT 98
[2023-01-13] MEDS: Divalproex Sodium ER 500 MG TAB.ER.24H 1500 MG PO (20:12)
[2023-01-13] MEDS: traZODone HCL 50 MG TABLET PO (20:13)
[2023-01-14] MEDS: Levothyroxine Sodium 75 MCG TABLET PO (06:49)
[2023-01-14 08:00] VITALS: BP 117/58; PULSE 70; RESP 18; TEMP 36.4; O2SAT 99
[2023-01-14] MEDS: methADONE HCl 20 MG/2 ML ORAL.CONC 40 MG PO (08:07)
[2023-01-14] MEDS: Folic Acid 1 MG TABLET PO (08:07)
[2023-01-14] MEDS: lisinopriL 10 MG TABLET PO (08:07)
[2023-01-14] MEDS: Benztropine Mesylate 0.5 MG TABLET PO ×2 (08:07→20:39)
[2023-01-14] MEDS: Thiamine HCL 100 MG TABLET PO (08:07)
[2023-01-14] MEDS: Multivitamin TABLET 1 TAB PO (08:07)
[2023-01-14] MEDS: risperiDONE 3 MG TABLET PO (08:07)
[2023-01-14] MEDS: Albuterol Sulfate 90 MCG 8 GM INHALER 2 PUFF INHALE (08:11)
--- NOTE | 2023-01-14 13:25 | HO.PSYCHPN ---
Subjective Subjective Date of Service: 01/14/23 Reason For Visit: Schizoaffctive disorder, opiate use disorder Interim History: calm, cooperative, sedated but less so than recent days. agrees to redistribute risperidone from 3 BID to 2/4. states she spoke with her mother, which went well. heard her grandchildren are doing well. informed of labs draw tonight. per staff, pt noted to have said yesterday, they're always following me and trying to mess with my family. less sedated. Mental Status Exam Mental Status Exam Narrative: Appearance: wearing street clothes, ambulating, in NAD, more alert. psychomotor: no PMA/PMR Speech:clear, regular rate, spontaneous. Thought process:linear and logical Thought content:no delusions or paranoia expressed Mood:unknown Affect: normo-intense, non-labile SI: none expressed HI: none expressed VH/AH: none expressed Delusions:none expressed Insight/judgment:adequate Diagnostics Vital Signs (24Hr): Vital Signs - 24 hr 01/13/23 20:00 01/14/23 08:00 Temperature 96.8 F 97.5 F Pulse Rate 68 70 Respiratory Rate 18 Blood Pressure 158/74 H 117/58 L Pulse Oximetry 98 99 Oxygen Delivery Method Room Air Room Air BMI result Body Mass Index 37.4 Medications Medications Current Medications Acetaminophen (Acetaminophen 325 Mg Tablet) 650 mg PO Q6H PRN PRN Reason: Headache/Pain Mild Scale (1-3) Last Admin: 01/13/23 13:34 Dose: 650 mg Al Hydroxide/Mg Hydroxide (Magnesium Hydrox/Alum Hydrox 30 Ml Oral.Susp) 30 ml PO Q6H PRN PRN Reason: Heartburn/Nausea Albuterol Sulfate (Albuterol Sulfate 90 Mcg 8 Gm Inhaler) 2 puff INHALE Q4H PRN PRN Reason: wheezing Last Admin: 01/14/23 08:11 Dose: 2 puff Benztropine Mesylate (Benztropine Mesylate 0.5 Mg Tablet) 0.5 mg PO BID [facility] Last Admin: 01/14/23 08:07 Dose: 0.5 mg Divalproex Sodium (Divalproex Sodium Er 500 Mg Tab.Er.24h) 1,500 mg PO BEDTIME [facility] Last Admin: 01/13/23 20:12 Dose: 1,500 mg Folic Acid (Folic Acid 1 Mg Tablet) 1 mg PO DAILY [facility] Last Admin: 01/14/23 08:07 Dose: 1 mg Haloperidol (Haloperidol 5 Mg Tablet) 5 mg PO Q4H PRN PRN Reason: Restlessness Last Admin: 01/12/23 04:52 Dose: 5 mg Hydroxyzine HCl (Hydroxyzine Hcl 25 Mg Tablet) 25 mg PO Q6H PRN PRN Reason: Anxiety Last Admin: 01/13/23 15:45 Dose: 25 mg Ibuprofen (Ibuprofen 600 Mg Tablet) 600 mg PO Q6H PRN PRN Reason: Pain, Moderate(Pain Scale 4-6) Last Admin: 01/13/23 16:50 Dose: 600 mg Levothyroxine Sodium (Levothyroxine Sodium 75 Mcg Tablet) 75 mcg PO DAILY@0630 [facility] Last Admin: 01/14/23 06:49 Dose: 75 mcg Lidocaine (Lidocaine 4 % Patch Adh..Patch) 1 patch TRANSDERMA DAILY PRN; Protocol PRN Reason: lower back pain Last Admin: 01/11/23 08:38 Dose: 1 patch Lisinopril (Lisinopril 10 Mg Tablet) 10 mg PO DAILY [facility]; Protocol Last Admin: 01/14/23 08:07 Dose: 10 mg Magnesium Hydroxide (Milk Of Magnesia 30 Ml Oral.Susp) 30 ml PO DAILY PRN PRN Reason: Constipation Methadone HCl (Methadone Hcl 20 Mg/2 Ml Oral.Conc) 40 mg PO DAILY [facility] Last Admin: 01/14/23 08:07 Dose: 40 mg Multivitamins/Vitamin C (Multivitamin Tablet) 1 tab PO DAILY [facility] Last Admin: 01/14/23 08:07 Dose: 1 tab Nicotine (Nicotine 21 Mg Patch.Td24) 21 mg TRANSDERMA DAILY PRN PRN Reason: smoking cessation Last Admin: 01/12/23 08:31 Dose: 21 mg Nicotine Polacrilex (Nicotine Polacrilex 2 Mg Gum) 4 mg BUCCAL Q2H PRN PRN Reason: Nicotine Cravings Last Admin: 01/13/23 18:00 Dose: 4 mg Ondansetron HCl (Ondansetron Odt 4 Mg Tab.Rapdis) 4 mg TRANSLINGU Q6H PRN PRN Reason: Nausea Last Admin: 01/11/23 20:18 Dose: 4 mg Risperidone (Risperidone 2 Mg Tablet) 2 mg PO DAILY [facility] Senna (Senna [place] Extract Oral Syrup 15 Ml Syrup) 15 ml PO BEDTIME [place] Last Admin: 01/13/23 20:17 Dose: Not Given Thiamine HCl (Thiamine Hcl 100 Mg Tablet) 100 mg PO DAILY [facility] Last Admin: 01/14/23 08:07 Dose: 100 mg Trazodone HCl (Trazodone Hcl 50 Mg Tablet) 50 mg PO BEDTIME MRX1 PRN PRN Reason: Insomnia Last Admin: 01/13/23 20:13 Dose: 50 mg Allergies Allergies Allergy/AdvReac Type Severity Reaction Status Date / Time clozapine [CLOZAPINE] Allergy Unknown UNKNOWN Verified 12/27/21 19:05 olanzapine [From ZYPREXA] Allergy Unknown UNKNOWN Verified 12/27/21 19:05 shellfish derived Allergy Unknown UNKNOWN Verified 12/27/21 19:05 [SHELLFISH DERIVED] Assessment & Plan Assessment & Plan (1) Schizoaffective disorder: Status: Acute Code(s): F25.9 - Schizoaffective disorder, unspecified (2) Cocaine use disorder: Status: Acute Code(s): F14.10 - Cocaine abuse, uncomplicated (3) Opioid use disorder, severe, on maintenance therapy: Status: Acute Code(s): F11.20 - Opioid dependence, uncomplicated Plan restart outpt methadone dose of 40 mg daily; comfort meds for opioid withdrawal beyond that. utox negative for cocaine, no withdrawal syndrome anticipated. restart home medications regimen for schizoaffective disorder. Hospital course: 01/10 Patient reports that she is definitely doing better than on admission; still feels tired and weak but better. No SI; eating and sleeping well. She continues to have auditory hallucinations but much less intense than before. Patient reports that she still has withdrawal symptoms and communications writer agreed to increase dose to methadone 50 mg since she got 10 mg last night via on-call provider. She reports ongoing back pain due to sciatica and asks for gabapentin; communications writer discussed that will hold off from adding gabapentin for now but would add Flexeril and a lidocaine patch to which patient was appreciative. Continue lisinopril 5 mg daily for now; although Patient with elevated BP, recent history is mixed with normal BP he has so will leave on current dose of lisinopril for now. 01/11: remains sedated. cut back on ativan PRNs, DC flexeril. declined to start gabapentin again today, as it is a drug widely abused by heroin addicts, and there is no indication for her to take it. agreeable to reduce risperidone from 3 BID to 2 BID due to sedation. would like to continue methadone at 50 mg daily. asking about when she will discharge. 01/12: DCed more sedating PRNs. pt angry and verbally aggressive on being told no ativan or gabapentin. c/o worsened AH, risperidone increased back to 3 BID. 01/13: less sedated, but still somnolent. pt requests methadone dose reduction back to 40 mg daily. continue current mgmt otherwise. check labs tomorrow night. 01/14: less sedated than yesterday. labs ordered for tonight. redistribute risperidone from 3 BID to 2/4. otherwise continue current mgmt. Reason for continued inpatient stay Substantial Risk for: inability to function and rapid decompensation Time Spent With Patient Time: Total time managing care of this patient today __25__ minutes.
[2023-01-14] MEDS: Acetaminophen 325 MG TABLET 650 MG PO (17:23)
[2023-01-14] MEDS: hydrOXYzine HCL 25 MG TABLET PO (18:03)
[2023-01-14 19:55] VITALS: BP 125/87; PULSE 64; RESP 18; TEMP 36.3; O2SAT 98
[2023-01-14 20:20] LABS: MANUAL DIFF FLAG NO
[2023-01-14 20:21] LABS: Basophils Percent Auto 0.3 % (0-2); Eosinophils Absolute Auto 0.1 X10*3/uL (0.0-0.4); Eosinophils Percent Auto 1.9 % (0-4); Hematocrit 36.4 % (37.0-47.0); Hemoglobin 11.2 g/dl (12.0-16.0); Imm Gran Abs Auto 0.03 X10*3/uL (0.00-0.03); Imm Gran Pct Auto 0.4 % (0.0-0.4); Lymphocytes Absolute Auto 2.6 X10*3/uL (1.2-4.9); Lymphocytes Percent Auto 34.3 % (20-40); Mean Corpuscular HGB Conc 30.8 g/dl (31.0-35.0); Mean Corpuscular Hemoglobin 26.1 pg (27.0-33.0); Mean Corpuscular Volume 84.8 fL (80.0-98.0); Mean Platelet Volume 9.3 fL (9.4-12.3); Monocytes Absolute Auto 0.8 X10*3/uL (0.1-1.2); Monocytes Percent Auto 10.4 % (2-11); Neutrophils Percent Auto 52.7 % (45-73); Platelet Count 174 X10*3/uL (160-400); Red Blood Count 4.29 X10*6/uL (4.20-5.50); Red Cell Distribution Width 17.9 % (11.0-16.0); White Blood Count 7.5 X10*3/uL (4.8-10.8)
[2023-01-14 20:27] LABS: Ammonia 50 umol/L (13-55)
[2023-01-14 20:34] LABS: Valproate 53.1 mcg/mL (50.0-100.0)
[2023-01-14 20:35] LABS: Anion Gap 14 (12-20); Blood Urea Nitrogen 23 mg/dL (9-16); Calcium 9.1 mg/dL (8.4-10.2); Carbon Dioxide 29 mmol/L (22-29); Chloride 99 mmol/L (96-108); Creatinine Clr Calc Pharmacy 97.4; Estimated Glomerular Filt Rate > 60; Glucose Random 103 mg/dL (60-115); Potassium 4.9 mmol/L (3.3-5.1); Sodium 137 mmol/L (135-145)
[2023-01-14] MEDS: Divalproex Sodium ER 500 MG TAB.ER.24H 1500 MG PO (20:38)
[2023-01-14] MEDS: traZODone HCL 50 MG TABLET PO (20:39)
[2023-01-14] MEDS: risperiDONE 2 MG TABLET 4 MG PO (20:39)
[2023-01-15] MEDS: Ibuprofen 600 MG TABLET PO ×2 (06:16→15:56)
[2023-01-15] MEDS: Levothyroxine Sodium 75 MCG TABLET PO (06:37)
[2023-01-15] MEDS: lisinopriL 10 MG TABLET PO (08:03)
[2023-01-15] MEDS: risperiDONE 2 MG TABLET PO (08:04)
[2023-01-15] MEDS: Folic Acid 1 MG TABLET PO (08:04)
[2023-01-15] MEDS: Benztropine Mesylate 0.5 MG TABLET PO ×2 (08:04→20:14)
[2023-01-15] MEDS: Multivitamin TABLET 1 TAB PO (08:04)
[2023-01-15] MEDS: Thiamine HCL 100 MG TABLET PO (08:04)
[2023-01-15] MEDS: methADONE HCl 20 MG/2 ML ORAL.CONC 40 MG PO (08:05)
[2023-01-15] MEDS: Nicotine 21 MG PATCH.TD24 TRANSDERMA (08:14)
[2023-01-15 08:33] VITALS: BP 103/51; PULSE 68; RESP 16; TEMP 36.6; O2SAT 97
--- NOTE | 2023-01-15 10:11 | HO.PSYCHPN ---
Subjective Subjective Date of Service: 01/15/23 Reason For Visit: Schizoaffctive disorder, opiate use disorder Subjective Notes: Conditional Voluntary Interim History: Reviewed in team and . Patient presents calm, cooperative, pleasant. She reports feeling okay today; slept well. Pt stated, I'm feeling better than when I came here . Denies SI/HI/VH. reports some voices on and off . Medication Compliance: Yes Side effects from medications: No Attending Groups: Yes Review of Systems Constitutional: Reports as per HPI Eyes: Reports as per HPI Reports as per HPI Cardiovascular: Reports as per HPI Respiratory: Reports as per HPI Gastrointestinal: Reports as per HPI Genitourinary: Reports as per HPI Musculoskeletal: Reports as per HPI Skin/Breast: Reports as per HPI Reports as per HPI Psychiatric: Reports as per HPI Endocrine: Reports as per HPI Hematologic/Lymphatic: Reports as per HPI Allergic/Immunologic: Reports as per HPI Mental Status Exam Mental Status Exam Narrative: Pt is alert and oriented; behavior is cooperative, friendly and calm; dressed in casual attire; mood is described as okay ; eye contact appropriate; Speech is normal rate, volume and prosody and not pressured; no psychomotor agitation/retardation present; thought process is organized; Thought content is on tx; denies any SI/HI/VH. Reports AH. Diagnostics Vital Signs (24Hr): Vital Signs - 24 hr 01/14/23 19:55 01/15/23 08:33 Temperature 97.3 F 97.8 F Pulse Rate 64 68 Respiratory Rate 18 16 Blood Pressure 125/87 103/51 L Pulse Oximetry 98 97 Oxygen Delivery Method Room Air Room Air BMI result Body Mass Index 37.4 Labs 01/14/23 20:14 01/14/23 20:14 Labs: Laboratory Results - last 48 hr 01/14/23 20:14 WBC 7.5 RBC 4.29 Hgb 11.2 L Hct 36.4 L MCV 84.8 MCH 26.1 L MCHC 30.8 L RDW 17.9 H Plt Count 174 MPV 9.3 L Immature Gran % (Auto) 0.4 Neut % (Auto) 52.7 Lymph % (Auto) 34.3 [place] % (Auto) 10.4 Eos % (Auto) 1.9 Baso % (Auto) 0.3 Lymph # (Auto) 2.6 [place] # (Auto) 0.8 Eos # (Auto) 0.1 Baso # (Auto) 0.0 Abs Immat Gran (auto) 0.03 Absolute Neuts (auto) 4.0 Absolute Nucleated RBC 0.000 Nucleated RBC % (auto) 0.0 Sodium 137 Potassium 4.9 Chloride 99 Carbon Dioxide 29 Anion Gap 14 BUN 23 H Creatinine 0.72 Estim Creat Clear Calc 97.4 Estimated GFR > 60 Random Glucose 103 Calcium 9.1 Ammonia 50 Valproic Acid 53.1 Medications Medications Current Medications Acetaminophen (Acetaminophen 325 Mg Tablet) 650 mg PO Q6H PRN PRN Reason: Headache/Pain Mild Scale (1-3) Last Admin: 01/14/23 17:23 Dose: 650 mg Al Hydroxide/Mg Hydroxide (Magnesium Hydrox/Alum Hydrox 30 Ml Oral.Susp) 30 ml PO Q6H PRN PRN Reason: Heartburn/Nausea Albuterol Sulfate (Albuterol Sulfate 90 Mcg 8 Gm Inhaler) 2 puff INHALE Q4H PRN PRN Reason: wheezing Last Admin: 01/14/23 08:11 Dose: 2 puff Benztropine Mesylate (Benztropine Mesylate 0.5 Mg Tablet) 0.5 mg PO BID [facility] Last Admin: 01/15/23 08:04 Dose: 0.5 mg Divalproex Sodium (Divalproex Sodium Er 500 Mg Tab.Er.24h) 1,500 mg PO BEDTIME [facility] Last Admin: 01/14/23 20:38 Dose: 1,500 mg Folic Acid (Folic Acid 1 Mg Tablet) 1 mg PO DAILY [facility] Last Admin: 01/15/23 08:04 Dose: 1 mg Haloperidol (Haloperidol 5 Mg Tablet) 5 mg PO Q4H PRN PRN Reason: Restlessness Last Admin: 01/12/23 04:52 Dose: 5 mg Hydroxyzine HCl (Hydroxyzine Hcl 25 Mg Tablet) 25 mg PO Q6H PRN PRN Reason: Anxiety Last Admin: 01/14/23 18:03 Dose: 25 mg Ibuprofen (Ibuprofen 600 Mg Tablet) 600 mg PO Q6H PRN PRN Reason: Pain, Moderate(Pain Scale 4-6) Last Admin: 01/15/23 06:16 Dose: 600 mg Levothyroxine Sodium (Levothyroxine Sodium 75 Mcg Tablet) 75 mcg PO DAILY@0630 [facility] Last Admin: 11/15/23 06:37 Dose: 75 mcg Lidocaine (Lidocaine 4 % Patch Adh..Patch) 1 patch TRANSDERMA DAILY PRN; Protocol PRN Reason: lower back pain Last Admin: 01/11/23 08:38 Dose: 1 patch Lisinopril (Lisinopril 10 Mg Tablet) 10 mg PO DAILY [facility]; Protocol Last Admin: 01/15/23 08:03 Dose: 10 mg Magnesium Hydroxide (Milk Of Magnesia 30 Ml Oral.Susp) 30 ml PO DAILY PRN PRN Reason: Constipation Methadone HCl (Methadone Hcl 20 Mg/2 Ml Oral.Conc) 40 mg PO DAILY [facility] Last Admin: 01/15/23 08:05 Dose: 40 mg Multivitamins/Vitamin C (Multivitamin Tablet) 1 tab PO DAILY [facility] Last Admin: 01/15/23 08:04 Dose: 1 tab Nicotine (Nicotine 21 Mg Patch.Td24) 21 mg TRANSDERMA DAILY PRN PRN Reason: smoking cessation Last Admin: 01/15/23 08:14 Dose: 21 mg Nicotine Polacrilex (Nicotine Polacrilex 2 Mg Gum) 4 mg BUCCAL Q2H PRN PRN Reason: Nicotine Cravings Last Admin: 01/13/23 18:00 Dose: 4 mg Ondansetron HCl (Ondansetron Odt 4 Mg Tab.Rapdis) 4 mg TRANSLINGU Q6H PRN PRN Reason: Nausea Last Admin: 01/11/23 20:18 Dose: 4 mg Risperidone (Risperidone 2 Mg Tablet) 2 mg PO DAILY [facility] Last Admin: 01/15/23 08:04 Dose: 2 mg Risperidone (Risperidone 2 Mg Tablet) 4 mg PO BEDTIME [facility] Last Admin: 01/14/23 20:39 Dose: 4 mg Senna (Senna [place] Extract Oral Syrup 15 Ml Syrup) 15 ml PO BEDTIME [facility] Last Admin: 01/14/23 20:38 Dose: 15 ml Thiamine HCl (Thiamine Hcl 100 Mg Tablet) 100 mg PO DAILY [facility] Last Admin: 01/15/23 08:04 Dose: 100 mg Trazodone HCl (Trazodone Hcl 50 Mg Tablet) 50 mg PO BEDTIME MRX1 PRN PRN Reason: Insomnia Last Admin: 01/14/23 20:39 Dose: 50 mg Allergies Allergies Allergy/AdvReac Type Severity Reaction Status Date / Time clozapine [CLOZAPINE] Allergy Unknown UNKNOWN Verified 12/27/21 19:05 olanzapine [From ZYPREXA] Allergy Unknown UNKNOWN Verified 12/27/21 19:05 shellfish derived Allergy Unknown UNKNOWN Verified 12/27/21 19:05 [SHELLFISH DERIVED] Assessment & Plan Assessment & Plan (1) Schizoaffective disorder: Status: Acute Code(s): F25.9 - Schizoaffective disorder, unspecified (2) Cocaine use disorder: Status: Acute Code(s): F14.10 - Cocaine abuse, uncomplicated (3) Opioid use disorder, severe, on maintenance therapy: Status: Acute Code(s): F11.20 - Opioid dependence, uncomplicated Plan restart outpt methadone dose of 40 mg daily; comfort meds for opioid withdrawal beyond that. utox negative for cocaine, no withdrawal syndrome anticipated. restart home medications regimen for schizoaffective disorder. Hospital course: 01/10 Patient reports that she is definitely doing better than on admission; still feels tired and weak but better. No SI; eating and sleeping well. She continues to have auditory hallucinations but much less intense than before. Patient reports that she still has withdrawal symptoms and conventional mortgage underwriter agreed to increase dose to methadone 50 mg since she got 10 mg last night via on-call provider. She reports ongoing back pain due to sciatica and asks for gabapentin; conventional mortgage underwriter discussed that will hold off from adding gabapentin for now but would add Flexeril and a lidocaine patch to which patient was appreciative. Continue lisinopril 5 mg daily for now; although Patient with elevated BP, recent history is mixed with normal BP he has so will leave on current dose of lisinopril for now. 01/11: remains sedated. cut back on ativan PRNs, DC flexeril. declined to start gabapentin again today, as it is a drug widely abused by heroin addicts, and there is no indication for her to take it. agreeable to reduce risperidone from 3 BID to 2 BID due to sedation. would like to continue methadone at 50 mg daily. asking about when she will discharge. 01/12: DCed more sedating PRNs. pt angry and verbally aggressive on being told no ativan or gabapentin. c/o worsened AH, risperidone increased back to 3 BID. 01/13: less sedated, but still somnolent. pt requests methadone dose reduction back to 40 mg daily. continue current mgmt otherwise. check labs tomorrow night. 01/14: less sedated than yesterday. labs ordered for tonight. redistribute risperidone from 3 BID to 2/4. otherwise continue current mgmt. 01/15: Patient presents calm, cooperative, pleasant. She reports feeling okay today; slept well. Pt stated, I'm feeling better than when I came here . Denies SI/HI/VH. reports some voices on and off . Continue current tx plan. Patient educated on: diagnosis, medication risk/benefits and therapeutic strategies Informed Consent: understands Reason for continued inpatient stay Substantial Risk for: med/psych decompensation Time Spent With Patient Time: Total time managing care of this patient today _30___ minutes.
[2023-01-15] MEDS: Acetaminophen 325 MG TABLET 650 MG PO (12:33)
[2023-01-15] MEDS: hydrOXYzine HCL 25 MG TABLET PO (14:14)
[2023-01-15] MEDS: HaloperidoL 5 MG TABLET PO (18:00)
[2023-01-15] MEDS: Nicotine Polacrilex 2 MG GUM 4 MG BUCCAL ×2 (18:57→20:33)
[2023-01-15 19:55] VITALS: BP 118/59; PULSE 75; RESP 18; TEMP 36.2; O2SAT 98
[2023-01-15] MEDS: risperiDONE 2 MG TABLET 4 MG PO (20:13)
[2023-01-15] MEDS: Divalproex Sodium ER 500 MG TAB.ER.24H 1500 MG PO (20:13)
[2023-01-15] MEDS: traZODone HCL 50 MG TABLET PO (20:17)
[2023-01-16] MEDS: Acetaminophen 325 MG TABLET 650 MG PO ×2 (02:01→17:12)
[2023-01-16] MEDS: Levothyroxine Sodium 75 MCG TABLET PO (06:21)
[2023-01-16] MEDS: Ibuprofen 600 MG TABLET PO (06:21)
[2023-01-16 07:00] VITALS: BP 135/60; PULSE 70; RESP 14; TEMP 36.1; O2SAT 97
[2023-01-16 08:24] VITALS: BMI 38.4
[2023-01-16] MEDS: Thiamine HCL 100 MG TABLET PO (08:26)
[2023-01-16] MEDS: lisinopriL 10 MG TABLET PO (08:26)
[2023-01-16] MEDS: risperiDONE 2 MG TABLET PO (08:27)
[2023-01-16] MEDS: Benztropine Mesylate 0.5 MG TABLET PO ×2 (08:27→20:26)
[2023-01-16] MEDS: Folic Acid 1 MG TABLET PO (08:27)
[2023-01-16] MEDS: methADONE HCl 20 MG/2 ML ORAL.CONC 40 MG PO (08:27)
[2023-01-16] MEDS: Multivitamin TABLET 1 TAB PO (08:27)
[2023-01-16] MEDS: Nicotine 21 MG PATCH.TD24 TRANSDERMA (08:33)
--- NOTE | 2023-01-16 09:49 | P.PNPSI_ITS ---
Subjective Subjective Date of Service: 01/16/23 Reason For Visit: Schizoaffctive disorder, opiate use disorder Subjective Notes: Conditional Voluntary Interim History: Reviewed with . Patient reports feeling more than good today. Pt stated, my goal is to find an apartment but I'm just worried about the location because I don't want to use again . Social with peers. Reports sleeping well. denies SI/HI/VH/AH. Medication Compliance: Yes Side effects from medications: No Attending Groups: Intermittent Review of Systems Constitutional: Reports as per HPI Eyes: Reports as per HPI Reports as per HPI Cardiovascular: Reports as per HPI Respiratory: Reports as per HPI Gastrointestinal: Reports as per HPI Genitourinary: Reports as per HPI Musculoskeletal: Reports as per HPI Skin/Breast: Reports as per HPI Reports as per HPI Psychiatric: Reports as per HPI Endocrine: Reports as per HPI Hematologic/Lymphatic: Reports as per HPI Allergic/Immunologic: Reports as per HPI Mental Status Exam Mental Status Exam Narrative: Pt is alert and oriented; behavior is cooperative, friendly and calm; dressed in casual attire; mood is described as good ; eye contact appropriate; Speech is normal rate, volume and prosody and not pressured; no psychomotor agitation/retardation present; thought process is organized; Thought content is on tx; denies any SI/HI/VH/AH. Diagnostics Vital Signs (24Hr): Vital Signs - 24 hr 01/15/23 19:55 01/16/23 07:00 Temperature 97.2 F 97.0 F Pulse Rate 75 70 Respiratory Rate 18 14 Blood Pressure 118/59 L 135/60 Pulse Oximetry 98 97 Oxygen Delivery Method Room Air Room Air BMI result Body Mass Index 38.4 Labs 01/14/23 20:14 01/14/23 20:14 Labs: Laboratory Results - last 48 hr 01/14/23 20:14 WBC 7.5 RBC 4.29 Hgb 11.2 L Hct 36.4 L MCV 84.8 MCH 26.1 L MCHC 30.8 L RDW 17.9 H Plt Count 174 MPV 9.3 L Immature Gran % (Auto) 0.4 Neut % (Auto) 52.7 Lymph % (Auto) 34.3 [place] % (Auto) 10.4 Eos % (Auto) 1.9 Baso % (Auto) 0.3 Lymph # (Auto) 2.6 [place] # (Auto) 0.8 Eos # (Auto) 0.1 Baso # (Auto) 0.0 Abs Immat Gran (auto) 0.03 Absolute Neuts (auto) 4.0 Absolute Nucleated RBC 0.000 Nucleated RBC % (auto) 0.0 Sodium 137 Potassium 4.9 Chloride 99 Carbon Dioxide 29 Anion Gap 14 BUN 23 H Creatinine 0.72 Estim Creat Clear Calc 97.4 Estimated GFR > 60 Random Glucose 103 Calcium 9.1 Ammonia 50 Valproic Acid 53.1 Medications Medications Current Medications Acetaminophen (Acetaminophen 325 Mg Tablet) 650 mg PO Q6H PRN PRN Reason: Headache/Pain Mild Scale (1-3) Last Admin: 01/16/23 02:01 Dose: 650 mg Al Hydroxide/Mg Hydroxide (Magnesium Hydrox/Alum Hydrox 30 Ml Oral.Susp) 30 ml PO Q6H PRN PRN Reason: Heartburn/Nausea Albuterol Sulfate (Albuterol Sulfate 90 Mcg 8 Gm Inhaler) 2 puff INHALE Q4H PRN PRN Reason: wheezing Last Admin: 01/14/23 08:11 Dose: 2 puff Benztropine Mesylate (Benztropine Mesylate 0.5 Mg Tablet) 0.5 mg PO BID [facility] Last Admin: 01/16/23 08:27 Dose: 0.5 mg Divalproex Sodium (Divalproex Sodium Er 500 Mg Tab.Er.24h) 1,500 mg PO BEDTIME [facility] Last Admin: 01/15/23 20:13 Dose: 1,500 mg Folic Acid (Folic Acid 1 Mg Tablet) 1 mg PO DAILY [facility] Last Admin: 01/16/23 08:27 Dose: 1 mg Haloperidol (Haloperidol 5 Mg Tablet) 5 mg PO Q4H PRN PRN Reason: Restlessness Last Admin: 01/15/23 18:00 Dose: 5 mg Hydroxyzine HCl (Hydroxyzine Hcl 25 Mg Tablet) 25 mg PO Q6H PRN PRN Reason: Anxiety Last Admin: 01/15/23 14:14 Dose: 25 mg Ibuprofen (Ibuprofen 600 Mg Tablet) 600 mg PO Q6H PRN PRN Reason: Pain, Moderate(Pain Scale 4-6) Last Admin: 01/16/23 06:21 Dose: 600 mg Levothyroxine Sodium (Levothyroxine Sodium 75 Mcg Tablet) 75 mcg PO DAILY@0630 [facility] Last Admin: 01/16/23 06:21 Dose: 75 mcg Lidocaine (Lidocaine 4 % Patch Adh..Patch) 1 patch TRANSDERMA DAILY PRN; Protocol PRN Reason: lower back pain Last Admin: 01/11/23 08:38 Dose: 1 patch Lisinopril (Lisinopril 10 Mg Tablet) 10 mg PO DAILY [facility]; Protocol Last Admin: 01/16/23 08:26 Dose: 10 mg Magnesium Hydroxide (Milk Of Magnesia 30 Ml Oral.Susp) 30 ml PO DAILY PRN PRN Reason: Constipation Methadone HCl (Methadone Hcl 20 Mg/2 Ml Oral.Conc) 40 mg PO DAILY [facility] Last Admin: 01/16/23 08:27 Dose: 40 mg Multivitamins/Vitamin C (Multivitamin Tablet) 1 tab PO DAILY [facility] Last Admin: 01/16/23 08:27 Dose: 1 tab Nicotine (Nicotine 21 Mg Patch.Td24) 21 mg TRANSDERMA DAILY PRN PRN Reason: smoking cessation Last Admin: 01/16/23 08:33 Dose: 21 mg Nicotine Polacrilex (Nicotine Polacrilex 2 Mg Gum) 4 mg BUCCAL Q2H PRN PRN Reason: Nicotine Cravings Last Admin: 01/15/23 20:33 Dose: 4 mg Ondansetron HCl (Ondansetron Odt 4 Mg Tab.Rapdis) 4 mg TRANSLINGU Q6H PRN PRN Reason: Nausea Last Admin: 01/11/23 20:18 Dose: 4 mg Risperidone (Risperidone 2 Mg Tablet) 2 mg PO DAILY [facility] Last Admin: 01/16/23 08:27 Dose: 2 mg Risperidone (Risperidone 2 Mg Tablet) 4 mg PO BEDTIME [facility] Last Admin: 01/15/23 20:13 Dose: 4 mg Senna (Senna [place] Extract Oral Syrup 15 Ml Syrup) 15 ml PO BEDTIME [facility] Last Admin: 01/15/23 20:18 Dose: Not Given Thiamine HCl (Thiamine Hcl 100 Mg Tablet) 100 mg PO DAILY [facility] Last Admin: 01/16/23 08:26 Dose: 100 mg Trazodone HCl (Trazodone Hcl 50 Mg Tablet) 50 mg PO BEDTIME MRX1 PRN PRN Reason: Insomnia Last Admin: 01/15/23 20:17 Dose: 50 mg Allergies Allergies Allergy/AdvReac Type Severity Reaction Status Date / Time clozapine [CLOZAPINE] Allergy Unknown UNKNOWN Verified 12/27/21 19:05 olanzapine [From ZYPREXA] Allergy Unknown UNKNOWN Verified 12/27/21 19:05 shellfish derived Allergy Unknown UNKNOWN Verified 12/27/21 19:05 [SHELLFISH DERIVED] Assessment & Plan Assessment & Plan (1) Schizoaffective disorder: Status: Acute Code(s): F25.9 - Schizoaffective disorder, unspecified (2) Cocaine use disorder: Status: Acute Code(s): F14.10 - Cocaine abuse, uncomplicated (3) Opioid use disorder, severe, on maintenance therapy: Status: Acute Code(s): F11.20 - Opioid dependence, uncomplicated Plan restart outpt methadone dose of 40 mg daily; comfort meds for opioid withdrawal beyond that. utox negative for cocaine, no withdrawal syndrome anticipated. restart home medications regimen for schizoaffective disorder. Hospital course: 01/10 Patient reports that she is definitely doing better than on admission; still feels tired and weak but better. No SI; eating and sleeping well. She continues to have auditory hallucinations but much less intense than before. Patient reports that she still has withdrawal symptoms and communications writer agreed to increase dose to methadone 50 mg since she got 10 mg last night via on-call provider. She reports ongoing back pain due to sciatica and asks for gabapentin; communications writer discussed that will hold off from adding gabapentin for now but would add Flexeril and a lidocaine patch to which patient was appreciative. Continue lisinopril 5 mg daily for now; although Patient with elevated BP, recent history is mixed with normal BP he has so will leave on current dose of lisinopril for now. 01/11: remains sedated. cut back on ativan PRNs, DC flexeril. declined to start gabapentin again today, as it is a drug widely abused by heroin addicts, and there is no indication for her to take it. agreeable to reduce risperidone from 3 BID to 2 BID due to sedation. would like to continue methadone at 50 mg daily. asking about when she will discharge. 01/12: DCed more sedating PRNs. pt angry and verbally aggressive on being told no ativan or gabapentin. c/o worsened AH, risperidone increased back to 3 BID. 01/13: less sedated, but still somnolent. pt requests methadone dose reduction back to 40 mg daily. continue current mgmt otherwise. check labs tomorrow night. 01/14: less sedated than yesterday. labs ordered for tonight. redistribute risperidone from 3 BID to 2/4. otherwise continue current mgmt. 01/15: Patient presents calm, cooperative, pleasant. She reports feeling okay today; slept well. Pt stated, I'm feeling better than when I came here . Denies SI/HI/VH. reports some voices on and off . Continue current tx plan. 01/16: Patient reports feeling more than good today. Pt stated, my goal is to find an apartment but I'm just worried about the location because I don't want to use again . Social with peers. Reports sleeping well. denies SI/HI/VH/AH. Waiting to hear back from outpatient team regarding them pursuing [address] 35. Continue current tx plan. Patient educated on: diagnosis, medication risk/benefits, substance abuse and therapeutic strategies Informed Consent: understands Reason for continued inpatient stay Substantial Risk for: med/psych decompensation Time Spent With Patient Time: Total time managing care of this patient today _30___ minutes.
[2023-01-16] MEDS: HaloperidoL 5 MG TABLET PO ×2 (11:53→15:55)
[2023-01-16] MEDS: hydrOXYzine HCL 25 MG TABLET PO ×2 (11:53→18:32)
[2023-01-16] MEDS: Nicotine Polacrilex 2 MG GUM 4 MG BUCCAL ×3 (13:04→20:27)
[2023-01-16 20:12] VITALS: BP 134/67; PULSE 83; RESP 18; TEMP 36.5; O2SAT 97
[2023-01-16] MEDS: Divalproex Sodium ER 500 MG TAB.ER.24H 1500 MG PO (20:27)
[2023-01-16] MEDS: risperiDONE 2 MG TABLET 4 MG PO (20:27)
[2023-01-16] MEDS: traZODone HCL 50 MG TABLET PO (20:27)
[2023-01-17] MEDS: Acetaminophen 325 MG TABLET 650 MG PO ×2 (03:38→11:46)
[2023-01-17] MEDS: Albuterol Sulfate 90 MCG 8 GM INHALER 2 PUFF INHALE (06:41)
[2023-01-17] MEDS: Levothyroxine Sodium 75 MCG TABLET PO (06:42)
[2023-01-17] MEDS: Nicotine Polacrilex 2 MG GUM 4 MG BUCCAL ×5 (07:03→20:57)
[2023-01-17 08:05] VITALS: BP 118/57; PULSE 79; RESP 18; TEMP 36.3; O2SAT 97
[2023-01-17] MEDS: risperiDONE 2 MG TABLET PO (08:10)
[2023-01-17] MEDS: Thiamine HCL 100 MG TABLET PO (08:10)
[2023-01-17] MEDS: Folic Acid 1 MG TABLET PO (08:10)
[2023-01-17] MEDS: lisinopriL 10 MG TABLET PO (08:10)
[2023-01-17] MEDS: Multivitamin TABLET 1 TAB PO (08:11)
[2023-01-17] MEDS: Benztropine Mesylate 0.5 MG TABLET PO ×2 (08:11→20:33)
[2023-01-17] MEDS: methADONE HCl 20 MG/2 ML ORAL.CONC 40 MG PO (08:11)
[2023-01-17] MEDS: Nicotine 21 MG PATCH.TD24 TRANSDERMA (08:51)
--- NOTE | 2023-01-17 09:08 | HO.PSYCHPN ---
Subjective Subjective Date of Service: 01/17/23 Reason For Visit: Schizoaffctive disorder, opiate use disorder Subjective Notes: Conditional Voluntary Interim History: Reviewed with . Social with peers. Pt reports feeling pretty well and better than any of my other hospitalizations . She reports having auditory hallucinations; pt stated, they are little voices here and there. They don't bother me . Denies SI/HI/VH. Medication Compliance: Yes Side effects from medications: No Attending Groups: Intermittent Review of Systems Review of Systems Negative except HPI/interval history. Constitutional: Reports as per HPI Eyes: Reports as per HPI Reports as per HPI Cardiovascular: Reports as per HPI Respiratory: Reports as per HPI Gastrointestinal: Reports as per HPI Musculoskeletal: Reports as per HPI Skin/Breast: Reports as per HPI Reports as per HPI Psychiatric: Reports as per HPI Endocrine: Reports as per HPI Hematologic/Lymphatic: Reports as per HPI Allergic/Immunologic: Reports as per HPI Mental Status Exam Mental Status Exam Narrative: Pt is alert and oriented; behavior is cooperative, friendly and calm; dressed in casual attire; mood is described as good ; eye contact appropriate; Speech is normal rate, volume and prosody and not pressured; no psychomotor agitation/retardation present; thought process is organized; Thought content is on tx; denies any SI/HI/VH/AH. Diagnostics Vital Signs (24Hr): Vital Signs - 24 hr 01/16/23 20:12 01/17/23 08:05 Temperature 97.7 F 97.3 F Pulse Rate 83 79 Respiratory Rate 18 18 Blood Pressure 134/67 118/57 L Pulse Oximetry 97 97 Oxygen Delivery Method Room Air Room Air BMI result Body Mass Index 38.4 Labs 01/14/23 20:14 01/14/23 20:14 Medications Medications Current Medications Acetaminophen (Acetaminophen 325 Mg Tablet) 650 mg PO Q6H PRN PRN Reason: Headache/Pain Mild Scale (1-3) Last Admin: 01/17/23 03:38 Dose: 650 mg Al Hydroxide/Mg Hydroxide (Magnesium Hydrox/Alum Hydrox 30 Ml Oral.Susp) 30 ml PO Q6H PRN PRN Reason: Heartburn/Nausea Albuterol Sulfate (Albuterol Sulfate 90 Mcg 8 Gm Inhaler) 2 puff INHALE Q4H PRN PRN Reason: wheezing Last Admin: 01/17/23 06:41 Dose: 2 puff Benztropine Mesylate (Benztropine Mesylate 0.5 Mg Tablet) 0.5 mg PO BID [facility] Last Admin: 01/17/23 08:11 Dose: 0.5 mg Divalproex Sodium (Divalproex Sodium Er 500 Mg Tab.Er.24h) 1,500 mg PO BEDTIME [facility] Last Admin: 01/16/23 20:27 Dose: 1,500 mg Folic Acid (Folic Acid 1 Mg Tablet) 1 mg PO DAILY [facility] Last Admin: 01/17/23 08:10 Dose: 1 mg Haloperidol (Haloperidol 5 Mg Tablet) 5 mg PO Q4H PRN PRN Reason: Restlessness Last Admin: 01/16/23 15:55 Dose: 5 mg Hydroxyzine HCl (Hydroxyzine Hcl 25 Mg Tablet) 25 mg PO Q6H PRN PRN Reason: Anxiety Last Admin: 01/16/23 18:32 Dose: 25 mg Ibuprofen (Ibuprofen 600 Mg Tablet) 600 mg PO Q6H PRN PRN Reason: Pain, Moderate(Pain Scale 4-6) Last Admin: 01/16/23 06:21 Dose: 600 mg Levothyroxine Sodium (Levothyroxine Sodium 75 Mcg Tablet) 75 mcg PO DAILY@0630 [facility] Last Admin: 01/17/23 06:42 Dose: 75 mcg Lidocaine (Lidocaine 4 % Patch Adh..Patch) 1 patch TRANSDERMA DAILY PRN; Protocol PRN Reason: lower back pain Last Admin: 01/11/23 08:38 Dose: 1 patch Lisinopril (Lisinopril 10 Mg Tablet) 10 mg PO DAILY [facility]; Protocol Last Admin: 01/17/23 08:10 Dose: 10 mg Magnesium Hydroxide (Milk Of Magnesia 30 Ml Oral.Susp) 30 ml PO DAILY PRN PRN Reason: Constipation Methadone HCl (Methadone Hcl 20 Mg/2 Ml Oral.Conc) 40 mg PO DAILY [facility] Last Admin: 01/17/23 08:11 Dose: 40 mg Multivitamins/Vitamin C (Multivitamin Tablet) 1 tab PO DAILY [facility] Last Admin: 01/17/23 08:11 Dose: 1 tab Nicotine (Nicotine 21 Mg Patch.Td24) 21 mg TRANSDERMA DAILY PRN PRN Reason: smoking cessation Last Admin: 01/17/23 08:51 Dose: 21 mg Nicotine Polacrilex (Nicotine Polacrilex 2 Mg Gum) 4 mg BUCCAL Q2H PRN PRN Reason: Nicotine Cravings Last Admin: 01/17/23 07:03 Dose: 4 mg Ondansetron HCl (Ondansetron Odt 4 Mg Tab.Rapdis) 4 mg TRANSLINGU Q6H PRN PRN Reason: Nausea Last Admin: 01/11/23 20:18 Dose: 4 mg Risperidone (Risperidone 2 Mg Tablet) 2 mg PO DAILY [place] Last Admin: 01/17/23 08:10 Dose: 2 mg Risperidone (Risperidone 2 Mg Tablet) 4 mg PO BEDTIME [place] Last Admin: 01/16/23 20:27 Dose: 4 mg Senna (Senna [place] Extract Oral Syrup 15 Ml Syrup) 15 ml PO BEDTIME [place] Last Admin: 01/16/23 20:27 Dose: 15 ml Thiamine HCl (Thiamine Hcl 100 Mg Tablet) 100 mg PO DAILY [facility] Last Admin: 01/17/23 08:10 Dose: 100 mg Trazodone HCl (Trazodone Hcl 50 Mg Tablet) 50 mg PO BEDTIME MRX1 PRN PRN Reason: Insomnia Last Admin: 01/16/23 20:27 Dose: 50 mg Allergies Allergies Allergy/AdvReac Type Severity Reaction Status Date / Time clozapine [CLOZAPINE] Allergy Unknown UNKNOWN Verified 12/27/21 19:05 olanzapine [From ZYPREXA] Allergy Unknown UNKNOWN Verified 12/27/21 19:05 shellfish derived Allergy Unknown UNKNOWN Verified 12/27/21 19:05 [SHELLFISH DERIVED] Assessment & Plan Assessment & Plan (1) Schizoaffective disorder: Status: Acute Code(s): F25.9 - Schizoaffective disorder, unspecified (2) Cocaine use disorder: Status: Acute Code(s): F14.10 - Cocaine abuse, uncomplicated (3) Opioid use disorder, severe, on maintenance therapy: Status: Acute Code(s): F11.20 - Opioid dependence, uncomplicated Plan restart outpt methadone dose of 40 mg daily; comfort meds for opioid withdrawal beyond that. utox negative for cocaine, no withdrawal syndrome anticipated. restart home medications regimen for schizoaffective disorder. Hospital course: 01/10 Patient reports that she is definitely doing better than on admission; still feels tired and weak but better. No SI; eating and sleeping well. She continues to have auditory hallucinations but much less intense than before. Patient reports that she still has withdrawal symptoms and music writer agreed to increase dose to methadone 50 mg since she got 10 mg last night via on-call provider. She reports ongoing back pain due to sciatica and asks for gabapentin; music writer discussed that will hold off from adding gabapentin for now but would add Flexeril and a lidocaine patch to which patient was appreciative. Continue lisinopril 5 mg daily for now; although Patient with elevated BP, recent history is mixed with normal BP he has so will leave on current dose of lisinopril for now. 01/11: remains sedated. cut back on ativan PRNs, DC flexeril. declined to start gabapentin again today, as it is a drug widely abused by heroin addicts, and there is no indication for her to take it. agreeable to reduce risperidone from 3 BID to 2 BID due to sedation. would like to continue methadone at 50 mg daily. asking about when she will discharge. 01/12: DCed more sedating PRNs. pt angry and verbally aggressive on being told no ativan or gabapentin. c/o worsened AH, risperidone increased back to 3 BID. 01/13: less sedated, but still somnolent. pt requests methadone dose reduction back to 40 mg daily. continue current mgmt otherwise. check labs tomorrow night. 01/14: less sedated than yesterday. labs ordered for tonight. redistribute risperidone from 3 BID to 2/4. otherwise continue current mgmt. 01/15: Patient presents calm, cooperative, pleasant. She reports feeling okay today; slept well. Pt stated, I'm feeling better than when I came here . Denies SI/HI/VH. reports some voices on and off . Continue current tx plan. 01/16: Patient reports feeling more than good today. Pt stated, my goal is to find an apartment but I'm just worried about the location because I don't want to use again . Social with peers. Reports sleeping well. denies SI/HI/VH/AH. Waiting to hear back from outpatient team regarding them pursuing [address]. Continue current tx plan. 01/17: Social with peers. Pt reports feeling pretty well and better than any of my other hospitalizations . She reports having auditory hallucinations; pt stated, they are little voices here and there. They don't bother me . Denies SI/HI/VH. Per social scientist, her outpatient team is going to pursue the [place] 35 and [place] [facility] [place]. Patient educated on: diagnosis, medication risk/benefits and therapeutic strategies Informed Consent: understands Reason for continued inpatient stay Substantial Risk for: med/psych decompensation Time Spent With Patient Time: Total time managing care of this patient today _30___ minutes.
[2023-01-17] MEDS: Ibuprofen 600 MG TABLET PO ×2 (13:39→20:32)
[2023-01-17] MEDS: hydrOXYzine HCL 25 MG TABLET PO (15:50)
[2023-01-17 19:50] VITALS: BP 132/62; PULSE 76; RESP 14; TEMP 36.1; O2SAT 97
[2023-01-17] MEDS: Divalproex Sodium ER 500 MG TAB.ER.24H 1500 MG PO (20:31)
[2023-01-17] MEDS: risperiDONE 2 MG TABLET 4 MG PO (20:33)
[2023-01-17] MEDS: traZODone HCL 50 MG TABLET PO (21:27)
[2023-01-18] MEDS: Acetaminophen 325 MG TABLET 650 MG PO (05:06)
[2023-01-18] MEDS: Levothyroxine Sodium 75 MCG TABLET PO (06:54)
[2023-01-18] MEDS: Thiamine HCL 100 MG TABLET PO (08:06)
[2023-01-18] MEDS: risperiDONE 2 MG TABLET PO (08:06)
[2023-01-18] MEDS: Multivitamin TABLET 1 TAB PO (08:07)
[2023-01-18] MEDS: Folic Acid 1 MG TABLET PO (08:07)
[2023-01-18] MEDS: lisinopriL 10 MG TABLET PO (08:07)
[2023-01-18] MEDS: Benztropine Mesylate 0.5 MG TABLET PO ×2 (08:07→20:08)
[2023-01-18] MEDS: Ibuprofen 600 MG TABLET PO (08:07)
[2023-01-18] MEDS: methADONE HCl 20 MG/2 ML ORAL.CONC 40 MG PO (08:07)
[2023-01-18] MEDS: Nicotine 21 MG PATCH.TD24 TRANSDERMA (08:25)
[2023-01-18 09:06] VITALS: BP 114/57; PULSE 58; RESP 20; TEMP 36.6; O2SAT 98
[2023-01-18] MEDS: Nicotine Polacrilex 2 MG GUM 4 MG BUCCAL ×2 (09:46→15:41)
[2023-01-18] MEDS: hydrOXYzine HCL 25 MG TABLET PO (13:56)
[2023-01-18] MEDS: Gabapentin 100 MG CAPSULE PO ×2 (14:19→20:08)
--- NOTE | 2023-01-18 17:28 | P.PNPSI_ITS ---
Subjective Subjective Date of Service: 01/18/23 Reason For Visit: Schizoaffctive disorder, opiate use disorder Interim History: Reviewed with RN. Patient reports feeling better since admission. She reports she has sciatica pain. She reports using gabapentin in the past with benefit. She is pleasant. Says she used to see angels but doesn't anymore while on the unit. Social with peers. Still has some AH but improved and says they come and go. No SI. Review of Systems Review of Systems Negative except HPI/interval history. Constitutional: Reports as per HPI Eyes: Reports as per HPI Reports as per HPI Cardiovascular: Reports as per HPI Respiratory: Reports as per HPI Gastrointestinal: Reports as per HPI Musculoskeletal: Reports as per HPI Skin/Breast: Reports as per HPI Reports as per HPI Psychiatric: Reports as per HPI Endocrine: Reports as per HPI Hematologic/Lymphatic: Reports as per HPI Allergic/Immunologic: Reports as per HPI Mental Status Exam Mental Status Exam Narrative: Pt is alert and oriented; behavior is cooperative, friendly and calm; dressed in casual attire; mood is described as good ; eye contact appropriate; Speech is normal rate, volume and prosody and not pressured; no psychomotor agitation/retardation present; thought process is organized; Thought content is on tx; denies any SI/HI/VH/AH. Diagnostics Vital Signs (24Hr): Vital Signs - 24 hr 01/17/23 19:50 01/18/23 09:06 Temperature 97.0 F 97.8 F Pulse Rate 76 58 Respiratory Rate 14 20 Blood Pressure 132/62 114/57 L Pulse Oximetry 97 98 Oxygen Delivery Method Room Air Room Air BMI result Body Mass Index 38.4 Labs 01/14/23 20:14 01/14/23 20:14 Medications Medications Current Medications Acetaminophen (Acetaminophen 325 Mg Tablet) 650 mg PO Q6H PRN PRN Reason: Headache/Pain Mild Scale (1-3) Last Admin: 01/18/23 05:06 Dose: 650 mg Al Hydroxide/Mg Hydroxide (Magnesium Hydrox/Alum Hydrox 30 Ml Oral.Susp) 30 ml PO Q6H PRN PRN Reason: Heartburn/Nausea Albuterol Sulfate (Albuterol Sulfate 90 Mcg 8 Gm Inhaler) 2 puff INHALE Q4H PRN PRN Reason: wheezing Last Admin: 01/17/23 06:41 Dose: 2 puff Benztropine Mesylate (Benztropine Mesylate 0.5 Mg Tablet) 0.5 mg PO BID [facility] Last Admin: 01/18/23 08:07 Dose: 0.5 mg Divalproex Sodium (Divalproex Sodium Er 500 Mg Tab.Er.24h) 1,500 mg PO BEDTIME [facility] Last Admin: 01/17/23 20:31 Dose: 1,500 mg Folic Acid (Folic Acid 1 Mg Tablet) 1 mg PO DAILY [facility] Last Admin: 01/18/23 08:07 Dose: 1 mg Gabapentin (Gabapentin 100 Mg Capsule) 100 mg PO TID [facility] Last Admin: 01/18/23 14:19 Dose: 100 mg Haloperidol (Haloperidol 5 Mg Tablet) 5 mg PO Q4H PRN PRN Reason: Restlessness Last Admin: 01/16/23 15:55 Dose: 5 mg Hydroxyzine HCl (Hydroxyzine Hcl 25 Mg Tablet) 25 mg PO Q6H PRN PRN Reason: Anxiety Last Admin: 01/18/23 13:56 Dose: 25 mg Ibuprofen (Ibuprofen 600 Mg Tablet) 600 mg PO Q6H PRN PRN Reason: Pain, Moderate(Pain Scale 4-6) Last Admin: 01/18/23 08:07 Dose: 600 mg Levothyroxine Sodium (Levothyroxine Sodium 75 Mcg Tablet) 75 mcg PO DAILY@0630 [facility] Last Admin: 01/18/23 06:54 Dose: 75 mcg Lidocaine (Lidocaine 4 % Patch Adh..Patch) 1 patch TRANSDERMA DAILY PRN; Protocol PRN Reason: lower back pain Last Admin: 01/11/23 08:38 Dose: 1 patch Lisinopril (Lisinopril 10 Mg Tablet) 10 mg PO DAILY [facility]; Protocol Last Admin: 01/18/23 08:07 Dose: 10 mg Magnesium Hydroxide (Milk Of Magnesia 30 Ml Oral.Susp) 30 ml PO DAILY PRN PRN Reason: Constipation Methadone HCl (Methadone Hcl 20 Mg/2 Ml Oral.Conc) 40 mg PO DAILY [facility] Last Admin: 01/18/23 08:07 Dose: 40 mg Multivitamins/Vitamin C (Multivitamin Tablet) 1 tab PO DAILY [facility] Last Admin: 01/18/23 08:07 Dose: 1 tab Nicotine (Nicotine 21 Mg Patch.Td24) 21 mg TRANSDERMA DAILY PRN PRN Reason: smoking cessation Last Admin: 01/18/23 08:25 Dose: 21 mg Nicotine Polacrilex (Nicotine Polacrilex 2 Mg Gum) 4 mg BUCCAL Q2H PRN PRN Reason: Nicotine Cravings Last Admin: 01/18/23 15:41 Dose: 4 mg Ondansetron HCl (Ondansetron Odt 4 Mg Tab.Rapdis) 4 mg TRANSLINGU Q6H PRN PRN Reason: Nausea Last Admin: 01/11/23 20:18 Dose: 4 mg Risperidone (Risperidone 2 Mg Tablet) 2 mg PO DAILY [facility] Last Admin: 01/18/23 08:06 Dose: 2 mg Risperidone (Risperidone 2 Mg Tablet) 4 mg PO BEDTIME [facility] Last Admin: 01/17/23 20:33 Dose: 4 mg Senna (Senna [place] Extract Oral Syrup 15 Ml Syrup) 15 ml PO BEDTIME [facility] Last Admin: 01/17/23 20:35 Dose: Not Given Thiamine HCl (Thiamine Hcl 100 Mg Tablet) 100 mg PO DAILY [facility] Last Admin: 01/18/23 08:06 Dose: 100 mg Trazodone HCl (Trazodone Hcl 50 Mg Tablet) 50 mg PO BEDTIME MRX1 PRN PRN Reason: Insomnia Last Admin: 01/17/23 21:27 Dose: 50 mg Allergies Allergies Allergy/AdvReac Type Severity Reaction Status Date / Time clozapine [CLOZAPINE] Allergy Unknown UNKNOWN Verified 12/27/21 19:05 olanzapine [From ZYPREXA] Allergy Unknown UNKNOWN Verified 12/27/21 19:05 shellfish derived Allergy Unknown UNKNOWN Verified 12/27/21 19:05 [SHELLFISH DERIVED] Assessment & Plan Assessment & Plan (1) Schizoaffective disorder: Status: Acute Code(s): F25.9 - Schizoaffective disorder, unspecified (2) Cocaine use disorder: Status: Acute Code(s): F14.10 - Cocaine abuse, uncomplicated (3) Opioid use disorder, severe, on maintenance therapy: Status: Acute Code(s): F11.20 - Opioid dependence, uncomplicated Plan restart outpt methadone dose of 40 mg daily; comfort meds for opioid withdrawal beyond that. utox negative for cocaine, no withdrawal syndrome anticipated. restart home medications regimen for schizoaffective disorder. Hospital course: 01/10 Patient reports that she is definitely doing better than on admission; still feels tired and weak but better. No SI; eating and sleeping well. She continues to have auditory hallucinations but much less intense than before. Patient reports that she still has withdrawal symptoms and expert medical writer agreed to increase dose to methadone 50 mg since she got 10 mg last night via on-call provider. She reports ongoing back pain due to sciatica and asks for gabapentin; expert medical writer discussed that will hold off from adding gabapentin for now but would add Flexeril and a lidocaine patch to which patient was appreciative. Continue lisinopril 5 mg daily for now; although Patient with elevated BP, recent history is mixed with normal BP he has so will leave on current dose of lisinopril for now. 01/11: remains sedated. cut back on ativan PRNs, DC flexeril. declined to start gabapentin again today, as it is a drug widely abused by heroin addicts, and there is no indication for her to take it. agreeable to reduce risperidone from 3 BID to 2 BID due to sedation. would like to continue methadone at 50 mg daily. asking about when she will discharge. 01/12: DCed more sedating PRNs. pt angry and verbally aggressive on being told no ativan or gabapentin. c/o worsened AH, risperidone increased back to 3 BID. 01/13: less sedated, but still somnolent. pt requests methadone dose reduction back to 40 mg daily. continue current mgmt otherwise. check labs tomorrow night. 01/14: less sedated than yesterday. labs ordered for tonight. redistribute risperidone from 3 BID to 2/4. otherwise continue current mgmt. 01/15: Patient presents calm, cooperative, pleasant. She reports feeling okay today; slept well. Pt stated, I'm feeling better than when I came here . Denies SI/HI/VH. reports some voices on and off . Continue current tx plan. 01/16: Patient reports feeling more than good today. Pt stated, my goal is to find an apartment but I'm just worried about the location because I don't want to use again . Social with peers. Reports sleeping well. denies SI/HI/VH/AH. Waiting to hear back from outpatient team regarding them pursuing [place] 35. Continue current tx plan. 01/17: Social with peers. Pt reports feeling pretty well and better than any of my other hospitalizations . She reports having auditory hallucinations; pt stated, they are little voices here and there. They don't bother me . Denies SI/HI/VH. Per social studies teacher, her outpatient team is going to pursue the section 35 and will be sending over the documents to [facility] [place] this afternoon. 01/18: Start GBP 100 mg TID targeting back pain and sciatica. Continue other management and treatment plan as is. Reason for continued inpatient stay Substantial Risk for: inability to function and rapid decompensation Time Spent With Patient Time: Total time managing care of this patient today ____ minutes.
[2023-01-18 18:47] LABS: Ammonia 57 umol/L (13-55)
[2023-01-18 18:56] LABS: Alanine Aminotransferase 19 U/L (0-31); Alkaline Phosphatase 85 U/L (39-117); Aspartate Amino Transferase 25 U/L (5-31); Bilirubin Direct < 0.2 mg/dL (0.0-0.5); Bilirubin Total 0.1 mg/dL (0.0-1.0); Total Protein 8.1 g/dL (6.5-8.0)
[2023-01-18 19:07] LABS: Valproate 53.6 mcg/mL (50.0-100.0)
[2023-01-18 20:00] VITALS: BP 139/69; PULSE 68; RESP 16; TEMP 36.6; O2SAT 97
[2023-01-18] MEDS: Divalproex Sodium ER 500 MG TAB.ER.24H 1500 MG PO (20:07)
[2023-01-18] MEDS: risperiDONE 2 MG TABLET 4 MG PO (20:08)
[2023-01-19] MEDS: hydrOXYzine HCL 25 MG TABLET PO ×2 (02:42→17:26)
[2023-01-19] MEDS: Nicotine Polacrilex 2 MG GUM 4 MG BUCCAL ×5 (02:51→19:32)
[2023-01-19] MEDS: Acetaminophen 325 MG TABLET 650 MG PO ×2 (04:11→20:26)
[2023-01-19] MEDS: Levothyroxine Sodium 75 MCG TABLET PO (05:55)
[2023-01-19] MEDS: lisinopriL 10 MG TABLET PO (08:13)
[2023-01-19] MEDS: Thiamine HCL 100 MG TABLET PO (08:13)
[2023-01-19] MEDS: Benztropine Mesylate 0.5 MG TABLET PO ×2 (08:13→20:24)
[2023-01-19] MEDS: Gabapentin 100 MG CAPSULE PO ×3 (08:13→20:24)
[2023-01-19] MEDS: Multivitamin TABLET 1 TAB PO (08:13)
[2023-01-19] MEDS: risperiDONE 2 MG TABLET PO (08:13)
[2023-01-19] MEDS: methADONE HCl 20 MG/2 ML ORAL.CONC 40 MG PO (08:13)
[2023-01-19 08:22] VITALS: BP 135/67; PULSE 81; RESP 20; TEMP 36.3; O2SAT 98
[2023-01-19] MEDS: Nicotine 21 MG PATCH.TD24 TRANSDERMA (08:25)
[2023-01-19] MEDS: Folic Acid 1 MG TABLET PO (08:27)
[2023-01-19] MEDS: Albuterol Sulfate 90 MCG 8 GM INHALER 2 PUFF INHALE (12:29)
--- NOTE | 2023-01-19 16:05 | HO.PSYCHPN ---
Subjective Subjective Date of Service: 01/19/23 Reason For Visit: Schizoaffctive disorder, opiate use disorder Interim History: Reviewed with RN. Soraida reports her sciatica pain is better since starting the GBP yesterday. Tolerating it well. No side effects. No sedation. Overall improved. Hallucinations subsided. She is pleasant. Says she used to see angels but doesn't anymore while on the unit. Social with peers. Still has some AH but improved. No SI. Review of Systems Review of Systems Negative except HPI/interval history. Constitutional: Reports as per HPI Eyes: Reports as per HPI Reports as per HPI Cardiovascular: Reports as per HPI Respiratory: Reports as per HPI Gastrointestinal: Reports as per HPI Musculoskeletal: Reports as per HPI Skin/Breast: Reports as per HPI Reports as per HPI Psychiatric: Reports as per HPI Endocrine: Reports as per HPI Hematologic/Lymphatic: Reports as per HPI Allergic/Immunologic: Reports as per HPI Mental Status Exam Mental Status Exam Narrative: Pt is alert and oriented; behavior is cooperative, friendly and calm; dressed in casual attire; mood is described as good ; eye contact appropriate; Speech is normal rate, volume and prosody and not pressured; no psychomotor agitation/retardation present; thought process is organized; Thought content is on tx; denies any SI/HI/VH/AH. Diagnostics Vital Signs (24Hr): Vital Signs - 24 hr 01/18/23 20:00 01/19/23 08:22 Temperature 97.8 F 97.3 F Pulse Rate 68 81 Respiratory Rate 16 20 Blood Pressure 139/69 135/67 Pulse Oximetry 97 98 Oxygen Delivery Method Room Air Room Air BMI result Body Mass Index 38.4 Labs 01/14/23 20:14 01/14/23 20:14 Labs: Laboratory Results - last 48 hr 01/18/23 18:31 Total Bilirubin 0.1 Direct Bilirubin < 0.2 AST 25 ALT 19 Alkaline Phosphatase 85 Ammonia 57 H Total Protein 8.1 H Albumin 4.0 Valproic Acid 53.6 Medications Medications Current Medications Acetaminophen (Acetaminophen 325 Mg Tablet) 650 mg PO Q6H PRN PRN Reason: Headache/Pain Mild Scale (1-3) Last Admin: 01/19/23 04:11 Dose: 650 mg Al Hydroxide/Mg Hydroxide (Magnesium Hydrox/Alum Hydrox 30 Ml Oral.Susp) 30 ml PO Q6H PRN PRN Reason: Heartburn/Nausea Albuterol Sulfate (Albuterol Sulfate 90 Mcg 8 Gm Inhaler) 2 puff INHALE Q4H PRN PRN Reason: wheezing Last Admin: 01/19/23 12:29 Dose: 2 puff Benztropine Mesylate (Benztropine Mesylate 0.5 Mg Tablet) 0.5 mg PO BID [facility] Last Admin: 01/19/23 08:13 Dose: 0.5 mg Divalproex Sodium (Divalproex Sodium Er 500 Mg Tab.Er.24h) 1,500 mg PO BEDTIME [facility] Last Admin: 01/18/23 20:07 Dose: 1,500 mg Folic Acid (Folic Acid 1 Mg Tablet) 1 mg PO DAILY [facility] Last Admin: 01/19/23 08:27 Dose: 1 mg Gabapentin (Gabapentin 100 Mg Capsule) 100 mg PO TID [facility] Last Admin: 01/19/23 14:21 Dose: 100 mg Haloperidol (Haloperidol 5 Mg Tablet) 5 mg PO Q4H PRN PRN Reason: Restlessness Last Admin: 01/16/23 15:55 Dose: 5 mg Hydroxyzine HCl (Hydroxyzine Hcl 25 Mg Tablet) 25 mg PO Q6H PRN PRN Reason: Anxiety Last Admin: 01/19/23 02:42 Dose: 25 mg Ibuprofen (Ibuprofen 600 Mg Tablet) 600 mg PO Q6H PRN PRN Reason: Pain, Moderate(Pain Scale 4-6) Last Admin: 01/18/23 08:07 Dose: 600 mg Levothyroxine Sodium (Levothyroxine Sodium 75 Mcg Tablet) 75 mcg PO DAILY@0630 [facility] Last Admin: 01/19/23 05:55 Dose: 75 mcg Lidocaine (Lidocaine 4 % Patch Adh..Patch) 1 patch TRANSDERMA DAILY PRN; Protocol PRN Reason: lower back pain Last Admin: 01/11/23 08:38 Dose: 1 patch Lisinopril (Lisinopril 10 Mg Tablet) 10 mg PO DAILY [facility]; Protocol Last Admin: 01/19/23 08:13 Dose: 10 mg Magnesium Hydroxide (Milk Of Magnesia 30 Ml Oral.Susp) 30 ml PO DAILY PRN PRN Reason: Constipation Methadone HCl (Methadone Hcl 20 Mg/2 Ml Oral.Conc) 40 mg PO DAILY [facility] Last Admin: 01/19/23 08:13 Dose: 40 mg Multivitamins/Vitamin C (Multivitamin Tablet) 1 tab PO DAILY [facility] Last Admin: 01/19/23 08:13 Dose: 1 tab Nicotine (Nicotine 21 Mg Patch.Td24) 21 mg TRANSDERMA DAILY PRN PRN Reason: smoking cessation Last Admin: 01/19/23 08:25 Dose: 21 mg Nicotine Polacrilex (Nicotine Polacrilex 2 Mg Gum) 4 mg BUCCAL Q2H PRN PRN Reason: Nicotine Cravings Last Admin: 01/19/23 15:40 Dose: 4 mg Ondansetron HCl (Ondansetron Odt 4 Mg Tab.Rapdis) 4 mg TRANSLINGU Q6H PRN PRN Reason: Nausea Last Admin: 01/11/23 20:18 Dose: 4 mg Risperidone (Risperidone 2 Mg Tablet) 2 mg PO DAILY [facility] Last Admin: 01/19/23 08:13 Dose: 2 mg Risperidone (Risperidone 2 Mg Tablet) 4 mg PO BEDTIME [facility] Last Admin: 01/18/23 20:08 Dose: 4 mg Senna (Senna [place] Extract Oral Syrup 15 Ml Syrup) 15 ml PO BEDTIME [facility] Last Admin: 01/18/23 20:12 Dose: Not Given Thiamine HCl (Thiamine Hcl 100 Mg Tablet) 100 mg PO DAILY [facility] Last Admin: 01/19/23 08:13 Dose: 100 mg Trazodone HCl (Trazodone Hcl 50 Mg Tablet) 50 mg PO BEDTIME MRX1 PRN PRN Reason: Insomnia Last Admin: 01/17/23 21:27 Dose: 50 mg Allergies Allergies Allergy/AdvReac Type Severity Reaction Status Date / Time clozapine [CLOZAPINE] Allergy Unknown UNKNOWN Verified 12/27/21 19:05 olanzapine [From ZYPREXA] Allergy Unknown UNKNOWN Verified 12/27/21 19:05 shellfish derived Allergy Unknown UNKNOWN Verified 12/27/21 19:05 [SHELLFISH DERIVED] Assessment & Plan Assessment & Plan (1) Schizoaffective disorder: Status: Acute Code(s): F25.9 - Schizoaffective disorder, unspecified (2) Cocaine use disorder: Status: Acute Code(s): F14.10 - Cocaine abuse, uncomplicated (3) Opioid use disorder, severe, on maintenance therapy: Status: Acute Code(s): F11.20 - Opioid dependence, uncomplicated Plan restart outpt methadone dose of 40 mg daily; comfort meds for opioid withdrawal beyond that. utox negative for cocaine, no withdrawal syndrome anticipated. restart home medications regimen for schizoaffective disorder. Hospital course: 01/10 Patient reports that she is definitely doing better than on admission; still feels tired and weak but better. No SI; eating and sleeping well. She continues to have auditory hallucinations but much less intense than before. Patient reports that she still has withdrawal symptoms and marketing underwriter agreed to increase dose to methadone 50 mg since she got 10 mg last night via on-call provider. She reports ongoing back pain due to sciatica and asks for gabapentin; marketing underwriter discussed that will hold off from adding gabapentin for now but would add Flexeril and a lidocaine patch to which patient was appreciative. Continue lisinopril 5 mg daily for now; although Patient with elevated BP, recent history is mixed with normal BP he has so will leave on current dose of lisinopril for now. 01/11: remains sedated. cut back on ativan PRNs, DC flexeril. declined to start gabapentin again today, as it is a drug widely abused by heroin addicts, and there is no indication for her to take it. agreeable to reduce risperidone from 3 BID to 2 BID due to sedation. would like to continue methadone at 50 mg daily. asking about when she will discharge. 01/12: DCed more sedating PRNs. pt angry and verbally aggressive on being told no ativan or gabapentin. c/o worsened AH, risperidone increased back to 3 BID. 01/13: less sedated, but still somnolent. pt requests methadone dose reduction back to 40 mg daily. continue current mgmt otherwise. check labs tomorrow night. 01/14: less sedated than yesterday. labs ordered for tonight. redistribute risperidone from 3 BID to 2/4. otherwise continue current mgmt. 01/15: Patient presents calm, cooperative, pleasant. She reports feeling okay today; slept well. Pt stated, I'm feeling better than when I came here . Denies SI/HI/VH. reports some voices on and off . Continue current tx plan. 01/16: Patient reports feeling more than good today. Pt stated, my goal is to find an apartment but I'm just worried about the location because I don't want to use again . Social with peers. Reports sleeping well. denies SI/HI/VH/AH. Waiting to hear back from outpatient team regarding them pursuing [place] 35. Continue current tx plan. 01/17: Social with peers. Pt reports feeling pretty well and better than any of my other hospitalizations . She reports having auditory hallucinations; pt stated, they are little voices here and there. They don't bother me . Denies SI/HI/VH. Per socially responsible investment adviser, her outpatient team is going to pursue the section 35 and [place] be [place] [facility] [place]. 01/18: Start GBP 100 mg TID targeting back pain and sciatica. Continue other management and treatment plan as is. 01/19: Continue current management and treatment plan. Reason for continued inpatient stay Substantial Risk for: harm to self and rapid decompensation Time Spent With Patient Time: Total time managing care of this patient today ____ minutes.
[2023-01-19 19:57] VITALS: BP 133/61; PULSE 69; RESP 18; TEMP 36.1; O2SAT 100
[2023-01-19] MEDS: traZODone HCL 50 MG TABLET PO (20:24)
[2023-01-19] MEDS: risperiDONE 2 MG TABLET 4 MG PO (20:24)
[2023-01-19] MEDS: Divalproex Sodium ER 500 MG TAB.ER.24H 1500 MG PO (20:24)
[2023-01-19] MEDS: Simethicone 80 MG TAB.CHEW PO (21:03)
[2023-01-19] MEDS: Nicotine Polacrilex Lozenge 4 MG LOZENGE BUCCAL (21:18)
[2023-01-20] MEDS: Nicotine Polacrilex Lozenge 4 MG LOZENGE BUCCAL ×3 (03:45→14:17)
[2023-01-20 07:50] VITALS: BP 127/61; PULSE 99; RESP 18; TEMP 35.8; O2SAT 96
[2023-01-20] MEDS: Levothyroxine Sodium 75 MCG TABLET PO (08:08)
[2023-01-20] MEDS: lisinopriL 10 MG TABLET PO (08:09)
[2023-01-20] MEDS: Multivitamin TABLET 1 TAB PO (08:09)
[2023-01-20] MEDS: Folic Acid 1 MG TABLET PO (08:09)
[2023-01-20] MEDS: risperiDONE 2 MG TABLET PO (08:09)
[2023-01-20] MEDS: Gabapentin 100 MG CAPSULE PO ×3 (08:09→20:04)
[2023-01-20] MEDS: Thiamine HCL 100 MG TABLET PO (08:09)
[2023-01-20] MEDS: methADONE HCl 20 MG/2 ML ORAL.CONC 40 MG PO (08:10)
[2023-01-20] MEDS: Benztropine Mesylate 0.5 MG TABLET PO ×2 (08:10→20:03)
[2023-01-20] MEDS: Nicotine 21 MG PATCH.TD24 TRANSDERMA (08:17)
[2023-01-20] MEDS: Acetaminophen 325 MG TABLET 650 MG PO ×2 (10:11→17:28)
[2023-01-20] MEDS: hydrOXYzine HCL 25 MG TABLET PO (13:21)
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
[2023-01-20] MEDS: diphenhydrAMINE HCL 25 MG CAPSULE PO (16:23)
[2023-01-20] MEDS: Nicotine Polacrilex 2 MG GUM 4 MG BUCCAL ×3 (16:42→20:59)
[2023-01-20 20:00] VITALS: BP 124/60; PULSE 66; TEMP 36.4; O2SAT 99
[2023-01-20] MEDS: traZODone HCL 50 MG TABLET PO ×2 (20:04→21:45)
[2023-01-20] MEDS: risperiDONE 2 MG TABLET 4 MG PO (20:04)
[2023-01-20 20:37] LABS: Basophils Percent Auto 0.5 % (0-2); Eosinophils Absolute Auto 0.2 X10*3/uL (0.0-0.4); Eosinophils Percent Auto 2.4 % (0-4); Hematocrit 35.7 % (37.0-47.0); Hemoglobin 11.1 g/dl (12.0-16.0); Imm Gran Abs Auto 0.02 X10*3/uL (0.00-0.03); Imm Gran Pct Auto 0.3 % (0.0-0.4); Lymphocytes Absolute Auto 2.8 X10*3/uL (1.2-4.9); Lymphocytes Percent Auto 37.6 % (20-40); MANUAL DIFF FLAG NO; Mean Corpuscular HGB Conc 31.1 g/dl (31.0-35.0); Mean Corpuscular Hemoglobin 25.9 pg (27.0-33.0); Mean Corpuscular Volume 83.4 fL (80.0-98.0); Mean Platelet Volume 9.7 fL (9.4-12.3); Monocytes Absolute Auto 0.7 X10*3/uL (0.1-1.2); Monocytes Percent Auto 9.9 % (2-11); Neutrophils Absolute Auto 3.6 x10*3/uL (2.0-8.3); Neutrophils Percent Auto 49.3 % (45-73); Platelet Count 149 X10*3/uL (160-400); Red Blood Count 4.28 X10*6/uL (4.20-5.50); Red Cell Distribution Width 17.8 % (11.0-16.0); White Blood Count 7.4 X10*3/uL (4.8-10.8)
[2023-01-20 20:58] LABS: Valproate 54.7 mcg/mL (50.0-100.0)
[2023-01-20 21:01] LABS: Alanine Aminotransferase 20 U/L (0-31); Alkaline Phosphatase 79 U/L (39-117); Anion Gap 12 (12-20); Aspartate Amino Transferase 26 U/L (5-31); Bilirubin Direct 0.1 mg/dL (0.0-0.5); Bilirubin Total 0.3 mg/dL (0.0-1.0); Blood Urea Nitrogen 21 mg/dL (9-16); Calcium 9.4 mg/dL (8.4-10.2); Carbon Dioxide 31 mmol/L (22-29); Chloride 100 mmol/L (96-108); Creatinine Clr Calc Pharmacy 97.5; Estimated Glomerular Filt Rate > 60; Glucose Random 93 mg/dL (60-115); Potassium 4.7 mmol/L (3.3-5.1); Sodium 138 mmol/L (135-145); Total Protein 8.2 g/dL (6.5-8.0)
[2023-01-20] MEDS: Divalproex Sodium ER 500 MG TAB.ER.24H 1500 MG PO (22:15)
[2023-01-21] MEDS: Levothyroxine Sodium 75 MCG TABLET PO (05:57)
[2023-01-21] MEDS: Acetaminophen 325 MG TABLET 650 MG PO ×2 (05:57→11:48)
[2023-01-21] MEDS: diphenhydrAMINE HCL 25 MG CAPSULE PO ×2 (05:57→12:02)
[2023-01-21] MEDS: Nicotine Polacrilex 2 MG GUM 4 MG BUCCAL (06:25)
[2023-01-21 07:15] VITALS: BP 139/60; PULSE 72; RESP 16; TEMP 36.3; O2SAT 98
[2023-01-21] MEDS: Nicotine 21 MG PATCH.TD24 TRANSDERMA (08:29)
[2023-01-21] MEDS: lisinopriL 10 MG TABLET PO (08:31)
[2023-01-21] MEDS: methADONE HCl 20 MG/2 ML ORAL.CONC 40 MG PO (08:31)
[2023-01-21] MEDS: Gabapentin 100 MG CAPSULE PO (08:32)
[2023-01-21] MEDS: Thiamine HCL 100 MG TABLET PO (08:32)
[2023-01-21] MEDS: Folic Acid 1 MG TABLET PO (08:32)
[2023-01-21] MEDS: risperiDONE 2 MG TABLET PO (08:32)
[2023-01-21] MEDS: Benztropine Mesylate 0.5 MG TABLET PO (08:32)
[2023-01-21] MEDS: Multivitamin TABLET 1 TAB PO (08:33)
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
== END 2023-01-21 13:05 | disposition home or self-care (01) | DRG 750 ==
PROVIDERS: Registered Nurse; Admitting Provider Psychiatry & Neurology Psychiatry; Visit Provider Psychiatry & Neurology Psychiatry
DX: F25.9 Schizoaffective disorder, unspecified (principal); E03.9 Hypothyroidism, unspecified; F11.20 Opioid dependence, uncomplicated; F14.10 Cocaine abuse, uncomplicated; I10 Essential (primary) hypertension; J45.909 Unspecified asthma, uncomplicated; F17.210 Nicotine dependence, cigarettes, uncomplicated; Z71.6 Tobacco abuse counseling; Z59.02 Unsheltered homelessness; Z79.890 Hormone replacement therapy; Z79.899 Other long term (current) drug therapy
CPT/HCPCS: 36415; 80048; 80061; 80076; 80164; 82140; 83036; 85025

== ENCOUNTER → 2023-01-09 00:39 | Outpatient (BNV) | payer MEDICAID, SELFPAY | PROVIDERS: Admitting Provider Psychiatry & Neurology Psychiatry; Visit Provider Family Medicine | DX: Z02.2 Encounter for examination for admission to residential institution (principal) | CPT/HCPCS: 99429 ==

== ENCOUNTER → 2023-01-09 00:39 | Outpatient (BNV) | payer OTHER, SELFPAY | PROVIDERS: Admitting Provider Psychiatry & Neurology Psychiatry; Visit Provider Psychiatry & Neurology Psychiatry | DX: F25.0 Schizoaffective disorder, bipolar type (principal); F14.10 Cocaine abuse, uncomplicated; F11.20 Opioid dependence, uncomplicated | CPT/HCPCS: 99231; 99232; 99233 ==